=== PATIENT | female | born 1970 | race Caucasian/White ===

== ENCOUNTER → 2018-02-11 17:00 | Outpatient (CLI) | payer OTHER, SELFPAY ==
--- NOTE | 2018-02-11 17:00 | BI_ITS ---
MAMMOGRAPHY - BILATERAL SCREENING REASON FOR EXAM: Female, 47 years old. Routine annual screening examination. PERTINENT HISTORY: Non-contributory. TECHNIQUE: Digital bilateral breast blossom (3D mammographic acquisition) in the CC and MLO projections. 2-D mediolateral oblique (MLO) and craniocaudad (CC) views of both breasts were obtained. CAD: Full Field Digital Mammography with Computer Added Detection was performed. COMPARISON: Comparison is made with prior outside examination dated August 29, 2016. FINDINGS: Breast Composition: There are scattered areas of fibroglandular density. There are no dominant masses or suspicious calcifications. No other significant abnormalities are identified. There has been no significant change since the prior study. BI/SCREENING MAMM (CAD), BILAT IMPRESSION: Stable bilateral screening mammogram. Yearly follow-up mammogram recommended. (A) ASSESSMENT CATEGORY: BIRADS Category 1: Negative. A letter regarding these results will be sent to the patient by the facility within 30 days. Approximately 10% of breast cancers are not detected by mammography. A normal mammogram should not delay biopsy of a clinically suspicious abnormality. [id number] Electronically Signed: Warren Chaudhary MD at 8:47 EST Tel [phone], Service support ,
== END ==
PROVIDERS: Family Provider Internal Medicine; PCP Internal Medicine; Referring Provider Obstetrics & Gynecology; Visit Provider Obstetrics & Gynecology
DX: Z12.31 Encounter for screening mammogram for malignant neoplasm of breast (principal)
CPT/HCPCS: 77063; 77067

== ENCOUNTER → 2018-03-06 09:51 | Outpatient (CLI) | payer OTHER, SELFPAY ==
--- NOTE | 2018-03-06 09:57 | ECHOD_ITS ---
Reason For Study: splinter hemorrhage of fingernail. Procedure This was a 2D Doppler, Color Flow transthoracic echocardiogram. The exam was of adequate technical quality. Exam performed in department. Left Ventricle Normal LV size. Left ventricular systolic function is normal. The estimated ejection fraction is 55 %. Transmitral doppler flow suggestive of impaired relaxation of left ventricle. No regional wall motion abnormalities noted. Right Ventricle Normal RV size. Normal systolic function. Atria Normal left atrium. Normal right atrium. No doppler evidence for ASD. Bubble contrast study negative for right to left interatrial shunt. Mitral Valve There is no mitral annular calcification. Mild diffuse mitral valve thickening. Mild (1+) mitral valve insufficiency. Tricuspid Valve Normal tricuspid valve. Trivial tricuspid valve insufficiency. Right ventricular systolic pressure estimated to be 21 mmHg. Aortic Valve Trisinus/trileaflet aortic valve. Normal aortic valve. Pulmonic Valve The pulmonic valve is not well visualized. Great Vessels Normal sized aortic root. Pericardium/Pleural No pericardial effusion. Medication 22 gauge I.V. with prn adaptor inserted into right arm. Performed a rapid injection of agitated mix of 9 cc saline and 1cc air to assess for atrial septal defect. MMode/2D Measurements & Calculations LVIDd: 5.0 cm IVSd: 0.89 cm Ao root diam: 2.9 cm LVIDs: 3.6 cm LVPWd: 0.78 cm RVDd: 3.2 cm FS: 29.5 % LAV(MOD-bp): 53.0 ml LA A4 area: 17.9 cm2 LA dimension(2D): 3.7 cm LAV(MOD-bp) Indexed: 26.8 ml/m2 LAV(MOD-sp2): 56.8 ml LAV(MOD-sp4): 49.2 ml RA A4 area: 11.3 cm2 Time Measurements MV dec time: 0.17 sec Doppler Measurements & Calculations MV E max kevin: 72.8 cm/sec Lat Peak E' Kevin: 11.4 cm/sec Med Peak E' Kevin: 5.6 cm/sec MV A max kevin: 93.7 cm/sec E/E' lat: 6.4 E/E' med: 13.0 MV E/A: 0.78 Ao V2 max: 125.2 cm/sec LV V1 max: 89.4 cm/sec PA V2 max: 82.6 cm/sec Ao max P.3 mmHg LV V1 max P.2 mmHg TR max kevin: 210.7 cm/sec TR max P.8 mmHg Interpretation Summary Left ventricular systolic function is normal. The estimated ejection fraction is 55 %. Mild diffuse mitral valve thickening. Mild (1+) mitral valve insufficiency. Trivial tricuspid valve insufficiency. Right ventricular systolic pressure estimated to be 21 mmHg. Transmitral doppler flow suggestive of impaired relaxation of left ventricle Bubble contrast study negative for right to left interatrial shunt. Ordering Physician: Nadine Villa Referring Physician: Nadine Villa Performed By: Nicole Senior RDCS, RVT
== END ==
PROVIDERS: Family Provider Internal Medicine; PCP Internal Medicine; Referring Provider Internal Medicine; Visit Provider Internal Medicine
DX: L60.8 Other nail disorders (principal)
CPT/HCPCS: 93306; A4216

== ENCOUNTER → 2018-09-17 | Outpatient (CLI) | payer OTHER, SELFPAY ==
[2018-08-20 16:14] VITALS: BMI 34.4
--- NOTE | 2018-09-17 13:45 | US_ITS ---
STUDY: ULTRASOUND TRANSVAGINAL CLINICAL: Female, 48 years old. Post menopausal bleeding TECHNIQUE: Transabdominal and Transvaginal COMPARISON: None. FINDINGS: The uterus measures 7.4 x 5.7 x 4.5 cm. There are no focal uterine lesions. The endometrium measures 4 mm and is hyperechoic. The ovaries are not visualized. There is free fluid noted in the pelvis. US/Transvaginal Non- IMPRESSION: Normal uterus. Ovaries not visualized. Pelvic free fluid. Electronically Signed: Branden Sotomayor, at 20:13 EDT Tel , Service support ,
--- NOTE | 2018-09-17 13:45 | US_ITS ---
STUDY: ULTRASOUND TRANSVAGINAL CLINICAL: Female, 48 years old. Post menopausal bleeding TECHNIQUE: Transabdominal and Transvaginal COMPARISON: None. FINDINGS: The uterus measures 7.4 x 5.7 x 4.5 cm. There are no focal uterine lesions. The endometrium measures 4 mm and is hyperechoic. The ovaries are not visualized. There is free fluid noted in the pelvis. US/Pelvic (Non ) IMPRESSION: Normal uterus. Ovaries not visualized. Pelvic free fluid. Electronically Signed: Branden Sotomayor, at 20:13 EDT Tel , Service support ,
== END | disposition home or self-care (01) ==
LOC: US 13:44
PROVIDERS: Family Provider Internal Medicine; PCP Internal Medicine; Referring Provider Nurse Practitioner Women's Health; Visit Provider Nurse Practitioner Women's Health
DX: N95.0 Postmenopausal bleeding (principal)
CPT/HCPCS: 76830; 76856

== ENCOUNTER → 2020-09-22 08:42 | Outpatient (CLI) | payer OTHER, SELFPAY ==
--- NOTE | 2020-09-22 08:45 | BI_ITS ---
MAMMOGRAPHY - BILATERAL SCREENING REASON FOR EXAM: Female, 50 years old. Routine annual screening examination. PERTINENT HISTORY: Non-contributory. TECHNIQUE: Digital bilateral breast vickie (3D mammographic acquisition) in the CC and MLO projections. 2-D mediolateral oblique (MLO) and craniocaudad (CC) views of both breasts were obtained. CAD: Full Field Digital Mammography with Computer Added Detection was performed. COMPARISON: Comparison is made with prior examination dated 02/11/2018. FINDINGS: Breast Composition: There are scattered areas of fibroglandular density. There are no dominant masses or suspicious calcifications. Stable small benign-appearing bilateral axillary lymph nodes. No other significant abnormalities are identified. There has been no significant change since the prior study. BI/SCRN MAMM (CAD)W/VICKIE BILAT IMPRESSION: Stable bilateral screening mammogram. Yearly follow-up mammogram recommended. (A) ASSESSMENT CATEGORY: BIRADS Category 2: Benign. A letter regarding these results will be sent to the patient by the facility within 30 days. Approximately 10% of breast cancers are not detected by mammography. A normal mammogram should not delay biopsy of a clinically suspicious abnormality. [id number] Electronically Signed: Warren Chaudhary MD at 9:34 EDT , Service support ,
--- NOTE | 2020-09-22 09:16 | BD_ITS ---
STUDY: DUAL ENERGY X-RAY ABSORPTIOMETRY / DXA REASON FOR EXAM: Female, 50 years old. Postmenopausal female TECHNIQUE: Bone Mineral Density (BMD) measurements of lumbar spine and bilateral hips were obtained. COMPARISON: None. FINDINGS: Lumbar Spine (L1-L4): g/cm2 (0.868) / T-score (-1.6) / Z-score (-0.7) Findings are suggestive of osteopenia with a moderate fracture risk. Left Femur Total: g/cm2 (0.800) / T-score (minus 1.) / Z-score (-0.7) Left Femoral Neck: g/cm2 (0.689) / T-score (-1.4) / Z-score (-0.6) Right Femur Total: g/cm2 (0.802) / T-score (-1.1) / Z-score (-0.6) Right Femoral Neck: g/cm2 (0.623) / T-score (-2.0) / Z-score (-1.2) BD/Dexa Bone Density Study IMPRESSION: The patient is considered osteopenic as outlined below according to World Castro Organization (WHO) criteria with a moderate fracture risk. Reference Information: The T-score is the number of standard deviations above or below the standard which is normal for young adults at their peak bone mineral density. The World Health Organization (WHO) interprets the T-scores as follows: Above -1 Normal bone density Between -1 and -2.5 Osteopenia Equal to / or below -2.5 Osteoporosis As a practical clinical guideline, osteopenia may be graded as follows: Mild -1 through -1.5 Moderate -1.6 through -2.0 Severe -2.1 through -2.4 The Z-score is the number of standard deviations above or below age-matched controls. A Z-score of less than -1.5 would be considered abnormal. References: 1. NIH Osteoporosis and Related Bone Diseases www osteo.org 2. International Society for Clinical Densitometry www iscd.org 3. National Osteoporosis Foundation www nof.org Electronically Signed: Duncan Singh DO at 23:42 EDT Tel [phone], Service support ,
== END ==
PROVIDERS: PCP Internal Medicine; Referring Provider Internal Medicine; Visit Provider Internal Medicine
DX: Z78.0 Asymptomatic menopausal state (principal); Z12.31 Encounter for screening mammogram for malignant neoplasm of breast
CPT/HCPCS: 77063; 77067; 77080

== ENCOUNTER → 2020-12-20 16:50 | Outpatient (CLI) | payer OTHER, SELFPAY | PROVIDERS: PCP Internal Medicine; Referring Provider Nurse Practitioner Women's Health; Visit Provider Nurse Practitioner Women's Health | DX: R39.15 Urgency of urination (principal); R10.2 Pelvic and perineal pain | CPT/HCPCS: 87086; 87088 ==

== ENCOUNTER → 2020-12-26 08:52 | Outpatient (CLI) | payer OTHER, SELFPAY ==
--- NOTE | 2020-12-26 08:55 | US_ITS ---
EXAM: US PELVIS TRANSABDOMINAL AND TRANSVAGINAL, COMPLETE : 1970 CLINICAL INDICATION: pelvic pain TECHNIQUE: Transabdominal and transvaginal pelvic ultrasound was performed with grayscale and color Doppler imaging. Transvaginal imaging was used for better evaluation of the endometrium and adnexa. This report was created using [employer] report generation technology. COMPARISON: None. FINDINGS: UTERUS/CERVIX: The uterus measures 6.9 x 3.8 4.9 cm. The endometrium measures 2 mm. Anteverted. There is no uterine mass. RIGHT OVARY: The right ovary was not visualized. LEFT OVARY: The left ovary measures 2.4 x 1.2 x 1.7 cm. Blood flow is present in the left ovary. FREE FLUID: None. BLADDER: Unremarkable as visualized. Wall is normal thickness for degree of distention. US/Transvaginal Non- IMPRESSION: No acute abnormalities. The right ovary is not visualized. at 0256 Reported and signed by: Rob Ybarra MD Electronically Signed: Rob Ybarra MD at 2:55 EDT Tel , Service support ,
--- NOTE | 2020-12-26 08:55 | US_ITS ---
EXAM: US PELVIS TRANSABDOMINAL AND TRANSVAGINAL, COMPLETE : 1970 CLINICAL INDICATION: pelvic pain TECHNIQUE: Transabdominal and transvaginal pelvic ultrasound was performed with grayscale and color Doppler imaging. Transvaginal imaging was used for better evaluation of the endometrium and adnexa. This report was created using [employer] report generation technology. COMPARISON: None. FINDINGS: UTERUS/CERVIX: The uterus measures 6.9 x 3.8 4.9 cm. The endometrium measures 2 mm. Anteverted. There is no uterine mass. RIGHT OVARY: The right ovary was not visualized. LEFT OVARY: The left ovary measures 2.4 x 1.2 x 1.7 cm. Blood flow is present in the left ovary. FREE FLUID: None. BLADDER: Unremarkable as visualized. Wall is normal thickness for degree of distention. US/Pelvic (Non ) IMPRESSION: No acute abnormalities. The right ovary is not visualized. at 0256 Reported and signed by: Rob Ybarra MD Electronically Signed: Rob Ybarra MD at 2:55 EDT Tel , Service support ,
== END ==
PROVIDERS: PCP Internal Medicine; Referring Provider Nurse Practitioner Women's Health; Visit Provider Nurse Practitioner Women's Health
DX: R10.2 Pelvic and perineal pain (principal)
CPT/HCPCS: 76830; 76856

== ENCOUNTER 2021-03-10 14:24 | Outpatient (CLI) | payer OTHER, SELFPAY ==
[2021-03-10 14:27] VITALS: BP 131/85; PULSE 71; RESP 16; TEMP 36.8; O2SAT 99; BMI 29.1
[2021-03-10] MEDS: 0.9% Saline Lock 10 ML Syringe IV (14:34)
[2021-03-10 15:16] VITALS: BP 123/83; PULSE 69; RESP 16; TEMP 37; O2SAT 98
[2021-03-10 16:11] VITALS: BP 122/81; PULSE 73; RESP 16; TEMP 37.1; O2SAT 99
== END 2021-03-10 16:16 | disposition home or self-care (01) ==
LOC: MS3OUT 14:25 → MS3 14:25
PROVIDERS: PCP Internal Medicine; Referring Provider Nurse Practitioner Acute Care; Visit Provider Nurse Practitioner Acute Care
DX: Z23 Encounter for immunization (principal); U07.1 COVID-19
CPT/HCPCS: J7050; M0243; A4216; Q0244

== ENCOUNTER → 2021-09-26 | Outpatient (CLI) | payer OTHER, SELFPAY ==
--- NOTE | 2021-09-26 07:18 | BI_ITS ---
MAMMOGRAPHY - BILATERAL SCREENING REASON FOR EXAM: Female, 51 years old. Routine annual screening examination. PERTINENT HISTORY: Non-contributory. TECHNIQUE: Digital bilateral breast vickie (3D mammographic acquisition) in the CC and MLO projections. 2-D mediolateral oblique (MLO) and craniocaudad (CC) views of both breasts were obtained. CAD: Full Field Digital Mammography with Computer Added Detection was performed. COMPARISON: Comparison is made with prior study dated 09/22/2020 and 02/11/2018. FINDINGS: Breast Composition: There are scattered areas of fibroglandular density. There are no dominant masses or suspicious calcifications. Stable small benign-appearing bilateral axillary lymph nodes. No other significant abnormalities are identified. There has been no significant change since the prior study. BI/SCRN MAMM (CAD)W/VICKIE BILAT IMPRESSION: Stable bilateral screening mammogram. Yearly follow-up mammogram recommended. (A) ASSESSMENT CATEGORY: BIRADS Category 2: Benign. A letter regarding these results will be sent to the patient by the facility within 30 days. Approximately 10% of breast cancers are not detected by mammography. A normal mammogram should not delay biopsy of a clinically suspicious abnormality. [id number] Electronically Signed: Warren Chaudhary MD at 11:02 EDT ,
== END | disposition home or self-care (01) ==
LOC: OPBI 07:17
PROVIDERS: PCP Internal Medicine; Referring Provider Nurse Practitioner Women's Health; Visit Provider Nurse Practitioner Women's Health
DX: Z12.31 Encounter for screening mammogram for malignant neoplasm of breast (principal)
CPT/HCPCS: 77063; 77067

== ENCOUNTER → 2022-01-29 | Outpatient (CLI) | payer OTHER, SELFPAY ==
--- NOTE | 2022-01-29 17:06 | RAD_ITS ---
EXAM: XR BILATERAL HIPS WITH PELVIS WHEN PERFORMED, 2 VIEWS CLINICAL INDICATION: PAIN TECHNIQUE: Frontal view of the bilateral hips with pelvis when performed. This report was created using [employer] report generation technology. COMPARISON: None. FINDINGS: BONES/JOINTS: There are degenerative changes in the left hip with joint space narrowing. No displaced fracture. No destructive or sclerotic lesions. Note that overlapping bowel shadows may however obscure fine detail. Sacroiliac joint is unremarkable. No widening of the pubic symphysis. SOFT TISSUES: Unremarkable. No soft tissue swelling or gas. RAD/Hips B/L min 2 views w/ Pelvis IMPRESSION: Degenerative changes in the left hip with narrowing of the hip joint space. There are no acute osseous abnormalities. Electronically Signed: Rob Ybarra MD at 23:53 EST ,
--- NOTE | 2022-01-29 17:06 | RAD_ITS ---
EXAM: XR LUMBOSACRAL SPINE, 2 OR 3 VIEWS CLINICAL INDICATION: PAIN TECHNIQUE: Frontal and lateral views of the lumbar spine and sacrum. This report was created using [employer] report [employer] technology. COMPARISON: None. FINDINGS: VERTEBRAE: Unremarkable. Preserved vertebral body height. No fracture. No spondylolisthesis. Preservation of the normal lumbar lordosis. No significant facet arthropathy. DISC SPACES: No acute findings. Disc spaces are maintained. GASTROINTESTINAL TRACT: Unremarkable as visualized. Included bowel gas pattern is non-obstructive. RAD/Lumbar Spine 2 or 3 Views IMPRESSION: No evidence of lumbar spinal fracture or spondylolisthesis. Electronically Signed: Rob Ybarra MD at 23:52 EST ,
== END | disposition home or self-care (01) ==
PROVIDERS: PCP Internal Medicine; Referring Provider Internal Medicine; Visit Provider Internal Medicine
DX: M25.551 Pain in right hip (principal); M25.552 Pain in left hip
CPT/HCPCS: 72100; 73521

== ENCOUNTER → 2023-10-01 | Outpatient (CLI) | payer OTHER, SELFPAY ==
--- NOTE | 2023-10-01 07:40 | BI_ITS ---
MAMMOGRAPHY - BILATERAL SCREENING REASON FOR EXAM: Female, 53 years old. Routine annual screening examination. PERTINENT HISTORY: Non-contributory. TECHNIQUE: Digital bilateral breast vickie (3D mammographic acquisition) in the CC and MLO projections. 2-D mediolateral oblique (MLO) and craniocaudad (CC) views of both breasts were obtained. CAD: Full Field Digital Mammography with Computer Added Detection was performed. COMPARISON: Comparison is made with prior study dated September 26, 2021 and September 22, 2020. FINDINGS: Breast Composition: There are scattered areas of fibroglandular density. There are no dominant masses or suspicious calcifications. No other significant abnormalities are identified. There has been no significant change since the prior study. BI/SCRN MAMM (CAD)W/VICKIE BILAT IMPRESSION: Stable bilateral screening mammogram. Yearly follow-up mammogram recommended. (A) ASSESSMENT CATEGORY: BIRADS Category 1: Negative. A letter regarding these results will be sent to the patient by the facility within 30 days. Approximately 10% of breast cancers are not detected by mammography. A normal mammogram should not delay biopsy of a clinically suspicious abnormality. [id number] Electronically Signed: Warren Chaudhary MD at 8:22 EDT ,
== END | disposition home or self-care (01) ==
LOC: OPBI 07:40
PROVIDERS: PCP Internal Medicine; Referring Provider Nurse Practitioner Women's Health; Visit Provider Nurse Practitioner Women's Health
DX: Z12.31 Encounter for screening mammogram for malignant neoplasm of breast (principal)
CPT/HCPCS: 77063; 77067

== ENCOUNTER → 2023-10-16 | Outpatient (CLI) | payer OTHER, SELFPAY ==
[2023-10-22 14:10] LABS: HPV APTIMA, High Risk Negative (Negative)
== END | disposition home or self-care (01) ==
PROVIDERS: PCP Internal Medicine; Referring Provider Nurse Practitioner Women's Health; Visit Provider Nurse Practitioner Women's Health
DX: Z12.4 Encounter for screening for malignant neoplasm of cervix (principal)
CPT/HCPCS: 87624; 88175; G0145

== ENCOUNTER → 2023-10-22 | Outpatient (CLI) | payer OTHER, SELFPAY ==
--- NOTE | 2023-10-22 09:41 | NM_ITS ---
CLINICAL: 53-year-old female with history of elevation of the serum parathyroid hormone levels. 99m Tc SESTAMIBI DUAL PHASE PARATHYROID SCINTIGRAPHY COMPARISON: None available FINDINGS: Following the intravenous administration of 27.6 mCi of 99m Tc sestamibi, image acquisitions of the anterior neck at 15 minutes and 3.0 hours post radiopharmaceutical provision reveal: 1. Immediate static blood pool acquisitions demonstrate distribution of the radiopharmaceutical in the right-left thyroid colloid of a vaguely U-shaped thyroid gland. The left lobe is larger than right. 2. Delayed images depict incomplete washout of the radiopharmaceutical by the right-left thyroid colloid. No focal persistent increased uptake is noted. NM/Parathyroid Scan IMPRESSION: 1. NEGATIVE 99m Tc SESTAMIBI PARATHYROID IMAGING DUAL PHASE EXAMINATION. 2. Incomplete-delayed washout of the radiopharmaceutical from the entire functioning thyroid colloid may be secondary to multinodular goiter, chronic lymphocytic thyroiditis. (Pham, Radiographics 19: 601, 1999). Electronically Signed: Alexei Lee DO at 8:00 EDT ,
== END | disposition home or self-care (01) ==
LOC: NM 09:40
PROVIDERS: PCP Internal Medicine; Referring Provider Internal Medicine; Visit Provider Internal Medicine
DX: R79.89 Other specified abnormal findings of blood chemistry (principal)
CPT/HCPCS: 78070; A9500

== ENCOUNTER → 2023-10-29 | Outpatient (CLI) | payer OTHER, SELFPAY ==
--- NOTE | 2023-10-29 15:57 | US_ITS ---
STUDY: THYROID ULTRASOUND REASON FOR EXAM: Female, 53 years old. thyroid ultrasound - had abnormal parathyroid scan -- thyroid ultrasound - had abnormal parathyroid scan TECHNIQUE: Ultrasound evaluation of the thyroid was performed with real-time and static cabrera-scale imaging. COMPARISON: None. FINDINGS: RIGHT LOBE: The right lobe of the thyroid gland measures 4.1 x 1.7 x 1.7 cm. There is a homogeneous echotexture. Some tiny (less than 5 mm) colloid cysts. LEFT LOBE: The left lobe of the thyroid gland measures 4.3 x 1.2 x 1.1 cm. There is a homogeneous echotexture. A tiny (less than 5 mm) colloid cyst or adenoma. ISTHMUS: The isthmus measures 2 mm thick. . The regional lymph nodes are normal. US/Thyroid IMPRESSION: Multiple tiny adenomas or colloid cyst. Electronically Signed: Alexei Barth MD at 8:27 EDT ,
== END | disposition home or self-care (01) ==
LOC: US 15:56
PROVIDERS: PCP Internal Medicine; Referring Provider Internal Medicine; Visit Provider Internal Medicine
DX: R93.89 Abnormal findings on diagnostic imaging of other specified body structures (principal)
CPT/HCPCS: 76536

== ENCOUNTER → 2024-10-01 | Outpatient (CLI) | payer OTHER, SELFPAY ==
--- NOTE | 2024-10-01 12:15 | BI_ITS ---
EXAM: SCRN MAMM (CAD)W/VICKIE BILAT DATE: 10/01/2024 CLINICAL HISTORY: F, Age 54 y/o , SCRN MAMM (CAD)W/VICKIE BILAT ([id number]) : DUE AFTER 09/30/24 TECHNIQUE: SCRN MAMM (CAD)W/VICKIE BILAT COMPARISON: Prior exam(s) were compared FINDINGS: TISSUE DENSITY: The breasts are heterogeneously dense, which may obscure small masses. Bilateral Breast Mammographic Findings: No suspicious masses, calcifications or other abnormalities are identified. BI/SCRN MAMM (CAD)W/VICKIE BILAT IMPRESSION: No mammographic evidence of malignancy in either breast. OVERALL FINAL ASSESSMENT BI-RADS 1: NEGATIVE. RECOMMENDATION: Routine annual follow-up in 1 Year A letter with findings and recommendations will be mailed to the patient. Reading Location: [id number]
== END | disposition home or self-care (01) ==
PROVIDERS: PCP Internal Medicine; Referring Provider Internal Medicine; Visit Provider Internal Medicine
DX: Z12.31 Encounter for screening mammogram for malignant neoplasm of breast (principal)
CPT/HCPCS: 77063; 77067

== ENCOUNTER 2024-10-24 14:53 | Emergency (ER) | payer OTHER, SELFPAY ==
[2024-10-24 14:54] VITALS: BP 135/90; PULSE 77; RESP 18; TEMP 35.7; O2SAT 100
--- NOTE | 2024-10-24 15:12 | EDS_ITS ---
HPI History of Present Illness Chief Complaint: Back Informant: patient and spouse/S.O. Narrative Narrative: Patient is a 54-year-old female with history of cardiomyopathy presenting for evaluation of sudden onset of back pain. Patient was bending over and trying to move a radio when she suddenly felt and heard a snap in her back in the lower back midline and to the right. She had immediate pain. She states the pain was so bad that she dropped to her knees. This was approximately 45 minutes prior to arrival. She took 400 mg of ibuprofen before coming in with no relief. She states the pain is in her right lower back and radiates down to her right butt ocks and slightly to her proximal leg. It also radiates slightly on the left but is much more on the right. She denies any numbness or weakness. Has not had to urinate or have a bowel movement since. Symptoms are worse with movement and better when she sits entirely still. She denies any prior history of back issues. Is otherwise been in her normal state of health with no recent weight loss, night sweats or other symptoms. Did have an episode of nausea secondary to pain and feeling she was in a pass out because of the severity of pain. [facility] Medical History History of postmenopausal bleeding Pelvic pain diarrhea lasting more than a week delivery delivered Left hip pain Anemia Cardiomyopathy Home Medications ?Medication ?Instructions ?Recorded ?Last Taken ?Type metoprolol tartrate 50 mg tablet 50 mg PO BID 12/20/20 10/24/24 History hydrocodone-acetaminophen 5-325mg 1 tab PO Q6H PRN PRN Pain 3 days 10/24/24 Unknown Rx 5mg-325mg #12 TABLETS metformin 500 mg tablet,extended 500 mg PO DAILY 10/2410/24/24 History release 24 hr ondansetron 4 mg disintegrating 4 mg PO Q8H PRN PRN Na usea #10 tabs 10/24/24 Unknown Rx tablet prednisone 20 mg tablet 60 mg (3 x 20 mg) PO DAILY # 15 10/24/24 Unknown Rx TABLETS Allergy/AdvReac Type Severity Reaction Status Date / Time Penicillins Allergy Hives Verified 10/24/24 14:54 Family History Other Cancer Cardiomyopathy Diabetes Heart disease Surgical History History of tonsillectomy H/O right heart catheterization Social History Smoking Status: Never smoker alcohol intake: current alcohol intake frequency: holidays/special occasions only substance use type: does not use caffeine: Yes what type of physical activity do you participate in: bicycling frequency: 3-4 times per week seatbelt use: always do you feel safe at home: Yes additional social history: -Neptali ROS ROS ED Constitutional Constitutional ED: Denies chills or fever(s) Gastrointestinal Gastrointestinal: Reports nausea; Denies abdominal pain or vomiting Genitourinary Genitourinary ED: Denies dysuria or hematuria Musculoskeletal Musculoskeletal: Reports back pain; Denies arthralgias or myalgias Integumentary Denies rash Neurologic Neurologic: Denies paresthesias or weakness Psychiatric Psychiatric: Denies anxiety Hematologic/Lymphatic Hematologic/Lymphatic: Denies easy bleeding or easy bruising EXAM Physical Exam Const Vital Signs: 10/24/24 14:54 10/24/24 16:10 Temperature 96.2 F L 96.2 F L Temperature Source Temporal Pulse Rate 77 62 Respiratory Rate 18 16 Blood Pressure 135/90 H 136/79 H Blood Pressure Mean 105 98 Pulse Ox 100 100 Oxygen Delivery Method Room Air Positive well nourished and well developed General Appearance ED: well developed HEENT Reports moist mucous membranes Resp normal respiratory effort and clear to auscultation bilaterally Cardio regular rate and regular rhythm Cardio Narrative: 2+ radial and PT pulses GI normal to inspection, nondistended, normoactive bowel sounds, soft to palpation and no masses Back/Spine Back/Spine Narrative: No midline thoracic or lumbar tenderness. No reproduction of pain with palpation of the paralumbar area. On initial evaluation patient is too uncomfortable to lie flat in the bed and perform straight leg test. Thoracic Spine / Upper Back: Negative for paraspinal muscle tenderness Lumbar Spine / Lower Back: ROM limited Extremity normal to inspection General Extremety ED: Negative for edema or tenderness General Extremity: Negative for edema Neuro oriented x3 Neuro Narrative: Sensation intact in all dermatomes of the lower extremity and equal. 5/5 strength with plantarflexion, dorsiflexion, flexion and extension of the lower legs. It does increase her pain with movement of her legs. Sensorium / Orientation: alert Psych mental status grossly normal Skin no rashes or lesions noted and no wounds MDM MDM MDM Narrative Medical decision making narrative: Patient evaluate for acute onset of low back pain when she was bending down and had a twisting movement. Differential includes herniated disc, muscle spasm, sciatica. She has normal vital signs and a normal neurovascular exam and low suspicion for acute aortic dissection. She does not have midline spinal tenderness low suspicion for spontaneous/pathologic fracture. She does not have any risk factors for epidural abscess and is afebrile. I do not think she requires emergent imaging at this time. Patient is given IV morphine and Zofran. Will reevaluate after this. After receiving morphine patient reevaluated. She is now laying in the bed states she is much more comfortable. Does have pain when she tries to move still but it is manageable. On repeat evaluation she has pain with elevation of the bilateral legs at approximately 65 degrees. No shooting pain with this. Lower suspicion for sciatica. Attempted to ambulate patient. She is able to take a few steps but states she had to sit back down because of pain. Is offered further pain medication such as additional IV morphine or PO [place] but states she would really just like to go home at this point. Patient will be started on as needed [place], Zofran and a course of steroids. Courage follow-up with her primary care doctor this week especially her symptoms persist as she may require physical therapy or advanced imaging. Discussed other things she could use such as heating pad, gentle stretching, TENS units and alternate ibuprofen and Tylenol at home. Did caution that Nikki does have 325 mg of Tylenol in it. Encouraged return to the emergency room should you have progression or worsening of her symptoms. She verbalized agreement understand with this. Discharged home in stable and improved condition. Discharge Plan Triage Chief Complaint: Back ED Provider: Teresa Lopez Dx/Rx/DC Orders Clinical Impression: Acute lumbosacral myofascial strain Instructions: ED Back Pain (Acute or Chronic) Prescriptions: New hydrocodone-acetaminophen 5-325 mg tablet 1 tab PO Q6H PRN PRN (Reason: Pain) 3 Days Qty: 12 0RF ondansetron 4 mg tablet,disintegrating 4 mg PO Q8H PRN PRN (Reason: Nausea) Qty: 10 0RF prednisone 20 mg tablet 60 mg PO DAILY Qty: 15 0RF No Action metoprolol tartrate 50 mg tablet 50 mg PO BID metformin 500 mg tablet extended release 24 hr 500 mg PO DAILY Primary Care Provider: Nadine Villa Referrals: Nadine Villa DO [Primary Care Provider] - Activity Restrictions/Additional Instructions: You may also alternate ibuprofen and Tylenol for pain. He may take up to 600 mg of ibuprofen (3 [id number] tablets) every 6 hours. Do not take more than 1000 mg of Tylenol every 8 hours. Please remember that there is 325 mg of Tylenol and your prescribed pain medication ([place]). Follow-up with your family doctor next week especially if your symptoms persist as you might require further medications, imaging or physical therapy. I do recommend gentle stretching, continue to move around and heat to your back. If your pain becomes severe, you lose control of your bowels or bladder or have numbness/progressing symptoms please return to the emergency room Print Language: Portuguese Disposition Disposition: Home, Self Care
[2024-10-24 15:27] VITALS: BMI 32.3
--- NOTE | 2024-10-24 15:38 | CM.ED ---
Social Work Date of referral: 10/24/24 Reason for referral: Advanced Care Directives (ACD's) not on file. Referred by: Social Work Identification Patient provided consent to social work visit. C Architect requested a copy of ACD's which patient agreed to bring in. Rima Bonilla, PLAY BACK OPERATOR, [employer]
--- OUTSIDE RECORDS SUMMARY | 2024-10-24 15:59 | XMS RPT_ITS | CCD ---
Author Organization [facility] CliniSyct Care Team Providers Care Pipe Caulker Name Role Phone Lani JUNIOR, Katie Javed Unavailable Nadine Mcgraw Unavailable Toshia Pickering Unavailable Unavailable Unavailable Unavailable Selvin Kee Unavailable Unavailable Nadine Mcgraw Unavailable Lorie Ellis Unavailable Unavailable Toshia Rojo Unavailable Unavailable Unavailable Unavailable Sarahi Santoro Unavailable Unavailable Megan Stroud Unavailable Unavailable Lani JUNIOR, Katie Javed Unavailable Toshia Pickering Unavailable Unavailable Unavailable Unavailable Carlos Noguera Unavailable Marianna Ramos Unavailable Unavailable Edwardo Jimenez Unavailable Gravius, Lynda Unavailable Unavailable Scarlett, Karma Unavailable Unavailable Gravius, Lynda Unavailable Unavailable Neyda Laughlin E Unavailable Naomi Brandon Unavailable Unavailable LeopoldoJesus Wilder Unavailable Nahum Piedra Unavailable Selvin Farnsworth Unavailable Unavailable Nadine Mcgraw DO Unavailable Dr. Edwardo Jimenez Unavailable Naomi Brandon LPN Unavailable Unavailable Unavailable Unavailable Selvin Farnsworth LPN Unavailable Unavailable Karma Pantoja LPN Unavailable Unavailable Unavailable Unavailable Nadine Mcgraw DO Primary Care Provider Mitch BRADLEY, Richard Donis Unavailable Meredith Jaimes CMA Unavailable Unavailable Nadine Mcgraw DO Attending Unavailable Nadine Mcgraw DO Consulting Unavailable Lucien Nadine GOMEZ Primary Care Provider Mitch BRADLEY, Richard Donis Unavailable Elsa TRIMMER TAILER, Toy Unavailable Unavailable Slarb TRIMMER TAILER, Snow Unavailable Unavailable Sean ATOMIC FUEL ASSEMBLER, Caity Unavailable Nadine Mcgraw DO Primary Care Provider Richard Meyer MD Unavailable RICHARD MEYER Referring Unavailable RICHARD MEYER Attending Unavailable NADINE MCGRAW Primary Care Unavailab tomy STARRICHARD GALICIA Referring Unavailable LUCIENNADINE Primary Care Unavailab le Lucien , Nadine Pope Primary Care Provider Lucien GOMEZ, Dr. Mccoy Primary Care Provider Wm BRADLEY, Dr. Berry Attending Provider [phone] Lucien GOMEZ, Dr. Mccoy Attending Provider [phone] Lucien GOMEZ, Dr. Mccoy Referring Provider [phone] Lila Mcgrawhleen Primary Care Unavailable Otto LABOR ARBITRATOR HEARING OFFICE, Katie Attending Unavailable LucienNadine Referring Unavailable [facility] LABOR ARBITRATOR HEARING OFFICE, Rafy Watson Attending Unavailable LucienNadine Referring Unavailable Lucien, Nadine Primary Care Unavailable Lucien, Nadine Primary Care Unavailable Lani LABOR ARBITRATOR HEARING OFFICE, Katie Attending Unavailable Otto LABOR ARBITRATOR HEARING OFFICE, Katie Referring Unavailable Lucien, Nadine Primary Care Unavailable LucienNadine Attending Unavailable LucienNadine Referring Unavailable LucienNadine Attending Unavailable Lucien, Nadine Referring Unavailable Lucien, Nadine Primary Care Unavailable Lucien, Nadine Primary Care Unavailable Lucien Nadine Attending Unavailable LucienNadine Referring Unavailable Allergies Allergy Classification Reported Allergen(s) Allergy Type Date of Onset Reaction(s) Facility Penicillins (antibiotic) (9 sources) Penicillins; Translations: [Penicillins] Drug Allergy [facility]; [facility] Work Phone: Comment on above: edema (3 sources) penicillin drug allergy 08-25-19 14 [facility] (5 sources) penicillin v; Translations: [PENICILLIN V POTASSIUM] drug allergy 10-24-19 17 [facility] (20 sources) Penicillins; Translations: [Penicillins] allergy to substance 12-21-19 21 Hives [facility] Work Phone: Comment on above: edema (20 sources) Clarithromycin *CHEMICALS*; Translations: [Clarithromycin *CHEMICALS*] drug allergy Abdominal pain, Diarrhea [facility] Work Phone: (9 sources) Penicillin G; Translations: [PENICILLIN G] Drug Allergy 01-30-20 05 Swelling [facility] Work Phone: Medications Current Medications Medication Drug Class(es) Dates Sig (Normalized) Sig (Original) azithromycin 250 mg oral tablet (9 sources) Macrolide Antimicrobial Start: 04-26-2024 Azithromycin (Zithromax Z-Corey) 250 mg tablet Active 0 PO .COMPLEX 6 0 April 26, 2024 1:00am For 250 mg dose pack: take 500 mg today (day 1), then 250 mg for 4 days (days 2-5) PO Start: 03-09-2021 End: 03-14-2021 Zithromax Z-Corey 250 MG Oral Tablet 1 (one) Tablet as directed for 5 days Quantity: 1 {Packet} Refills: 0 Ordered: 09-Mar-2021 Karma Pantoja LPN Start : 09-Mar-2021 End : 14-Mar-2021 Inactive calcium ascorbate 500 mg oral tablet (2 sources) Start: 12-20-2020 take 1 tablet by mouth once daily Ascorbate Calcium (Vitamin C) 500 mg tablet Active 500 mg PO DAILY December 20, 2020 12:00am cholecalciferol 0.025 mg oral capsule (2 sources) Vitamin D Start: 04-15-2018 take 1 capsule by mouth once daily Cholecalciferol (Vitamin D3) 1,000 unit capsule Active 1000 U PO DAILY April 15, 2018 1:00am magnesium oxide 500 mg oral capsule (2 sources) Start: 08-20-2018 take 1 capsule by mouth once daily Magnesium Oxide 500 mg capsule Active 500 mg PO DAILY August 20, 2018 12:00am metoprolol tartrate 50 mg oral tablet (20 sources) beta-Adrenerg ic Vashti Start: 03-19-2023 End: 04-13-2024 take 1 tablet by mouth every twelve hours metoprolol tartrate, short acting, (LOPRESSOR) 50 mg tablet Indications: Peripartum cardiomyopathy Take 1 tablet by mouth every 12 hours. 180 tablet 3 03/19/2023 04/13/2024 Discontinued Start: 08-24-2013 End: 04-14-2025 take 1 tablet by mouth twice daily Metoprolol Tartrate 50 MG tablet Discontinued 50 mg PO TWICE A DAY March 27, 2015 1:00am August 20, 2018 4:01pm Comment on above: per cardio TAKE 1 TABLET TWICE A DAY Take 1 tablet by clement th twice daily. Take 1 tablet by clement th every 12 hours. perflutren lipid microspheres 1.3 mL in NaCl (PF) 0.9% 10 mL injection (DEFINITY) (5 sources) Start: 10-06-2021 End: 01-05-2023 perflutren lipid microspheres 1.3 mL in NaCl (PF) 0.9% 10 mL injection (DEFINITY) Start: 09-14-2021 End: 12-14-2022 perflutren lipid microsphere s 1.3 mL in NaCl (PF) 0.9% 10 mL injection (DEFINITY) 125 ml sodium chloride 9 mg/ml prefilled syringe (5 sources) Start: 09-14-2021 End: 01-05-2023 sodium chloride 0.9 % (flush) 10 mL (BD POSIFLUSH) vitamin b12 1 mg oral capsule (20 sources) Vitamin B12 Start: 04-15-2018 take 1 capsule by mouth once daily Cyanocobalamin (Vitamin B-12) 1,000 mcg capsule Active 1000 ug PO DAILY April 15, 2018 1:00am take 1 tablet by mouth once alba y Vitamin B12 100 MCG Oral Tablet 1 qd (100 MCG) Inactive Completed/Discontinued Medications Medication Drug Class(es) Dates Sig (Normalized) Sig (Original) acetaminophen 325 mg / HYDROcodone bitartrate 5 mg oral tablet (20 sources) Opioid Agonist Start: 03-10-2020 End: 10-06-2021 HYDROcodone-acetami nophen (NORCO) 5-325 mg per tablet Take 1 tablet by mouth once daily. Takes 1/2 tablet 0 03/10/2020 10/06/2021 Discontinued (Discontinued by Patient) Start: 02-17-2020 End: 02-24-2020 take 1 tablet by mouth every four hours as needed [place] 5-325 MG Oral Tablet 1 (one) Tablet 1 tab every 4 hours as needed for 7 days Quantity: 42 {Tablet} Refills: 0 Ordered: 24-Feb-2020 Lynda Foster CMA Start : 24-Feb-2020 End : 24-Feb-2020 Inactive Comments: Medication taken as needed. B02.9 R52 Comment on above: Medication taken as needed. B02.9 R52 Take 1 tablet by clement th once daily. Takes 1/2 tablet benzonatate 200 mg oral capsule (20 sources) Non-narcotic Antitussive Start: End: take 1 capsule by mouth three times daily as needed for cough Benzonatate 200 MG Oral Capsule 1 (one) Capsule PO TID PRN COUGH for 7 days Quantity: 21 {Capsule} Refills: 0 Ordered: 03-Apr-2018 Toshia Rojo Start : 03-Apr-2018 End : 10-Apr-2018 Inactive clarithromycin 250 mg oral tablet (20 sources) Macrolide Antimicrobial Start: End: take 1 tablet by mouth twice daily Clarithromycin 250 mg tablet Discontinued 250 mg PO TWICE A DAY April 15, 2018 1:00am August 20, 2018 4:02pm Start: 04-03-2018 End: 04-17-2018 take 1 tablet by mouth twice daily Clarithromycin 500 MG Oral Tablet 1 (one) Tablet PO BID for 14 days Quantity: 28 {Tablet} Refills: 0 Ordered: 03-Apr-2018 Toshia Rojo Start : 03-Apr-2018 End : 17-Apr-2018 Inactive clindamycin 150 mg oral capsule (2 sources) Lincosamide Antibacterial Start: 03-27-2015 End: 03-06-2018 take 2 capsules by mouth three times daily Clindamycin Hcl 150 MG capsule Discontinued 300 mg PO THREE TIMES A DAY 18 March 27, 2015 1:00am March 06, 2018 3:25pm Start: 03-27-2015 End: 03-06-2018 take 300 mg by mouth three times daily Clindamycin Hcl Discontinued 300 MG PO THREE TIMES A DAY March 27, 2015 12:00am March 06, 2018 2:25pm dexamethasone 6 mg oral tablet (8 sources) Corticosteroid Start: 03-09-2021 End: 03-16-2021 take 1 tablet by mouth once daily at mealtime Dexamethasone 6 MG Oral Tablet 1 (one) Tablet daily as directed for 7 days Quantity: 7 {Tablet} Refills: 0 Ordered: 09-Mar-2021 Neyda Laughlin Start : 09-Mar-2021 End : 16-Mar-2021 Inactive Comments: with food Comment on above: with food estradiol 0.1 mg/ml vaginal cream (2 sources) Estrogen Start: 03-06-2018 End: 08-20-2018 Estradiol (Estrace) 0.01 % (0.1 mg/gram) cream Discontinued 0 VAGINAL .COMPLEX 42.5 2 March 06, 2018 1:00am August 20, 2018 4:01pm pea sized amount VAGINAL every other day X 4 weeks then twice a week; Start: 03-06-2018 End: 08-20-2018 Estradiol (Estrace) 0.01 % ( 0.1 mg/gram) cream Discontinued 0 VAGINAL .COMPLEX 42.5 March 06, 2018 12:00am August 20, 2018 3:01pm pea sized amount VAGINAL every other day X 4 weeks then twice a week; gabapentin 300 mg oral capsule (20 sources) Anti-epileptic Agent Start: 12-20-2020 End: 10-16-2023 take 1 capsule by mouth twice daily Gabapentin 300 mg capsule Discontinued 300 mg PO TWICE A DAY December 20, 2020 12:00am October 16, 2023 2:53pm Start: 02-26-2020 End: 10-06-2021 gabapentin (NEURONTIN) 400 m g capsule Take 300 mg by mouth three times daily. 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 Magnesium (20 sources) Magnesium Inacti ve take 1 tablet by mouth once alba y Magnesium 200 MG Oral Tablet 1 daily (200 MG) Active Comments: pt unsure on dose Comment on above: pt unsure on dose meloxicam 15 mg oral tablet (6 sources) Nonsteroidal Anti-inflammatory Drug Start: 022 End: 023 take 1 tablet by mouth once daily meloxicam 15 mg oral tablet 1 (one) Tablet qd for 0 days Quantity: 30 {Tablet} Refills: 2 Ordered: 24-Aug-2022 Toy Hunter LPN Start : 29-Jan-2022 End : 24-Aug-2022 Inactive phentermine hydrochloride 37.5 mg oral tablet (20 sources) Sympathomimetic Amine Anorectic Start: 024 End: 025 take 1 tablet by mouth once daily 30 minutes after breakfast Phentermine (Adipex-P) 37.5 mg tablet Discontinued 37.5 mg PO DAILY October 16, 2023 12:00am April 26, 2024 1:30pm must administer 30 minutes before or 1-2 hours after breakfast Start: 03-06-2021 End: 01-29-2022 take 1 tablet by mouth once daily in the morning Phentermine HCl 37.5 MG Oral Tablet 1 (one) Tablet qam for 0 days Quantity: 30 {Tablet} Refills: 0 Ordered: 29-Jan-2022 Meredith Jaimes CMA Start : 06-Mar-2021 End : 29-Jan-2022 Inactive Comments: wt 189BP 128/72 Start: 05-11-2020 End: 07-27-2020 take 1 tablet by mouth once daily in the morning Phentermine HCl 37.5 MG Oral Tablet 1 (one) Tablet qam for 0 days Quantity: 30 {Tablet} Refills: 0 Ordered: 27-Jul-2020 Naomi Brandon LPN Start : 08-Jun-2020 End : 27-Jul-2020 Discontinued Comments: wt 197BP 124/76Called into [facility], ACLPN 06/08/20 Start: 05-09-2020 take 1 tablet by clement th once daily in the morning Phentermine HCl 37.5 MG Oral Tablet 1 (one) Tablet qam for 0 days Quantity: 30 {Tablet} Refills: 0 Ordered: 09-May-2020 Lucien GOMEZ Nadine Molina DO Start : 09-May-2020 Active Comments: wt 213 BMI 35wt 194BMI 32 05/09/20 Start: 04-07-2020 take 1 tablet by clement th once daily in the morning Phentermine HCl 37.5 MG Oral Tablet 1 (one) Tablet qam for 0 days Quantity: 30 {Tablet} Refills: 0 Ordered: 25-Apr-2020 Gravius Lynda SCHRADER Start : 07-Apr-2020 Active Comments: wt 213 BMI 35 Comment on above: wt 213 BMI 35 wt 213 BMI 35wt 194B TX 32 05/09/20 wt 213 BMI 35wt 194B TX 32 05/09/20 called to [facility]rew snowgrsaleemantique furniture restorer wt 197BP 124/76Calle [address] into [facility] renan ACLPN 06/08/20 wt 189BP 128/72 predniSONE 20 mg oral tablet (2 sources) Start: 10-03-2022 End: 10-16-2022 predniSONE 20 mg oral tablet 1 (one) tablet bid for 2days then one tabily for 3days for 0 days Quantity: 7 {Tablet} Refills: 0 Ordered: 16-Oct-2022 Snow Lira LPN Start : 03-Oct-2022 End : 16-Oct-2022 Inactive valACYclovir 1000 mg oral tablet (2 sources) Herpesvirus Nucleoside Analog DNA Polymerase Inhibitor, Herpes Simplex Virus Nucleoside Analog DNA Polymerase Inhibitor, Herpes Zoster Virus Nucleoside Analog DNA Polymerase Inhibitor Start: 01-31-2020 End: 12-20-2020 Valacyclovir 1 gram tablet Discontinued 1000 mg PO THREE TIMES A DAY January 31, 2020 1:00am December 20, 2020 2:10pm Zoster without complications zoster Start: 01-31-2020 End: 12-20-2020 take 1000 mg by mouth three times daily Valacyclovir Discontinued 1000 MG PO THREE TIMES A DAY January 31, 2020 12:00am December 20, 2020 1:10pm vitamin b, d , and C (2 sources) vitamin b, d , a nd C Active Vitamin D-Vitamin K Oral Tab let (20 sources) Vitamin D-Vitami n K Oral Tablet daily Inactive Vitamin D-Vitami n K Oral Tablet daily Active Problems Active Problems Problem Classification Problem Date Documented Date Episodic/Chronic Abdominal pain (2 sources) Pain in pelvis; Translations: [Pelvic and perineal pain] 10-16-2023 Episodic Administrative/socia l admission (20 sources) Counseling procedure with explicit context; Translations: [Patient encounter status] 02-21-2018 Episodic Cardiac dysrhythmias (20 sources) Ventricular premature beats; Translations: [Sinus tachycardia] Onset: 02-21-2018 Chronic Comment on above: saw cardio 2018 so n o ekg this yr Cardiac dysrhythmias (20 sources) Sinus tachycardia; Translations: [Sinus tachycardia] 06-08-2020 Episodic Comment on above: saw cardio 2018 so n o ekg this yr Complications of surgical procedures or medical care (20 sources) Drug therapy finding; Translations: [Medication side effect] 06-08-2020 Episodic Congestive heart failure; nonhypertensive (2 sources) Chronic systolic heart failure; Translations: [Chronic systolic (congestive) heart failure] Chronic Diabetes mellitus without complication (20 sources) Abnormal glucose tolerance test; Translations: [Abnormal glucose tolerance test (Renamed from Abnormal glucose tolerance test (GTT))] 02-21-2018 Episodic Comment on above: consider metformin consider metformin HAIC from cardio 5.8 Diseases of mouth; excluding dental (20 sources) Xerostomia; Translations: [Dry mouth] 04-25-2020 Episodic Disorders of lipid metabolism (20 sources) Pure hyperglyceridemia; Translations: [Hyperlipidemia] 02-21-2018 Chronic Comment on above: diet /exericise/ fis h oil working on diet and exercise Fever of unknown origin (16 sources) Fever; Translations: [Fever] Resolved: 2 03-09-2021 Episodic Genitourinary symptoms and ill-defined conditions (2 sources) Mixed urinary incontinence; Translations: [Mixed incontinence] 12-20-2020 Chronic Genitourinary symptoms and ill-defined conditions (2 sources) Blood in urine; Translations: [Hematuria, unspecified] 12-20-2020 Episodic Comment on above: trace amount. cultur e pending Immunizations and screening for infectious disease (20 sources) Contact with and (suspected) exposure to other viral communicable diseases; Translations: [Exposure to SARS virus] 02-10-2020 Episodic Comment on above: awaiting covid, pts sons were positive, she has cardiomyopathy Pulse ox 95% during day and 93% at hs. Day #4 of symptoms ( started MAR 05) exposed to son with covidComing in at 1pmNot vaccinated, whole family had covid 2020son- close contact Joint disorders and dislocations; trauma-related (3 sources) Derangement of knee; Translations: [Unspecified internal derangement of knee] Onset: 4 08-25-2013 Chronic Malaise and fatigue (20 sources) Fatigue; Translations: [Fatigue] 02-21-2018 Episodic Menopausal disorders (10 sources) Perimenopausal state; Translations: [Menopausal and female climacteric states] Onset: 5 09-23-2014 Chronic Comment on above: not problematic Nutritional deficiencies (20 sources) Vitamin D deficiency; Translations: [Vitamin D deficiency] Onset: 8 02-21-2018 Chronic Comment on above: was taking D3 5,000 daily-- nothing now--- resume increase lil Other bone disease and musculoskeletal deformities (16 sources) Osteopenia; Translations: [Osteopenia] 03-09-2021 Episodic Comment on above: cont wt bearing -min 30 day for 5-6 days a week Other complications of ; puerperium affecting management of mother (13 sources) Cardiomyopathy; Translations: [Peripartum cardiomyopathy] Episodic Other connective tissue disease (14 sources) Cramp in lower limb; Translations: [Leg cramps] 03-09-2021 Episodic Comment on above: stretching , pink sa lt , hydration , support stockings Other ear and sense organ disorders (20 sources) Ear pressure sensation; Translations: [Ear pressure, bilateral] Resolved: 1 04-03-2018 Episodic Other female genital disorders (2 sources) H/O: postmenopausal bleeding; Translations: [Personal history of other diseases of the female genital tract] 10-16-2023 Episodic Other infections; including parasitic (14 sources) Personal history of other infectious and parasitic diseases; Translations: [History of COVID-19] 03-09-2021 Episodic Other lower respiratory disease (20 sources) Cough; Translations: [Cough] Resolved: 1 04-03-2018 Episodic Other lower respiratory disease (20 sources) Shortness of breath; Translations: [Dyspnea] Resolved: 1 02-08-2020 Episodic Comment on above: to get pulse ox, Other nervous system disorders (14 sources) Bilateral carpal tunnel syndrome; Translations: [Bilateral carpal tunnel syndrome] 03-09-2021 Chronic Comment on above: wear cockup splint - nsaid , Other nervous system disorders (6 sources) Paresthesia; Translations: [Paresthesia] 08-24-2022 Episodic Other non-traumatic joint disorders (12 sources) Hip pain; Translations: [Hip pain, bilateral] 01-29-2022 Episodic Other non-traumatic joint disorders (4 sources) Pain in unspecified knee; Translations: [Acute knee pain, unspecified laterality] 10-16-2022 Episodic Comment on above: Right Other non-traumatic joint disorders (4 sources) Pain in left knee; Translations: [Left knee pain, unspecified chronicity] 10-16-2022 Episodic Comment on above: bakers cyst and h/o torn menisucs Other nutritional; endocrine; and metabolic disorders (20 sources) Body mass index 30+ - obesity; Translations: [BMI 31.0-31.9,adult] Resolved: 02-21-2018 Chronic Other nutritional; endocrine; and metabolic disorders (20 sources) Hypercalcemia; Translations: [Hypercalcemia] 02-21-2018 Chronic Comment on above: do in 1-4 weeks-afte r hydration repeat lab in cmp pt hydrated, stop vi t d and will mirza ca++ Other nutritional; endocrine; and metabolic disorders (20 sources) Obesity Chronic Other nutritional; endocrine; and metabolic disorders (20 sources) Weight gain; Translations: [Weight gain] 02-21-2018 Episodic Other nutritional; endocrine; and metabolic disorders (4 sources) Body mass index 25-29 - overweight; Translations: [BMI 29.0-29.9,adult] 03-09-2021 Episodic Other nutritional; endocrine; and metabolic disorders (20 sources) Overweight in adulthood with body mass index of 25 or more but less than 30; Translations: [BMI 29.0-29.9,adult] 03-08-2021 Episodic Other screening for suspected conditions (not mental disorders or infectious disease) (1 source) Abnormal findings on diagnostic imaging of other specified body structures; Translations: [Abnormal findings on diagnostic imaging of other specified body structures] Onset: 4 Chronic Other screening for suspected conditions (not mental disorders or infectious disease) (20 sources) Patient encounter status; Translations: [Colon cancer screening] Onset: 4 06-08-2020 Episodic Other skin disorders (20 sources) Splinter hemorrhages under nail; Translations: [Splinter hemorrhage of fingernail] 02-21-2018 Chronic Comment on above: echo and blood cx do ne with prev episode 2018 -- went away not returned -- trauma?? Other skin disorders (20 sources) Skin lesion; Translations: [Skin lesion] 07-30-2018 Episodic Other skin disorders (20 sources) Disorder of nail; Translations: [Nail lesion] 09-10-2018 Episodic Other skin disorders (20 sources) Eruption; Translations: [Rash] Resolved: 1 06-08-2020 Episodic Other skin disorders (20 sources) Splinter hemorrhages under nail; Translations: [Splinter hemorrhage of fingernail] 06-08-2020 Episodic Comment on above: echo and blood cx do ne with prev episode 2018 -- went away not returned -- trauma?? Other upper respiratory disease (20 sources) Nasal discharge; Translations: [Nasal drainage] Resolved: 9 04-03-2018 Episodic Other upper respiratory disease (2 sources) Pain in throat Episodic Other upper respiratory infections (20 sources) Sinusitis; Translations: [Sinusitis] 06-08-2020 Chronic Comment on above: pt going to do suppo rtive care and see if immune system can kick it Sherron-; endo-; and myocarditis; cardiomyopathy (except that caused by tuberculosis or sexually transmitted disease) (20 sources) Cardiomyopathy; Translations: [Cardiomyopathy] 02-21-2018 Chronic Comment on above: cardio -- Richard Coburn at [facility]- sees him qoyr on metoprolol for ca rdiomyopathycardio -- Richard Meyer at [facility]- sees him qoyr Pneumonia (except that caused by tuberculosis or sexually transmitted disease) (20 sources) Severe acute respiratory syndrome; Translations: [SARS (severe acute respiratory syndrome)] 02-10-2020 Episodic Comment on above: several months post Residual codes; unclassified (20 sources) Family history of neurological disorder; Translations: [Family history of diabetes insipidus] 02-21-2018 Episodic Residual codes; unclassified (20 sources) Intolerant of cold; Translations: [Cold intolerance] 02-21-2018 Episodic Residual codes; unclassified (20 sources) Influenza vaccination declined; Translations: [Influenza vaccination declined (Renamed from Refused influenza vaccine)] 06-08-2020 Episodic Residual codes; unclassified (20 sources) Non-smoker; Translations: [Non-smoker] 06-29-2020 Episodic Residual codes; unclassified (20 sources) Postmenopausal state; Translations: [Postmenopausal (Renamed from Postmenopausal status)] 07-27-2020 Episodic Unclassified (1 source) Gynecologic examination ; Translations: [Encounter for gynecological examination (general) (routine) without abnormal findings] Onset: 7 10-24-2016 Unclassified (20 sources) BMI 33.0-33.9,adult Unclassified (20 sources) Influenza vaccination declined (Renamed from Refused influenza vaccine); Translations: [Influenza vaccination declined] 02-21-2018 Unclassified (20 sources) Abnormal glucose tolerance test (Renamed from Abnormal glucose tolerance test (GTT)) Unclassified (20 sources) Weight gain Unclassified (20 sources) Unclassified (20 sources) Non-smoker; Translations: [Non-smoker] 02-21-2018 Unclassified (20 sources) Nutritional counseling; Translations: [Patient encounter status] 09-10-2018 Unclassified (20 sources) Patient encounter status; Translations: [Colon cancer screening] 08-29-2018 Unclassified (20 sources) Nail lesion Unclassified (20 sources) BMI 31.0-31.9,adult Unclassified (8 sources) Encounter for screening mammogram for breast cancer (Renamed from Encounter for screening mammogram for malignant neoplasm of breast) Unclassified (8 sources) Postmenopausal (Renamed from Postmenopausal status) Viral infection (20 sources) Herpes zoster; Translations: [Postherpetic neuralgia] 02-08-2020 Episodic Comment on above: diagnosed a week ago by now clinic going to try balbina 30 0mg tid now to see if relieves pain more -- she will let us know to chg rx if helps before next refill gabapentin at night, diagnosed a week ago by now clinic was given valtrex generic several months post supportive care Past or Other Problems Problem Classification Problem Date Documented Date Episodic/Chronic Acquired foot deformities (11 sources) Flat foot [pes planus] (acquired), unspecified foot; Translations: [Talipes planus] Onset: 4 08-25-2013 Episodic Diabetes mellitus without complication (20 sources) Diabetes mellitus without complication Nonmalignant breast conditions (16 sources) Lump in left breast; Translations: [Unspecified lump in the left breast, unspecified quadrant] Onset: 5 09-23-2014 Episodic Nutritional deficiencies (20 sources) Cobalamin deficiency; Translations: [Vitamin B12 deficiency (non anemic)] Onset: 8 02-21-2018 Episodic Comment on above: take qod Other complications of (8 sources) Multigravida of advanced maternal age; Translations: [Supervision of elderly multigravida, unspecified trimester] Onset: 5 02-26-2005 Episodic Other complications of (8 sources) Other specified diseases and conditions complicating , childbirth and the puerperium; Translations: [Other specified complications of , antepartum condition or complication] Onset: 5 02-26-2005 Episodic Other connective tissue disease (3 sources) Tibialis tendinitis; Translations: [Posterior tibial tendinitis, unspecified leg] Onset: 4 08-25-2013 Episodic Other connective tissue disease (8 sources) Disorder of posterior tibial muscle tendon; Translations: [Posterior tibial tendinitis, unspecified leg] Onset: 5 01-14-2015 Episodic Other lower respiratory disease (8 sources) Lung field abnormal; Translations: [Nonspecific abnormal findings on radiological and other examination of lung field] Onset: 6 02-06-2006 Episodic Other upper respiratory infections (20 sources) Sinusitis; Translations: [Sore throat symptom] Onset: 5 04-03-2018 Episodic Comment on above: pt going to do suppo rtive care and see if immune system can kick it home test covid nega tive - retest in few days if still sx Unclassified (2 sources) Asymptomatic menopausal state; Translations: [Asymptomatic menopausal state] Onset: 7 10-24-2016 Episodic Unclassified (20 sources) Cold intolerance Unclassified (20 sources) Deliveries (Parity); Translations: [Deliveries (Parity)] 02-21-2018 Comment on above: 3. Unclassified (20 sources) PVC (premature ventricular contraction) Unclassified (20 sources) Pregnancies (); Translations: [Pregnancies ()] 02-21-2018 Comment on above: 3. Unclassified (20 sources) Splinter hemorrhage of fingernail Unclassified (20 sources) Fatigue, unspecified type Unclassified (20 sources) Hypertriglycerides (272.1) Unclassified (20 sources) Ear pressure, bilateral Unclassified (20 sources) Nasal drainage Unclassified (20 sources) Shingles Unclassified (20 sources) Exposure to SARS virus Unclassified (20 sources) Drug therapy finding; Translations: [Medication side effect] 04-25-2020 Unclassified (20 sources) Dry mouth Unclassified (20 sources) BMI 32.0-32.9,adult Unclassified (14 sources) Rash Unclassified (6 sources) BMI 29.0-29.9,adult Unclassified (4 sources) Exposure to COVID-19 virus Unclassified (2 sources) History of COVID-19 Unclassified (4 sources) Immunity status testing Unclassified (2 sources) BMI 30.0-30.9,adult Unclassified (2 sources) Bilateral carpal tunnel syndrome Unclassified (2 sources) Leg cramps Unclassified (2 sources) diarrhea lasting more than a week 09-28-2021 Viral infection (20 sources) Disease caused by 2019-nCoV Results Test Name Value Interpretation Reference Range Facility Breast imaging reportOrdered By: Nora Holm on 10-01-2024 Study report [facility] Imaging Services [address], [place] [address] SCRN MAMM (CAD)W/VICKIE BILAT MR#: [id number] Acct: [id number] Name: NICOLE HOLBROOK Rep #: [id number] : 1970 F 54 From: William Garcia MD PCP: Dr. Nadine Mcgraw DO Status: RE G CLI Study:SCRN MAMM (CAD)W/VICKIE BILAT Date of Exa m: 10/01/24 Exam# [id number] Ordering Dr: Mannie Mcgraw DO EXAM: SCRN MAMM (CAD)W/VICKIE BILAT DATE: 10/01/2024 CLINICAL HISTORY: F, Age 54 y/o , SCRN MAMM (CAD)W/VICKIE BILAT ([id number]) : DUE AFTER 09/30/24 TECHNIQUE: SCRN MAMM (CAD)W/VICKIE BILAT COMPARISON: Prior exam(s) were compared FINDINGS: TISSUE DENSITY: The breasts are heterogeneously dense, which may obscure small masses. Bilateral Breast Mammographic Findings: No suspicious masses, calcifications or other abnormalities are identified. BI/SCRN MAMM (CAD)W/VICKIE BILAT IMPRESSION: No mammographic evidence of malignancy in either breast. OVERALL FINAL ASSESSMENT BI-RADS 1: NEGATIVE. RECOMMENDATION: Routine annual follow-up in 1 Year A letter with findings and recommendations will be mailed to the patient. Reading Location: [id number] CC: Dr. Nadine Mcgraw DO ~ Foreign Service Teacher: Signed [facility] SCRN MAMM (CAD)W/VICKIE BILATo n 10-01-2024 SCRN MAMM (CAD)W/VICKIE BILAT [facility] Imaging Services [address] [place] [address] SCRN MAMM (CAD)W/VICKIE BILAT MR#: [id number] Acct: [id number] Name: NICOLE HOLBROOK Rep #: [id number] : 1970 F 54 From: Nora Kiran i, MD PCP: Dr. Nadine Mcgraw DO Status: [facility] CLI Study: SCRN MAMM (CAD)W/VICKIE BILAT Date of Exam: 09/09 07/03 Exam# [id number] Ordering Dr: Nadine Mcgraw DO EXAM: SCRN MAMM (CAD)W/VICKIE BILAT DATE: 10/01/2024 CLINICAL HISTORY: F, Age 54 y/o , SCRN MAMM (CAD)W/VICKIE BILAT ([id number]) : DUE AFTER 09/30/24 TECHNIQUE: SCRN MAMM (CAD)W/VICKIE BILAT COMPARISON: Prior exam(s) were compared FINDINGS: TISSUE DENSITY: The breasts are heterogeneously dense, which may obscure small masses. Bilateral Breast Mammographic Findings: No suspicious masses, calcifications or other abnormalities are identified. BI/SCRN MAMM (CAD)W/VICKIE BILAT IMPRESSION: No mammographic evidence of malignancy in either breast. OVERALL FINAL ASSESSMENT BI-RADS 1: NEGATIVE. RECOMMENDATION: Routine annual follow-up in 1 Year A letter with findings and recommendations will be mailed to the patient. Reading Location: [id number] CC: Dr. Nadine Mcgraw, Foreign Service Teacher: Signed Normal [facility]gent [facility] Visit Reporton 0 04-26-2024 Urgent Care Visit Report [facility] [address], [address] [place] [id number] OFFICE VISIT Date of Service: 04/26/24 MR#: [id number] Acct: [id number] Name: NICOLE HOLBROOK Rep #: [id number] : 1970 Provider: KEESHA whiteside Age/Sex: 53/F Location: [facility] Status: Signed Intake Vital Signs 10/16/23 14:53 04/26/24 12:28 Height 5 ft 5 in BP 128/78 H Blood Pressure Location Lt brachial Position Sitting Respiration 12 Pulse 97 Pulse Source NIBP Temp 98.3 F Temp Source Oral Pulse Oximetry (%) 99 Oxygen Delivery Method room air Intake Visit Reasons: FEVER/SORE THROAT Chief Complaint: fever, sore throat, body aches Allergies Penicillins Allergy (Verified 04/26/24 12:28) Hives Medications ???Medication ???Instructions ???Recorded ???Confirmed ???Type cholecalciferol (vitamin D3) 25 1,000 unit PO DAILY 04/15/1804/26 History mcg (1,000 unit) capsule cyanocobalamin (vitamin B-12) 1,000 mcg PO DAILY 04/15/18 History 1,000 mcg capsule magnesium oxide 500 mg capsule 500 mg PO DAILY 08/20/18 04/26/24 History ascorbate calcium (vitamin C) 500 500 mg PO DAILY 12/20/20 04/26/24 History mg tablet metoprolol tartrate 50 mg tablet 50 mg PO BID 12/20/20 04/26/24 His tory azithromycin 250 mg tablet See Rx Instructions PO .COMPLEX #6 04/26/24 04/26/24 Rx (Zithromax Z-Corey) tabs PFSH Medical History (Updated 04/26/24 @ 13:07 by Rafy Alejandra LABOR ARBITRATOR HEARING OFFICE, LABOR ARBITRATOR HEARING OFFICE-C) History of postmenopausal bleeding Pelvic pain diarrhea lasting more than a week delivery delivered Left hip pain Anemia Cardiomyopathy Surgical History History of tonsillectomy H/O right heart catheterization Family History Other Cancer Cardiomyopathy Diabetes Heart disease Social History Smoking Status: Never smoker alcohol intake: current alcohol intake frequency: holidays/special occasions only substance use type: does not use caffeine: Yes what type of physical activity do you participate in: bicycling frequency: 3-4 times per week seatbelt use: always do you feel safe at home: Yes additional social history: -Neptali HPI HPI Chief Complaint: fever, sore throat, body aches Details: NICOLE HOLBROOK, is a 53 F who presents to the office today for sore throat, cough, BA, fever for two days. Viral testing was negative for flu and COVID. She has been taking Tylenol and Ibuprofen alternating every two hours. This is not helping. She has been taking Benadryl to help with sleep. She been using nasal. ROS Const Constitutional: Positive for body ache, fatigue, fever(s) and decreased energy; No chills, headache(s), snoring or change in appetite Eyes Eyes: No blurry vision, change in vision, double vision, irritation, discharge, vision loss, dry eyes, bulging eyes, floaters, visual disturbances, eye pain, Light sensitivity, spots in vision, tunnel vision or other ENT ENT: Positive for ear or mastoid pain (bilateral), nasal congestion, sinus pressure, sinus pain, nasal discharge (yellow), dental pain, neck pain and sore throat; No abnormal hearing, ear discharge, ear pressure, hearing loss, tinnitus, dizziness/vertigo, balance problems, nosebleed/epistaxis, nose pain, post nasal drip, headache(s), facial pain, difficulty swallowing, bad breath, hoarseness, lip swelling, mouth lesions, mouth pain, tongue swelling or throat swelling Resp Respiratory: Positive for cough Cough: Yes productive, change in phlegm color (unknown) and shortness of breath (after coughing) sob: SOB with activity and SOB at rest; No chest congestion, hemoptysis, pain on inspiration, pain with cough, snoring, stridor or wheezing Cardio Cardiology: No chest pain at rest, chest pain with exertion, shortness of breath, dyspnea on exertion or lightheadedness Gastro GI: No abdominal pain, change in bowel habits or difficulty swallowing Genitourinary-Female: No burning urination or urinary frequency Musc Musculoskeletal: Positive for neck pain; No joint pain Skin Skin: No rash Neuro Neurology: No abnormal hearing, headache(s) or visual disturbances Psych Psychiatric: No change in appetite Endo Endocrine: Positive for fatigue Aller/Imm Allergy/Immunologic: No lip swelling, throat swelling, tongue swelling or wheezing Exam Const General: cooperative, healthy appearing, comfortable and no acute distress Orientation: alert, awake and oriented x3 HENMT Head: normal to inspection and normocephalic Ears: hearing grossly normal bilaterally, external ears normal and TM's normal bilaterally Nose: external nose normal, nares normal and no nasal discharg (more content not included)... Normal [facility] Thyroidon 10-29-2023 Thyroid [facility] Imaging Services [address] [place] [address] Thyroid MR#: [id number] Acct: [id number] Name: HOLBROOKNICOLE Rep #: [id number] : 1970 F 53 From: Alexei Barth MD PCP: Dr. Nadine Mcgraw, DO Status: REG CLI Study: Thyroid Date of Exam: 10/29/23 Exam# [id number] Ordering Dr: Nadine Mcgraw DO [id number] STUDY: THYROID ULTRASOUND REASON FOR EXAM: Female, 53 years old. thyroid ultrasound - had abnormal parathyroid scan -- thyroid ultrasound - had abnormal parathyroid scan TECHNIQUE: Ultrasound evaluation of the thyroid was performed with real-time and static cabrera-scale imaging. COMPARISON: None. FINDINGS: RIGHT LOBE: The right lobe of the thyroid gland measures 4.1 x 1.7 x 1.7 cm. There is a homogeneous echotexture. Some tiny (less than 5 mm) colloid cysts. LEFT LOBE: The left lobe of the thyroid gland measures 4.3 x 1.2 x 1.1 cm. There is a homogeneous echotexture. A tiny (less than 5 mm) colloid cyst or adenoma. ISTHMUS: The isthmus measures 2 mm thick. . The regional lymph nodes are normal. US/Thyroid IMPRESSION: Multiple tiny adenomas or colloid cyst. Electronically Signed: Alexei Barth MD at 8:27 EDT , CC: Dr. Nadine Mcgraw, DO Foreign Service Teacher: Signed Normal [facility] PAP IG HPV APTIMA 16/18,45on 10-22-2023 ADEQ Comment Normal . [facility] Comment on above: Order Comment: Speci men Comment: [id number] Specimen Comment: Source.............Cervix Specimen Comment: Other..............Post Menopausal Specimen Comment: No. of containers..01 ThinPrep Vial Result Comment: Sati sfactory for evaluation. Endocervical and/or squamous metaplastic cells (endocervical component) are present. Performed By: #### L 7400.0280 #### [facility] [address] [place], [place], [id number] COMM . Normal . [facility] Comment on above: Order Comment: Speci men Comment: [id number] Specimen Comment: Source.............Cervix Specimen Comment: Other..............Post Menopausal Specimen Comment: No. of containers..01 ThinPrep Vial Performed By: #### L 7400.0280 #### [facility] [address] [place], [place], [id number] COMMENT Comment Normal . [facility] Comment on above: Order Comment: Speci men Comment: [id number] Specimen Comment: Source.............Cervix Specimen Comment: Other..............Post Menopausal Specimen Comment: No. of containers..01 ThinPrep Vial Result Comment: This liquid based ThinPrep(R) pap test was screened with the use of an image guided system. Performed By: #### L 7400.0280 #### [facility] [address] [place], [place], [id number] DIAG Comment Normal . [facility] Comment on above: Order Comment: Speci men Comment: [id number] Specimen Comment: Source.............Cervix Specimen Comment: Other..............Post Menopausal Specimen Comment: No. of containers..01 ThinPrep Vial Result Comment: NEGA TIVE FOR INTRAEPITHELIAL LESION OR MALIGNANCY. CELLULAR CHANGES ASSOCIATED WITH ATROPHY ARE PRESENT. Performed By: #### L 7400.0280 #### [facility] [address] [place], [place], [id number] HPV APTIMA, HR Negative Normal Negative [facility] Comment on above: Order Comment: Speci men Comment: [id number] Specimen Comment: Source.............Cervix Specimen Comment: Other..............Post Menopausal Specimen Comment: No. of containers..01 ThinPrep Vial Result Comment: This nucleic acid amplification test detects fourteen high- risk HPV types (16,18,31,33,35,39,45,51,52,56,58,59,66,68) without differentiation. Performed By: #### L 7400.0280 #### [facility] [address] [place], [address] HPV Shannan Rfx Comment Normal . [facility] Comment on above: Order Comment: Speci men Comment: [id number] Specimen Comment: Source.............Cervix Specimen Comment: Other..............Post Menopausal Specimen Comment: No. of containers..01 ThinPrep Vial Result Comment: Crit eria not met, HPV Genotype not performed. Performed at: - [address] [id number] Beater Machine Operator: Josephine Werner MD, Phone: [phone] Performed at: = - [address] [id number] Beater Machine Operator: Josephine Werner MD, Phone: [phone] Performed By: #### L 7400.0280 #### [facility] [address] [place], [address] PAPSMR Comment Normal . [facility] Comment on above: Order Comment: Speci men Comment: [id number] Specimen Comment: Source.............Cervix Specimen Comment: Other..............Post Menopausal Specimen Comment: No. of containers..01 ThinPrep Vial Result Comment: The Pap smear is a screening test designed to aid in the detection of premalignant and malignant conditions of the uterine cervix. It is not a diagnostic procedure and should not be used as the sole means of detecting cervical cancer. Both false-positive and false-negative reports do occur. Performed By: #### L 7400.0280 #### [facility] [address] [place], [place], [id number] PERFORM Comment Normal . [facility] Comment on above: Order Comment: Speci men Comment: [id number] Specimen Comment: Source.............Cervix Specimen Comment: Other..............Post Menopausal Specimen Comment: No. of containers..01 ThinPrep Vial Result Comment: Taylor Lynch, In Home Sales Representative (ASCP) Performed By: #### L 7400.0280 #### [facility] [address] [facility] [place], [address] Parathyroid Scanon 4 Parathyroid scan [facility] Imaging Services [address] [place], [place] [address] Parathyroid Scan MR#: [id number] Acct: [id number] Name: NICOLE HOLBROOK Constance Rep #: [id number] : 1970 F 53 From: Alexei Garber PCP: Dr. Nadine Mcgraw DO Status: REG CLI Study: Parathyroid Scan Date of Exam: 10/22/23 Exam# [id number] Ordering Dr: Nadine Mcgraw DO [id number] CLINICAL: 53-year-old female with history of elevation of the serum parathyroid hormone levels. 99m Tc SESTAMIBI DUAL PHASE PARATHYROID SCINTIGRAPHY COMPARISON: None available FINDINGS: Following the intravenous administration of 27.6 mCi of 99m Tc sestamibi, image acquisitions of the anterior neck at 15 minutes and 3.0 hours post radiopharmaceutical provision reveal: 1. Immediate static blood pool acquisitions demonstrate distribution of the radiopharmaceutical in the right-left thyroid colloid of a vaguely U-shaped thyroid gland. The left lobe is larger than right. 2. Delayed images depict incomplete washout of the radiopharmaceutical by the right-left thyroid colloid. No focal persistent increased uptake is noted. NM/Parathyroid Scan IMPRESSION: 1. NEGATIVE 99m Tc SESTAMIBI PARATHYROID IMAGING DUAL PHASE EXAMINATION. 2. Incomplete-delayed washout of the radiopharmaceutical from the entire functioning thyroid colloid may be secondary to multinodular goiter, chronic lymphocytic thyroiditis. (Pham, Radiographics 19: 601, 1999). Electronically Signed: Alexei Lee DO at 8:00 EDT , CC: Dr. Nadine Mcgraw DO Foreign Service Teacher: Signed Normal [facility] Android Framework Developer Office Visit Reporton 10-16-2023 Android Framework Developer Office Visit Report [facility] 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) Chief Complaint: Annual Ob Scrub Tech Required: No Is patient in pain?: No Allergies Penicillins Allergy (Verified 10/16/23 14:57) Hives Medications ???Medication ???Instructions ???Recorded ???Confirmed ???Type cholecalciferol (vitamin D3) 25 1,000 unit PO DAILY 04/15/18 10/16/23 History mcg (1,000 unit) capsule cyanocobalamin (vitamin B-12) 1,000 mcg PO DAILY 04/15/18 10/16/23 History 1,000 mcg capsule magnesium oxide 500 mg capsule 500 mg PO DAILY 08/20/18 10/16/23 History ascorbate calcium (vitamin C) 500 500 mg PO DAILY 12/20/20 10/16/23 History mg tablet metoprolol tartrate 50 mg tablet 50 mg PO BID 12/20/20 10/16/23 History phentermine 37.5 mg tablet 37.5 mg PO DAILY 10/16/23 10/16/23 History (Adipex-P) Is last menstrual period known: No Post menopausal: Yes Patient : No : No [facility] Medical History (Updated 10/16/23 @ 15:11 by Katie Garibay NP, LABOR ARBITRATOR HEARING OFFICE-C) History of postmenopausal bleeding Pelvic pain diarrhea lasting more than a week delivery delivered Left hip pain Anemia Cardiomyopathy Surgical History History of tonsillectomy H/O right heart catheterization Family History Other Cancer Cardiomyopathy Diabetes Heart disease Social History Smoking Status: Never smoker alcohol intake: current alcohol intake frequency: holidays/special occasions only substance use type: does not use caffeine: Yes what type of physical activity do you participate in: bicycling frequency: 3-4 times per week seatbelt use: always do you feel safe at home: Yes additional social history: -Neptali History 3 Elective abortions Hx Para 3 Spontaneous abortions Hx # Term Pregnancies Ectopic pregnancies Hx # Pregnancies Multiple births # of living children Past Pregnancies Del. Date Name GA/Weeks Outcome Route Bth Weight Infant Gen Labor Lgth Anesthesia Del Locatn Provider FOB Unknown Spencer 1996 Unknown Cristofer 2000 Unknown Benjamin 2006 HPI Encounter for routine gynecological examination Details: NICOLE HOLBROOK is a 53 year old who presents for annual exam. No Last PAP: >5yr History of abnormal PAP: no Last mammogram: 09/2023 History of abnormal mammogram: no Colon cancer screening: <10 yr Other preventative health care screenings: Lucien Female Reproductive History Questions: metorrhagia: No and sexually active: No Menopausal Treatment: No HRT, No Vaginal Estrogen, No Osphena, No OTC treatments and No prescription non-hormonal treatment ROS Const Constitutional: Denies fatigue, weight gain or weight loss Cardio Card: Denies chest pain Resp Resp: Denies cough or dyspnea on exertion GI GI: Denies abdominal pain, bloating, change in stool character, constipation or vomiting : Reports as per HPI; Denies difficulty voiding, pelvic pain, urinary frequency, urinary incontinence, urinary urgency, vaginal discharge or vaginal pruritus Exam Const General: cooperative, healthy appearing, no acute distress and well developed Orientation: alert, oriented to person and oriented to place HENTN Head: normal to inspection Neck Neck: normal visual inspection Thyroid: thyroid normal Lymphatic: no lymphadenopathy noted Chest Breast inspection: normal inspection of the breasts and normal inspection of the axillae Breast palpation: normal palpation of the breasts, normal palpation of the axillae and no axillary lymphadenopathy Resp Effort Inspection: normal respiratory effort GI Palpation: soft, no masses and nontender Rectal Exam: deferred External Female Exam: normal external appearance and normal appearance of the urethra Urethra: normal appearance of the urethra and normal palpation Speculum Exam - Vagina: normal vaginal discharge and vagina atrophic Speculum Exam - Cervix: normal appearance of the cervix Bimanual Exam- Vagina Uterus: normal bimanual exam, uterine size normal, uterine shape normal and non-tender Bimanual Exam- Adnexa, other: normal adnexae, no masses, normal and non-tender Pelvic Support: normal Neuro General: patient alejandro (more content not included)... [facility] (ENRIKE Don[facility] DORI) -- NICOLE HOLBROOK ([id number]) 1970 F Date Time Provider Department 05/02/23 11:15 AM [facility] D[facility] During your visit today, we recorded the following information about you: Pulse Blood pressure Weight Height 67/minute 125/83 88.3 kg 1.651 m Richard Meyer MD 05/02/2023 3:51 PM Signed [facility] SECTION OF HEART FAILURE and CARDIAC TRANSPLANT MEDICINE OUTPATIENT VISIT DATE May 02, 2023 OUTPATIENT VISIT TYPE Established Patient PRIMARY CARE PHYSICIAN: Nadine Mcgraw DO, DO CHIEF COMPLAINT: follow up NURSING INTAKE (Patient?s concerns and/or recent hospitalizations/ER visits): HF Nursing Assessment: Interim Hospitalizations and/or ER visits:no Chest Pain: no Skipping or irregular heartbeats: no Shortness of breath at rest: no Shortness of breath with activity: yes Cough: no Waking up in the middle of the night gasping for air: no Lightheadedness or dizziness: no Feeling like you are going to pass out: no Actually passing out: no Poor energy level: yes Unintentional weight gain: no Unintentional weight loss: no Swelling in your legs,feet, abdomen: no Filling up quickly when you eat: yes HISTORY OF PRESENT ILLNESS: 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 Excellent nutritional program and unable to lose weight PAST MEDICAL HISTORY Diagnosis Date Other primary cardiomyopathies Cardiomyopathy Vertigo PAST SURGICAL HISTORY Procedure Laterality Date DELIVERY ONLY , low cervical, X 3 ENDOMETRIAL BX W/WO ENDOCERVIX BX W/O DILAT SPX 08/24/2009 for Metromenorrhagia HEART CATHETERIZATION 2006 cardiomyopathy after TONSILLECTOMY PRIMARY/SECONDARY Tonsillectomy SOCIAL HISTORY Social History Tobacco Use Smoking status: Never Smokeless tobacco: Never Substance Use Topics Alcohol use: No Drug use: No FAMILY HISTORY Problem Relation Age of Onset Emphysema Mother Alive age 58, also history of basal cell ca Cancer Mother melanoma Heart Father Alive age 59 cardiomyopathy, (?) viral induced / DM Diabetes Father Cancer Maternal Grandmother mid 50's of Lung cancer Heart Paternal Grandfather mid 70's of TX Heart Paternal Uncle Alive history of TX and bypass late 50's Stroke Paternal Aunt Alive history of carotid stenosis and CVA's Heart Paternal Uncle Alive age 62, history of CAD / PTCA / AFib other (Other) Brother 46 yo with stress test last week with PVCs. ALLERGIES: ALLERGIES Allergen Reactions Penicillin G Swelling CURRENT MEDICATIONS: metoprolol tartrate, short acting, (LOPRESSOR) 50 mg tablet Take 1 tablet by mouth every 12 hours. REVIEW OF SYSTEMS: CONSTITUTION: HEENT: RESPIRATORY: GASTROINTESTINAL: MUSCULOSKELETAL: NEUROLOGICAL: SKIN: EYES: CARDIOVASCULAR: GENITOURINARY: all other systems reviewed and are negative PATIENT ENTERED DATA: KCCQ-12 Scores 03/21/2020 Physical Limitation Score 66.66 (Class II Heart Failure ) Symptom Frequency Score 52.08 (Class III Heart Failure ) Quality of Life Score 50 (Class III Heart Failure) Social Limitation Score 62.5 (Class II Heart Failure) Overall Summary Score 57.81 (Class III Heart Failure ) PHQ-9 10/17/2015 12/06/2016 03/21/2020 Score 4 3 7 PROMIS Global Health - (T-Scores - the mean of general population = 50. Five points is a clinically meaningful difference.) 10/17/2015 03/21/2020 Physical T-Score 47.7 37.4 Mental T-Score 50.8 45.8 PHYSICAL EXAMINATION: BP 125/83 (BP Site: Left Arm) Pulse 67 Ht 165.1 cm (5' 5) Wt 88.3 kg (194 lb 11.2 oz) LMP 03/28/2016 SpO2 98% BMI 32.40 kg/m? Last 2 Encounter Wt Readings: Date: Wt: 10/06/2021 86.2 kg (190 lb) 03/22/2020 93.7 kg (206 lb 8 oz) General: Well appearing, in no acute distress. Skin: No clubbing, no cyanosis. Eyes: Extra ocular movements intact Neck: No jugular venous distention, no carotid bruits, carotids have a normal upstroke, no palpable thyromegaly. Lungs: Clear to auscultation bilaterally, no wheezing or rhonchi. Heart: Regular rhythm, PMI not displaced, S1, S2 normal, no S3, no S4, no heaves, no rub and no murmur. Abdomen: Soft, nontender, bowel sounds normal, no palpable organomegaly, no bruits. Extremities: No peripheral edema . Grade 2/4 distal pulses bilaterally. CARDIOVASCULAR MEDICINE TESTING: I have personally reviewed the Echocardiogram. Last ECHO Result Conclusion ECHO Collected: 05/02/2023 9:09 AM (Final result) Impression: CONCLUSIONS: - Exam indication: Abnormal ECG - The left ventricle is normal in size. Left ventricular systolic function is normal. EF = 55 ? 5% (2D 4-ch.) - The right ventricle is normal in size. Right ventricular systolic function is normal. - The left atrial cavity is mildly dilated. - Mil (more content not included)... Normal [facility] ECHOon 05-02-2023 Echocardiography Echocardiography Rep ort: Transthoracic Echo Main [place] A17 Date of service: 05/02/2023 9:09:20 AM REPRESENTATIVE Ordering physician: RICHARD MEYER Indication: Abnormal ECG Technologist: Paula Pollock and Rima Loera Interpreting physician: Kvng Moulton MD PATIENT: Name: MRS. NICOLE HOLBROOK : 1970 Age: 52 years Gender: F History of cardiomyopathy. Primary rhythm: sinus. Height: 165.10 cm BSA: 1.99 m Weight: 86.18 kg BMI: 31.6 kg/m Heart rate 70 bpm Blood pressure 126/82 mmHg Color Doppler was utilized to interrogate the cardiac valves assessed and spectral Doppler was utilized to determine the flow velocities and pressure gradients reported in this exam. Myocardial strain analysis was performed in this exam to aid in the assessment of cardiac function. MEASUREMENTS: Value Indexed Normal Max aortic dimension 3.2 cm Ao < 3.8 Left atrial volume 68 ml (biplane A-L) 34 ml/m Monie <= 34 LV ID (diastole) 4.6 cm (2D) 2.31 cm/m LV ID (systole) 2.5 cm (2D) 1.26 cm/m IVS, leaflet tips 0.6 cm (2D) Posterior wall thickness 0.8 cm (2D) Left ventricular mass 99 g (2D) 50 g/m Global peak long strain -18.5 % LV stroke volume 51 ml (2D 4-ch.) LV end diastolic volume 94 ml (2D 4-ch.) 47.3 ml/m 29<=EDVi<62 LV end systolic volume 43 ml (2D 4-ch.) 21.4 ml/m Ejection Fraction 55 % (2D 4-ch.) EF > 54 FINDINGS: LEFT VENTRICLE The left ventricle is normal in size. Left ventricular systolic function is normal. Global LV myocardial strain is normal. Normal left ventricular diastolic function. Mitral annular lateral E/e': 9.6. Mitral annular septal E/e': 17.0. Wall Motion: All scored segments are normal. RIGHT VENTRICLE The right ventricle is normal in size. Right ventricular systolic function is normal. RV systolic tissue Doppler velocity is 8.8 cm/s. Tricuspid annular displacement is 1.9 cm. Estimated right ventricular systolic pressure is likely underestimated due to a weak or incomplete tricuspid regurgitation signal and is, at least, 17 mmHg consistent with normal pulmonary artery pressures. Estimated right atrial pressure is 3 mmHg based on IVC assessment. LEFT ATRIUM The left atrial cavity is mildly dilated. Pulmonary Veins: The pulmonary venous pattern showed normal systolic flow. RIGHT ATRIUM The right atrial cavity is normal in size. Inferior Vena Cava: The inferior vena cava appears normal measuring 1.4 cm. The vessel decreases greater than 50 percent with inspiration. MITRAL VALVE There is mild (1+ - 2+) early systolic mitral valve regurgitation. There is mild thickening. Regurgitant orifice area (PISA) is 0.18 cm . The pressure half time is 54 msec. The peak mitral E/A ratio is 0.84. The average mitral E/e' ratio is 13.3. The mitral flow deceleration time is 186 msec. TRICUSPID VALVE There is trace tricuspid valve regurgitation. There is no thickening. The hepatic venous pattern showed normal systolic flow. AORTIC VALVE There is trace aortic valve regurgitation. Tricuspid aortic valve. There is mild thickening. The peak gradient is 7 mmHg (peak velocity = 134.0 cm/s). PULMONIC VALVE There is trace pulmonic valve regurgitation. There is no thickening. AORTA The visualized aorta is normal in size. Measurements - Sinus: 3.2 cm. Mid ascending aorta 2.8 cm. PULMONARY ARTERIES The pulmonary arteries are normal. INTERATRIAL SEPTUM There is no evidence of intracardiac shunting as detected by Doppler. INTERVENTRICULAR SEPTUM There is no flow through the interventricular septum as detected by Doppler. PERICARDIUM There is no pericardial effusion. CONCLUSIONS: - Exam indication: Abnormal ECG - The left ventricle is normal in size. Left ventricular systolic function is normal. EF = 55 5% (2D 4-ch.) - The right ventricle is normal in size. Right ventricular systolic function is normal. - The left atrial cavity is mildly dilated. - Dnvs-nk-zfpmjwwu, early systolic mitral regurgitation. CESAR 0.18 but regurgitant volume 16 mL suggesting milder mitral regurgitation. - Exam was compared with the prior echocardiographic exam performed on 11/27/2021. Similar findings. * * * Final * * * [employer] Medical Image : [id number] Normal [facility] COVID 19 (ONLY) RAPID ([id number] )Ordered By: Snow Lira on 10-16-2022 SARS-CoV-2 (COVID-19) RNA THAIS+probe Ql (Unsp spec) Positive Normal [facility]; [facility] Work Phone: Inhouse FLU A+B DIRECT AG, ( RAPID) ([id number])Ordered By: Snow Lira on 10-16-2022 FLUAV+FLUBV Ag Ql (Unsp spec) Negative Normal [facility]; [facility] Work Phone: MATT (ANTINUCLEAR ANTIBODY) ( [id number])Ordered By: Certified Medical Technician on 08-24-2022 Nuclear Ab Ql (S) Negative Normal Compreh ensive [facility]; [facility] Work Phone: Comment on above: Test(s) 717233-Joya, Blood; 422820-Rqlhbxp, Blood; 025172-Ezowxuj, Blood; 443494-Kdfpeln, Bloodwas developed and its performance characteristics determinedby [employer]. It has not been cleared or approved by the Foodand Drug Administration.PATIENT WAS FASTINGPERFORMED BY: Live Shuttle[address] [id number] BY: Mozaico70 [facility]hatNovant Health [facility] [id number] CBC & PLATELETS (AUTO) ([id number])Ordered By: Certified Medical Technician on 08-24-2022 Erythrocyte distribution width (RBC) [Ratio] 12.3 % Normal 11.7-15.4 [facility]; [facility] Work Phone: Comment on above: Test(s) 868440-Ivyd, Blood; 575364-Pekpxpf, Blood; 579011-Cofxalo, Blood; 969934-Zfyzhms, Bloodwas developed and its performance characteristics determinedby [employer]. It has not been cleared or approved by the Foodand Drug Administration.PATIENT WAS FASTINGPERFORMED BY: [facility] [address] [id number] BY: Mozaico70 [facility]hatNov[facility] [id number] Hematocrit (Bld) [Volume fraction] 42.7 % Normal 34.0-46.6 [facility]; [facility] Work Phone: Comment on above: Test(s) 803375-Yvsz, Blood; 803754-Azyrulq, Blood; 673886-Mexjarx, Blood; 521010-Rpennbo, Bloodwas developed and its performance characteristics determinedby [employer]. It has not been cleared or approved by the Foodand Drug Administration.PATIENT WAS FASTINGPERFORMED BY: [employer] [id number] BY: [place] [id number] [facility] [id number] Hemoglobin (Bld) [Mass/Vol] 14.6 g/dL Normal 11.1-15.9 [facility]; [facility] Work Phone: Comment on above: Test(s) 856461-Mzht, Blood; 159965-Lfskvwg, Blood; 470814-Fjcubnb, Blood; 216156-Fheewml, Bloodwas developed and its performance characteristics determinedby [employer]. It has not been cleared or approved by the Foodand Drug Administration.PATIENT WAS FASTINGPERFORMED BY: [employer] [id number] BY: [facility] Memorial HospitalThe Motley FoolNicole Ville 8956770 [facility] [id number] MCH (RBC) [Entitic mass] 31.3 pg Normal 26.6-33.0 [facility]; [facility] Work Phone: Comment on above: Test(s) 454743-Zuqs, Blood; 372497-Ewgzbvf, Blood; 097044-Zocjvnv, Blood; 444082-Pezhbhx, Bloodwas developed and its performance characteristics determinedby [employer]. It has not been cleared or approved by the Foodand Drug Administration.PATIENT WAS FASTINGPERFORMED BY: [employer] [id number] BY: [facility]6370 [facility] [id number] MCHC (RBC) [Mass/Vol] 34.2 g/dL Normal 31.5-35.7 [facility]; [facility] Work Phone: Comment on above: Test(s) 171077-Sfcv, Blood; 547277-Kzbzwbd, Blood; 792128-Cjwbgyn, Blood; 808141-Dlasysu, Bloodwas developed and its performance characteristics determinedby [employer]. It has not been cleared or approved by the Foodand Drug Administration.PATIENT WAS FASTINGPERFORMED BY: [employer] [id number] BY: Qu[facility]ulusOcean Medical CenterNkflrz9561 [facility] [id number] MCV (RBC) [Entitic vol] 91 fL Normal 79-97 [facility]; [facility] Work Phone: Comment on above: Test(s) 089018-Oyhy, Blood; 764996-Cbjjggj, Blood; 754345-Imwgbor, Blood; 831069-Ixqoiek, Bloodwas developed and its performance characteristics determinedby [employer]. It has not been cleared or approved by the Foodand Drug Administration.PATIENT WAS FASTINGPERFORMED BY: [employer] [id number] BY: Qu[facility]ulusOcean Medical CenterNbnxfd5637 [facility] [id number] Platelets (Bld) [#/Vol] 283 10*3/uL Normal 150-450 [facility]; [facility] Work Phone: Comment on above: Test(s) 795167-Lfde, Blood; 077066-Jrrrcga, Blood; 587476-Qzuarti, Blood; 837533-Awxsydr, Bloodwas developed and its performance characteristics determinedby [employer]. It has not been cleared or approved by the Foodand Drug Administration.PATIENT WAS FASTINGPERFORMED BY: [employer] [id number] BY: Qu[facility]ulusOcean Medical CenterCxmgyz4201 [facility] [id number] RBC (Bld) [#/Vol] 4.67 10*6/uL Normal 3.77-5.28 [facility]; [facility] Work Phone: Comment on above: Test(s) 967663-Tkho, Blood; 300875-Jxbkrax, Blood; 533573-Xmhgesr, Blood; 379782-Ydxrvig, Bloodwas developed and its performance characteristics determinedby [employer]. It has not been cleared or approved by the Foodand Drug Administration.PATIENT WAS FASTINGPERFORMED BY: [employer] [id number] BY: Qu[facility]ulusOcean Medical CenterJzmnql1155 [facility] [id number] WBC (Bld) [#/Vol] 7.5 10*3/uL Normal 3.4-10.8 [facility]; [facility] Work Phone: Comment on above: Test(s) 752368-Veed, Blood; 771251-Aklicpc, Blood; 804219-Taimdzy, Blood; 935052-Ohhvsop, Bloodwas developed and its performance characteristics determinedby [employer]. It has not been cleared or approved by the Foodand Drug Administration.PATIENT WAS FASTINGPERFORMED BY: [facility] [address] [id number] BY: Qu[facility]ulusOcean Medical CenterZkysrp1470 [facility] [id number] HEAVY METAL SCREEN (14009)Or dered By: Certified Medical Technician on 08-24-2022 Arsenic (Bld) [Mass/Vol] 3 ug/L Normal 0-9 [facility]; [facility] Work Phone: Comment on above: Detection Limit = 1 Test(s) 326402-Gcvy, Blood; 654923-Lwlfyvk, Blood; 209136-Qiokzjb, Blood; 206147-Hjsazzp, Bloodwas developed and its performance characteristics determinedby [employer]. It has not been cleared or approved by the Foodand Drug Administration.PATIENT WAS FASTINGPERFORMED BY: [employer] [id number] BY: Qu[facility]ulusOcean Medical CenterPsxkcu7102 [facility] [id number] Cadmium (Bld) [Mass/Vol] <0.5 Normal 0.0-1.2 [facility]; [facility] Work Phone: Comment on above: Environmental Exposu re: Nonsmokers 0.3 - 1.2 Smokers 0.6 - 3.9 Occupational Exposure: OSHA Cadmium Std 5.0 FRANCOISE 5.0 . Detection Limit = 0.5 Test(s) 587096-Blyn, Blood; 877297-Bvtdbju, Blood; 173963-Qoxzyvj, Blood; 594677-Gqlvsfz, Bloodwas developed and its performance characteristics determinedby [employer]. It has not been cleared or approved by the Foodand Drug Administration.PATIENT WAS FASTINGPERFORMED BY: [employer] [id number] BY: Qu[facility]ulusOcean Medical CenterAaqfsc5950 [facility] [id number] Lead (Bld) [Mass/Vol] ug/dL Normal 0.0-3.4 [facility]; [facility] Work Phone: Comment on above: Testing performed by Inductively coupled plasma/Mass Spectrometry. Environmental Exposure: WHO Recommendation <5.0 Occupational Exposure: OSHA Lead Std 40.0 FRANCOISE 30.0 . Detection Limit = 1.0 Test(s) 189551-Muai, Blood; 479734-Hvttsqy, Blood; 142997-Oededna, Blood; 466103-Uwrpbtw, Bloodwas developed and its performance characteristics determinedby [employer]. It has not been cleared or approved by the Foodand Drug Administration.PATIENT WAS FASTINGPERFORMED BY: [facility] [address] [id number] BY: [employer] Yvstri4440 [facility] [id number] Mercury (Bld) [Mass/Vol] 1.1 ug/L Normal 0.0-14.9 [facility]; [facility] Work Phone: Comment on above: Environmental Exposu re: <15.0 Occupational Exposure: FRANCOISE - Inorganic Mercury: 15.0 . Detection Limit = 1.0 Test(s) 238192-Giqm, Blood; 090043-Qwzmvlp, Blood; 184744-Nebrilu, Blood; 527629-Rrulncy, Bloodwas developed and its performance characteristics determinedby [employer]. It has not been cleared or approved by the Foodand Drug Administration.PATIENT WAS FASTINGPERFORMED BY: [employer] [id number] BY: QuemulusOcean Medical CenterTtjzfn8330 [facility] [id number] HEPATITIS C ANTIBODY (29594) Ordered By: Certified Medical Technician on 08-24-2022 HCV Ab Signal/Cutoff IA [Rel units/Vol] Non-Reactive Normal [facility]; [facility] Work Phone: Comment on above: HCV antibody alone d oes not differentiate between previouslyresolved infection and active infection. Equivocal and ReactiveHCV antibody results should be followed up with an HCV RNA testto support the diagnosis of active HCV infection. Test(s) 063061-Mxsw, Blood; 426153-Hfwjhsj, Blood; 652998-Jxceihc, Blood; 968321-Fswkyks, Bloodwas developed and its performance characteristics determinedby [employer]. It has not been cleared or approved by the Foodand Drug Administration.PATIENT WAS FASTINGPERFORMED BY: Live Shuttle[address] [id number] BY: Pegg'dNovant Health New Han[facility] Center [id number] METABOLIC PANEL, COMPREHENSI VE (97434)Ordered By: Certified Medical Technician on 08-24-2022 Albumin [Mass/Vol] 4.8 g/dL Normal 3.8-4.9 [facility]; [facility] Work Phone: Comment on above: Test(s) 363071-Azfs, Blood; 919914-Fnwprll, Blood; 593024-Hslgbde, Blood; 567561-Sfcmomm, Bloodwas developed and its performance characteristics determinedby [employer]. It has not been cleared or approved by the Foodand Drug Administration.PATIENT WAS FASTINGPERFORMED BY: [facility] [address] [id number] BY: [employer]Sync6370 YhatNovant Health [facility] [id number] Albumin/Globulin [Mass ratio] 2.7 {ratio} Abnormal 1.2-2.2 [facility]; [facility] Work Phone: Comment on above: Test(s) 196351-Hwbo, Blood; 970980-Dckbwun, Blood; 120542-Cuzcoiu, Blood; 972424-Xiwuefv, Bloodwas developed and its performance characteristics determinedby [employer]. It has not been cleared or approved by the Foodand Drug Administration.PATIENT WAS FASTINGPERFORMED BY: BN [employer] [id number] BY: [facility] HospitalThe Motley FoolNicole V[place] 8956770 [facility] [id number] ALP [Catalytic activity/Vol] 124 U/L Abnormal 44-121 [facility]; [facility] Work Phone: Comment on above: Test(s) 686992-Hhma, Blood; 092621-Ksnqmby, Blood; 906588-Aimxfgk, Blood; 789865-Tgpxevb, Bloodwas developed and its performance characteristics determinedby [employer]. It has not been cleared or approved by the Foodand Drug Administration.PATIENT WAS FASTINGPERFORMED BY: [employer] [id number] BY: QuemulusNicole [place] 8956770 [facility] [id number] ALT [Catalytic activity/Vol] 18 U/L Normal 0-32 [facility]; [facility] Work Phone: Comment on above: Test(s) 839996-Rjrb, Blood; 691212-Hsyamtm, Blood; 178555-Cckgyis, Blood; 816523-Eqmtrds, Bloodwas developed and its performance characteristics determinedby [employer]. It has not been cleared or approved by the Foodand Drug Administration.PATIENT WAS FASTINGPERFORMED BY: [employer] [id number] BY: QuemulusOcean Medical CenterYbzodb5833 [facility] [id number] AST [Catalytic activity/Vol] 16 U/L Normal 0-40 [facility]; [facility] Work Phone: Comment on above: Test(s) 820553-Ecjl, Blood; 963791-Xhsfkps, Blood; 156568-Qascwpm, Blood; 720572-Edemhop, Bloodwas developed and its performance characteristics determinedby [employer]. It has not been cleared or approved by the Foodand Drug Administration.PATIENT WAS FASTINGPERFORMED BY: [employer] [id number] BY: [employer]06 Brown Streetin [place] [id number] Bilirubin [Mass/Vol] 0.5 mg/dL Normal 0.0-1.2 [facility]; [facility] Work Phone: Comment on above: Test(s) 684724-Ddli, Blood; 454085-Qdmufkh, Blood; 085841-Beloarb, Blood; 399408-Vwtengw, Bloodwas developed and its performance characteristics determinedby [employer]. It has not been cleared or approved by the Foodand Drug Administration.PATIENT WAS FASTINGPERFORMED BY: [employer] [id number] BY: QuemulusOcean Medical CenterFtchej2426 [facility] [id number] Calcium [Mass/Vol] 10.2 mg/dL Normal 8.7-10.2 [facility]; [facility] Work Phone: Comment on above: Test(s) 182538-Lmgw, Blood; 383787-Kmmfola, Blood; 836369-Ndtmmdu, Blood; 413629-Bqbajkj, Bloodwas developed and its performance characteristics determinedby [employer]. It has not been cleared or approved by the Foodand Drug Administration.PATIENT WAS FASTINGPERFORMED BY: [employer] [id number] BY: QuemulusOcean Medical CenterYhqefs1190 [place] [employer]ro[employer] TherapeuticsNovant Health New Han[facility] [id number] Chloride [Moles/Vol] 104 mmol/L Normal 96-106 [facility]; [facility] Work Phone: Comment on above: Test(s) 205367-Tnun, Blood; 741831-Trjvefs, Blood; 764939-Oqdewzh, Blood; 631800-Uljchnn, Bloodwas developed and its performance characteristics determinedby [employer]. It has not been cleared or approved by the Foodand Drug Administration.PATIENT WAS FASTINGPERFORMED BY: [employer] [id number] BY: QuemulusOcean Medical CenterQggqmu2000 [facility] [id number] CO2 [Moles/Vol] 22 mmol/L Normal 20-29 Comprehen sive [facility]; [facility] Work Phone: Comment on above: Test(s) 431910-Idwk, Blood; 397575-Qjcqawv, Blood; 372869-Gkbzazp, Blood; 556590-Zbnmqzw, Bloodwas developed and its performance characteristics determinedby [employer]. It has not been cleared or approved by the Foodand Drug Administration.PATIENT WAS FASTINGPERFORMED BY: [facility] [employer] [address] [id number] BY: [employer]70 [address] AlchimerNovant Health Presbyterian Medical Center [id number] Creatinine [Mass/Vol] 0.76 mg/dL Normal 0.57-1.00 [facility]; [facility] Work Phone: Comment on above: Test(s) 819295-Pxfj, Blood; 822249-Nmxkyvm, Blood; 821371-Mpzfvxh, Blood; 397305-Vtoxtzx, Bloodwas developed and its performance characteristics determinedby [employer]. It has not been cleared or approved by the Foodand Drug Administration.PATIENT WAS FASTINGPERFORMED BY: [employer] [address] [id number] BY: Pegg'dNovant Health [facility] [id number] GFR/1.73 sq M.predicted among non-blacks MDRD (S/P/Bld) [Vol rate/Area] 93 mL/min/{1.73_m2} Normal Comprehensiv e Internal Medicine; [facility] Work Phone: Comment on above: Test(s) 052514-Iowf, Blood; 735107-Fhugnrs, Blood; 694608-Ogulgpj, Blood; 654914-Wlesdec, Bloodwas developed and its performance characteristics determinedby [employer]. It has not been cleared or approved by the Foodand Drug Administration.PATIENT WAS FASTINGPERFORMED BY: [employer] [address] [id number] BY: Mozaico70 [address] AlchimerNovant Health Presbyterian Medical Center [id number] Globulin (S) [Mass/Vol] 1.8 g/dL Normal 1.5-4.5 [facility] Internal Medicine; [facility] Internal Medicine Work Phone: Comment on above: Test(s) 566819-Ftbv, Blood; 713495-Pfzbygy, Blood; 068192-Orlspvz, Blood; 975697-Ghiollf, Bloodwas developed and its performance characteristics determinedby [employer]. It has not been cleared or approved by the Foodand Drug Administration.PATIENT WAS FASTINGPERFORMED BY: [employer] [id number] BY: Quemulus Hqejzo9503 [facility]ymetisHardin Memorial Hospital [id number] Glucose [Mass/Vol] 108 mg/dL Abnormal 70-99 [facility] Internal Medicine; [facility] Internal Medicine Work Phone: Comment on above: Test(s) 853117-Zben, Blood; 333937-Rkjkwou, Blood; 395618-Mucztie, Blood; 345889-Xekrjhs, Bloodwas developed and its performance characteristics determinedby [employer]. It has not been cleared or approved by the Foodand Drug Administration.PATIENT WAS FASTINGPERFORMED BY: [employer] [address] [id number] BY: Quem[employer] Nvsnsg4100 YhatNovant Health [facility] Han[facility] [id number] Potassium [Moles/Vol] 4.6 mmol/L Normal 3.5-5.2 [facility] Internal Medicine; [facility] Internal Medicine Work Phone: Comment on above: Test(s) 237473-Nimz, Blood; 065924-Hhodfvh, Blood; 340598-Nukhsof, Blood; 405774-Otympst, Bloodwas developed and its performance characteristics determinedby [employer]. It has not been cleared or approved by the Foodand Drug Administration.PATIENT WAS FASTINGPERFORMED BY: Quemulus[address] [id number] BY: QuemulusGila Regional Medical CenterKbpcya6[address] RetroSense TherapeuticsNovant Health New Hanover [facility] [id number] Protein [Mass/Vol] 6.6 g/dL Normal 6.0-8.5 [facility] Internal Medicine; [facility] Work Phone: Comment on above: Test(s) 012548-Qzjs, Blood; 260500-Gzmqcbi, Blood; 136686-Bbnpqco, Blood; 379804-Gnenaoi, Bloodwas developed and its performance characteristics determinedby [employer]. It has not been cleared or approved by the Foodand Drug Administration.PATIENT WAS FASTINGPERFORMED BY: [employer] [address] [id number] BY: [employer] AlchimerNovant Health Presbyterian Medical Center [id number] Sodium [Moles/Vol] 141 mmol/L Normal 134-144 [facility] Internal Medicine; [facility] Work Phone: Comment on above: Test(s) 191186-Yqng, Blood; 198728-Fhpornq, Blood; 714002-Qzisuvf, Blood; 290196-Nnzjfln, Bloodwas developed and its performance characteristics determinedby [employer]. It has not been cleared or approved by the Foodand Drug Administration.PATIENT WAS FASTINGPERFORMED BY: [employer] [address] [id number] BY: Pegg'dNovant Health [facility] [id number] Urea nitrogen [Mass/Vol] 14 mg/dL Normal 6-24 [facility]; [facility] Work Phone: Comment on above: Test(s) 218190-Smgt, Blood; 632663-Ktgmmsu, Blood; 656762-Cyxfuhc, Blood; 959566-Buwjhzy, Bloodwas developed and its performance characteristics determinedby [employer]. It has not been cleared or approved by the Foodand Drug Administration.PATIENT WAS FASTINGPERFORMED BY: [employer] [address] [id number] BY: QuemulusOcean Medical CenterLgxrnx5257 [facility] [id number] Urea nitrogen/Creatinine [Mass ratio] 18 mg/mg Normal 9-23 [facility]; [facility] Work Phone: Comment on above: Test(s) 567806-Uylb, Blood; 710910-Dgqdvss, Blood; 652320-Phvgqgf, Blood; 455421-Gcwrbbc, Bloodwas developed and its performance characteristics determinedby [employer]. It has not been cleared or approved by the Foodand Drug Administration.PATIENT WAS FASTINGPERFORMED BY: [employer] [address] [id number] BY: Mozaico70 YhatNovant Health New Hanover [facility] Center [id number] SED RATE ERYTHROCYTE (94230) Ordered By: Certified Medical Technician on 08-24-2022 ESR (Bld) [Velocity] 2 mm/h Normal 0-40 Comp rehensive Internal Medicine; [facility] Work Phone: Comment on above: Test(s) 323788-Wywx, Blood; 650568-Chwhlfl, Blood; 792750-Hxpetbu, Blood; 702028-Podlmwi, Bloodwas developed and its performance characteristics determinedby [employer]. It has not been cleared or approved by the Foodand Drug Administration.PATIENT WAS FASTINGPERFORMED BY: [employer] [address] [id number] BY: Pegg'dNovant Health New [facility] [id number] TSH (THYROID STIMULATING HOR BLANCHE) (61511)Ordered By: Certified Medical Technician on 08-24-2022 TSH Qn 3.690 {uIU/mL} Normal 0.450-4.50 0 [facility]; [facility] Work Phone: Comment on above: Test(s) 659356-Wecu, Blood; 963082-Apuxutj, Blood; 320167-Fmyaqxq, Blood; 503185-Hlohkuw, Bloodwas developed and its performance characteristics determinedby [employer]. It has not been cleared or approved by the Foodand Drug Administration.PATIENT WAS FASTINGPERFORMED BY: [employer] [address] [id number] BY: MobileSpan Srsbud9523 NeuroLogicaNovant Health Presbyterian Medical Center [id number] VITAMIN B-12 (CYANOCOBALAMIN ) (44326)Ordered By: Certified Medical Technician on 08-24-2022 Cobalamin (Vitamin B12) [Mass/Vol] 1718 pg/mL Abnormal 232-1245 [facility]; [facility] Work Phone: Comment on above: Test(s) 889090-Hezx, Blood; 592498-Bwyjipb, Blood; 731126-Mytwfqb, Blood; 719153-Eprguxi, Bloodwas developed and its performance characteristics determinedby [employer]. It has not been cleared or approved by the Foodand Drug Administration.PATIENT WAS FASTINGPERFORMED BY: QuemulusAmy [place] 597107 [facility] [id number] BY: Quemulus Grjunz9361SnapDash [facility] [id number] CALCIFEDIOL (74223)Ordered B y: Certified Medical Technician on 01-31-2022 25-hydroxyvitamin D [Mass/Vol] 40.4 ng/mL Normal 30.0-100.0 [facility]; [facility] Work Phone: Comment on above: Vitamin D deficiency has been defined by the Media ofMedicine and an Endocrine Society practice guideline as alevel of serum 25-OH vitamin D less than 20 ng/mL (1,2).The Endocrine Society went on to further define vitamin Dinsufficiency as a level between 21 and 29 ng/mL (2).1. IOM (Media of Medicine). 2010. Dietary reference intakes for calcium and D. [place]: The National Academies Press.2. Brenda MF, Sumi NC, Ezio LEWIS, et al. Evaluation, treatment, and prevention of vitamin D deficiency: an Endocrine Society clinical practice guideline. JCEM. 2010; 96(7):1911-30. PATIENT WAS FASTINGP ERFORMED BY: QuemulusOcean Medical CenterIwrwtq0545 [facility] [id number] CBC W/AUTO DIFF WBC (29023)O rdered By: Certified Medical Technician on 01-31-2022 Basophils (Bld) [#/Vol] 0.1 10*3/uL Normal 0.0-0.2 [facility]; [facility] Work Phone: Comment on above: PATIENT WAS FASTINGP ERFORMED BY: QuemulusOcean Medical CenterJdgodw8725 [facility] [id number] Basophils/100 WBC (Bld) 1 % Normal [facility]; [facility] Work Phone: Comment on above: PATIENT WAS FASTINGP ERFORMED BY: CHARO Rogerslin6370 [facility] [id number] Eosinophils (Bld) [#/Vol] 0.1 10*3/uL Normal 0.0-0.4 [facility]; [facility] Work Phone: Comment on above: PATIENT WAS FASTINGP ERFORMED BY: LabDavid Ville 1734470 [facility] [id number] Eosinophils/100 WBC (Bld) 2 % Normal [facility]; [facility] Work Phone: Comment on above: PATIENT WAS FASTINGP ERFORMED BY: [facility] Ukfrmg3395 [facility] [id number] Erythrocyte distribution width (RBC) [Ratio] 11.9 % Normal 11.7-15.4 [facility]; [facility] Work Phone: Comment on above: PATIENT WAS FASTINGP ERFORMED BY: [facility] Qlmvnb5660 [facility] [id number] Hematocrit (Bld) [Volume fraction] 42.8 % Normal 34.0-46.6 [facility]; [facility] Work Phone: Comment on above: PATIENT WAS FASTINGP ERFORMED BY: [place] [id number] [facility] [id number] Hemoglobin (Bld) [Mass/Vol] 14.3 g/dL Normal 11.1-15.9 [facility]; [facility] Work Phone: Comment on above: PATIENT WAS FASTINGP ERFORMED BY: LabRehabilitation Institute of Michigan6[address] [facility] [id number] Immature granulocytes (Bld) [#/Vol] 0.0 10*3/uL Normal 0.0-0.1 [facility]; [facility] Work Phone: Comment on above: PATIENT WAS FASTINGP ERFORMED BY: CHARO [facility]6370 [facility] [id number] Immature granulocytes/100 WBC (Bld) 0 % Normal [facility]; [facility] Work Phone: Comment on above: PATIENT WAS FASTINGP ERFORMED BY: CHARO [facility] Tehgvd9909 [facility] [id number] Lymphocytes (Bld) [#/Vol] 2.4 10*3/uL Normal 0.7-3.1 [facility]; [facility] Work Phone: Comment on above: PATIENT WAS FASTINGP ERFORMED BY: [facility] Typsgg4331 [facility] [id number] Lymphocytes/100 WBC (Bld) 34 % Normal [facility]; [facility] Work Phone: Comment on above: PATIENT WAS FASTINGP ERFORMED BY: [facility] Bdabck7620 [facility] [id number] MCH (RBC) [Entitic mass] 30.4 pg Normal 26.6-33.0 [facility]; [facility] Work Phone: Comment on above: PATIENT WAS FASTINGP ERFORMED BY: [place] 3190570 [facility] [id number] MCHC (RBC) [Mass/Vol] 33.4 g/dL Normal 31.5-35.7 [facility]; [facility] Work Phone: Comment on above: PATIENT WAS FASTINGP ERFORMED BY: [facility]6370 [facility] [id number] MCV (RBC) [Entitic vol] 91 fL Normal 79-97 [facility]; [facility] Work Phone: Comment on above: PATIENT WAS FASTINGP ERFORMED BY: [facility]6370 [facility] [id number] Monocytes (Bld) [#/Vol] 0.7 10*3/uL Normal 0.1-0.9 [facility]; [facility] Work Phone: Comment on above: PATIENT WAS FASTINGP ERFORMED BY: CB [facility] Fxfoad5571 [address]uz RoadDublin [place] [id number] Monocytes/100 WBC (Bld) 10 % Normal [facility]; [facility] Work Phone: Comment on above: PATIENT WAS FASTINGP ERFORMED BY: CB [facility] Pdhjyd2688 [address] RoadDublin [place] [id number] Neutrophils (Bld) [#/Vol] 3.7 10*3/uL Normal 1.4-7.0 [facility]; [facility] Work Phone: Comment on above: PATIENT WAS FASTINGP ERFORMED BY: CB [facility] Kqszxz1285 [address]uz RoadDublin [place] [id number] Neutrophils/100 WBC (Bld) 53 % Normal [facility]; [facility] Work Phone: Comment on above: PATIENT WAS FASTINGP ERFORMED BY: CB [facility] Qoqczf7772 [address] RoadDublin [place] [id number] Platelets (Bld) [#/Vol] 264 10*3/uL Normal 150-450 [facility]; [facility] Work Phone: Comment on above: PATIENT WAS FASTINGP ERFORMED BY: CB [facility] Bcjmok2002 [address] RoadDublin [place] [id number] RBC (Bld) [#/Vol] 4.71 10*6/uL Normal 3.77-5.28 Compr ehensive Internal Medicine; [facility] Work Phone: Comment on above: PATIENT WAS FASTINGP ERFORMED BY: CB [facility] Xmkysz6311 [address] RoadDublin [place] [id number] WBC (Bld) [#/Vol] 7.1 10*3/uL Normal 3.4-10.8 Compre hensive Internal Medicine; [facility] Work Phone: Comment on above: PATIENT WAS FASTINGP ERFORMED BY: CB [facility] Tgprcv3987 Arauz RoadDublin [place] [id number] HGB A1C (37406)Ordered By: Tello ystem Railroad Operator on 01-31-2022 HbA1c (Bld) [Mass fraction] 5.8 % Abnormal 4.8-5.6 [facility]; [facility] Work Phone: Comment on above: . Prediabetes: 5.7 - 6.4 Diabetes: >6.4 Glycemic control for adults with diabetes: <7.0 PATIENT WAS FASTINGP ERFORMED BY: CHARO Labdick Enriquez6[address] [facility]blin [place] [id number] LIPID PANEL (87357)Ordered B y: Certified Medical Technician on 01-31-2022 Cholesterol [Mass/Vol] 190 mg/dL Normal 100-199 [facility]; [facility] Work Phone: Comment on above: PATIENT WAS FASTINGP ERFORMED BY: CHARO Labdick Enriquez6[address] [facility]in [place] [id number] Cholesterol in HDL [Mass/Vol] 54 mg/dL Normal [facility]; [facility] Work Phone: Comment on above: PATIENT WAS FASTINGP ERFORMED BY: CHARO Deborah Rogerslin6[address] [facility]in [place] [id number] Triglyceride [Mass/Vol] 90 mg/dL Normal 0-149 [facility]; [facility] Work Phone: Comment on above: PATIENT WAS FASTINGP ERFORMED BY: CHARO Deborah Rogerslin6370 [facility]in [place] [id number] LIPID PANEL (56016) 16 mg/dL Normal 5-40 Compr ensive Internal Medicine; [facility] Work Phone: Comment on above: PATIENT WAS FASTINGP ERFORMED BY: CHARO Labdick RogersYbrqnf9139 [address] [facility]in [place] [id number] LIPID PANEL (67211) 120 mg/dL Abnormal 0-99 Compr ensive Internal Medicine; [facility] Work Phone: Comment on above: PATIENT WAS FASTINGP ERFORMED BY: CAHRO Rogerslin6[address] [facility]in [place] [id number] LIPID PANEL (70137) 2.2 {ratio} Normal 0.0-3.2 Comp [facility] hospitalensive Internal [facility]; [facility] Work Phone: Comment on above: LDL/HDL Ratio Men Wo men 1/2 Avg.Risk 1.0 1.5 Avg.Risk 3.6 3.2 2X Avg.Risk 6.2 5.0 3X Avg.Risk 8.0 6.1 PATIENT WAS FASTINGP ERFORMED BY: Lab[facility] Bagjij6474 [address] [facility]bl[facility] [place] [id number] METABOLIC PANEL, COMPREHENSI VE (45322)Ordered By: Certified Medical Technician on 01-31-2022 Albumin [Mass/Vol] 4.5 g/dL Normal 3.8-4.9 [facility] Internal Medicine; [facility] Work Phone: Comment on above: PATIENT WAS FASTINGP ERFORMED BY: Labsouthpo[facility] Tfwkrb2561 [address] [facility]in [place] [id number] Albumin/Globulin [Mass ratio] 2.4 {ratio} Abnormal 1.2-2.2 [facility]; [facility] Work Phone: Comment on above: PATIENT WAS FASTINGP ERFORMED BY: Labsouthpo[facility] Domlbp7893 [address] [facility]in [place] [id number] ALP [Catalytic activity/Vol] 124 U/L Abnormal 44-121 [facility]; [facility] Work Phone: Comment on above: PATIENT WAS FASTINGP ERFORMED BY: LabThe Motley Fool Wzuvcn7[address] [facility]in [place] [id number] ALT [Catalytic activity/Vol] 15 U/L Normal 0-32 [facility]; [facility] Work Phone: Comment on above: PATIENT WAS FASTINGP ERFORMED BY: Labsouthpointe hospital Fvgmwb5688 [address] [facility]in [place] [id number] AST [Catalytic activity/Vol] 17 U/L Normal 0-40 [facility]; [facility] Work Phone: Comment on above: PATIENT WAS FASTINGP ERFORMED BY: Labco Rpudec1496 [address] [facility]in [place] [id number] Bilirubin [Mass/Vol] 0.3 mg/dL Normal 0.0-1.2 [facility] Internal Medicine; [facility] Work Phone: Comment on above: PATIENT WAS FASTINGP ERFORMED BY: CHARO [facility] Hqrdva0684 [address] RoadDublin [place] [id number] Calcium [Mass/Vol] 10.0 mg/dL Normal 8.7-10.2 [facility]; [facility] Work Phone: Comment on above: PATIENT WAS FASTINGP ERFORMED BY: [facility] Attieq4530 [address] RoadDublin [place] [id number] Chloride [Moles/Vol] 105 mmol/L Normal 96-106 Comp rehensive Internal Medicine; [facility] Work Phone: Comment on above: PATIENT WAS FASTINGP ERFORMED BY: [facility] Qybqgd5478 [address] RoadDublin [place] [id number] CO2 [Moles/Vol] 24 mmol/L Normal 20-29 Comprehen [facility] Internal Medicine; [facility] Work Phone: Comment on above: PATIENT WAS FASTINGP ERFORMED BY: [facility] Jjoavr4118 [address] RoadDublin [place] [id number] Creatinine [Mass/Vol] 0.76 mg/dL Normal 0.57-1.00 [facility]; [facility] Work Phone: Comment on above: PATIENT WAS FASTINGP ERFORMED BY: [facility] Moupur9614 [address] RoadDublin [place] [id number] GFR/1.73 sq M.predicted among non-blacks MDRD (S/P/Bld) [Vol rate/Area] 94 mL/min/{1.73_m2} Normal Comprehensiv e Internal Medicine; [facility] Work Phone: Comment on above: PATIENT WAS FASTINGP ERFORMED BY: [facility] Mdbllx9279 [address] RoadDublin [place] [id number] Globulin (S) [Mass/Vol] 1.9 g/dL Normal 1.5-4.5 [facility]; [facility] Work Phone: Comment on above: PATIENT WAS FASTINGP ERFORMED BY: [facility] Mjjsrm2335 [address] RoadDublin [place] [id number] Glucose [Mass/Vol] 104 mg/dL Abnormal 70-99 [facility] Internal Medicine; [facility] Work Phone: Comment on above: PATIENT WAS FASTINGP ERFORMED BY: CHARO Labdick RogersSvgjdz1969 [address] RoadDublin [place] [id number] Potassium [Moles/Vol] 4.6 mmol/L Normal 3.5-5.2 [facility]; [facility] Work Phone: Comment on above: PATIENT WAS FASTINGP ERFORMED BY: CHARO Lab[facility] Vrxryw9005 [address] RoadLifebrite Community Hospital Of Stokesin [place] [id number] Protein [Mass/Vol] 6.4 g/dL Normal 6.0-8.5 [facility] Internal Medicine; [facility] Work Phone: Comment on above: PATIENT WAS FASTINGP ERFORMED BY: CHARO Labdick RogersAclwep1891 [address] RoadPeoria [place] [id number] Sodium [Moles/Vol] 140 mmol/L Normal 134-144 [facility] Internal Medicine; [facility] Work Phone: Comment on above: PATIENT WAS FASTINGP ERFORMED BY: CHARO Labdick RogersBgoxfo5021 [address] [facility]in [place] [id number] Urea nitrogen [Mass/Vol] 14 mg/dL Normal 6-24 [facility]; [facility] Work Phone: Comment on above: PATIENT WAS FASTINGP ERFORMED BY: CHARO Labsouthpointe hospital Qgsuuq5168 [address] [facility] [id number] Urea nitrogen/Creatinine [Mass ratio] 18 mg/mg Normal 9-23 [facility]; [facility] Work Phone: Comment on above: PATIENT WAS FASTINGP ERFORMED BY: CHARO Labco Rzfcbh76[address] [facility]in [place] [id number] MICROALBUMINOrdered By: Syst em Railroad Operator on 01-31-2022 Albumin DL <= 20 mg/L (U) [Mass/Vol] 5.0 ug/mL Normal Comprehensiv e Internal Medicine; [facility] Work Phone: Comment on above: PATIENT WAS FASTINGP ERFORMED BY: CHARO [facility] Nriuny3599 [address] RoadDublin [place] [id number] Albumin/Creatinine (U) [Mass ratio] 4 {mg/g_creat} Normal 0-29 [facility]; [facility] Work Phone: Comment on above: Normal: 0 - 29 Moder ately increased: 30 - 300 Severely increased: >300 PATIENT WAS FASTINGP ERFORMED BY: CHARO [facility] Gcobex5808 [address] RoadDublin [place] [id number] Creatinine (U) [Mass/Vol] 115.1 mg/dL Normal [facility]; [facility] Work Phone: Comment on above: PATIENT WAS FASTINGP ERFORMED BY: CHARO [facility] Nlhblp6461 [address] RoadDublin [place] [id number] TSH ([id number])Ordered By: BabyBuse m Railroad Operator on 01-31-2022 TSH Qn 2.590 {uIU/mL} Normal 0.450-4.50 0 [facility]; [facility] Work Phone: Comment on above: PATIENT WAS FASTINGP ERFORMED BY: CHARO [facility] Nhktkn8532 [address] RoadDublin [place] [id number] URINALYSIS, W/ MICRO ([id number]) Ordered By: Certified Medical Technician on 01-31-2022 Appearance (U) Clear Normal Comprehens lynsey Internal Medicine; [facility] Work Phone: Comment on above: PATIENT WAS FASTINGP ERFORMED BY: CHARO [facility] Cflqyo1171 [address] RoadDublin [place] [id number] Bilirubin Ql (U) Negative Normal Comprehe nsive Internal Medicine; [facility] Work Phone: Comment on above: PATIENT WAS FASTINGP ERFORMED BY: CHARO [facility] Lwkmey3036 [address] RoadDublin [place] [id number] Color (U) Yellow Normal [facility]; [facility] Work Phone: Comment on above: PATIENT WAS FASTINGP ERFORMED BY: CHARO [facility] Rpqvkh7991 [address] RoadDublin [place] [id number] Glucose Ql (U) Negative Normal Comprehens lynsey Internal Medicine; [facility] Work Phone: Comment on above: PATIENT WAS FASTINGP ERFORMED BY: CHARO Enriquez6370 [address] RoadDublin [place] [id number] Hemoglobin Ql (U) Negative Normal Compreh ensive Internal Medicine; [facility] Work Phone: Comment on above: PATIENT WAS FASTINGP ERFORMED BY: CHARO Enriquez6370 [address] RoadDublin [place] [id number] Ketones Ql (U) Negative Normal Comprehens lynsey Internal [facility]; [facility] Work Phone: Comment on above: PATIENT WAS FASTINGP ERFORMED BY: CHARO Enriquez6370 [address] RoadDublin [place] [id number] Leukocyte esterase Test strip Ql (U) Trace Abnormal [facility]; [facility] Work Phone: Comment on above: PATIENT WAS FASTINGP ERFORMED BY: CHARO Enriquez6370 [address] RoadDublin [place] [id number] Microscopic observation LM Nom (Urine sed) See below: Normal [facility]; [facility] Work Phone: Comment on above: Microscopic was micaela cated and was performed. PATIENT WAS FASTINGP ERFORMED BY: CHARO Enriquez6370 [address] RoadDublin [place] [id number] Nitrite Ql (U) Negative Normal Comprehens lynsey [facility]; [facility] Work Phone: Comment on above: PATIENT WAS FASTINGP ERFORMED BY: CHARO Rogerslin6370 [address] RoadDublin [place] [id number] pH (U) 6.0 [pH] Normal 5.0-7.5 [facility]; [facility] Work Phone: Comment on above: PATIENT WAS FASTINGP ERFORMED BY: CHARO Rogerslin6370 [address] RoadDublin [place] [id number] Protein Ql (U) Negative Normal Comprehens lynsey Internal Medicine; Comprehensive Internal Medicine Work Phone: Comment on above: PATIENT WAS FASTINGP ERFORMED BY: CHARO Rogerslin6[address] RoadDublin [place] [id number] Specific gravity (U) [Rel density] 1.023 1 Normal 1.005-1.03 0 [facility]; [facility] Work Phone: Comment on above: PATIENT WAS FASTINGP ERFORMED BY: [facility] [facility] [id number] Urobilinogen (U) [Mass/Vol] 0.2 mg/dL Normal 0.2-1.0 [facility]; [facility] Work Phone: Comment on above: PATIENT WAS FASTINGP ERFORMED BY: [facility] [facility] [id number] VITAMIN B-12 (CYANOCOBALAMIN ) ([id number])Ordered By: Certified Medical Technician on 01-31-2022 Cobalamin (Vitamin B12) [Mass/Vol] 1288 pg/mL Abnormal 232-1245 [facility]; [facility] Work Phone: Comment on above: PATIENT WAS FASTINGP ERFORMED BY: [facility] [facility] [id number] INHOUSE Rapid Covid/ Flu A/ Flu B (49780)Ordered By: Selvin Farnsworth on 03-08-2021 SARS-CoV-2 (COVID-19) RNA THAIS+probe Ql (Unsp spec) Positive Normal [facility]; [facility] Work Phone: SARS-CoV-2 Antibody, IgGOrde red By: Certified Medical Technician on 10-13-2020 SARS-CoV-2 Antibody, IgG Positive Normal [facility]; [facility] Work Phone: Comment on above: Results suggest rece nt or prior infection with SARS-CoV-2. Correlationwith epidemiologic risk factors and other clinical and laboratoryfindings is recommended. Serologic results should not be used as thesole basis to diagnose or exclude recent SARS-CoV-2 infection. Falsepositive results infrequently occur due to prior infection with otherhuman Coronaviruses.This assay was performed using the [employer](R)SARS-CoV-2 S1/S2 IgG assay.This assay detects antibodies against SARS-CoV-2 spike proteinincluding the receptor binding domain (RBD). Test(s) 437257-TGYM- CoV-2 Antibody, IgGhas not been FDA cleared or approved. This test hasbeen authorized by FDA under an Emergency Use Authorization(EUA). This test is only authorized for the duration of thedeclaration that circumstances exist justifying the authorizationof emergency use of in vitro diagnostics for detection and/ordiagnosis of COVID-19 under Section 564(b)(1) of the Act, 21U.S.C. 360bbb-3(b)(1), unless the authorization is terminated orrevoked sooner. This test has been authorized only for detectingthe presence of antibodies against SARS-CoV-2, not for any otherviruses or pathogens.PATIENT NOT FASTINGPERFORMED BY: [facility] Skynlq35[address] RoadDublin [place] [id number] C-REACTIVE PROTEIN ([id number])Or dered By: Certified Medical Technician on 08-26-2020 CRP [Mass/Vol] mg/L Normal 0-[address] [facility] Internal Medicine; [facility] Work Phone: Comment on above: PATIENT NOT FASTINGP ERFORMED BY: [facility] Ncsfck8[address] RoadDublin [place] [id number] CALCIUM SERUM (19956)Ordered By: Certified Medical Technician on 08-26-2020 Calcium [Mass/Vol] 10.6 mg/dL Abnormal 8.7-10.2 [facility] Internal Medicine; [facility] Work Phone: Comment on above: PATIENT NOT FASTINGP ERFORMED BY: Divided LabAryngarp Sbnnpf[address] RoadDublin [place] [id number] PARATHORMONE ([id number])Ordered By: Certified Medical Technician on 08-26-2020 Parathyrin.intact [Mass/Vol] 44 pg/mL Normal 15-65 [facility]; [facility] Work Phone: Comment on above: PATIENT NOT FASTINGP ERFORMED BY: [facility] Yynmos[address] RoadDublin [place] [id number] PHOSPHORUS ([id number])Ordered By : Certified Medical Technician on 08-26-2020 Phosphate [Mass/Vol] 3.4 mg/dL Normal 3.0-4.3 Comp rehensive Internal Medicine; [facility] Work Phone: Comment on above: PATIENT NOT FASTINGP ERFORMED BY: [employer] [place] [id number] SED RATE ERYTHROCYTE ([id number]) Ordered By: Certified Medical Technician on 08-26-2020 ESR (Bld) [Velocity] 2 mm/h Normal 0-40 Comp rehensive Internal Medicine; [facility] Work Phone: Comment on above: PATIENT NOT FASTINGP ERFORMED BY: [employer]6370 [facility]Nov[facility] [id number] CALCIFIDIOL (32562) VIT D 25 Ordered By: Certified Medical Technician on 07-22-2020 25-hydroxyvitamin D [Mass/Vol] 46.9 ng/mL Normal 30.0-100.0 [facility]; [facility] Work Phone: Comment on above: Vitamin D deficiency has been defined by the Media ofMedicine and an Endocrine Society practice guideline as alevel of serum 25-OH vitamin D less than 20 ng/mL (1,2).The Endocrine Society went on to further define vitamin Dinsufficiency as a level between 21 and 29 ng/mL (2).1. IOM (Media of Medicine). 2010. Dietary reference intakes for calcium and D. [place]: The National Academies Press.2. Brenda MF, Sumi NC, Ezio LEWIS, et al. Evaluation, treatment, and prevention of vitamin D deficiency: an Endocrine Society clinical practice guideline. JCEM. 2010; 96(7):1911-30. PATIENT WAS FASTINGP ERFORMED BY: mention Bshwlb2027 YhatNov[facility] [id number] CBC W/AUTO DIFF WBC (18646)O rdered By: Certified Medical Technician on 07-22-2020 Basophils (Bld) [#/Vol] 0.1 10*3/uL Normal 0.0-0.2 [facility]; [facility] Work Phone: Comment on above: PATIENT WAS FASTINGP ERFORMED BY: mention Riqfal[address] [facility] [id number] Basophils/100 WBC (Bld) 1 % Normal [facility]; [facility] Work Phone: Comment on above: PATIENT WAS FASTINGP ERFORMED BY: CHARO CaridadDick Umhaue[address] [facility]in [place] [id number] Eosinophils (Bld) [#/Vol] 0.1 10*3/uL Normal 0.0-0.4 [facility]; [facility] Work Phone: Comment on above: PATIENT WAS FASTINGP ERFORMED BY: CHARO [facility]Fult[facility] Eswsir[address] [facility] [id number] Eosinophils/100 WBC (Bld) 1 % Normal [facility]; [facility] Work Phone: Comment on above: PATIENT WAS FASTINGP ERFORMED BY: CHARO Abreu Ylvlav80[address] [facility] [id number] Erythrocyte distribution width (RBC) [Ratio] 11.8 % Normal 11.7-15.4 [facility]; [facility] Work Phone: Comment on above: PATIENT WAS FASTINGP ERFORMED BY: CHARO CaridadFulton State Hospital Tsycri[address] [facility] [id number] Hematocrit (Bld) [Volume fraction] 44.5 % Normal 34.0-46.6 [facility]; [facility] Work Phone: Comment on above: PATIENT WAS FASTINGP ERFORMED BY: CHARO CaridadFulton State Hospital Naytoq[address] [facility] [id number] Hemoglobin (Bld) [Mass/Vol] 15.0 g/dL Normal 11.1-15.9 [facility]; [facility] Work Phone: Comment on above: PATIENT WAS FASTINGP ERFORMED BY: CHARO [facility]idadFulton State Hospital Ywhmvi[address] [facility] [id number] Immature granulocytes (Bld) [#/Vol] 0.0 10*3/uL Normal 0.0-0.1 [facility]; [facility] Work Phone: Comment on above: PATIENT WAS FASTINGP ERFORMED BY: [facility] [facility] [id number] Immature granulocytes/100 WBC (Bld) 0 % Normal [facility]; [facility] Work Phone: Comment on above: PATIENT WAS FASTINGP ERFORMED BY: [place] 3366270 [facility] [id number] Lymphocytes (Bld) [#/Vol] 2.7 10*3/uL Normal 0.7-3.1 [facility]; [facility] Work Phone: Comment on above: PATIENT WAS FASTINGP ERFORMED BY: [place] 3366270 [facility] [id number] Lymphocytes/100 WBC (Bld) 35 % Normal [facility]; [facility] Work Phone: Comment on above: PATIENT WAS FASTINGP ERFORMED BY: [address] [id number] MCH (RBC) [Entitic mass] 30.2 pg Normal 26.6-33.0 [facility]; [facility] Work Phone: Comment on above: PATIENT WAS FASTINGP ERFORMED BY: [place] 3366270 [facility] [id number] MCHC (RBC) [Mass/Vol] 33.7 g/dL Normal 31.5-35.7 [facility]; [facility] Work Phone: Comment on above: PATIENT WAS FASTINGP ERFORMED BY: [place] 3366270 [facility] [id number] MCV (RBC) [Entitic vol] 90 fL Normal 79-97 [facility]; [facility] Work Phone: Comment on above: PATIENT WAS FASTINGP ERFORMED BY: [place] 3366270 [facility] [id number] Monocytes (Bld) [#/Vol] 0.6 10*3/uL Normal 0.1-0.9 [facility]; [facility] Work Phone: Comment on above: PATIENT WAS FASTINGP ERFORMED BY: CB [facility] Zzuiww0287 [address] RoadDublin [place] [id number] Monocytes/100 WBC (Bld) 8 % Normal [facility]; [facility] Work Phone: Comment on above: PATIENT WAS FASTINGP ERFORMED BY: CB [facility] Dmjnai9206 [address] RoadDublin [place] [id number] Neutrophils (Bld) [#/Vol] 4.3 10*3/uL Normal 1.4-7.0 [facility]; [facility] Work Phone: Comment on above: PATIENT WAS FASTINGP ERFORMED BY: CB [facility] Riictk5404 [address] RoadDublin [place] [id number] Neutrophils/100 WBC (Bld) 55 % Normal [facility]; [facility] Work Phone: Comment on above: PATIENT WAS FASTINGP ERFORMED BY: [facility] Nxhavx8[address] RoadDublin [place] [id number] Platelets (Bld) [#/Vol] 339 10*3/uL Normal 150-450 [facility]; [facility] Work Phone: Comment on above: PATIENT WAS FASTINGP ERFORMED BY: CB [facility] Yurubm4[address] RoadDublin [place] [id number] RBC (Bld) [#/Vol] 4.96 10*6/uL Normal 3.77-5.28 Compr ehensive Internal Medicine; [facility] Work Phone: Comment on above: PATIENT WAS FASTINGP ERFORMED BY: CB [facility] Yjezdk[address] RoadDublin [place] [id number] WBC (Bld) [#/Vol] 7.8 10*3/uL Normal 3.4-10.8 Compre hensive Internal Medicine; [facility] Work Phone: Comment on above: PATIENT WAS FASTINGP ERFORMED BY: CB [facility] Qqatnp0199 [address] RoadDublin [place] [id number] HGB A1C ([id number])Ordered By: Tello ystem [employer] Operator on 07-22-2020 HbA1c (Bld) [Mass fraction] 5.9 % Abnormal 4.8-5.6 [facility]; [facility] Work Phone: Comment on above: . Prediabetes: 5.7 - 6.4 Diabetes: >6.4 Glycemic control for adults with diabetes: <7.0 PATIENT WAS FASTINGP ERFORMED BY: CHARO LabSharlareji Plbpjz[address] [facility] [place] [id number] LIPID PANEL (55847)Ordered B y: Certified Medical Technician on 07-22-2020 Cholesterol [Mass/Vol] 206 mg/dL Abnormal 100-199 [facility]; [facility] Work Phone: Comment on above: PATIENT WAS FASTINGP ERFORMED BY: CHARO LabDick RogersInvfpo[address] [facility]in [place] [id number] Cholesterol in HDL [Mass/Vol] 44 mg/dL Normal [facility]; [facility] Work Phone: Comment on above: PATIENT WAS FASTINGP ERFORMED BY: CHARO LabDick RogersOsuubq[address] [facility]in [place] [id number] Triglyceride [Mass/Vol] 154 mg/dL Abnormal 0-149 [facility]; [facility] Work Phone: Comment on above: PATIENT WAS FASTINGP ERFORMED BY: CHARO CaridadDick RogersDmruwx9892 [facility]in [place] [id number] LIPID PANEL (81084) 28 mg/dL Normal 5-40 Compr ensive Internal Medicine; [facility] Work Phone: Comment on above: PATIENT WAS FASTINGP ERFORMED BY: CHARO LabCoreji Kxjhye[address] [facility]in [place] [id number] LIPID PANEL (79192) 134 mg/dL Abnormal 0-99 Compr ensive Internal Medicine; [facility] Work Phone: Comment on above: PATIENT WAS FASTINGP ERFORMED BY: CHARO LabDick Ziruuf[address] [facility] [place] [id number] LIPID PANEL (67475) 3.0 {ratio} Normal 0.0-3.2 Comp [facility]; [facility] Work Phone: Comment on above: LDL/HDL Ratio Men Wo men 1/2 Avg.Risk 1.0 1.5 Avg.Risk 3.6 3.2 2X Avg.Risk 6.2 5.0 3X Avg.Risk 8.0 6.1 PATIENT WAS FASTINGP ERFORMED BY: CHARO [employer]6370 NeuroLogicaNovant Health Pres[facility] [id number] METABOLIC PANEL, COMPREHENSI VE (09477)Ordered By: Certified Medical Technician on 07-22-2020 Albumin [Mass/Vol] 4.8 g/dL Normal 3.8-4.9 [facility] Internal Medicine; [facility] Work Phone: Comment on above: PATIENT WAS FASTINGP ERFORMED BY: CHARO [employer]70 YhatNovant Health [facility] [id number] Albumin/Globulin [Mass ratio] 2.0 {ratio} Normal 1.2-2.2 [facility]; [facility] Work Phone: Comment on above: PATIENT WAS FASTINGP ERFORMED BY: CHARO [employer] AlchimerNovant Health Presbyterian [facility] [id number] ALP [Catalytic activity/Vol] 119 U/L Abnormal 39-117 [facility]; [facility] Work Phone: Comment on above: Effective July 25, 2020 Alkaline Phosphatase reference interval will be changing to: Age Male Female 0 - 5 days 52 - 127 52 - 127 6 - 10 days 34 - 242 34 - 242 11 - 20 days 114 - 357 114 - 357 21 - 30 days 107 - 494 107 - 494 1 - 2 months 162 - 539 162 - 539 3 - 6 months 141 - 452 141 - 452 7 - 11 months 128 - 401 128 - 401 12 months - 6 years 170 - 369 170 - 369 7 - 12 years 161 - 409 161 - 409 13 years 166 - 435 83 - 227 14 years 121 - 375 68 - 161 15 years 94 - 279 60 - 134 16 years 78 - 207 55 - 121 17 years 67 - 161 50 - 113 18 - 20 years 55 - 125 45 - 106 >20 years 48 - 121 48 - 121 PATIENT WAS FASTINGP ERFORMED BY: CHARO [employer] AlchimerNovant Health Presbyterian [facility] Center [id number] ALT [Catalytic activity/Vol] 14 U/L Normal 0-32 [facility]; [facility] Work Phone: Comment on above: PATIENT WAS FASTINGP ERFORMED BY: CB [facility] Clcdtd1493 [address] RoadDublin [place] [id number] AST [Catalytic activity/Vol] 16 U/L Normal 0-40 [facility]; [facility] Work Phone: Comment on above: PATIENT WAS FASTINGP ERFORMED BY: CB [facility] Njpyou47[address] RoadDublin [place] [id number] Bilirubin [Mass/Vol] 0.5 mg/dL Normal 0.0-1.2 [facility]; [facility] Work Phone: Comment on above: PATIENT WAS FASTINGP ERFORMED BY: CB [facility] Zfrtfn1254 [address] RoadDublin [place] [id number] Calcium [Mass/Vol] 10.6 mg/dL Abnormal 8.7-10.2 [facility] Internal Medicine; [facility] Work Phone: Comment on above: PATIENT WAS FASTINGP ERFORMED BY: [facility] Cruvmb3966 [address] RoadDublin [place] [id number] Chloride [Moles/Vol] 103 mmol/L Normal 96-106 [facility]ensive [facility]; [facility] Work Phone: Comment on above: PATIENT WAS FASTINGP ERFORMED BY: [facility] Mvevzx4769 [address] RoadDublin [place] [id number] CO2 [Moles/Vol] 26 mmol/L Normal 20-29 [facility] Internal Medicine; [facility] Work Phone: Comment on above: PATIENT WAS FASTINGP ERFORMED BY: CB [facility] Vcxieq7718 [address] RoadDublin [place] [id number] Creatinine [Mass/Vol] 0.79 mg/dL Normal 0.57-1.00 [facility]; [facility] Work Phone: Comment on above: PATIENT WAS FASTINGP ERFORMED BY: CB [facility] Iwtrvs3325 [address] RoadDublin [place] [id number] GFR/1.73 sq M.predicted among blacks CKD-EPI (S/P/Bld) [Vol rate/Area] 100 mL/min/1.73 Normal [facility]; [facility] Work Phone: Comment on above: [facility] currently reports eGFR in compliance with the current recommendations of the National Kidney Foundation. [facility] will update reporting as new guidelines are published from the NKF-ASN Task force. PATIENT WAS FASTINGP ERFORMED BY: [facility] [facility] [id number] GFR/1.73 sq M.predicted among non-blacks CKD-EPI (S/P/Bld) [Vol rate/Area] 86 mL/min/1.73 Normal [facility]; [facility] Work Phone: Comment on above: PATIENT WAS FASTINGP ERFORMED BY: [facility]6[address] [facility] [id number] Globulin (S) [Mass/Vol] 2.4 g/dL Normal 1.5-4.5 [facility]; [facility] Work Phone: Comment on above: PATIENT WAS FASTINGP ERFORMED BY: [facility]6[address] [facility] [id number] Glucose [Mass/Vol] 110 mg/dL Abnormal 65-99 [facility]; [facility] Work Phone: Comment on above: PATIENT WAS FASTINGP ERFORMED BY: [facility] [facility] [id number] Potassium [Moles/Vol] 4.6 mmol/L Normal 3.5-5.2 [facility]; [facility] Work Phone: Comment on above: PATIENT WAS FASTINGP ERFORMED BY: [facility]6[address] [facility] [id number] Protein [Mass/Vol] 7.2 g/dL Normal 6.0-8.5 [facility]; [facility] Work Phone: Comment on above: PATIENT WAS FASTINGP ERFORMED BY: [facility]Dublin [place] [id number] Sodium [Moles/Vol] 140 mmol/L Normal 134-144 Compre [facility]; [facility] Work Phone: Comment on above: PATIENT WAS FASTINGP ERFORMED BY: CHARO LabCo Ttbtlx5936 [address] RoadDublin [place] [id number] Urea nitrogen [Mass/Vol] 11 mg/dL Normal 6-24 [facility]; [facility] Work Phone: Comment on above: PATIENT WAS FASTINGP ERFORMED BY: [facility] Qxtcqe1712 [address] RoadDublin [place] [id number] Urea nitrogen/Creatinine [Mass ratio] 14 mg/mg Normal 9-23 [facility]; [facility] Work Phone: Comment on above: PATIENT WAS FASTINGP ERFORMED BY: LabF[facility] Crmqbr0697 [address] RoadDublin [place] [id number] TSH (34613)Ordered By: [employer] m Railroad Operator on 07-22-2020 TSH Qn 1.890 {uIU/mL} Normal 0.450-4.50 0 [facility]; [facility] Work Phone: Comment on above: PATIENT WAS FASTINGP ERFORMED BY: LabF[facility] Iayjkw4546 [address] RoadDublin [place] [id number] VITAMIN B-12 (CYANOCOBALAMIN ) ([id number])Ordered By: Certified Medical Technician on 07-22-2020 Cobalamin (Vitamin B12) [Mass/Vol] 1129 pg/mL Normal 232-1245 [facility]; [facility] Work Phone: Comment on above: PATIENT WAS FASTINGP ERFORMED BY: [facility] Deoxmy7927 [address] RoadDublin [place] [id number] MATT (ANTINUCLEAR ANTIBODY) ( 40264)Ordered By: Certified Medical Technician on 04-08-2020 Nuclear Ab Ql (S) Negative Normal Compreh ensive Internal Medicine; [facility] Work Phone: Comment on above: PATIENT NOT FASTINGP ERFORMED BY: [facility] Ytdyzo4674 [address] RoadDublin [place] [id number] Nuclear Ab Ql (S) Negative Normal Compreh ensive Internal Medicine; [facility] Work Phone: Comment on above: PATIENT NOT FASTINGP ERFORMED BY: CB [facility] Sczllj4296 [address] RoadDublin [place] [id number] C-REACTIVE PROTEIN ([id number])Or dered By: Certified Medical Technician on 04-08-2020 CRP [Mass/Vol] mg/L Normal 0-10 Comprehens lynsey Internal Medicine; [facility] Work Phone: Comment on above: PATIENT NOT FASTINGP ERFORMED BY: CB [facility] Qogwhk5431 [address] RoadDublin [place] [id number] CRP [Mass/Vol] mg/L Normal 0-10 Comprehens lynsey [facility]; [facility] Work Phone: Comment on above: PATIENT NOT FASTINGP ERFORMED BY: CB [facility] Trpmub9471 [address] RoadDublin [place] [id number] CALCIFIDIOL (04634) VIT D 25 Ordered By: Certified Medical Technician on 04-08-2020 25-Hydroxyvitamin D2+25-Hydroxyvitamin D3 [Mass/Vol] 29.3 ng/mL Abnormal 30.0-100.0 [facility]; [facility] Work Phone: Comment on above: Vitamin D deficiency has been defined by the Media ofMedicine and an Endocrine Society practice guideline as alevel of serum 25-OH vitamin D less than 20 ng/mL (1,2).The Endocrine Society went on to further define vitamin Dinsufficiency as a level between 21 and 29 ng/mL (2).1. IOM (Media of Medicine). 2010. Dietary reference intakes for calcium and D. [place]: The National Academies Press.2. Brenda MF, Sumi NC, Ezio LEWIS, et al. Evaluation, treatment, and prevention of vitamin D deficiency: an Endocrine Society clinical practice guideline. JCEM. 2010; 96(7):1911-30. PATIENT NOT FASTINGP ERFORMED BY: CB [facility] Adftwq5441 [address] RoadDublin [place] [id number] CBC (AUTO) ([id number])Ordered By : Certified Medical Technician on 04-08-2020 Erythrocyte distribution width (RBC) [Ratio] 12.6 % Normal 11.7-15.4 [facility]; [facility] Work Phone: Comment on above: PATIENT NOT FASTINGP ERFORMED BY: CHARO Enriquez6370 [facility]uzSaint [facility] [id number] Hematocrit (Bld) [Volume fraction] 41.6 % Normal 34.0-46.6 [facility]; [facility] Work Phone: Comment on above: PATIENT NOT FASTINGP ERFORMED BY: CHARO LabCo Gudqju[address] [facility] [id number] Hemoglobin (Bld) [Mass/Vol] 14.3 g/dL Normal 11.1-15.9 [facility]; [facility] Work Phone: Comment on above: PATIENT NOT FASTINGP ERFORMED BY: CHARO LabDick RogersLbvzng[address] [facility] [id number] MCH (RBC) [Entitic mass] 31.4 pg Normal 26.6-33.0 [facility]; [facility] Work Phone: Comment on above: PATIENT NOT FASTINGP ERFORMED BY: CHARO Rogerslin[address] [facility] [id number] MCHC (RBC) [Mass/Vol] 34.4 g/dL Normal 31.5-35.7 [facility]; [facility] Work Phone: Comment on above: PATIENT NOT FASTINGP ERFORMED BY: CHARO LabDick RogersFdmjxy9231 [facility] [id number] MCV (RBC) [Entitic vol] 91 fL Normal 79-97 [facility]; [facility] Work Phone: Comment on above: PATIENT NOT FASTINGP ERFORMED BY: CHARO LabDick RogersBsrgbv[address] [facility]in [place] [id number] Platelets (Bld) [#/Vol] 341 {x10E3/uL} Normal 150-450 [facility]; [facility] Work Phone: Comment on above: PATIENT NOT FASTINGP ERFORMED BY: CB [facility] Qnyatx6[address] RoadDublin [place] [id number] Platelets (Bld) [#/Vol] 341 10*3/uL Normal 150-450 [facility]; [facility] Work Phone: Comment on above: PATIENT NOT FASTINGP ERFORMED BY: CB [facility] Rcrlkq3480 [address] RoadDublin [place] [id number] RBC (Bld) [#/Vol] 4.55 {x10E6/uL} Normal 3.77-5.28 [facility]; [facility] Work Phone: Comment on above: PATIENT NOT FASTINGP ERFORMED BY: CB [facility] Vtxasu0909 [address] RoadDublin [place] [id number] RBC (Bld) [#/Vol] 4.55 10*6/uL Normal 3.77-5.28 [facility]ensive [facility]; [facility] Work Phone: Comment on above: PATIENT NOT FASTINGP ERFORMED BY: CB [facility] Cvvfbq5118 [address] RoadDublin [place] [id number] WBC (Bld) [#/Vol] 8.6 {x10E3/uL} Normal 3.4-10.8 [facility]; [facility] Work Phone: Comment on above: PATIENT NOT FASTINGP ERFORMED BY: CB [facility] Xpmhpn4291 [address]uz RoadDublin [place] [id number] WBC (Bld) [#/Vol] 8.6 10*3/uL Normal 3.4-10.8 [facility] Internal Medicine; [facility] Work Phone: Comment on above: PATIENT NOT FASTINGP ERFORMED BY: CB [facility] Qejqeb2672 [address]uz RoadDublin [place] [id number] Folate (08241)Ordered By: Pollo stem [employer] Operator on 04-08-2020 Folate [Mass/Vol] 9.6 ng/mL Normal [facility]; [facility] Work Phone: Comment on above: A serum folate cipriano ntration of less than 3.1 ng/mL isconsidered to represent clinical deficiency. PATIENT NOT FASTINGP ERFORMED BY: CB [facility] Dwcqnt5698 [address] RoadDublin [place] [id number] METABOLIC PANEL, COMPREHENSI VE (32145)Ordered By: Certified Medical Technician on 04-08-2020 Albumin [Mass/Vol] 4.6 g/dL Normal 3.8-4.9 [facility] Internal Medicine; [facility] Work Phone: Comment on above: PATIENT NOT FASTINGP ERFORMED BY: CB [facility] Kbosnw9075 [address] RoadDublin [place] [id number] Albumin/Globulin [Mass ratio] 2.1 {ratio} Normal 1.2-2.2 [facility]; [facility] Work Phone: Comment on above: PATIENT NOT FASTINGP ERFORMED BY: CB [facility] Cbomol8818 [address] RoadDublin [place] [id number] ALP [Catalytic activity/Vol] 123 [iU]/L Abnormal 39-117 [facility]; [facility] Work Phone: Comment on above: PATIENT NOT FASTINGP ERFORMED BY: CB [facility] Dgqylm1973 [address] RoadDublin [place] [id number] ALP [Catalytic activity/Vol] 123 U/L Abnormal 39-117 [facility]; [facility] Work Phone: Comment on above: PATIENT NOT FASTINGP ERFORMED BY: CB [facility] Disrqp8138 [address] RoadDublin [place] [id number] ALT [Catalytic activity/Vol] 17 [iU]/L Normal 0-32 [facility]; [facility] Work Phone: Comment on above: PATIENT NOT FASTINGP ERFORMED BY: CB [facility] Oecihz0136 [address] RoadDublin [place] [id number] ALT [Catalytic activity/Vol] 17 U/L Normal 0-32 [facility]; [facility] Work Phone: Comment on above: PATIENT NOT FASTINGP ERFORMED BY: CB [facility] Pfmhvw3944 [address] RoadDublin [place] [id number] AST [Catalytic activity/Vol] 18 [iU]/L Normal 0-40 [facility]; [facility] Work Phone: Comment on above: PATIENT NOT FASTINGP ERFORMED BY: CB [facility] Lqplja8403 [address] RoadDublin [place] [id number] AST [Catalytic activity/Vol] 18 U/L Normal 0-40 [facility]; [facility] Work Phone: Comment on above: PATIENT NOT FASTINGP ERFORMED BY: CB [facility] Cmfxkw8409 [address] RoadDublin [place] [id number] Bilirubin [Mass/Vol] 0.3 mg/dL Normal 0.0-1.2 [facility]; [facility] Work Phone: Comment on above: PATIENT NOT FASTINGP ERFORMED BY: CB [facility] Acbzxq3120 [address] RoadDublin [place] [id number] Calcium [Mass/Vol] 10.6 mg/dL Abnormal 8.7-10.2 [facility] Internal Medicine; [facility] Work Phone: Comment on above: PATIENT NOT FASTINGP ERFORMED BY: CB [facility] Dkhkbj8359 [address] RoadDublin [place] [id number] Chloride [Moles/Vol] 104 mmol/L Normal 96-106 [facility]; [facility] Work Phone: Comment on above: PATIENT NOT FASTINGP ERFORMED BY: CB [facility] Wgvufs6016 [address]au[address] RoadDublin [place] [id number] CO2 [Moles/Vol] 23 mmol/L Normal 20-29 [facility] Internal Medicine; [facility] Work Phone: Comment on above: PATIENT NOT FASTINGP ERFORMED BY: CB [facility] Ttdxmv1876 [address] RoadDublin [place] [id number] Creatinine [Mass/Vol] 0.73 mg/dL Normal 0.57-1.00 [facility]; [facility] Work Phone: Comment on above: PATIENT NOT FASTINGP ERFORMED BY: CB [facility] Prpcok5499 [address] RoadDublin [place] [id number] GFR/1.73 sq M predicted among blacks CKD-EPI (S/P/Bld) [Vol rate/Area] 110 mL/min/1.73 Normal [facility]; [facility] Work Phone: Comment on above: PATIENT NOT FASTINGP ERFORMED BY: CHARO [facility] Yzdvei0419 [address] RoadDublin [place] [id number] GFR/1.73 sq M predicted among non-blacks CKD-EPI (S/P/Bld) [Vol rate/Area] 96 mL/min/1.73 Normal [facility]; [facility] Work Phone: Comment on above: PATIENT NOT FASTINGP ERFORMED BY: CB [facility] Dsnseu0790 [address] RoadLifebrite Community Hospital Of Stokesin [place] [id number] Globulin (S) [Mass/Vol] 2.2 g/dL Normal 1.5-4.5 [facility]; [facility] Work Phone: Comment on above: PATIENT NOT FASTINGP ERFORMED BY: CB [facility] Oevquo[address] [facility] [place] [id number] Glucose [Mass/Vol] 93 mg/dL Normal 65-99 [facility]; [facility] Work Phone: Comment on above: PATIENT NOT FASTINGP ERFORMED BY: CB [facility] Ithwvz[address] [facility] [place] [id number] Potassium [Moles/Vol] 4.6 mmol/L Normal 3.5-5.2 [facility]; [facility] Work Phone: Comment on above: PATIENT NOT FASTINGP ERFORMED BY: CB [facility] Pcdhuc35[address] [facility]in [place] [id number] Protein [Mass/Vol] 6.8 g/dL Normal 6.0-8.5 [facility]; [facility] Work Phone: Comment on above: PATIENT NOT FASTINGP ERFORMED BY: CB [facility] Uazzcb9[address] [facility]in [place] [id number] Sodium [Moles/Vol] 141 mmol/L Normal 134-144 [facility]; [facility] Work Phone: Comment on above: PATIENT NOT FASTINGP ERFORMED BY: CHARO [facility] Ndkwpo9255 [address] RoadDublin [place] [id number] Urea nitrogen [Mass/Vol] 12 mg/dL Normal 6-24 [facility]; [facility] Work Phone: Comment on above: PATIENT NOT FASTINGP ERFORMED BY: CB [facility] Culcsu9165 [address] RoadDublin [place] [id number] Urea nitrogen/Creatinine [Mass ratio] 16 mg/mg Normal 9-23 [facility]; [facility] Work Phone: Comment on above: PATIENT NOT FASTINGP ERFORMED BY: CB [facility] Ejpbaa3874 [address] RoadDublin [place] [id number] RHEUMATOID FACTOR-QUANT (542 20)Ordered By: Certified Medical Technician on 04-08-2020 Rheumatoid factor Qn [IU]/mL Normal 0.0-13.9 [facility]; [facility] Work Phone: Comment on above: PATIENT NOT FASTINGP ERFORMED BY: CB [facility] Rbtqnd2599 [address] RoadDublin [place] [id number] Rheumatoid factor Qn [IU]/mL Normal 0.0-13.9 [facility]; [facility] Work Phone: Comment on above: PATIENT NOT FASTINGP ERFORMED BY: CB [facility] Hvxdtj3664 [address] RoadDublin [place] [id number] SED RATE ERYTHROCYTE (80159) Ordered By: Certified Medical Technician on 04-08-2020 ESR (Bld) [Velocity] 2 mm/h Normal 0-40 [facility]; [facility] Work Phone: Comment on above: PATIENT NOT FASTINGP ERFORMED BY: CB [facility] Rxlzwf9907 [address] RoadDublin [place] [id number] TSH (24413)Ordered By: BabyBuse m Railroad Operator on 04-08-2020 TSH Qn 2.750 {uIU/mL} Normal 0.450-4.50 0 [facility]; [facility] Work Phone: Comment on above: PATIENT NOT FASTINGP ERFORMED BY: CHARO [employer] Fjeoqu3223 [facility] [id number] VITAMIN B-12 (CYANOCOBALAMIN ) (96443)Ordered By: Certified Medical Technician on 04-08-2020 Cobalamin (Vitamin B12) [Mass/Vol] pg/mL Abnormal 232-1245 [facility]; [facility] Work Phone: Comment on above: PATIENT NOT FASTINGP ERFORMED BY: CHARO [employer] Wsenxb1323 [facility] [id number] 2019 Novel Coronavirus (COVI D-19), THAIS (05159)Ordered By: Certified Medical Technician on 02-08-20202018 Novel Coronavirus (COVID-19), THAIS (31091) Detected Abnormal [facility] Work Phone: Comment on above: Client Requested Fla gThis nucleic acid amplification test was developed and its performancecharacteristics determined by [employer]. Nucleic acidamplification tests include PCR and TMA. This test has not been FDAcleared or approved. This test has been authorized by FDA under anEmergency Use Authorization (EUA). This test is only authorized forthe duration of time the declaration that circumstances existjustifying the authorization of the emergency use of in vitrodiagnostic tests for detection of SARS-CoV-2 virus and/or diagnosisof COVID-19 infection under section 564(b)(1) of the Act, 21 U.S.C.360bbb-3(b) (1), unless the authorization is terminated or revokedsooner.When diagnostic testing is negative, the possibility of a falsenegative result should be considered in the context of a patient'srecent exposures and the presence of clinical signs and symptomsconsistent with COVID-19. An individual without symptoms of COVID-19and who is not shedding SARS-CoV-2 virus would expect to have anegative (not detected) result in this assay. PATIENT NOT FASTINGP ERFORMED BY: MELA [employer] [id number] BOO [facility] [id number] 2019 Novel Coronavirus (COVID-19), THAIS (48815) Detected Abnormal [facility]; [facility] Work Phone: Comment on above: Client Requested Flmckenna gThis nucleic acid amplification test was developed and its performancecharacteristics determined by [employer]. Nucleic acidamplification tests include PCR and TMA. This test has not been FDAcleared or approved. This test has been authorized by FDA under anEmergency Use Authorization (EUA). This test is only authorized forthe duration of time the declaration that circumstances existjustifying the authorization of the emergency use of in vitrodiagnostic tests for detection of SARS-CoV-2 virus and/or diagnosisof COVID-19 infection under section 564(b)(1) of the Act, 21 U.S.C.360bbb-3(b) (1), unless the authorization is terminated or revokedsooner.When diagnostic testing is negative, the possibility of a falsenegative result should be considered in the context of a patient'srecent exposures and the presence of clinical signs and symptomsconsistent with COVID-19. An individual without symptoms of COVID-19and who is not shedding SARS-CoV-2 virus would expect to have anegative (not detected) result in this assay. PATIENT NOT FASTINGP ERFORMED BY: MELA [employer] [id number] BOO [facility] [id number] CALCIFEDIOL (35144)Ordered B y: Certified Medical Technician on 09-18-2019 25-Hydroxyvitamin D2+25-Hydroxyvitamin D3 [Mass/Vol] 51.6 ng/mL Normal 30.0-100.0 [facility] Work Phone: Comment on above: Vitamin D deficiency has been defined by the Media ofMedicine and an Endocrine Society practice guideline as alevel of serum 25-OH vitamin D less than 20 ng/mL (1,2).The Endocrine Society went on to further define vitamin Dinsufficiency as a level between 21 and 29 ng/mL (2).1. IOM (Media of Medicine). 2010. Dietary reference intakes for calcium and D. [place]: The National Academies Press.2. Brenda MF, Sumi NC, Ezio LEWIS, et al. Evaluation, treatment, and prevention of vitamin D deficiency: an Endocrine Society clinical practice guideline. JCEM. 2010; 96(7):1911-30. Test(s) 852893-LLL-U ; 445543-GHK-V; 638024-UZL-E; 063848-Udqwjqrapvgoh; 164096-Fumollergjg, Total; 475047-HRY-P (Total);271379-Dbrsc LDL-P; 458222-QLM Size; 647624-ZD-JC Scorewas developed and its performance characteristics determinedby [employer]. It has not been cleared or approved by the Foodand Drug Administration.PATIENT WAS FASTINGPERFORMED BY: [employer] [id number] BY: [employer]70 [facility]hatNov[facility] [id number]; ov 09/20 CBC, PLATELETS & AUT DIFF (4 6221)Ordered By: Certified Medical Technician on 09-18-2019 Basophils (Bld) [#/Vol] 0.1 {x10E3/uL} Normal 0.0-0.2 [facility] Work Phone: Comment on above: Test(s) 646912-EUP-T ; 590564-NJD-Y; 114645-TEE-R; 388203-Xepekrvechvmp; 910675-Jvyjuuuzyzu, Total; 923196-GMB-K (Total);939282-Vcukr LDL-P; 151447-WZZ Size; 083413-IW-XL Scorewas developed and its performance characteristics determinedby [employer]. It has not been cleared or approved by the Foodand Drug Administration.PATIENT WAS FASTINGPERFORMED BY: [employer] [id number] BY: [employer]70 YhatNov[facility] Health [facility] [id number] Basophils (Bld) [#/Vol] 0.1 10*3/uL Normal 0.0-0.2 [facility]; [facility] Work Phone: Comment on above: Test(s) 805960-XGN-F ; 322905-YUI-C; 531841-GEX-X; 200803-Cmkhhcmkcukyi; 268037-Rnhvhbdifqi, Total; 566020-XPP-O (Total);050487-Zbyts LDL-P; 365831-ZFJ Size; 446311-ND-ZR Scorewas developed and its performance characteristics determinedby [employer]. It has not been cleared or approved by the Foodand Drug Administration.PATIENT WAS FASTINGPERFORMED BY: [employer] [address] [id number] BY: Akos[employer] RetroSense TherapeuticsNovant Health [facility] [id number] Basophils/100 WBC (Bld) 1 % Normal [facility] Work Phone: Comment on above: Test(s) 654321-DJZ-K ; 546126-VER-W; 898557-BBG-K; 724469-Fdedhvfzufqpd; 358696-Tjkrwqsuthd, Total; 980821-RGX-V (Total);732918-Pzsjh LDL-P; 054654-XKM Size; 062379-YA-NT Scorewas developed and its performance characteristics determinedby [employer]. It has not been cleared or approved by the Foodand Drug Administration.PATIENT WAS FASTINGPERFORMED BY: [employer] [address] [id number] BY: Akosha70 YhatNovant Health [facility] [id number] Eosinophils (Bld) [#/Vol] 0.2 {x10E3/uL} Normal 0.0-0.4 [facility] Work Phone: Comment on above: Test(s) 355498-EWD-W ; 228435-JEF-S; 214064-WQU-U; 291596-Cgdsnhumabaku; 424882-Sjkpadxycio, Total; 185189-RHE-B (Total);673569-Ovrka LDL-P; 760329-ZZQ Size; 285585-DV-ZJ Scorewas developed and its performance characteristics determinedby [employer]. It has not been cleared or approved by the Foodand Drug Administration.PATIENT WAS FASTINGPERFORMED BY: [employer] [address] [id number] BY: [employer]70 [place] AlchimerNovant Health Presbyterian [facility] Center [id number] Eosinophils (Bld) [#/Vol] 0.2 10*3/uL Normal 0.0-0.4 [facility]; [facility] Work Phone: Comment on above: Test(s) 690800-IUK-G ; 711503-XQU-S; 475808-PUG-L; 593833-Gsaotpupfpovk; 840742-Sljzcxfqwqw, Total; 594513-WRH-E (Total);261264-Vhggq LDL-P; 810103-RPL Size; 888993-PH-AX Scorewas developed and its performance characteristics determinedby [employer]. It has not been cleared or approved by the Foodand Drug Administration.PATIENT WAS FASTINGPERFORMED BY: [employer] [id number] BY: Akosha70 NeuroLogicaNovant Health Presbyterian Medical Center [id number] Eosinophils/100 WBC (Bld) 2 % Normal [facility] Work Phone: Comment on above: Test(s) 121188-WDN-C ; 660015-NBT-H; 154265-EPN-K; 539708-Vqafbakuryutw; 851348-Ofixzaqmosr, Total; 789083-QBU-K (Total);751654-Jlskx LDL-P; 520115-ZWI Size; 103116-XG-KD Scorewas developed and its performance characteristics determinedby [employer]. It has not been cleared or approved by the Foodand Drug Administration.PATIENT WAS FASTINGPERFORMED BY: [employer] [id number] BY: [employer]6370 [facility]uzSaint [facility] [id number] Erythrocyte distribution width (RBC) [Ratio] 12.5 % Normal 11.7-15.4 [facility] Work Phone: Comment on above: Test(s) 773809-KYC-O ; 946931-WID-P; 809287-PRQ-N; 812726-Trmyqbrdegwgk; 379647-Qhcqsrwqqow, Total; 085971-MPM-G (Total);385311-Spghw LDL-P; 361919-GNL Size; 849321-YZ-JZ Scorewas developed and its performance characteristics determinedby [employer]. It has not been cleared or approved by the Foodand Drug Administration.PATIENT WAS FASTINGPERFORMED BY: [employer] [address] [id number] BY: [employer]6370 [facility] [id number] Hematocrit (Bld) [Volume fraction] 42.9 % Normal 34.0-46.6 [facility] Work Phone: Comment on above: Test(s) 822626-XED-H ; 913684-PYW-M; 723248-ZXA-E; 236554-Suwedapjykofn; 118542-Vptzgerswjs, Total; 627339-WXM-R (Total);617708-Hmryl LDL-P; 908509-MFF Size; 425617-PA-GF Scorewas developed and its performance characteristics determinedby [employer]. It has not been cleared or approved by the Foodand Drug Administration.PATIENT WAS FASTINGPERFORMED BY: [employer] [address] [id number] BY: [employer]6370 [facility] [id number] Hemoglobin (Bld) [Mass/Vol] 14.2 g/dL Normal 11.1-15.9 [facility] Work Phone: Comment on above: Test(s) 899724-RLF-H ; 162837-DHE-S; 777766-FKO-M; 575815-Nhswymryyqtdh; 169774-Lmzdlkhzssd, Total; 886630-IWJ-X (Total);736600-Plicv LDL-P; 730392-VWF Size; 390710-ZS-LQ Scorewas developed and its performance characteristics determinedby [employer]. It has not been cleared or approved by the Foodand Drug Administration.PATIENT WAS FASTINGPERFORMED BY: [employer] [address] [id number] BY: [employer]6370 [facility] [id number] Immature granulocytes (Bld) [#/Vol] 0.0 {x10E3/uL} Normal 0.0-0.1 [facility] Work Phone: Comment on above: Test(s) 553846-POC-G ; 527666-RJN-F; 188124-UCC-W; 264907-Hdptbqyajgegc; 477453-Tdfryhoixmt, Total; 697731-SZW-C (Total);587046-Tdtfe LDL-P; 528903-XEP Size; 000418-XP-YN Scorewas developed and its performance characteristics determinedby [employer]. It has not been cleared or approved by the Foodand Drug Administration.PATIENT WAS FASTINGPERFORMED BY: [employer] [id number] BY: [employer]70 [facility] [id number] Immature granulocytes (Bld) [#/Vol] 0.0 10*3/uL Normal 0.0-0.1 [facility]; [facility] Work Phone: Comment on above: Test(s) 808454-SHM-A ; 786458-UKJ-Q; 448901-QOQ-B; 884224-Ltuqsjqbubcil; 480874-Yxqtrztpeeg, Total; 867633-AXR-E (Total);550153-Bkyte LDL-P; 878134-GZM Size; 622681-DO-CC Scorewas developed and its performance characteristics determinedby [employer]. It has not been cleared or approved by the Foodand Drug Administration.PATIENT WAS FASTINGPERFORMED BY: [employer] [id number] BY: [employer]6370 [facility] [id number] Immature granulocytes/100 WBC (Bld) 1 % Normal [facility] Work Phone: Comment on above: Test(s) 772105-SUA-E ; 793685-OPB-K; 410793-TGL-R; 138041-Qkbkohxttyrgr; 393800-Ggnfzudmujq, Total; 640017-RUW-B (Total);072802-Kwomd LDL-P; 174505-SZU Size; 683725-KQ-ML Scorewas developed and its performance characteristics determinedby [employer]. It has not been cleared or approved by the Foodand Drug Administration.PATIENT WAS FASTINGPERFORMED BY: [employer] [id number] BY: [employer] Siolky9[address] [place] AlchimerNovant Health Presbyterian Medical Center [id number] Lymphocytes (Bld) [#/Vol] 2.3 {x10E3/uL} Normal 0.7-3.1 [facility] Work Phone: Comment on above: Test(s) 108150-IDK-B ; 082490-VMM-G; 262376-SGN-W; 619018-Ykmngwftlphdq; 725701-Daomjtznvsu, Total; 553539-WBC-Z (Total);539204-Uukgs LDL-P; 178386-NFL Size; 817440-JL-YC Scorewas developed and its performance characteristics determinedby [employer]. It has not been cleared or approved by the Foodand Drug Administration.PATIENT WAS FASTINGPERFORMED BY: [employer] [address] [id number] BY: [employer]6370 [facility] [id number] Lymphocytes (Bld) [#/Vol] 2.3 10*3/uL Normal 0.7-3.1 [facility]; [facility] Work Phone: Comment on above: Test(s) 569038-MYL-Z ; 555751-LDQ-N; 031840-TUL-A; 011193-Criwrpggnlmlh; 817684-Fmjnpzffxbm, Total; 525680-TMA-D (Total);888357-Tkcgt LDL-P; 299962-RFT Size; 694336-WN-RK Scorewas developed and its performance characteristics determinedby [employer]. It has not been cleared or approved by the Foodand Drug Administration.PATIENT WAS FASTINGPERFORMED BY: [employer] [address] [id number] BY: [employer] Ccmqtn3444 [facility] [id number] Lymphocytes/100 WBC (Bld) 33 % Normal [facility] Work Phone: Comment on above: Test(s) 301200-OYN-T ; 573408-WHP-S; 417582-XTK-U; 367729-Yzioqngyovgjl; 489050-Vexwsljlfma, Total; 412467-EWU-I (Total);663372-Suyfb LDL-P; 579477-GHA Size; 467193-ND-TW Scorewas developed and its performance characteristics determinedby [employer]. It has not been cleared or approved by the Foodand Drug Administration.PATIENT WAS FASTINGPERFORMED BY: [employer] [id number] BY: Akosha70 [facility] [id number] MCH (RBC) [Entitic mass] 31.3 pg Normal 26.6-33.0 [facility] Work Phone: Comment on above: Test(s) 169240-KZR-V ; 045770-KTA-W; 589426-LKY-P; 353176-Zzcbrbcssguwt; 038926-Qkgztxspoov, Total; 743312-SWI-T (Total);064130-Jumqn LDL-P; 756745-PHD Size; 621646-SG-VE Scorewas developed and its performance characteristics determinedby [employer]. It has not been cleared or approved by the Foodand Drug Administration.PATIENT WAS FASTINGPERFORMED BY: [employer] [id number] BY: mention Mzimlr7811 [facility] [id number] MCHC (RBC) [Mass/Vol] 33.1 g/dL Normal 31.5-35.7 [facility] Work Phone: Comment on above: Test(s) 781699-QRK-M ; 858839-JCG-K; 369252-QUF-O; 440809-Hjmsghewvdmyc; 251816-Dvxxcupgemy, Total; 079698-EWV-G (Total);323806-Fofzy LDL-P; 016561-ZCQ Size; 616743-RQ-DT Scorewas developed and its performance characteristics determinedby [employer]. It has not been cleared or approved by the Foodand Drug Administration.PATIENT WAS FASTINGPERFORMED BY: [employer] [id number] BY: [employer] Bamawk3213 [facility]uzSaint [facility] [id number] MCV (RBC) [Entitic vol] 95 fL Normal 79-97 [facility] Work Phone: Comment on above: Test(s) 521153-MOU-X ; 886025-XXZ-D; 218882-DWU-M; 741336-Pcfjsduazsseg; 743971-Fcnhddrtbkv, Total; 324102-TCK-J (Total);364706-Islau LDL-P; 397927-VWR Size; 832683-PA-RE Scorewas developed and its performance characteristics determinedby [employer]. It has not been cleared or approved by the Foodand Drug Administration.PATIENT WAS FASTINGPERFORMED BY: [employer] [address] [id number] BY: Akosha[address] AlchimerNovant Health Presbyterian [facility] [id number] Monocytes (Bld) [#/Vol] 0.7 {x10E3/uL} Normal 0.1-0.9 [facility] Work Phone: Comment on above: Test(s) 251823-QLJ-X ; 119353-BID-E; 686649-RVA-Z; 809608-Ryavbwxzwjdot; 011366-Kydyhoxrprv, Total; 769321-YGV-J (Total);035927-Wgbki LDL-P; 400498-OHA Size; 378712-TZ-GB Scorewas developed and its performance characteristics determinedby [employer]. It has not been cleared or approved by the Foodand Drug Administration.PATIENT WAS FASTINGPERFORMED BY: Threat Stack[address] [id number] BY: [employer] Cuvyml8827 [facility] [id number] Monocytes (Bld) [#/Vol] 0.7 10*3/uL Normal 0.1-0.9 [facility]; [facility] Work Phone: Comment on above: Test(s) 139509-HJH-L ; 825995-WLR-B; 130281-DYU-W; 482624-Btyivfjoysjeq; 094157-Hfhhtrwuzxy, Total; 260632-GZX-M (Total);893586-Owley LDL-P; 532110-ROS Size; 325010-NZ-XM Scorewas developed and its performance characteristics determinedby [employer]. It has not been cleared or approved by the Foodand Drug Administration.PATIENT WAS FASTINGPERFORMED BY: [employer] [id number] BY: Akosha70 [facility] [id number] Monocytes/100 WBC (Bld) 10 % Normal [facility] Work Phone: Comment on above: Test(s) 061070-ASP-W ; 651030-FAR-R; 057832-YRI-H; 378387-Iglypzxolfpmx; 058753-Kooxuiqepxi, Total; 859161-PSF-M (Total);778803-Govty LDL-P; 132331-CBL Size; 575956-BI-GD Scorewas developed and its performance characteristics determinedby [employer]. It has not been cleared or approved by the Foodand Drug Administration.PATIENT WAS FASTINGPERFORMED BY: [employer] [id number] BY: mention Owfxib6833 [facility] [id number] Neutrophils (Bld) [#/Vol] 3.7 {x10E3/uL} Normal 1.4-7.0 [facility] Work Phone: Comment on above: Test(s) 807287-UBR-U ; 641068-ETJ-Y; 088193-FDY-D; 395120-Yedyedtepkkus; 687715-Bzrryltfuhm, Total; 487686-DPK-X (Total);827354-Giqgh LDL-P; 117753-HEP Size; 864278-AP-ER Scorewas developed and its performance characteristics determinedby [employer]. It has not been cleared or approved by the Foodand Drug Administration.PATIENT WAS FASTINGPERFORMED BY: [employer] [address] [id number] BY: [employer] Mhsrln5150 [address] AlchimerNovant Health Presbyterian Medical Center [id number] Neutrophils (Bld) [#/Vol] 3.7 10*3/uL Normal 1.4-7.0 [facility]; [facility] Work Phone: Comment on above: Test(s) 422857-CET-A ; 365790-LLJ-L; 569769-UAR-G; 517668-Ozwlcteucmwig; 805637-Yhoyrefajje, Total; 276818-OUS-M (Total);811120-Qqdys LDL-P; 961436-FOW Size; 254050-ZY-AL Scorewas developed and its performance characteristics determinedby [employer]. It has not been cleared or approved by the Foodand Drug Administration.PATIENT WAS FASTINGPERFORMED BY: [employer] [address] [id number] BY: Akosha70 [facility]hatNovant Health [facility] [id number] Neutrophils/100 WBC (Bld) 53 % Normal [facility] Internal Medicine Work Phone: Comment on above: Test(s) 366452-DSX-D ; 815417-GDR-B; 299911-DDV-F; 191337-Rvjkgalzpvfkb; 550247-Txqjaxzrkkz, Total; 159831-NCK-V (Total);322867-Qlmfa LDL-P; 758515-YXY Size; 019441-WB-ZQ Scorewas developed and its performance characteristics determinedby [employer]. It has not been cleared or approved by the Foodand Drug Administration.PATIENT WAS FASTINGPERFORMED BY: Threat Stack[address] [id number] BY: ThreatStreamOcean Medical CenterHygkhc9355 [facility] [id number] Platelets (Bld) [#/Vol] 283 {x10E3/uL} Normal 150-450 [facility] Internal Medicine Work Phone: Comment on above: Test(s) 284264-XXX-X ; 065181-EMX-F; 359225-REI-K; 126582-Wkmdwatejlcry; 415349-Pxuguvqtxvi, Total; 291813-SMV-A (Total);966555-Llmav LDL-P; 150857-UNX Size; 139008-PH-SV Scorewas developed and its performance characteristics determinedby [employer]. It has not been cleared or approved by the Foodand Drug Administration.PATIENT WAS FASTINGPERFORMED BY: [employer] [id number] BY: ID AMERICANovant Health Presbyterian Medical Center [id number] Platelets (Bld) [#/Vol] 283 10*3/uL Normal 150-450 [facility] Internal Medicine; [facility] Internal Medicine Work Phone: Comment on above: Test(s) 802661-ORT-V ; 903394-JNQ-V; 703873-GQD-P; 737651-Wifjlvvfvfhed; 327747-Klkuedkgwfy, Total; 812009-ZCO-G (Total);292380-Xdisc LDL-P; 288725-SFE Size; 101425-TJ-RW Scorewas developed and its performance characteristics determinedby [employer]. It has not been cleared or approved by the Foodand Drug Administration.PATIENT WAS FASTINGPERFORMED BY: [employer] [address] [id number] BY: Akosha70 [facility] [id number] RBC (Bld) [#/Vol] 4.54 {x10E6/uL} Normal 3.77-5.28 [facility] Internal Medicine Work Phone: Comment on above: Test(s) 971856-OFB-L ; 627039-OVT-T; 828015-CKO-D; 849905-Yuqatrbxvasxg; 431014-Kyrjhhnsldk, Total; 074220-ASC-Y (Total);803371-Ivlhs LDL-P; 197523-AEX Size; 395727-OM-TK Scorewas developed and its performance characteristics determinedby [employer]. It has not been cleared or approved by the Foodand Drug Administration.PATIENT WAS FASTINGPERFORMED BY: [employer] [address] [id number] BY: [employer] Fjfunk0509 [facility] [id number] RBC (Bld) [#/Vol] 4.54 10*6/uL Normal 3.77-5.28 [facility] ehensive Internal Medicine; [facility] Internal Medicine Work Phone: Comment on above: Test(s) 119748-LZW-N ; 515665-ZRP-H; 570532-ZEZ-T; 083477-Nbzoeowhakvzw; 909996-Iaysgfelfhr, Total; 124276-MRW-G (Total);737498-Eqsvz LDL-P; 926161-JCI Size; 835047-EQ-DJ Scorewas developed and its performance characteristics determinedby [employer]. It has not been cleared or approved by the Foodand Drug Administration.PATIENT WAS FASTINGPERFORMED BY: [employer] [address] [id number] BY: Akosha70 [facility] [id number] WBC (Bld) [#/Vol] 7.0 {x10E3/uL} Normal 3.4-10.8 [facility] Internal Medicine Work Phone: Comment on above: Test(s) 197103-EYQ-X ; 478924-WNC-B; 856238-VOV-O; 440415-Qivzvebjjsoun; 178329-Eqzdeiqwkpe, Total; 885916-ONM-V (Total);531910-Sfxna LDL-P; 961517-KSW Size; 240013-AF-YI Scorewas developed and its performance characteristics determinedby [employer]. It has not been cleared or approved by the Foodand Drug Administration.PATIENT WAS FASTINGPERFORMED BY: [employer] [address] [id number] BY: aiHitlin6370 [facility] [id number] WBC (Bld) [#/Vol] 7.0 10*3/uL Normal 3.4-10.8 [facility] Internal Medicine; [facility] Work Phone: Comment on above: Test(s) 804213-HMQ-P ; 638372-TIH-R; 488274-LQK-V; 577026-Twllmxsivqnpw; 526623-Fapcqeekbwj, Total; 528551-IJP-D (Total);738058-Yosux LDL-P; 208681-MAS Size; 170866-ND-NR Scorewas developed and its performance characteristics determinedby [employer]. It has not been cleared or approved by the Foodand Drug Administration.PATIENT WAS FASTINGPERFORMED BY: [employer] [id number] BY: [employer]6370 [facility] [id number] HGB A1C (39392)Ordered By: S ystem Railroad Operator on 09-18-2019 HbA1c (Bld) [Mass fraction] 5.9 % Abnormal 4.8-5.6 [facility] Work Phone: Comment on above: . Prediabetes: 5.7 - 6.4 Diabetes: >6.4 Glycemic control for adults with diabetes: <7.0 Test(s) 624519-GYY-F ; 125176-EQA-Y; 258977-KGH-M; 135592-Evdubiwpzkwiy; 115825-Shtfpwncnsb, Total; 348658-BZM-G (Total);392834-Byevt LDL-P; 471730-OMT Size; 033909-JE-XD Scorewas developed and its performance characteristics determinedby [employer]. It has not been cleared or approved by the Foodand Drug Administration.PATIENT WAS FASTINGPERFORMED BY: [employer] [address] [id number] BY: [employer]6370 [facility] [id number] MICROALBUMINOrdered By: Syst em Railroad Operator on 09-18-2019 Albumin DL <= 20 mg/L (U) [Mass/Vol] 5.9 ug/mL Normal Comprehensiv e Internal Medicine Work Phone: Comment on above: Test(s) 749025-YYV-V ; 913220-APO-N; 662859-SVI-I; 755026-Gnnizflxjigfu; 185451-Zlyutghucvd, Total; 988332-CWZ-N (Total);777024-Bmnif LDL-P; 297622-DNJ Size; 021299-BY-TX Scorewas developed and its performance characteristics determinedby [employer]. It has not been cleared or approved by the Foodand Drug Administration.PATIENT WAS FASTINGPERFORMED BY: [employer] [id number] BY: On The Bill [facility] [id number] Albumin/Creatinine (U) [Mass ratio] 7 {mg/g_creat} Normal 0-29 [facility] Work Phone: Comment on above: Normal: 0 - 29 Moder ately increased: 30 - 300 Severely increased: >300 Please note reference interval change Test(s) 152984-TPX-A ; 413248-FIY-B; 368163-QKH-I; 655578-Gjekeqwewculr; 636461-Eczyupiibxv, Total; 031465-NCU-X (Total);489044-Fgjtg LDL-P; 691017-LLX Size; 864774-WX-MJ Scorewas developed and its performance characteristics determinedby [employer]. It has not been cleared or approved by the FoodRadiant Communications Drug Administration.PATIENT WAS FASTINGPERFORMED BY: [employer] [address] [id number] BY: [employer]6[address] AlchimerNovant Health Presbyterian [facility] Center [id number] Creatinine (U) [Mass/Vol] 83.4 mg/dL Normal [facility] Work Phone: Comment on above: Test(s) 512074-OXN-I ; 146716-HTY-A; 564424-MBN-R; 285673-Zinroomibursx; 197569-Ayvsgzbdltj, Total; 833621-IKF-Z (Total);104178-Yjslc LDL-P; 604546-DWL Size; 001338-CA-YJ Scorewas developed and its performance characteristics determinedby [employer]. It has not been cleared or approved by the Foodand Drug Administration.PATIENT WAS FASTINGPERFORMED BY: [employer] [address] [id number] BY: [employer] Dfmqkm3822 [facility] [id number] NMR Profile (91409)Ordered B y: Certified Medical Technician on 09-18-2019 Cholesterol [Mass/Vol] 183 mg/dL Normal 100-199 [facility] Work Phone: Comment on above: Test(s) 830362-KLZ-R ; 033672-WDK-K; 346212-NWA-I; 741566-Dlelzuwlripwn; 345289-Epqxtiqvqrb, Total; 072530-IOZ-R (Total);374398-Wriir LDL-P; 096063-BRG Size; 572327-XP-VW Scorewas developed and its performance characteristics determinedby [employer]. It has not been cleared or approved by the Foodand Drug Administration.PATIENT WAS FASTINGPERFORMED BY: [employer] [address] [id number] BY: Akosha70 [facility] [id number] Lipoprotein.alpha [Moles/Vol] 35.7 umol/L Normal [facility] Work Phone: Comment on above: Test(s) 455668-JRZ-C ; 808341-ZEY-B; 683583-UTY-B; 915007-Xldjapfkedluo; 761880-Nffwqqzvnvc, Total; 707839-VCC-W (Total);523294-Ouizt LDL-P; 361805-XWS Size; 873354-OI-EC Scorewas developed and its performance characteristics determinedby [employer]. It has not been cleared or approved by the Foodand Drug Administration.PATIENT WAS FASTINGPERFORMED BY: [employer] [address] [id number] BY: Akosha70 [facility] [id number] Lipoprotein.beta.sub particle [Entitic length] 20.4 nm Abnormal [facility] Work Phone: Comment on above: INTERPRETATIVE INFORMATION PARTICLE CONCENTRATION AND SIZE <--Lower CVD Risk Higher CVD Risk--> LDL AND HDL PARTICLES Percentile in Reference Population HDL-P (total) High 75th 50th 25th Low >34.9 34.9 30.5 26.7 <26.7 . Small LDL-P Low 25th 50th 75th High <117 117 527 839 >839 . LDL Size <-Large (Pattern A)-> <-Small (Pattern B)-> 23.0 20.6 20.5 19.0 Small LDL-P and LDL Size are associated with CVD risk, but not afterLDL-P is taken into account. Test(s) 686154-RJN-H ; 885647-DZQ-I; 382034-KQT-X; 503467-Iywmrqapovdrv; 639272-Vlsrubephmu, Total; 309073-DIB-D (Total);485071-Lpzkl LDL-P; 619159-COC Size; 585365-VG-TR Scorewas developed and its performance characteristics determinedby [employer]. It has not been cleared or approved by the Foodand Drug Administration.PATIENT WAS FASTINGPERFORMED BY: Slicebooks[address] [id number] BY: LabKalkaska Memorial Health Center6370 [facility] [id number] Lipoprotein.beta.sub particle [Moles/Vol] 1468 nmol/L Abnormal Comprehensi Internal Medicine Work Phone: Comment on above: Low < 1000 Moderate 1000 - 1299 Borderline-High 1300 - 1599 High 1600 - 2000 Very High > 2000 Test(s) 637042-UCC-P ; 315834-RGT-M; 925495-BIY-M; 265194-Thwcqnwzleijs; 323530-Wgcidlqnpje, Total; 469702-KSH-B (Total);707290-Menln LDL-P; 156211-DYL Size; 396170-XP-AT Scorewas developed and its performance characteristics determinedby [employer]. It has not been cleared or approved by the Foodand Drug Administration.PATIENT WAS FASTINGPERFORMED BY: [employer] [address] [id number] BY: ECS TuningNovant Health New [facility] [id number] Lipoprotein.beta.sub particle.small [Moles/Vol] 769 nmol/L Abnormal [facility] Work Phone: Comment on above: Test(s) 595620-RJT-J ; 186542-UGY-N; 430372-AIY-X; 350478-Qybiglmflpduf; 124664-Iselpxgomul, Total; 840249-ZFC-W (Total);869889-Hzemf LDL-P; 471639-ZNX Size; 750774-CR-OU Scorewas developed and its performance characteristics determinedby [employer]. It has not been cleared or approved by the FoodRadiant Communications Drug Administration.PATIENT WAS FASTINGPERFORMED BY: [employer] [address] [id number] BY: [employer] RetroSense TherapeuticsNovant Health [facility] [id number] Triglyceride [Mass/Vol] 142 mg/dL Normal 0-149 [facility] Work Phone: Comment on above: Test(s) 388947-KMQ-D ; 902168-JWP-D; 364615-PCJ-S; 984223-Rhridfadlkrzn; 636461-Pomxgfnneac, Total; 450176-BIO-L (Total);431940-Acjev LDL-P; 345590-FYJ Size; 744495-ND-SV Scorewas developed and its performance characteristics determinedby [employer]. It has not been cleared or approved by the Foodand Drug Administration.PATIENT WAS FASTINGPERFORMED BY: [employer] [address] [id number] BY: [employer] Wwilvd9182 [address] AlchimerNovant Health Presbyterian Medical Center [id number] NMR Profile (60831) 47 mg/dL Normal [facility] Internal Medicine Work Phone: Comment on above: Test(s) 059689-UGH-I ; 960559-GPH-F; 629346-NXY-S; 939115-Hsolqplcwsjru; 082935-Ehgmsrhtflb, Total; 323722-PFW-H (Total);087432-Qtlap LDL-P; 841276-YOD Size; 146270-AW-KG Scorewas developed and its performance characteristics determinedby [employer]. It has not been cleared or approved by the Foodand Drug Administration.PATIENT WAS FASTINGPERFORMED BY: [employer] [id number] BY: [employer]6370 [facility] [id number] NMR Profile (80615) 108 mg/dL Abnormal 0-99 [facility] Internal Medicine Work Phone: Comment on above: . Optimal < 100 Abov e optimal 100 - 129 Borderline 130 - 159 High 160 - 189 Very high > 189 .LDL-C is inaccurate if patient is non-fasting. Test(s) 798310-EOO-V ; 694950-AGI-N; 479743-ECB-W; 094684-Wuszlzpfdogcq; 455083-Sucpraanfyd, Total; 510944-KXA-Q (Total);787909-Oogvx LDL-P; 067409-WXN Size; 801410-BS-ZY Scorewas developed and its performance characteristics determinedby [employer]. It has not been cleared or approved by the Foodand Drug Administration.PATIENT WAS FASTINGPERFORMED BY: [employer] [address] [id number] BY: [employer] Hllfwy0205 [facility] [id number] TSH (THYROID STIMULATING HOR BLANCHE) (22872)Ordered By: Certified Medical Technician on 09-18-2019 TSH Qn 3.640 {uIU/mL} Normal 0.450-4.50 0 [facility] Work Phone: Comment on above: Test(s) 831205-KGT-O ; 844852-UQT-B; 998333-PIL-V; 200247-Iixrkirapjrsw; 429241-Xmtwirvpzul, Total; 924427-XEB-Z (Total);985069-Exniz LDL-P; 250020-PJM Size; 835473-DY-EU Scorewas developed and its performance characteristics determinedby [employer]. It has not been cleared or approved by the Foodand Drug Administration.PATIENT WAS FASTINGPERFORMED BY: [employer] [address] [id number] BY: Rift.ioNovant Health Presbyterian Medical Center [id number] CALCIFEDIOL (15086)Ordered B y: Certified Medical Technician on 09-10-2018 25-Hydroxyvitamin D2+25-Hydroxyvitamin D3 [Mass/Vol] 44.8 ng/mL Normal 30.0-100.0 [facility] Work Phone: Comment on above: Vitamin D deficiency has been defined by the Media ofMedicine and an Endocrine Society practice guideline as alevel of serum 25-OH vitamin D less than 20 ng/mL (1,2).The Endocrine Society went on to further define vitamin Dinsufficiency as a level between 21 and 29 ng/mL (2).1. IOM (Media of Medicine). 2010. Dietary reference intakes for calcium and D. [place]: The National Academies Press.2. Brenda MF, Sumi NC, Ezio LEWIS, et al. Evaluation, treatment, and prevention of vitamin D deficiency: an Endocrine Society clinical practice guideline. JCEM. 2010; 96(7):1911-30. PATIENT WAS FASTINGP ERFORMED BY: [employer] Btfctxajlo2184 [facility] [id number] BY: On The Bill [facility] MichiganBlue Lion Mobile (QEEP)in [place] [id number] CBC WITH MANUAL DIFF (72444) Ordered By: Certified Medical Technician on 09-10-2018 Basophils (Bld) [#/Vol] 0.0 {x10E3/uL} Normal 0.0-0.2 [facility] Work Phone: Comment on above: PATIENT WAS FASTINGP ERFORMED BY: Lab[address] [id number] BY: [facility] Zcdtyd7075 Arauz RoadDublin [place] [id number] Basophils (Bld) [#/Vol] 0.0 10*3/uL Normal 0.0-0.2 [facility]; [facility] Work Phone: Comment on above: PATIENT WAS FASTINGP ERFORMED BY: [address] [id number] BY: CHARO [facility] Mzredh8018 Arauz RoadDublin [place] [id number] Basophils/100 WBC (Bld) 1 % Normal [facility] Work Phone: Comment on above: PATIENT WAS FASTINGP ERFORMED BY: [address] [id number] BY: [facility] Rtmwxq9954 Arauz RoadDublin [place] [id number] Eosinophils (Bld) [#/Vol] 0.2 {x10E3/uL} Normal 0.0-0.4 [facility] Work Phone: Comment on above: PATIENT WAS FASTINGP ERFORMED BY: Lab[address] [id number] BY: [facility] Apbdqz6262 Arauz RoadDuin [place] [id number] Eosinophils (Bld) [#/Vol] 0.2 10*3/uL Normal 0.0-0.4 [facility]; [facility] Work Phone: Comment on above: PATIENT WAS FASTINGP ERFORMED BY: [address] [id number] BY: [facility] Rzspnr1837 Arauz RoadDuin [place] [id number] Eosinophils/100 WBC (Bld) 3 % Normal [facility] Work Phone: Comment on above: PATIENT WAS FASTINGP ERFORMED BY: [address] [id number] BY: LabCoOcean Medical CenterGzqwkf7[address] [facility] [id number] Erythrocyte distribution width (RBC) [Ratio] 13.3 % Normal 12.3-15.4 [facility] Work Phone: Comment on above: PATIENT WAS FASTINGP ERFORMED BY: [address] [id number] BY: [place] [id number] [facility] [id number] Hematocrit (Bld) [Volume fraction] 40.4 % Normal 34.0-46.6 [facility] Work Phone: Comment on above: PATIENT WAS FASTINGP ERFORMED BY: [address] [id number] BY: [place] 3366270 [facility] [id number] Hemoglobin (Bld) [Mass/Vol] 13.6 g/dL Normal 11.1-15.9 [facility] Work Phone: Comment on above: PATIENT WAS FASTINGP ERFORMED BY: [address] [id number] BY: LabMichael Ville 38612[address] [facility] [id number] Immature granulocytes (Bld) [#/Vol] 0.0 {x10E3/uL} Normal 0.0-0.1 [facility] Work Phone: Comment on above: PATIENT WAS FASTINGP ERFORMED BY: [address] [id number] BY: LabFulton [facility] Meouzk[address] [facility] Hospitalin [place] [id number] Immature granulocytes (Bld) [#/Vol] 0.0 10*3/uL Normal 0.0-0.1 [facility]; [facility] Work Phone: Comment on above: PATIENT WAS FASTINGP ERFORMED BY: [address] [id number] BY: [facility] Xxwjtw6216 Arauz RoadDublin [place] [id number] Immature granulocytes/100 WBC (Bld) 0 % Normal [facility] Work Phone: Comment on above: PATIENT WAS FASTINGP ERFORMED BY: [address] [id number] BY: LabMichael Ville 3861270 [address] RoadDublin [place] [id number] Lymphocytes (Bld) [#/Vol] 2.0 {x10E3/uL} Normal 0.7-3.1 [facility] Work Phone: Comment on above: PATIENT WAS FASTINGP ERFORMED BY: [address] [id number] BY: LabMichael Ville 3861270 [address] RoadLifebrite Community Hospital Of Stokesin [place] [id number] Lymphocytes (Bld) [#/Vol] 2.0 10*3/uL Normal 0.7-3.1 [facility]; [facility] Work Phone: Comment on above: PATIENT WAS FASTINGP ERFORMED BY: [address] [id number] BY: LabMichael Ville 3861270 [address] RoadDublin [place] [id number] Lymphocytes/100 WBC (Bld) 29 % Normal [facility] Work Phone: Comment on above: PATIENT WAS FASTINGP ERFORMED BY: [address] [id number] BY: [facility] Yvsdmc4982 [address] RoadDublin [place] [id number] MCH (RBC) [Entitic mass] 30.6 pg Normal 26.6-33.0 [facility] Work Phone: Comment on above: PATIENT WAS FASTINGP ERFORMED BY: [address] [id number] BY: LabKalkaska Memorial Health Center6370 [facility] [id number] MCHC (RBC) [Mass/Vol] 33.7 g/dL Normal 31.5-35.7 [facility] Work Phone: Comment on above: PATIENT WAS FASTINGP ERFORMED BY: [address] [id number] BY: LabMichael Ville 3861270 [facility] [id number] MCV (RBC) [Entitic vol] 91 fL Normal 79-97 [facility] Work Phone: Comment on above: PATIENT WAS FASTINGP ERFORMED BY: [address] [id number] BY: LabMichael Ville 3861270 [facility] [id number] Monocytes (Bld) [#/Vol] 0.7 {x10E3/uL} Normal 0.1-0.9 [facility] Work Phone: Comment on above: PATIENT WAS FASTINGP ERFORMED BY: [address] [address] [id number] BY: LabMichael Ville 3861270 [facility] [id number] Monocytes (Bld) [#/Vol] 0.7 10*3/uL Normal 0.1-0.9 [facility]; [facility] Work Phone: Comment on above: PATIENT WAS FASTINGP ERFORMED BY: [address] [id number] BY: LabK[facility] Center[address] [facility] [id number] Monocytes/100 WBC (Bld) 10 % Normal [facility] Work Phone: Comment on above: PATIENT WAS FASTINGP ERFORMED BY: [facility] Wfroqnwwpw6679 [facility] [id number] BY: CHARO [facility] Lgencp4152 [address] RoadDublin [place] [id number] Neutrophils (Bld) [#/Vol] 3.9 {x10E3/uL} Normal 1.4-7.0 [facility] Work Phone: Comment on above: PATIENT WAS FASTINGP ERFORMED BY: [facility] [address] [id number] BY: CHARO [facility] Tgbqvr9652 [address] RoadDublin [place] [id number] Neutrophils (Bld) [#/Vol] 3.9 10*3/uL Normal 1.4-7.0 [facility]; [facility] Work Phone: Comment on above: PATIENT WAS FASTINGP ERFORMED BY: Lab[address] [id number] BY: CHARO [facility] Wsekmf1805 Arauz RoadDublin [place] [id number] Neutrophils/100 WBC (Bld) 57 % Normal [facility] Work Phone: Comment on above: PATIENT WAS FASTINGP ERFORMED BY: [facility] [address] [id number] BY: CHARO [facility] Pzsmjg9268 [address] RoadDublin [place] [id number] Platelets (Bld) [#/Vol] 263 {x10E3/uL} Normal 150-450 [facility] Work Phone: Comment on above: PATIENT WAS FASTINGP ERFORMED BY: Lab[address] [id number] BY: [facility] Lvptie5984 [address] RoadDublin [place] [id number] Platelets (Bld) [#/Vol] 263 10*3/uL Normal 150-450 [facility]; [facility] Work Phone: Comment on above: PATIENT WAS FASTINGP ERFORMED BY: Lab[address] [id number] BY: LabCo Lgmpit2739 Arauz RoadDuin [place] [id number] RBC (Bld) [#/Vol] 4.44 {x10E6/uL} Normal 3.77-5.28 [facility] Internal Medicine Work Phone: Comment on above: PATIENT WAS FASTINGP ERFORMED BY: LabCo[address] [id number] BY: LabCoOcean Medical CenterAsjufd[address] [facility]in [place] [id number] RBC (Bld) [#/Vol] 4.44 10*6/uL Normal 3.77-5.28 [facility] Internal Medicine; [facility] Work Phone: Comment on above: PATIENT WAS FASTINGP ERFORMED BY: Lab[address] [id number] BY: LabCoNicole Ville 8956770 [facility] [id number] WBC (Bld) [#/Vol] 6.9 {x10E3/uL} Normal 3.4-10.8 [facility] Internal Medicine Work Phone: Comment on above: PATIENT WAS FASTINGP ERFORMED BY: Lab[address] [id number] BY: LabCoNicole Ville 8[address]67[address] [facility] [id number] WBC (Bld) [#/Vol] 6.9 10*3/uL Normal 3.4-10.8 [facility] Internal Medicine; [facility] Work Phone: Comment on above: PATIENT WAS FASTINGP ERFORMED BY: Lab[address] [id number] BY: LabCo Lqwxwt2175 [facility] [id number] HGB A1C (64456)Ordered By: Tello ystem Railroad Operator on 09-10-2018 HbA1c (Bld) [Mass fraction] 5.5 % Normal 4.8-5.6 [facility] Work Phone: Comment on above: . Prediabetes: 5.7 - 6.4 Diabetes: >6.4 Glycemic control for adults with diabetes: <7.0 PATIENT WAS FASTINGP ERFORMED BY: [facility] [address] [id number] BY: CHARO [facility] Vpkgko9653 [address] RoadDublin [place] [id number] METABOLIC PANEL, COMPREHENSI VE (68014)Ordered By: Certified Medical Technician on 09-10-2018 Albumin [Mass/Vol] 4.4 g/dL Normal 3.5-5.5 [facility] Internal Medicine Work Phone: Comment on above: PATIENT WAS FASTINGP ERFORMED BY: [facility] [address] [id number] BY: CHARO [facility] Mfgrxk7667 [address] RoadDublin [place] [id number] Albumin/Globulin [Mass ratio] 1.9 {ratio} Normal 1.2-2.2 [facility] Work Phone: Comment on above: PATIENT WAS FASTINGP ERFORMED BY: [facility] [address] [id number] BY: CHARO [facility] Ehsrqb9900 [address] RoadDublin [place] [id number] ALP [Catalytic activity/Vol] 107 [iU]/L Normal 39-117 [facility] Work Phone: Comment on above: PATIENT WAS FASTINGP ERFORMED BY: [facility] [address] [id number] BY: [facility] Ahhzad2483 [address] RoadDublin [place] [id number] ALP [Catalytic activity/Vol] 107 U/L Normal 39-117 [facility]; [facility] Work Phone: Comment on above: PATIENT WAS FASTINGP ERFORMED BY: [facility] [address] [id number] BY: Lab[facility] Ogkpjg7862 [address] RoadDublin [place] [id number] ALT [Catalytic activity/Vol] 24 [iU]/L Normal 0-32 [facility] Work Phone: Comment on above: PATIENT WAS FASTINGP ERFORMED BY: Lab[address] [id number] BY: [facility] Oofxmq4980 [address] RoadDublin [place] [id number] ALT [Catalytic activity/Vol] 24 U/L Normal 0-32 [facility]; [facility] Work Phone: Comment on above: PATIENT WAS FASTINGP ERFORMED BY: [address] [id number] BY: [facility] Lqlozt2291 [address] RoadDublin [place] [id number] AST [Catalytic activity/Vol] 19 [iU]/L Normal 0-40 [facility] Work Phone: Comment on above: PATIENT WAS FASTINGP ERFORMED BY: [address] [id number] BY: Lab[facility] Vkksdi4043 [address] RoadDublin [place] [id number] AST [Catalytic activity/Vol] 19 U/L Normal 0-40 [facility]; [facility] Work Phone: Comment on above: PATIENT WAS FASTINGP ERFORMED BY: Lab[address] [id number] BY: LabFult[facility] Boiryo4606 [address] RoadDublin [place] [id number] Bilirubin [Mass/Vol] 0.3 mg/dL Normal 0.0-1.2 Comp [facility] Internal Medicine Work Phone: Comment on above: PATIENT WAS FASTINGP ERFORMED BY: [address] [id number] BY: LabCo Ikmeju9283 [address] RoadDublin [place] [id number] Calcium [Mass/Vol] 10.5 mg/dL Abnormal 8.7-10.2 [facility] Internal Medicine Work Phone: Comment on above: PATIENT WAS FASTINGP ERFORMED BY: BN [facility] [address] [id number] BY: CB [facility] Byjtyf6216 [address] RoadDublin [place] [id number] Chloride [Moles/Vol] 105 mmol/L Normal 96-106 Comp rehensive Internal Medicine Work Phone: Comment on above: PATIENT WAS FASTINGP ERFORMED BY: BN [facility] Krfvmcpfcg7[address] [id number] BY: CB [facility] Yqruku6781 [address] RoadDublin [place] [id number] CO2 [Moles/Vol] 23 mmol/L Normal 20-29 [facility] Internal Medicine Work Phone: Comment on above: PATIENT WAS FASTINGP ERFORMED BY: BN [facility] [address] [id number] BY: CB [facility] Gambak5[address] RoadDublin [place] [id number] Creatinine [Mass/Vol] 0.66 mg/dL Normal 0.57-1.00 [facility] Work Phone: Comment on above: PATIENT WAS FASTINGP ERFORMED BY: BN [facility] [address] [id number] BY: CB [facility] Xvtvxh7265 [address] RoadDublin [place] [id number] GFR/1.73 sq M predicted among blacks CKD-EPI (S/P/Bld) [Vol rate/Area] 119 mL/min/1.73 Normal [facility] Work Phone: Comment on above: PATIENT WAS FASTINGP ERFORMED BY: BN [facility] [address] [id number] BY: CB [facility] Hnwojp1671 [address] RoadDublin [place] [id number] GFR/1.73 sq M predicted among non-blacks CKD-EPI (S/P/Bld) [Vol rate/Area] 103 mL/min/1.73 Normal [facility] Work Phone: Comment on above: PATIENT WAS FASTINGP ERFORMED BY: Lab[address] [id number] BY: Lab[facility] Fyvaga8580 [address] RoadDuin [place] [id number] Globulin (S) [Mass/Vol] 2.3 g/dL Normal 1.5-4.5 [facility] Work Phone: Comment on above: PATIENT WAS FASTINGP ERFORMED BY: Lab[address] [id number] BY: Lab[facility] Nligxe[address] [facility] [id number] Glucose [Mass/Vol] 106 mg/dL Abnormal 65-99 [facility] Internal Medicine Work Phone: Comment on above: PATIENT WAS FASTINGP ERFORMED BY: Lab[address] [id number] BY: Lab[facility] Umbqwl[address] [facility] [place] [id number] Potassium [Moles/Vol] 4.8 mmol/L Normal 3.5-5.2 [facility] Work Phone: Comment on above: PATIENT WAS FASTINGP ERFORMED BY: [address] [id number] BY: LabF[facility] Vcbvcr[address] [facility] [id number] Protein [Mass/Vol] 6.7 g/dL Normal 6.0-8.5 [facility] Internal Medicine Work Phone: Comment on above: PATIENT WAS FASTINGP ERFORMED BY: Lab[address] [id number] BY: Lab[facility] Rsebep6695 [address] RoadDuin [place] [id number] Sodium [Moles/Vol] 141 mmol/L Normal 134-144 [facility] Internal Medicine Work Phone: Comment on above: PATIENT WAS FASTINGP ERFORMED BY: BN [facility] Vzyutvjxts0169 [facility] [id number] BY: CHARO [facility] Awhini4629 [address] RoadDublin [place] [id number] Urea nitrogen [Mass/Vol] 13 mg/dL Normal 6-24 [facility] Work Phone: Comment on above: PATIENT WAS FASTINGP ERFORMED BY: BN [facility] Oirvhxtqfw[address] [id number] BY: CB [facility] Lnnbfc5556 [address] RoadDublin [place] [id number] Urea nitrogen/Creatinine [Mass ratio] 20 mg/mg Normal 9-23 [facility] Work Phone: Comment on above: PATIENT WAS FASTINGP ERFORMED BY: BN [facility] [address] [id number] BY: CHARO [facility] Xcksyz6550 [address] RoadDublin [place] [id number] MICROALBUMINOrdered By: Syst em Railroad Operator on 09-10-2018 Albumin DL <= 20 mg/L (U) [Mass/Vol] mg/dL Normal Comprehensiv e Internal Medicine Work Phone: Comment on above: PATIENT WAS FASTINGP ERFORMED BY: BN [facility] Qdpnbupcju[address] [id number] BY: CHARO [facility] Jdbzmd6445 [address] RoadDublin [place] [id number] Albumin DL <= 20 mg/L (U) [Mass/Vol] mg/dL Normal Comprehensiv e Internal Medicine; [facility] Work Phone: Comment on above: PATIENT WAS FASTINGP ERFORMED BY: BN [facility] [address] [id number] BY: CB [facility] Zexgbp2477 [address] RoadDublin [place] [id number] Albumin/Creatinine (U) [Mass ratio] <15.9 Normal 0.0-30.0 [facility] Work Phone: Comment on above: Normal: 0.0 - 30.0 A lbuminuria: 31.0 - 300.0 Clinical albuminuria: >300.0 PATIENT WAS FASTINGP ERFORMED BY: [employer] [id number] BY: [employer] Mfrjxx9258 [facility] [id number] Creatinine (U) [Mass/Vol] 18.9 mg/dL Normal [facility] Work Phone: Comment on above: PATIENT WAS FASTINGP ERFORMED BY: [employer] [address] [id number] BY: [employer] Tgmoyd1120 [facility] [id number] NMR Profile (10385)Ordered B y: Certified Medical Technician on 09-10-2018 Cholesterol [Mass/Vol] 187 mg/dL Normal 100-199 [facility] Work Phone: Comment on above: PATIENT WAS FASTINGP ERFORMED BY: [employer] [address] [id number] BY: [employer] Eqtcov9434 [facility] [id number] Lipoprotein.alpha [Moles/Vol] 39.4 umol/L Normal [facility] Work Phone: Comment on above: PATIENT WAS FASTINGP ERFORMED BY: [employer] [address] [id number] BY: [employer] Uylxdz6149 [facility] [id number] Lipoprotein.beta.sub particle [Entitic length] 20.4 nm Abnormal [facility] Work Phone: Comment on above: INTERPRETATIVE INFORMATION PARTICLE CONCENTRATION AND SIZE <--Lower CVD Risk Higher CVD Risk--> LDL AND HDL PARTICLES Percentile in Reference Population HDL-P (total) High 75th 50th 25th Low >34.9 34.9 30.5 26.7 <26.7 . Small LDL-P Low 25th 50th 75th High <117 117 527 839 >839 . LDL Size <-Large (Pattern A)-> <-Small (Pattern B)-> 23.0 20.6 20.5 19.0 Small LDL-P and LDL Size are associated with CVD risk, but not afterLDL-P is taken into account. .These assays were developed and their performance characteristicsdetermined by [employer]. These assays have not been cleared by [place] Food and Drug Administration. The clinical utility of theselaboratory values have not been fully established. PATIENT WAS FASTINGP ERFORMED BY: [employer] Pharmaceuticalton1447 [facility] [id number] BY: Akosha70 NeuroLogicaNovant Health Presbyterian [facility] Center [id number] Lipoprotein.beta.sub particle [Moles/Vol] 1273 nmol/L Abnormal Comprehensi Internal Medicine Work Phone: Comment on above: Low < 1000 Moderate 1000 - 1299 Borderline-High 1300 - 1599 High 1600 - 2000 Very High > 2000 PATIENT WAS FASTINGP ERFORMED BY: [employer] Pharmaceuticalton1447 [facility] [id number] BY: [employer] AlchimerNovant Health Presbyterian Medical Center [id number] Lipoprotein.beta.sub particle.small [Moles/Vol] 644 nmol/L Abnormal [facility] Work Phone: Comment on above: PATIENT WAS FASTINGP ERFORMED BY: [employer] Pharmaceuticalton1447 [facility] [id number] BY: [employer]ha70 [address] AlchimerNovant Health Presbyterian Medical Center [id number] Triglyceride [Mass/Vol] 118 mg/dL Normal 0-149 [facility] Work Phone: Comment on above: PATIENT WAS FASTINGP ERFORMED BY: [employer] [id number] BY: Notice TechnologiesOcean Medical CenterUmiech2691 [facility] [id number] NMR Profile (13486) 108 mg/dL Abnormal 0-99 [facility] Work Phone: Comment on above: . Optimal < 100 Abov e optimal 100 - 129 Borderline 130 - 159 High 160 - 189 Very high > 189 .LDL-C is inaccurate if patient is non-fasting. PATIENT WAS FASTINGP ERFORMED BY: [employer] [id number] BY: Notice TechnologiesOcean Medical CenterPwgxny8101 [facility] [id number] NMR Profile (72100) 55 mg/dL Normal [facility] Work Phone: Comment on above: PATIENT WAS FASTINGP ERFORMED BY: [employer] [id number] BY: CHARO LabAryngaOcean Medical CenterNgnksg0357 [facility] [id number] TSH (THYROID STIMULATING HOR BLANCHE) (99144)Ordered By: Certified Medical Technician on 09-10-2018 TSH Qn 3.940 {uIU/mL} Normal 0.450-4.50 0 [facility] Work Phone: Comment on above: PATIENT WAS FASTINGP ERFORMED BY: [employer] [id number] BY: SlicebooksKalkaska Memorial Health Center6370 [facility] [id number] URINALYSIS, W/ MICRO (18706) Ordered By: Certified Medical Technician on 09-10-2018 Appearance (U) Clear Normal Comprehens lynsey Internal Medicine Work Phone: Comment on above: PATIENT WAS FASTINGP ERFORMED BY: [employer] [id number] BY: CHARO [facility] Hjlpdz0624 [address] RoadDublin [place] [id number] Bilirubin Ql (U) Negative Normal Comprehe nsive Internal Medicine Work Phone: Comment on above: PATIENT WAS FASTINGP ERFORMED BY: Lab[address] [id number] BY: CHARO [facility] Lpeoau1952 [address] RoadDublin [place] [id number] Bilirubin Ql (U) Negative Normal Comprehe nsive Internal Medicine; [facility] Work Phone: Comment on above: PATIENT WAS FASTINGP ERFORMED BY: Lab[address] [id number] BY: CHARO [facility] Ugjpso9964 [address] RoadDublin [place] [id number] Color (U) Yellow Normal [facility] Work Phone: Comment on above: PATIENT WAS FASTINGP ERFORMED BY: Lab[address] [id number] BY: CHARO [facility] Lpovvx1744 [address] RoadDublin [place] [id number] Glucose Ql (U) Negative Normal Comprehens lynsey Internal Medicine Work Phone: Comment on above: PATIENT WAS FASTINGP ERFORMED BY: [address] [id number] BY: CHARO [facility] Hrbfsl1860 [address] RoadDublin [place] [id number] Glucose Ql (U) Negative Normal Comprehens lynsey Internal Medicine; [facility] Work Phone: Comment on above: PATIENT WAS FASTINGP ERFORMED BY: [address] [id number] BY: CHARO [facility] Pnenbf7707 [address] RoadDublin [place] [id number] Hemoglobin Ql (U) Negative Normal Compreh ensive Internal Medicine Work Phone: Comment on above: PATIENT WAS FASTINGP ERFORMED BY: Lab[address] [id number] BY: [facility] Aekmeo8331 [address] RoadDublin [place] [id number] Hemoglobin Ql (U) Negative Normal Compreh ensive Internal Medicine; [facility] Work Phone: Comment on above: PATIENT WAS FASTINGP ERFORMED BY: [address] [id number] BY: [facility] Lphnes2730 [address] RoadDublin [place] [id number] Ketones Ql (U) Negative Normal Comprehens lynsey [facility] Medicine Work Phone: Comment on above: PATIENT WAS FASTINGP ERFORMED BY: [address] [id number] BY: [facility] Wfkbis3342 [address] RoadDublin [place] [id number] Ketones Ql (U) Negative Normal Comprehens lynsey [facility]; [facility] Work Phone: Comment on above: PATIENT WAS FASTINGP ERFORMED BY: [address] [id number] BY: [facility] Nrfhqq1321 [address] RoadDublin [place] [id number] Leukocyte esterase Test strip Ql (U) 1+ Abnormal [facility] Work Phone: Comment on above: PATIENT WAS FASTINGP ERFORMED BY: [address] [id number] BY: [facility] Smttdj2288 [address] RoadDublin [place] [id number] Microscopic observation LM Nom (Urine sed) See below: Normal [facility] Work Phone: Comment on above: Microscopic was micaela cated and was performed. PATIENT WAS FASTINGP ERFORMED BY: [address] [id number] BY: [facility] Wfluaa1810 [address] RoadDublin [place] [id number] Nitrite Ql (U) Negative Normal Comprehens lynsey [facility] Work Phone: Comment on above: PATIENT WAS FASTINGP ERFORMED BY: LabCo[address] [id number] BY: CHARO [facility] Hnuqxt1348 [address] RoadDublin [place] [id number] Nitrite Ql (U) Negative Normal Comprehens lynsey [facility]; [facility] Work Phone: Comment on above: PATIENT WAS FASTINGP ERFORMED BY: LabCo[address] [id number] BY: CHARO [facility] Kwkcgf1776 [address] RoadDublin [place] [id number] pH (U) 7.0 [pH] Normal 5.0-7.5 [facility] Work Phone: Comment on above: PATIENT WAS FASTINGP ERFORMED BY: [address] [id number] BY: CHARO [facility] Wqntwa3418 [address] RoadDublin [place] [id number] Protein Ql (U) Negative Normal Comprehens lynsey Internal Medicine Work Phone: Comment on above: PATIENT WAS FASTINGP ERFORMED BY: Lab[address] [id number] BY: CHARO [facility] Jyurbe6182 [address] RoadDublin [place] [id number] Protein Ql (U) Negative Normal Comprehens lynsey [facility]; [facility] Work Phone: Comment on above: PATIENT WAS FASTINGP ERFORMED BY: Lab[address] [id number] BY: [facility] Vagvfr8431 [address] RoadLifebrite Community Hospital Of Stokesin [place] [id number] Specific gravity (U) [Rel density] <=1.005 Abnormal 1.005-1.03 0 [facility] Work Phone: Comment on above: PATIENT WAS FASTINGP ERFORMED BY: Lab[address] [id number] BY: Notice TechnologiesGila Regional Medical CenterDuvpqr9857 [address] RoadDublin [place] [id number] Urobilinogen (U) [Mass/Vol] 0.2 mg/dL Normal 0.2-1.0 [facility]; [facility] Work Phone: Comment on above: PATIENT WAS FASTINGP ERFORMED BY: [employer] [id number] BY: [employer] Xkzlcd4127 [address] RoadDublin [place] [id number] Urobilinogen Test strip (U) [Mass/Vol] 0.2 mg/dL Normal 0.2-1.0 Comprehensi ve Internal Medicine Work Phone: Comment on above: PATIENT WAS FASTINGP ERFORMED BY: [employer] [id number] BY: Notice TechnologiesGila Regional Medical CenterTftzys2479 [address] RoadDublin [place] [id number] VITAMIN B12 AND FOLATES (826 07)Ordered By: Certified Medical Technician on 09-10-2018 Cobalamin (Vitamin B12) [Mass/Vol] 459 pg/mL Normal 232-1245 [facility] Work Phone: Comment on above: PATIENT WAS FASTINGP ERFORMED BY: [employer] [id number] BY: Notice TechnologiesOcean Medical CenterIbeuib5078 [address] RoadDublin [place] [id number] Folate [Mass/Vol] ng/mL Normal Compreh ensive Internal Medicine Work Phone: Comment on above: A serum folate cipriano ntration of less than 3.1 ng/mL isconsidered to represent clinical deficiency. PATIENT WAS FASTINGP ERFORMED BY: [employer] [id number] BY: Notice TechnologiesOcean Medical CenterCwluav2878 [address] RoadDublin [place] [id number] CALCIFEDIOL (82226)Ordered B y: Certified Medical Technician on 05-30-2018 25-Hydroxyvitamin D2+25-Hydroxyvitamin D3 mass conc 37.8 ng/mL Normal 30.0-100.0 [facility] Work Phone: Comment on above: Vitamin D deficiency has been defined by the Media ofMedicine and an Endocrine Society practice guideline as alevel of serum 25-OH vitamin D less than 20 ng/mL (1,2).The Endocrine Society went on to further define vitamin Dinsufficiency as a level between 21 and 29 ng/mL (2).1. IOM (Media of Medicine). 2010. Dietary reference intakes for calcium and D. [place]: The National Academies Press.2. Brenda MF, Sumi VALLES, Ezio LEWIS, et al. Evaluation, treatment, and prevention of vitamin D deficiency: an Endocrine Society clinical practice guideline. JCEM. 2010; 96(7):1911-30. PATIENT WAS FASTINGP ERFORMED BY: [employer] [place] [id number] HGB A1C (12528)Ordered By: S ystem Railroad Operator on 05-30-2018 Hemoglobin A1c/Hemoglobin.total mass fraction (Bld) 5.8 % Abnormal 4.8-5.6 Comprehensiv e Internal Medicine Work Phone: Comment on above: . Prediabetes: 5.7 - 6.4 Diabetes: >6.4 Glycemic control for adults with diabetes: <7.0 PATIENT WAS FASTINGP ERFORMED BY: [employer] [place] [id number] VITAMIN B-12 (CYANOCOBALAMIN ) (39834)Ordered By: Certified Medical Technician on 05-30-2018 Cobalamin (Vitamin B12) mass conc 677 pg/mL Normal 232-1245 [facility] Work Phone: Comment on above: PATIENT WAS FASTINGP ERFORMED BY: [employer] [place] [id number] THOR CULTURE-BLOOD (72996)on 02-21-2018 Bacteria identified Cx Nom (Bld) CNSS Abnormal [facility] Work Phone: Comment on above: Coagulase negative S taphylococcus species.Recovered from anaerobic bottle only.Based on resistance to oxacillin this isolate would be resistant toall currently available beta-lactam antimicrobial agents, with theexception of the newer cephalosporins with anti-MRSA activity, such asCeftarolineCALLED AND HAD PRELIM READ BACK BY SURYA Javed ON 02/23/18AXED PRELIM TO [phone] aerobic growth in five days.Recovered from aerobic bottle only. S = Susceptible; I = Intermediate; R = Resistant P = Positive; N = Negative MICS are expressed in micrograms per mL Antibiotic RSLT#1 RSLT#2 RSLT#3 RSLT#4Ciprofloxacin SClindamycin SErythromycin SGentamicin SLevofloxacin SLinezolid SOxacillin RPenicillin RQuinupristin/Dalfopristin SRifampin STetracycline STrimethoprim/Sulfa SVancomycin S Test(s) Blood Cultur e, Routine called to SURYA Javed on 02/23/2018 at 11:44 ESTPATIENT NOT FASTINGPERFORMED BY: Akosha70 [employer] [place] [id number] Information: RIGHT ARM SITE 2@820AM SRC:WB Bacteria identified Cx Nom (Bld) NGFD Normal [facility] Work Phone: Comment on above: No aerobic or anaero bic growth in five days. PATIENT NOT FASTINGP ERFORMED BY: ThreatStreamrp Oqwmil0677 [facility] [place] [id number] Information: LEFT ARM SITE 1@815AM SRC:WB Bacteria identified Cx Nom (Bld) Final report Abnormal [facility] Work Phone: Comment on above: Test(s) Blood Cultur e, Routine called to SURYA Javed on 02/23/2018 at 11:44 ESTPATIENT NOT FASTINGPERFORMED BY: ThreatStreamrp Ejmupu2953 [place] [id number] Information: RIGHT ARM SITE 2@820AM SRC:WB PATIENT NOT FASTINGP ERFORMED BY: mention Sqncnz7676 [employer] [place] [id number] Information: LEFT ARM SITE 1@815AM SRC:WB CALCIFEDIOL (89067)on 2017 25-Hydroxyvitamin D2+25-Hydroxyvitamin D3 mass conc 27.0 ng/mL Abnormal 30.0-100.0 [facility] Work Phone: Comment on above: Vitamin D deficiency has been defined by the Media ofMedicine and an Endocrine Society practice guideline as alevel of serum 25-OH vitamin D less than 20 ng/mL (1,2).The Endocrine Society went on to further define vitamin Dinsufficiency as a level between 21 and 29 ng/mL (2).1. IOM (Media of Medicine). 2010. Dietary reference intakes for calcium and D. [place]: The National AcademXiaoSheng.fm Press.2. Brenda MF, Sumi VALLES, Ezio LEWIS, et al. Evaluation, treatment, and prevention of vitamin D deficiency: an Endocrine Society clinical practice guideline. JCEM. 2010; 96(7):1911-30. PATIENT WAS FASTINGP ERFORMED BY: [employer] [id number] BY: Weichaishi.comSaint [facility] [id number] CBC W/AUTO DIFF WBC (00955)o n 01-15-2018 Basophils #/vol (Bld) 0.0 {x10E3/uL} Normal 0.0-0.2 [facility] Work Phone: Comment on above: PATIENT WAS FASTINGP ERFORMED BY: [employer] [id number] BY: Akosha70 [facility] [id number] Basophils Auto #/vol (Bld) 0.0 {x10E3/uL} Normal 0.0-0.2 [facility] Work Phone: Basophils/100 WBC (Bld) 1 % Normal [facility] Work Phone: Comment on above: PATIENT WAS FASTINGP ERFORMED BY: [employer] [address] [id number] BY: [employer] Erzosq8813 [facility]uzSaint [facility] [id number] Basophils/100 WBC Auto (Bld) 1 % Normal [facility] Work Phone: Eosinophils #/vol (Bld) 0.2 {x10E3/uL} Normal 0.0-0.4 [facility] Work Phone: Comment on above: PATIENT WAS FASTINGP ERFORMED BY: [employer] [address] [id number] BY: CHARO [employer] Asinbo0959 [facility] [id number] Eosinophils Auto #/vol (Bld) 0.2 {x10E3/uL} Normal 0.0-0.4 [facility] Work Phone: Eosinophils/100 WBC (Bld) 3 % Normal [facility] Work Phone: Comment on above: PATIENT WAS FASTINGP ERFORMED BY: [employer] [address] [id number] BY: CHARO SocialBuylin6370 [facility] [id number] Eosinophils/100 WBC Auto (Bld) 3 % Normal [facility] Work Phone: Erythrocyte distribution width Auto Ratio (RBC) 13.1 % Normal 12.3-15.4 [facility] Work Phone: Erythrocyte distribution width Ratio (RBC) 13.1 % Normal 12.3-15.4 [facility] Work Phone: Comment on above: PATIENT WAS FASTINGP ERFORMED BY: [employer] [id number] BY: Notice TechnologiesOcean Medical CenterHvgwow3037 [facility] [id number] Hematocrit Auto Volume Fraction (Bld) 41.9 % Normal 34.0-46.6 [facility] Work Phone: Hematocrit Volume Fraction (Bld) 41.9 % Normal 34.0-46.6 [facility] Work Phone: Comment on above: PATIENT WAS FASTINGP ERFORMED BY: [employer] [id number] BY: Notice Technologiesrp Uhdnzr6016 Arauz RoadDuin [place] [id number] Hemoglobin mass conc (Bld) 14.2 g/dL Normal 11.1-15.9 [facility] Work Phone: Comment on above: PATIENT WAS FASTINGP ERFORMED BY: [address] [id number] BY: LabCoGila Regional Medical CenterJuujia4958 Arauz RoadDublin [place] [id number] Immature granulocytes #/vol (Bld) 0.0 {x10E3/uL} Normal 0.0-0.1 [facility] Work Phone: Comment on above: PATIENT WAS FASTINGP ERFORMED BY: Slicebooks[address] [id number] BY: LabCoNicole Ville 8956770 [address] RoadLifebrite Community Hospital Of Stokesin [place] [id number] Immature granulocytes/100 WBC (Bld) 0 % Normal [facility] Work Phone: Comment on above: PATIENT WAS FASTINGP ERFORMED BY: [employer] [id number] BY: LabMichael Ville 3861270 [address] [facility] [id number] Lymphocytes #/vol (Bld) 2.2 {x10E3/uL} Normal 0.7-3.1 [facility] Work Phone: Comment on above: PATIENT WAS FASTINGP ERFORMED BY: [employer]icebooks[address] [id number] BY: [place] 3366270 [facility] [id number] Lymphocytes Auto #/vol (Bld) 2.2 {x10E3/uL} Normal 0.7-3.1 [facility] Work Phone: Lymphocytes/100 WBC (Bld) 29 % Normal [facility] Work Phone: Comment on above: PATIENT WAS FASTINGP ERFORMED BY: [employer]icebooks[address] [id number] BY: CHARO Notice TechnologiesOcean Medical CenterEenzvw6465 [facility] [id number] Lymphocytes/100 WBC Auto (Bld) 29 % Normal [facility] Work Phone: MCH Auto Entitic mass (RBC) 31.0 pg Normal 26.6-33.0 [facility] Work Phone: MCH Entitic mass (RBC) 31.0 pg Normal 26.6-33.0 [facility] Work Phone: Comment on above: PATIENT WAS FASTINGP ERFORMED BY: [employer] [id number] BY: CHARO Notice TechnologiesNicole Ville 8956770 [facility] [id number] MCHC Auto mass conc (RBC) 33.9 g/dL Normal 31.5-35.7 [facility] Work Phone: MCHC mass conc (RBC) 33.9 g/dL Normal 31.5-35.7 Comp [facility] Internal Medicine Work Phone: Comment on above: PATIENT WAS FASTINGP ERFORMED BY: [employer] [id number] BY: Notice TechnologiesNicole [place] 8956770 [facility] [id number] MCV Auto Entitic volume (RBC) 92 fL Normal 79-97 [facility] Work Phone: MCV Entitic volume (RBC) 92 fL Normal 79-97 [facility] Work Phone: Comment on above: PATIENT WAS FASTINGP ERFORMED BY: [employer] [id number] BY: ThreatStreamNicole [place] 8956770 [facility] [id number] Monocytes #/vol (Bld) 0.6 {x10E3/uL} Normal 0.1-0.9 [facility] Work Phone: Comment on above: PATIENT WAS FASTINGP ERFORMED BY: BN LabCo[address] [id number] BY: Notice TechnologiesOcean Medical CenterVxkojp1621 [facility] [id number] Monocytes Auto #/vol (Bld) 0.6 {x10E3/uL} Normal 0.1-0.9 [facility] Work Phone: Monocytes/100 WBC (Bld) 9 % Normal [facility] Work Phone: Comment on above: PATIENT WAS FASTINGP ERFORMED BY: [employer] [id number] BY: Notice TechnologiesNicole [place] 8956770 [facility] [id number] Monocytes/100 WBC Auto (Bld) 9 % Normal [facility] Work Phone: Neutrophils #/vol (Bld) 4.4 {x10E3/uL} Normal 1.4-7.0 [facility] Work Phone: Comment on above: PATIENT WAS FASTINGP ERFORMED BY: [employer] Uphhwfxnpa[address] [id number] BY: Notice TechnologiesNicole [place] 8956770 [facility] [id number] Neutrophils Auto #/vol (Bld) 4.4 {x10E3/uL} Normal 1.4-7.0 [facility] Work Phone: Neutrophils/100 WBC (Bld) 58 % Normal [facility] Work Phone: Comment on above: PATIENT WAS FASTINGP ERFORMED BY: [employer] [id number] BY: Notice TechnologiesNicole [place] 8956770 [facility] [id number] Neutrophils/100 WBC Auto (Bld) 58 % Normal [facility] Work Phone: Platelets #/vol (Bld) 322 {x10E3/uL} Normal 150-379 [facility] Work Phone: Comment on above: PATIENT WAS FASTINGP ERFORMED BY: [address] [id number] BY: [place] 3366270 [facility] [id number] Platelets Auto #/vol (Bld) 322 {x10E3/uL} Normal 150-379 [facility] Work Phone: RBC #/vol (Bld) 4.58 {x10E6/uL} Normal 3.77-5.28 [facility] Internal Medicine Work Phone: Comment on above: PATIENT WAS FASTINGP ERFORMED BY: [employer] [id number] BY: [place] 3366270 [facility] [id number] RBC Auto #/vol (Bld) 4.58 {x10E6/uL} Normal 3.77-5.28 [facility] Work Phone: WBC #/vol (Bld) 7.5 {x10E3/uL} Normal 3.4-10.8 [facility] Internal Medicine Work Phone: Comment on above: PATIENT WAS FASTINGP ERFORMED BY: [employer] [id number] BY: ProMedica Memorial HospitalAryngaNicole Ville 8956770 [facility] [id number] WBC Auto #/vol (Bld) 7.5 {x10E3/uL} Normal 3.4-10.8 [facility] Work Phone: CBC W/AUTO DIFF WBC (84127)O rdered By: Certified Medical Technician on 01-15-2018 Basophils (Bld) [#/Vol] 0.0 10*3/uL Normal 0.0-0.2 [facility]; [facility] Work Phone: Comment on above: PATIENT WAS FASTINGP ERFORMED BY: [employer] [id number] BY: [place] 3366270 [facility] [id number] Eosinophils (Bld) [#/Vol] 0.2 10*3/uL Normal 0.0-0.4 [facility]; [facility] Work Phone: Comment on above: PATIENT WAS FASTINGP ERFORMED BY: [address] [id number] BY: LabCo Iibzvk8062 Arauz RoadDublin [place] [id number] Immature granulocytes (Bld) [#/Vol] 0.0 10*3/uL Normal 0.0-0.1 [facility]; [facility] Work Phone: Comment on above: PATIENT WAS FASTINGP ERFORMED BY: [address] [id number] BY: LabFulton State Hospital Ifqlrr6225 [address] [facility] [id number] Lymphocytes (Bld) [#/Vol] 2.2 10*3/uL Normal 0.7-3.1 [facility]; [facility] Work Phone: Comment on above: PATIENT WAS FASTINGP ERFORMED BY: [address] [id number] BY: LabMichael [place] 3861270 [facility] [id number] Monocytes (Bld) [#/Vol] 0.6 10*3/uL Normal 0.1-0.9 [facility]; [facility] Work Phone: Comment on above: PATIENT WAS FASTINGP ERFORMED BY: [address] [id number] BY: LabFulton State Hospital Mxtump[address] [facility]in [place] [id number] Neutrophils (Bld) [#/Vol] 4.4 10*3/uL Normal 1.4-7.0 [facility]; [facility] Work Phone: Comment on above: PATIENT WAS FASTINGP ERFORMED BY: [address] [id number] BY: [facility]6370 [address] RoadDublin [place] [id number] Platelets (Bld) [#/Vol] 322 10*3/uL Normal 150-379 [facility]; [facility] Work Phone: Comment on above: PATIENT WAS FASTINGP ERFORMED BY: LabCo[address] [id number] BY: [facility] Derfeo4619 Arauz RoadDublin [place] [id number] RBC (Bld) [#/Vol] 4.58 10*6/uL Normal 3.77-5.28 Compr ehensive Internal Medicine; [facility] Work Phone: Comment on above: PATIENT WAS FASTINGP ERFORMED BY: Lab[address] [id number] BY: LabCo Qhgqis1671 [address] [facility] [id number] WBC (Bld) [#/Vol] 7.5 10*3/uL Normal 3.4-10.8 Compre [facility]sh[facility] Internal Medicine; [facility] Work Phone: Comment on above: PATIENT WAS FASTINGP ERFORMED BY: Lab[address] [id number] BY: LabCoOcean Medical CenterGaheyr5662 [address] [facility] [id number] HGB A1C (54574)on 01-15-2018 Hemoglobin A1c/Hemoglobin.total mass fraction (Bld) 5.7 % Abnormal 4.8-5.6 Comprehensiv e Internal Medicine Work Phone: Comment on above: . Prediabetes: 5.7 - 6.4 Diabetes: >6.4 Glycemic control for adults with diabetes: <7.0 PATIENT WAS FASTINGP ERFORMED BY: Lab[address] [id number] BY: LabCo Vslmkp0469 [facility] [id number] LIPOPROTEIN, BLD, BY NMR (83 174)on 01-15-2018 Cholesterol in HDL mass conc 48 mg/dL Normal [facility] Work Phone: Comment on above: PATIENT WAS FASTINGP ERFORMED BY: [employer] [address] [id number] BY: ThreatStreamOcean Medical CenterIrdjlw9761 [facility] [id number] Cholesterol in LDL mass conc 87 mg/dL Normal 0-99 [facility] Work Phone: Comment on above: . Optimal < 100 Abov e optimal 100 - 129 Borderline 130 - 159 High 160 - 189 Very high > 189 .LDL-C is inaccurate if patient is non-fasting. PATIENT WAS FASTINGP ERFORMED BY: [employer] [address] [id number] BY: mention Glgzda2057 [facility] [id number] Cholesterol mass conc 183 mg/dL Normal 100-199 [facility] Work Phone: Comment on above: PATIENT WAS FASTINGP ERFORMED BY: [employer] [address] [id number] BY: Akosha70 [facility] [id number] Lipoprotein.alpha molar conc 39.0 umol/L Normal [facility] Work Phone: Comment on above: PATIENT WAS FASTINGP ERFORMED BY: [employer] [address] [id number] BY: ThreatStreamOcean Medical CenterTxrvdi6526 [facility] [id number] Lipoprotein.beta.sub particle Entitic length 20.7 nm Normal [facility] Work Phone: Comment on above: INTERPRETATIVE INFORMATION PARTICLE CONCENTRATION AND SIZE <--Lower CVD Risk Higher CVD Risk--> LDL AND HDL PARTICLES Percentile in Reference Population HDL-P (total) High 75th 50th 25th Low >34.9 34.9 30.5 26.7 <26.7 . Small LDL-P Low 25th 50th 75th High <117 117 527 839 >839 . LDL Size <-Large (Pattern A)-> <-Small (Pattern B)-> 23.0 20.6 20.5 19.0 Small LDL-P and LDL Size are associated with CVD risk, but not afterLDL-P is taken into account. .These assays were developed and their performance characteristicsdetermined by [employer]. These assays have not been cleared by [place] Food and Drug Administration. The clinical utility of theselaboratory values have not been fully established. PATIENT WAS FASTINGP ERFORMED BY: [employer] [place] [address] [id number] BY: Akosha70 ArauzSaint [facility] [id number] Lipoprotein.beta.sub particle molar conc 1117 nmol/L Abnormal Comprehensiv e Internal Medicine Work Phone: Comment on above: Low < 1000 Moderate 1000 - 1299 Borderline-High 1300 - 1599 High 1600 - 2000 Very High > 2000 PATIENT WAS FASTINGP ERFORMED BY: [employer] [id number] BY: Akosha70 [place] AlchimerNovant Health Presbyterian Medical Center [id number] Lipoprotein.beta.sub particle.small molar conc 489 nmol/L Normal [facility] Work Phone: Comment on above: PATIENT WAS FASTINGP ERFORMED BY: [employer] [id number] BY: Akosha70 [place] AlchimerNovant Health Presbyterian Medical Center [id number] Triglyceride mass conc 239 mg/dL Abnormal 0-149 [facility] Work Phone: Comment on above: PATIENT WAS FASTINGP ERFORMED BY: LabCo[address] [id number] BY: [facility] Wpbenu4564 [address] [facility] [id number] METABOLIC PANEL, COMPREHENSI VE (48431)on 01-15-2018 Albumin mass conc 4.7 g/dL Normal 3.5-5.[address] [facility]oseph[facility] hospitalive Internal Medicine Work Phone: Comment on above: PATIENT WAS FASTINGP ERFORMED BY: LabCo[address] [id number] BY: [facility] Ifjezq7480 [address] [facility] [id number] Albumin/Globulin mass ratio 2.2 {ratio} Normal 1.2-2.2 [facility] Work Phone: Comment on above: PATIENT WAS FASTINGP ERFORMED BY: LabCo[address] [id number] BY: [facility] Zmwjvs7166 [address] [facility] [id number] ALP enzyme act/vol 107 [iU]/L Normal 39-117 [facility] Internal Medicine Work Phone: Comment on above: PATIENT WAS FASTINGP ERFORMED BY: Lab[address] [id number] BY: [facility] Dhlpvf16[address] [facility]in [place] [id number] ALT enzyme act/vol 17 [iU]/L Normal 0-32 [facility] Internal Medicine Work Phone: Comment on above: PATIENT WAS FASTINGP ERFORMED BY: LabCo[address] [id number] BY: [facility] Iquvpa4357 [address] [facility] Hospitalin [place] [id number] AST enzyme act/vol 18 [iU]/L Normal 0-40 [facility] Internal Medicine Work Phone: Comment on above: PATIENT WAS FASTINGP ERFORMED BY: Lab[address] [id number] BY: CHARO [facility] Nncusv2360 Arauz RoadDublin [place] [id number] Bilirubin mass conc 0.3 mg/dL Normal 0.0-1.2 Compr ehensive Internal Medicine Work Phone: Comment on above: PATIENT WAS FASTINGP ERFORMED BY: Lab[address] [id number] BY: CHARO [facility] Kxcmem7206 [address] RoadDublin [place] [id number] Calcium mass conc 10.8 mg/dL Abnormal 8.7-10.2 Compreh ensive Internal Medicine Work Phone: Comment on above: PATIENT WAS FASTINGP ERFORMED BY: Lab[address] [id number] BY: CHARO LabCo Ctfrsj7274 [address] RoadLifebrite Community Hospital Of Stokesin [place] [id number] Chloride molar conc 107 mmol/L Abnormal 96-106 Compr ehensive Internal Medicine Work Phone: Comment on above: PATIENT WAS FASTINGP ERFORMED BY: Lab[address] [id number] BY: LabCoOcean Medical CenterPravui9923 Arauz Roadblin [place] [id number] CO2 molar conc 23 mmol/L Normal 20-29 Comprehens lynsey Internal Medicine Work Phone: Comment on above: PATIENT WAS FASTINGP ERFORMED BY: Lab[address] [id number] BY: LabCo Cvytet2013 [address] RoadDublin [place] [id number] Creatinine mass conc 0.61 mg/dL Normal 0.57-1.00 Comp rehensive Internal Medicine Work Phone: Comment on above: PATIENT WAS FASTINGP ERFORMED BY: Lab[address] [id number] BY: LabCo Gwewoc7491 Ara[address] RoadNovant Health Presbyterian Medical Center [id number] GFR/1.73 sq M predicted among blacks CKD-EPI vol rate/area (S/P/Bld) 123 mL/min/1.73 Normal Comprehensiv e Internal Medicine Work Phone: Comment on above: PATIENT WAS FASTINGP ERFORMED BY: [employer] [id number] BY: CHARO [facility] Rumgmy6449 [facility] [id number] GFR/1.73 sq M predicted among non-blacks CKD-EPI vol rate/area (S/P/Bld) 107 mL/min/1.73 Normal [facility] Work Phone: Comment on above: PATIENT WAS FASTINGP ERFORMED BY: [employer] [id number] BY: CHARO [facility] Esptlg7522 [facility] [id number] Globulin Calculated mass conc (S) 2.1 g/dL Normal 1.5-4.5 [facility] Work Phone: Globulin mass conc (S) 2.1 g/dL Normal 1.5-4.5 [facility] Work Phone: Comment on above: PATIENT WAS FASTINGP ERFORMED BY: [employer] [id number] BY: CHARO [facility] Hvcnax6717 [facility] [id number] Glucose mass conc 90 mg/dL Normal 65-99 Compreh ensive Internal Medicine Work Phone: Comment on above: PATIENT WAS FASTINGP ERFORMED BY: [employer] [id number] BY: LabCo Ltyfxo8044 [facility] [id number] Potassium molar conc 4.7 mmol/L Normal 3.5-5.2 Comp rehensive Internal Medicine Work Phone: Comment on above: PATIENT WAS FASTINGP ERFORMED BY: Lab[address] [id number] BY: CHARO [facility] Xixgjb0559 [address] RoadDublin [place] [id number] Protein mass conc 6.8 g/dL Normal 6.0-8.5 Compreh ensive Internal Medicine Work Phone: Comment on above: PATIENT WAS FASTINGP ERFORMED BY: LabCo[address] [id number] BY: CB [facility] Piehkd7191 Arauz RoadDublin [place] [id number] Sodium molar conc 144 mmol/L Normal 134-144 Compreh ensive Internal Medicine Work Phone: Comment on above: PATIENT WAS FASTINGP ERFORMED BY: Lab[address] [id number] BY: CHARO [facility] Wvqbmr5680 [address] RoadDublin [place] [id number] Urea nitrogen mass conc 12 mg/dL Normal 6-24 [facility] Work Phone: Comment on above: PATIENT WAS FASTINGP ERFORMED BY: [address] [id number] BY: [facility] Eseupz6817 [address] RoadDublin [place] [id number] Urea nitrogen/Creatinine mass ratio 20 mg/mg Normal 9-23 [facility] Work Phone: Comment on above: PATIENT WAS FASTINGP ERFORMED BY: Lab[address] [id number] BY: [facility] Qwmuzs6678 [address] RoadDublin [place] [id number] METABOLIC PANEL, COMPREHENSI VE (44317)Ordered By: Certified Medical Technician on 01-15-2018 ALP [Catalytic activity/Vol] 107 U/L Normal 39-117 [facility]; [facility] Work Phone: Comment on above: PATIENT WAS FASTINGP ERFORMED BY: Lab[address] [id number] BY: [facility] Yajlgn5353 [address] RoadDublin [place] [id number] ALT [Catalytic activity/Vol] 17 U/L Normal 0-32 [facility]; [facility] Work Phone: Comment on above: PATIENT WAS FASTINGP ERFORMED BY: [address] [id number] BY: [facility]6370 [facility] [id number] AST [Catalytic activity/Vol] 18 U/L Normal 0-40 [facility]; [facility] Work Phone: Comment on above: PATIENT WAS FASTINGP ERFORMED BY: [address] [id number] BY: LabMichael [place] 3861270 [facility] [id number] T3, FREE (TRIDOTHYRONINE) (8 6211)on 01-15-2018 T3 free mass conc 3.0 pg/mL Normal 2.0-4.4 Compreh ensive Internal Medicine Work Phone: Comment on above: PATIENT WAS FASTINGP ERFORMED BY: [address] [id number] BY: [place] 3366270 [facility] [id number] T4, FREE (THYROXINE) (37002) on 01-15-2018 T4 free mass conc 1.10 ng/dL Normal 0.82-1.77 Compreh ensive Internal Medicine Work Phone: Comment on above: PATIENT WAS FASTINGP ERFORMED BY: [address] [id number] BY: LabMichael [place] 3861270 [facility] [id number] TSH (19251)on 01-15-2018 Thyrotropin Qn 3.260 {uIU/mL} Normal 0.450-4.50 0 [facility] Work Phone: Comment on above: PATIENT WAS FASTINGP ERFORMED BY: Slicebooks[address] [place] [id number] BY: LabCoOcean Medical [id number] [id number] VITAMIN B-12 (CYANOCOBALAMIN ) ([id number])on 01-15-2018 Cobalamin (Vitamin B12) mass conc 434 pg/mL Normal [id number] [facility] Work Phone: Comment on above: PATIENT WAS FASTINGP ERFORMED BY: [place] [id number] [facility] [id number] BY: [id number] [id number] Office Visit: new annualon 0 10-24-2016 Alcoholism counseling (procedure) no Invalid Interpretation Code [facility] Documentation of current medications (procedure) Done Invalid Interpretation Code [facility] Fall risk assessment No [facility] Protein mass conc [facility] Tobacco smoking status NHIS Never [facility] Tobacco smoking status [facility] Never smoker [facility] Tobacco use [facility] Never smoker Invalid Interpretation Code [facility] Office Visit: new annualon 0 08-09-2016 Breast Mammogram screening Normal Bilateral [facility] Office Visit: new annualon 0 03-11-2014 General categories [Interpretation] of Cervical or vaginal smear or scraping by Cyto stain Normal [facility] External Other: Preferred Me thod of Contacton 10-14-2013 methcontact phone [facility] Patient's prefered method of contact phone Invalid Interpretation Code [facility] Office Visiton 10-12-2013 Protein mass conc Done [facility] Protein mass conc no [facility] Tobacco smoking status NHIS Never smoker [facility] Vital Signs Date Time Vital Sign Value Performing Clinician Facility 05-02-2023 11:42-0500 Body height 165.1 cm Richard Meyer MD Work Phone: [facility] 05-02-2023 11:42-0500 Body weight 88.31 kg Richard Meyer MD Work Phone: [facility] 05-02-2023 11:42-0500 Diastolic blood pressure 83 mm[Hg] Richard Meyer MD Work Phone: [facility] 05-02-2023 11:42-0500 Heart rate 67 /min Richard Meyer MD Work Phone: [facility] 05-02-2023 11:42-0500 SaO2% (BldA) [Mass fraction] 98 % Richard Meyer MD Work Phone: [facility] 05-02-2023 11:42-0500 Systolic blood pressure 125 mm[Hg] Richard Meyer MD Work Phone: [facility] 10-16-2022 13:09-0400 Body height 165.1 cm Snow Travisrb [employer] [facility] Work Phone: 10-16-2022 13:09-0400 Body mass index (BMI) [Ratio] 33.8 kg/m2 Snow Slarb [employer] [facility] Work Phone: 10-16-2022 13:09-0400 Body surface area Derived from formula 1.99 m2 Snow Slarb [employer] [facility] Work Phone: 10-16-2022 13:09-0400 Body temperature 99 [degF] Snow Slarb [employer] [facility] Work Phone: Comment on above: Method: Temporal 10-16-2022 13:09-0400 Body weight 92.14 kg Snow Slarb [employer] [facility] Work Phone: 10-16-2022 13:09-0400 Diastolic blood pressure 68 mm[Hg] Snow Slarb [employer] [facility] Work Phone: Comment on above: Patient Position: Sitting; Cuff Location : Left Arm; Cuff Size: Standard 10-16-2022 13:09-0400 Heart rate 65 /min Snow Travisrb [employer] [facility]; [facility] Work Phone: Comment on above: Pattern: Regular 10-16-2022 13:09-0400 Respiratory rate 16 /min Snow Lira [facility]; [facility] Work Phone: Comment on above: Pattern: Unlabored 10-16-2022 13:09-0400 SaO2% (BldA) [Mass fraction] 98 % Snow Slarb [facility] Work Phone: Comment on above: Room air 10-16-2022 13:09-0400 Systolic blood pressure 114 mm[Hg] Snow Lira [facility] Work Phone: Comment on above: Patient Position: Sitting; Cuff Location : Left Arm; Cuff Size: Standard 10-03-2022 11:58-0400 Body height 165.1 cm [facility] Work Phone: 10-03-2022 11:58-0400 Body mass index (BMI) [Ratio] 33.8 kg/m2 [facility]; [facility] Work Phone: 10-03-2022 11:58-0400 Body surface area Derived from formula 1.99 m2 [facility] Work Phone: 10-03-2022 11:58-0400 Body temperature 95.6 [degF] [facility] Work Phone: 10-03-2022 11:58-0400 Body weight 92.14 kg [facility] Work Phone: 10-03-2022 11:58-0400 Diastolic blood pressure 70 mm[Hg] [facility] Work Phone: Comment on above: Patient Position: Sitting; Cuff Location : Left Arm; Cuff Size: Standard 10-03-2022 11:58-0400 Heart rate 60 /min [facility] Work Phone: Comment on above: Pattern: Regular 10-03-2022 11:58-0400 Respiratory rate 18 /min [facility] Work Phone: Comment on above: Pattern: Unlabored 10-03-2022 11:58-0400 SaO2% (BldA) [Mass fraction] 97 % [facility] Work Phone: Comment on above: Room air 10-03-2022 11:58-0400 Systolic blood pressure 118 mm[Hg] [facility]; [facility] Work Phone: Comment on above: Patient Position: Sitting; Cuff Location : Left Arm; Cuff Size: Standard 08-24-2022 07:32-0400 Body height 165.1 cm [facility] Work Phone: 08-24-2022 07:32-0400 Body mass index (BMI) [Ratio] 33.8 kg/m2 [facility] Work Phone: 08-24-2022 07:32-0400 Body surface area Derived from formula 1.99 m2 [facility] Work Phone: 08-24-2022 07:32-0400 Body temperature 97 [degF] [facility] Work Phone: 08-24-2022 07:32-0400 Body weight 92.14 kg [facility] Work Phone: 08-24-2022 07:32-0400 Diastolic blood pressure 78 mm[Hg] [facility]; [facility] Work Phone: Comment on above: Patient Position: Sitting; Cuff Location : Left Arm; Cuff Size: Standard 08-24-2022 07:32-0400 Heart rate 65 /min [facility]; [facility] Work Phone: Comment on above: Pattern: Regular 08-24-2022 07:32-0400 SaO2% (BldA) [Mass fraction] 97 % [facility] Work Phone: Comment on above: Room air 08-24-2022 07:32-0400 Systolic blood pressure 120 mm[Hg] [facility] Work Phone: Comment on above: Patient Position: Sitting; Cuff Location : Left Arm; Cuff Size: Standard 02-15-2022 15:23-0500 Body height 165.1 cm Nadine Lucien DO Work Phone: [facility]; [facility] Work Phone: 02-15-2022 15:23-0500 Body mass index (BMI) [Ratio] 29.62 kg/m2 Nadine Lucien DO Work Phone: [facility]; [facility] Work Phone: 02-15-2022 15:23-0500 Body surface area Derived from formula 1.88 m2 Nadine Lucien DO Work Phone: [facility]; [facility] Work Phone: 02-15-2022 15:23-0500 Body weight 80.74 kg Nadine Lucien DO Work Phone: [facility]; [facility] Work Phone: 02-15-2022 15:23-0500 Diastolic blood pressure 80 mm[Hg] Nadine Lucien DO Work Phone: [facility]; [facility] Work Phone: Comment on above: Patient Position: Sitting 02-15-2022 15:23-0500 Systolic blood pressure 122 mm[Hg] Nadine Lucien DO Work Phone: [facility]; [facility] Work Phone: Comment on above: Patient Position: Sitting 01-29-2022 16:19-0500 Body height 165.1 cm Nadine Lucien DO Work Phone: [facility]; [facility] Work Phone: 01-29-2022 16:19-0500 Body mass index (BMI) [Ratio] 29.62 kg/m2 Nadine Lucien DO Work Phone: [facility]; [facility] Work Phone: 01-29-2022 16:19-0500 Body surface area Derived from formula 1.88 m2 Nadine Lucien DO Work Phone: [facility]; [facility] Work Phone: 01-29-2022 16:19-0500 Body temperature 96.9 [degF] Nadine Lucien DO Work Phone: [facility]; [facility] Work Phone: Comment on above: Method: Oral 01-29-2022 16:19-0500 Body weight 80.74 kg Nadine Lucien DO Work Phone: [facility]; [facility] Work Phone: 01-29-2022 16:19-0500 Diastolic blood pressure 80 mm[Hg] Nadine Lucien DO Work Phone: [facility]; [facility] Work Phone: Comment on above: Patient Position: Sitting; Cuff Location : Left Arm; Cuff Size: Standard 01-29-2022 16:19-0500 Heart rate 65 /min Nadine Lucien DO Work Phone: [facility]; [facility] Work Phone: Comment on above: Pattern: Regular 01-29-2022 16:19-0500 Respiratory rate 16 /min Nadine Lucien DO Work Phone: [facility]; [facility] Work Phone: Comment on above: Pattern: Unlabored 01-29-2022 16:19-0500 SaO2% (BldA) [Mass fraction] 98 % Nadine Cohenon DO Work Phone: [facility]; [facility] Work Phone: Comment on above: Room air 01-29-2022 16:19-0500 Systolic blood pressure 124 mm[Hg] Nadine Mcgraw DO Work Phone: [facility]; [facility] Work Phone: Comment on above: Patient Position: Sitting; Cuff Location : Left Arm; Cuff Size: Standard 10-06-2021 15:35-0400 Body height 165.1 cm Richard Meyer MD Work Phone: [facility] 10-06-2021 15:35-0400 Body weight 86.18 kg Richard Meyer MD Work Phone: [facility] 10-06-2021 15:35-0400 Diastolic blood pressure 75 mm[Hg] Richard Meyer MD Work Phone: [facility] 10-06-2021 15:35-0400 Heart rate 66 /min Richard Meyer MD Work Phone: [facility] 10-06-2021 15:35-0400 Respiratory rate 15 /min Richard Meyer MD Work Phone: [facility] 10-06-2021 15:35-0400 SaO2% (BldA) [Mass fraction] 99 % Richard Meyer MD Work Phone: [facility] 10-06-2021 15:35-0400 Systolic blood pressure 123 mm[Hg] Richard Meyer MD Work Phone: [facility] 03-09-2021 14:27-0500 Body temperature 100 [degF] Nadine Mcgraw DO Work Phone: [facility]; [facility] Work Phone: Comment on above: Method: Oral partial vitals 03-09-2021 14:27-0500 Body weight 80.74 kg Nadine Mcgraw DO Work Phone: [facility]; [facility] Work Phone: Comment on above: partial vitals 03-09-2021 14:27-0500 SaO2% (BldA) [Mass fraction] 98 % Nadine Mcgraw DO Work Phone: [facility]; [facility] Work Phone: Comment on above: Room air partial vitals 03-08-2021 10:44-0500 Body height 165.1 cm Neyda Laughlin CNP Work Phone: [facility]; [facility] Work Phone: 03-08-2021 10:44-0500 Body mass index (BMI) [Ratio] 29.62 kg/m2 Neyda Laughlin CNP Work Phone: [facility]; [facility] Work Phone: 03-08-2021 10:44-0500 Body surface area Derived from formula 1.88 m2 Neyda Laughlin CNP Work Phone: [facility]; [facility] Work Phone: 03-08-2021 10:44-0500 Body temperature 98.6 [degF] Neyda Laughlin CNP Work Phone: [facility]; [facility] Work Phone: 03-08-2021 10:44-0500 Body weight 80.74 kg Neyda Laughlin CNP Work Phone: [facility]; [facility] Work Phone: 03-08-2021 10:44-0500 Heart rate 83 /min Neyda Laughlin CNP Work Phone: [facility]; [facility] Work Phone: Comment on above: Pattern: Regular 03-08-2021 10:44-0500 SaO2% (BldA) [Mass fraction] 95 % Neyda Laughlin CNP Work Phone: [facility]; [facility] Work Phone: Comment on above: Room air 12--2021 12:27-0500 Body height 165.1 cm Lynda Foster [facility] Work Phone: 03-06-2021 12:27-0500 Body mass index (BMI) [Ratio] 29.62 kg/m2 Lynda Foster CMA [facility]; [facility] Work Phone: 03-06-2021 12:27-0500 Body surface area Derived from formula 1.88 m2 Lynda Foster [facility]; [facility] Work Phone: 03-06-2021 12:27-0500 Body weight 80.74 kg Lynda Foster [facility]; [facility] Work Phone: 03-06-2021 12:27-0500 Diastolic blood pressure 73 mm[Hg] Lynda Foster [facility]; [facility] Work Phone: Comment on above: Patient Position: Sitting; Cuff Location : Left Arm; Cuff Size: Standard 03-06-2021 12:27-0500 Systolic blood pressure 114 mm[Hg] Lynda Foster [facility] Work Phone: Comment on above: Patient Position: Sitting; Cuff Location : Left Arm; Cuff Size: Standard 02-23-2021 07:53-0500 Body height 165.1 cm Karma Pantoja [facility] Work Phone: 02-23-2021 07:53-0500 Body mass index (BMI) [Ratio] 29.95 kg/m2 Karma Scarlett [facility] Work Phone: 02-23-2021 07:53-0500 Body surface area Derived from formula 1.89 m2 Karma Scarlett [facility] Work Phone: 02-23-2021 07:53-0500 Body weight 81.65 kg Karma Scarlett [facility] Work Phone: 02-23-2021 07:53-0500 Diastolic blood pressure 72 mm[Hg] Karma Pantoja LPN [facility]; [facility] Work Phone: Comment on above: Patient Position: Sitting; Cuff Location : Left Arm; Cuff Size: Standard 02-23-2021 07:53-0500 Heart rate 75 /min Karma Pantoja LPN [facility]; [facility] Work Phone: Comment on above: Pattern: Regular 02-23-2021 07:53-0500 Systolic blood pressure 117 mm[Hg] Karma Pantoja LPN [facility]; [facility] Work Phone: Comment on above: Patient Position: Sitting; Cuff Location : Left Arm; Cuff Size: Standard 02-09-2021 08:13-0500 Body height 165.1 cm Snow Lira [employer] [facility]; [facility] Work Phone: Comment on above: patient reported 02-09-2021 08:13-0500 Body mass index (BMI) [Ratio] 30.35 kg/m2 Snow Roblesrb [employer] [facility]; [facility] Work Phone: Comment on above: patient reported 02-09-2021 08:13-0500 Body surface area Derived from formula 1.9 m2 Snow Travisrb [employer] [facility]; [facility] Work Phone: Comment on above: patient reported 02-09-2021 08:13-0500 Body weight 82.73 kg Snow Roblesrb [employer] [facility]; [facility] Work Phone: Comment on above: patient reported 02-09-2021 08:13-0500 Diastolic blood pressure 72 mm[Hg] Snow Roblesrb [employer] [facility]; [facility] Work Phone: Comment on above: Patient Position: Sitting; Cuff Location : Left Arm; Cuff Size: Standard patient reported 02-09-2021 08:13-0500 Systolic blood pressure 119 mm[Hg] Snow Slarb [employer] [facility]; [facility] Work Phone: Comment on above: Patient Position: Sitting; Cuff Location : Left Arm; Cuff Size: Standard patient reported 12-22-2020 07:32-0400 Body height 165.1 cm Karma Pantoja [facility] Work Phone: 12-22-2020 07:32-0400 Body mass index (BMI) [Ratio] 31.35 kg/m2 Karma Pantoja [employer] [facility]; [facility] Work Phone: 12-22-2020 07:32-0400 Body surface area Derived from formula 1.93 m2 Karma Pantoja [facility] Work Phone: 12-22-2020 07:32-0400 Body weight 85.45 kg Karma Pantoja [facility] Work Phone: 12-22-2020 07:32-0400 Diastolic blood pressure 80 mm[Hg] Karma Pantoja [facility] Work Phone: Comment on above: Patient Position: Sitting; Cuff Location : Left Arm; Cuff Size: Standard 12-22-2020 07:32-0400 Systolic blood pressure 115 mm[Hg] Karma Pantoja [facility] Work Phone: Comment on above: Patient Position: Sitting; Cuff Location : Left Arm; Cuff Size: Standard 11-30-2020 08:00-0400 Body height 165.1 cm Lynda Foster [facility] Work Phone: 11-30-2020 08:00-0400 Body mass index (BMI) [Ratio] 32.12 kg/m2 Lynda Foster [facility] Work Phone: 11-30-2020 08:00-0400 Body surface area Derived from formula 1.95 m2 Lynda Foster [facility] Work Phone: 11-30-2020 08:00-0400 Body temperature 97.3 [degF] Lynda Foster [facility]; [facility] Work Phone: Comment on above: Method: Infrared 11-30-2020 08:00-0400 Body weight 87.54 kg Lynda Foster [facility] Work Phone: 11-30-2020 08:00-0400 Diastolic blood pressure 80 mm[Hg] Lynda Foster [facility] Work Phone: Comment on above: Patient Position: Sitting; Cuff Location : Left Arm; Cuff Size: Standard 11-30-2020 08:00-0400 Heart rate 64 /min Lynda Foster [facility] Work Phone: Comment on above: Pattern: Regular 11-30-2020 08:00-0400 Respiratory rate 18 /min Lynda Foster [facility]; [facility] Work Phone: Comment on above: Pattern: Unlabored 11-30-2020 08:00-0400 SaO2% (BldA) [Mass fraction] 98 % Lynda Foster [facility]; [facility] Work Phone: Comment on above: Room air 11-30-2020 08:00-0400 Systolic blood pressure 120 mm[Hg] Lynda Foster [facility]; [facility] Work Phone: Comment on above: Patient Position: Sitting; Cuff Location : Left Arm; Cuff Size: Standard 10-13-2020 08:25-0400 Body height 165.1 cm Snow Lira [facility] Work Phone: 10-13-2020 08:25-0400 Body mass index (BMI) [Ratio] 31.62 kg/m2 Snow Slarb [facility] Work Phone: 10-13-2020 08:25-0400 Body surface area Derived from formula 1.94 m2 Snow Slarb [facility] Work Phone: 10-13-2020 08:25-0400 Body temperature 96.9 [degF] Snow Slarb [facility] Work Phone: 10-13-2020 08:25-0400 Body weight 86.18 kg Snow Pankaj [employer] [facility] Work Phone: 10-13-2020 08:25-0400 Diastolic blood pressure 78 mm[Hg] Snow Slarb [employer] [facility]; [facility] Work Phone: Comment on above: Patient Position: Sitting; Cuff Location : Left Arm; Cuff Size: Standard 10-13-2020 08:25-0400 Heart rate 56 /min Snow Slarb [employer] [facility] Work Phone: Comment on above: Pattern: Regular 10-13-2020 08:25-0400 Respiratory rate 16 /min Snow Slarb [employer] [facility] Work Phone: Comment on above: Pattern: Unlabored 10-13-2020 08:25-0400 SaO2% (BldA) [Mass fraction] 97 % Snow Slarb [employer] [facility]; [facility] Work Phone: Comment on above: Room air 10-13-2020 08:25-0400 Systolic blood pressure 120 mm[Hg] Snow Slarb [employer] [facility]; [facility] Work Phone: Comment on above: Patient Position: Sitting; Cuff Location : Left Arm; Cuff Size: Standard 08-29-2020 08:41-0400 Body height 165.1 cm [facility] Work Phone: 08-29-2020 08:41-0400 Body mass index (BMI) [Ratio] 31.28 kg/m2 [facility] Work Phone: 08-29-2020 08:41-0400 Body mass index (BMI) [Ratio] 31.64 kg/m2 Snow Slarb [employer] [facility]; [facility] Work Phone: 08-29-2020 08:41-0400 Body surface area Derived from formula 1.93 m2 [facility] Work Phone: 08-29-2020 08:41-0400 Body surface area Derived from formula 1.94 m2 Snow Roblesrb [employer] [facility]; [facility] Work Phone: 08-29-2020 08:41-0400 Body temperature 97.1 [degF] Snow Roblesrb [employer] [facility] Medicine; [facility] Work Phone: 08-29-2020 08:41-0400 Body weight 85.28 kg Naomi Brandon [employer] [facility]; [facility] Work Phone: 08-29-2020 08:41-0400 Body weight 86.24 kg Snow Roblesrb [employer] [facility]; [facility] Work Phone: 08-29-2020 08:41-0400 Diastolic blood pressure 76 mm[Hg] Snow Roblesrb [employer] [facility]; [facility] Work Phone: Comment on above: Patient Position: Sitting; Cuff Location : Left Arm; Cuff Size: Standard 08-29-2020 08:41-0400 Heart rate 81 /min Snow Roblesrb [employer] [facility]; [facility] Work Phone: Comment on above: Pattern: Regular 08-29-2020 08:41-0400 Respiratory rate 16 /min Snow Travisrb [employer] [facility]; [facility] Work Phone: Comment on above: Pattern: Unlabored 08-29-2020 08:41-0400 SaO2% (BldA) [Mass fraction] 95 % Snow Slarb [employer] [facility]; [facility] Work Phone: Comment on above: Room air 08-29-2020 08:41-0400 Systolic blood pressure 118 mm[Hg] Snow Slarb [employer] [facility]; [facility] Work Phone: Comment on above: Patient Position: Sitting; Cuff Location : Left Arm; Cuff Size: Standard 07-27-2020 08:11-0400 Body height 165.1 cm Naomi Brandon [facility]; [facility] Work Phone: 07-27-2020 08:11-0400 Body mass index (BMI) [Ratio] 31.28 kg/m2 [facility]; [facility] Work Phone: 07-27-2020 08:11-0400 Body surface area Derived from formula 1.93 m2 [facility]; [facility] Work Phone: 07-27-2020 08:11-0400 Body temperature 97.2 [degF] [facility]; [facility] Work Phone: Comment on above: Method: Thermal Scan 07-27-2020 [id number] Body weight 85.28 kg [facility]; [facility] Work Phone: 07-27-2020 08:11-0400 Diastolic blood pressure 72 mm[Hg] [facility]; [facility] Work Phone: Comment on above: Patient Position: Sitting; Cuff Location : Left Arm; Cuff Size: Standard 07-27-2020 08:11-0400 Heart rate 72 /min [facility]; [facility] Work Phone: Comment on above: Pattern: Regular 07-27-2020 08:11-0400 Respiratory rate 16 /min [facility]; [facility] Work Phone: Comment on above: Pattern: Unlabored 07-27-2020 08:11-0400 SaO2% (BldA) [Mass fraction] 95 % [facility]; [facility] Work Phone: Comment on above: Room air 07-27-2020 08:11-0400 Systolic blood pressure 124 mm[Hg] [facility]; [facility] Work Phone: Comment on above: Patient Position: Sitting; Cuff Location : Left Arm; Cuff Size: Standard 06-29-2020 08:23-0400 Body height 165.1 cm [facility]; [facility] Work Phone: 06-29-2020 08:23-0400 Body mass index (BMI) [Ratio] 31.95 kg/m2 [facility]; [facility] Work Phone: 06-29-2020 08:23-0400 Body surface area Derived from formula 1.94 m2 [facility]; [facility] Work Phone: 06-29-2020 08:23-0400 Body temperature 96.9 [degF] [facility]; [facility] Work Phone: Comment on above: Method: Thermal Scan 06-29-2020 08:23-0400 Body weight 87.09 kg [facility]; [facility] Work Phone: 06-29-2020 08:23-0400 Diastolic blood pressure 74 mm[Hg] [facility]; [facility] Work Phone: Comment on above: Patient Position: Sitting; Cuff Location : Left Arm; Cuff Size: Standard 06-29-2020 08:23-0400 Heart rate 79 /min [facility]; [facility] Work Phone: Comment on above: Pattern: Regular 06-29-2020 08:23-0400 Respiratory rate 16 /min [facility]; [facility] Work Phone: Comment on above: Pattern: Unlabored 06-29-2020 08:23-0400 SaO2% (BldA) [Mass fraction] 96 % [facility]; [facility] Work Phone: Comment on above: Room air 06-29-2020 08:23-0400 Systolic blood pressure 124 mm[Hg] [facility]; [facility] Work Phone: Comment on above: Patient Position: Sitting; Cuff Location : Left Arm; Cuff Size: Standard 06-08-2020 08:09-0400 BMI (Body Mass Index) 33.08 kg/m2 Nadine Mcgraw [facility]; [facility] Work Phone: 06-08-2020 08:09-0400 BMI (Body Mass Index) 32.92 kg/m2 [facility]; [facility] Work Phone: 06-08-2020 08:09-0400 Body Temperature 97.1 [degF] [facility]; [facility] Work Phone: Comment on above: Method: Thermal Scan 06-08-2020 08:09-0400 Body weight 90.18 kg Nadine Mcgraw [facility]; [facility] Work Phone: 06-08-2020 08:090400 Body weight 89.72 kg [facility]; [facility] Work Phone: 06-08-2020 08:09-0400 BP Diastolic 76 mm[Hg] [facility]; [facility] Work Phone: Comment on above: Patient Position: Sitting; Cuff Location : Left Arm; Cuff Size: Standard 06-08-2020 08:09-0400 BP Systolic 124 mm[Hg] [facility]; [facility] Work Phone: Comment on above: Patient Position: Sitting; Cuff Location : Left Arm; Cuff Size: Standard 06-08-2020 08:09-0400 BSA (Body Surface Area) 1.97 m2 [facility]; [facility] Work Phone: 06-08-2020 08:09-0400 Height 165.1 cm [facility]; [facility] Work Phone: 06-08-2020 08:09-0400 Pulse (Heart Rate) 78 /min [facility]; [facility] Work Phone: Comment on above: Pattern: Regular 06-08-2020 08:09-0400 Pulse Oximetry 97 % Nadine Cohenon [facility]; [facility] Work Phone: Comment on above: Room air 06-08-2020 08:09-0400 Respiratory Rate 16 /min [facility]; [facility] Work Phone: Comment on above: Pattern: Unlabored 06-08-2020 08:09-0400 SaO2% (BldA) [Mass fraction] 97 % [facility]; [facility] Work Phone: Comment on above: Room air 05-23-2020 11:54-0400 BMI (Body Mass Index) 33.08 kg/m2 Lynda Foster [facility]; [facility] Work Phone: 05-23-2020 11:54-0400 Body weight 90.18 kg Lynda Foster [facility]; [facility] Work Phone: 05-23-2020 11:54-0400 BP Diastolic 79 mm[Hg] Lynda Robbieius [facility]; [facility] Work Phone: Comment on above: Patient Position: Sitting; Cuff Location : Left Arm; Cuff Size: Standard 05-23-2020 11:54-0400 BP Systolic 112 mm[Hg] Lynda Robbieius [facility]; [facility] Work Phone: Comment on above: Patient Position: Sitting; Cuff Location : Left Arm; Cuff Size: Standard 05-23-2020 11:54-0400 BSA (Body Surface Area) 1.97 m2 Lynda Avalosius [facility]; [facility] Work Phone: 05-23-2020 11:54-0400 Height 165.1 cm Lynda Robbieius [facility]; [facility] Work Phone: 05-09-2020 13:29-0500 BMI (Body Mass Index) 32.28 kg/m2 Lynda Robbieius [facility]; [facility] Work Phone: 05-09-2020 13:29-0500 Body weight 88 kg Lynda Avalosius [employer] [facility]; [facility] Work Phone: 05-09-2020 13:29-0500 BP Diastolic 69 mm[Hg] Lynda Gravius [facility]; [facility] Work Phone: Comment on above: Patient Position: Sitting; Cuff Location : Left Arm; Cuff Size: Standard 05-09-2020 13:29-0500 BP Systolic 113 mm[Hg] Lynda Robbieius [facility]; [facility] Work Phone: Comment on above: Patient Position: Sitting; Cuff Location : Left Arm; Cuff Size: Standard 05-09-2020 13:29-0500 BSA (Body Surface Area) 1.95 m2 Lynda Robbieius [facility]; [facility] Work Phone: 05-09-2020 13:29-0500 Height 165.1 cm Lynda Avalosius [facility]; [facility] Work Phone: 04-25-2020 11:32-0500 BMI (Body Mass Index) 33.95 kg/m2 Lynda Robbieius [facility]; [facility] Work Phone: Comment on above: pt reported vitals 04-25-2020 11:32-0500 Body weight 92.53 kg Lynda Foster [facility]; [facility] Work Phone: Comment on above: pt reported vitals 04-25-2020 11:32-0500 BP Diastolic 72 mm[Hg] Lynda Robbieius [facility]; [facility] Work Phone: Comment on above: Patient Position: Sitting; Cuff Location : Left Arm; Cuff Size: Standard pt reported vitals 04-25-2020 11:32-0500 BP Systolic 100 mm[Hg] Lynda Robbieius [facility]; [facility] Work Phone: Comment on above: Patient Position: Sitting; Cuff Location : Left Arm; Cuff Size: Standard pt reported vitals 04-25-2020 11:32-0500 BSA (Body Surface Area) 1.99 m2 Lynda Robbieius [facility]; [facility] Work Phone: Comment on above: pt reported vitals 04-25-2020 11:32-0500 Height 165.1 cm Lynda Robbieius [facility]; [facility] Work Phone: Comment on above: pt reported vitals 04-07-2020 10:21-0500 BMI (Body Mass Index) 35.28 kg/m2 Nadine Lucien DO Work Phone: [facility]; [facility] Work Phone: Comment on above: no other vitals bc virtual viist 04-07-2020 10:21-0500 Body weight 96.16 kg Nadine Lucien DO Work Phone: [facility]; [facility] Work Phone: Comment on above: no other vitals bc virtual viist 04-07-2020 10:21-0500 BP Diastolic 84 mm[Hg] Nadine Lucien DO Work Phone: [facility]; [facility] Work Phone: Comment on above: Patient Position: Sitting no other vitals bc v irtual viist 04-07-2020 10:21-0500 BP Systolic 130 mm[Hg] Nadine Lucien DO Work Phone: [facility]; [facility] Work Phone: Comment on above: Patient Position: Sitting no other vitals bc v irtual viist 04-07-2020 10:21-0500 BSA (Body Surface Area) 2.03 m2 Nadine Lucien DO Work Phone: [facility]; [facility] Work Phone: Comment on above: no other vitals bc virtual viist 04-07-2020 10:21-0500 Height 165.1 cm Nadine Lucien DO Work Phone: [facility]; [facility] Work Phone: Comment on above: no other vitals bc virtual viist 02-10-2020 09:46-0500 BMI (Body Mass Index) 33.95 kg/m2 [facility] Work Phone: 02-10-2020 09:46-0500 Body weight 92.53 kg [facility] Work Phone: 02-10-2020 09:46-0500 BSA (Body Surface Area) 1.99 m2 [facility] Work Phone: 02-10-2020 09:46-0500 Height 165.1 cm [facility] Work Phone: 02-09-2020 10:46-0500 BMI (Body Mass Index) 33.95 kg/m2 Neyda Stacya [employer] Work Phone: [facility] Work Phone: 02-09-2020 10:46-0500 Body weight 92.53 kg Kay Cibrisaa [employer] Work Phone: [facility] Work Phone: 02-09-2020 10:46-0500 BP Diastolic 83 mm[Hg] Neyda Stacya [employer] Work Phone: [facility] Work Phone: Comment on above: Patient Position: Supine; Cuff Location: Right Arm; Cuff Size: Standard 02-09-2020 10:46-0500 BP Systolic 125 mm[Hg] Neyda Stacya [employer] Work Phone: [facility] Work Phone: Comment on above: Patient Position: Supine; Cuff Location: Right Arm; Cuff Size: Standard 02-09-2020 10:46-0500 BSA (Body Surface Area) 1.99 m2 Neyda Stacya [employer] Work Phone: [facility] Work Phone: 02-09-2020 10:46-0500 Height 165.1 cm Neyda Stacya [employer] Work Phone: [facility] Work Phone: 02-09-2020 10:46-0500 Pulse (Heart Rate) 68 /min Neyda Stacya [employer] Work Phone: [facility] Work Phone: Comment on above: Pattern: Regular 02-09-2020 10:46-0500 Pulse Oximetry 95 % Nadine Mcgraw [facility] Work Phone: Comment on above: Room air 02-09-2020 10:46-0500 SaO2% (BldA) [Mass fraction] 95 % Neyda Laughlin [employer] Work Phone: [facility]; [facility] Work Phone: Comment on above: Room air 02-08-2020 13:35-0500 BMI (Body Mass Index) 33.95 kg/m2 Neyda Laughlin [employer] Work Phone: [facility] Work Phone: 02-08-2020 13:35-0500 Body Temperature 97.5 [degF] Neyda Laughlin CNP Work Phone: [facility] Work Phone: 02-08-2020 13:35-0500 Body weight 92.53 kg Neyda Laughlin [employer] Work Phone: [facility] Work Phone: 02-08-2020 13:35-0500 BSA (Body Surface Area) 1.99 m2 Neyda Laughlin [employer] Work Phone: [facility] Work Phone: 02-08-2020 13:35-0500 Height 165.1 cm Neyda Laughlin [employer] Work Phone: [facility] Work Phone: 10-01-2019 11:21-0400 BMI (Body Mass Index) 33.95 kg/m2 Nadine Lucien DO Work Phone: [facility] Work Phone: Comment on above: pt did not report vitalsbs 109 10-01-2019 11:21-0400 Body weight 92.53 kg Nadine Lucien DO Work Phone: [facility] Work Phone: Comment on above: pt did not report vitalsbs 109 10-01-2019 11:21-0400 BP Diastolic 76 mm[Hg] Nadine Lucien DO Work Phone: [facility] Work Phone: Comment on above: Patient Position: Sitting; Cuff Location : Right Wrist pt did not report vi talsbs 109 10-01-2019 11:21-0400 BP Systolic 117 mm[Hg] Nadine Mcgraw DO Work Phone: [facility] Work Phone: Comment on above: Patient Position: Sitting; Cuff Location : Right Wrist pt did not report vi talsbs 109 10-01-2019 11:21-0400 BSA (Body Surface Area) 1.99 m2 Nadine Mcgraw DO Work Phone: [facility] Work Phone: Comment on above: pt did not report vitalsbs 109 10-01-2019 11:21-0400 Height 165.1 cm Nadine Mcgraw DO Work Phone: [facility] Work Phone: Comment on above: pt did not report vitalsbs 109 10-01-2019 11:21-0400 Pulse (Heart Rate) 70 /min Nadine Mcgraw DO Work Phone: [facility] Work Phone: Comment on above: Pattern: Regular pt did not report vi talsbs 109 09-10-2018 08:05-0400 BMI (Body Mass Index) 33.95 kg/m2 Lynda Foster [facility] Work Phone: 09-10-2018 08:05-0400 Body Temperature 97.4 [degF] Lynda Foster [facility] Work Phone: Comment on above: Method: Temporal 09-10-2018 08:05-0400 Body weight 92.53 kg Lynda Foster [facility] Work Phone: 09-10-2018 08:05-0400 BP Diastolic 82 mm[Hg] Lynda Foster [facility] Work Phone: Comment on above: Patient Position: Sitting; Cuff Location : Left Arm; Cuff Size: Standard 09-10-2018 08:05-0400 BP Systolic 114 mm[Hg] Lynda Avalosius [facility] Work Phone: Comment on above: Patient Position: Sitting; Cuff Location : Left Arm; Cuff Size: Standard 09-10-2018 08:05-0400 BSA (Body Surface Area) 1.99 m2 Lynda Foster [facility] Work Phone: 09-10-2018 08:05-0400 Height 165.1 cm Lynda Foster [employer] [facility] Work Phone: 09-10-2018 08:05-0400 Pulse (Heart Rate) 82 /min Lynda Foster CMA [facility] Work Phone: Comment on above: Pattern: Regular 09-10-2018 08:05-0400 Pulse Oximetry 97 % Nadine Mcgraw [facility] Work Phone: Comment on above: Room air 09-10-2018 08:05-0400 Respiratory Rate 18 /min Lynda Foster CMA [facility] Work Phone: Comment on above: Pattern: Unlabored 09-10-2018 08:05-0400 SaO2% (BldA) [Mass fraction] 97 % Lynda Foster [facility]; [facility] Work Phone: Comment on above: Room air 07-30-2018 16:15-0400 BMI (Body Mass Index) 34.11 kg/m2 Toshia Pickering RN [facility] Work Phone: 07-30-2018 16:15-0400 Body weight 92.99 kg Toshia Pickering RN [facility] Work Phone: 07-30-2018 16:15-0400 BP Diastolic 82 mm[Hg] Toshia Pickering RN [facility] Work Phone: Comment on above: Patient Position: Sitting; Cuff Location : Left Arm; Cuff Size: Large 07-30-2018 16:15-0400 BP Systolic 122 mm[Hg] Toshia Pickering RN [facility] Work Phone: Comment on above: Patient Position: Sitting; Cuff Location : Left Arm; Cuff Size: Large 07-30-2018 16:15-0400 BSA (Body Surface Area) 2 m2 Toshia Pickering RN [facility] Work Phone: 07-30-2018 16:15-0400 Height 165.1 cm Toshia Pickering RN [facility] Work Phone: 07-30-2018 16:15-0400 Pulse (Heart Rate) 88 /min Toshia Pickering RN [facility] Work Phone: Comment on above: Pattern: Regular 07-30-2018 16:15-0400 Pulse Oximetry 98 % Nadine Cohenon [facility] Work Phone: Comment on above: Room air 07-30-2018 16:15-0400 Respiratory Rate 18 /min Toshia Pickering RN [facility] Work Phone: Comment on above: Pattern: Unlabored 07-30-2018 16:15-0400 SaO2% (BldA) [Mass fraction] 98 % Toshia Pickering RN [facility]; [facility] Work Phone: Comment on above: Room air 07-30-2018 16:15-0400 Weight 92.99 kg Nadine Cohenon [facility] Work Phone: 05-30-2018 07:24-0400 BMI (Body Mass Index) 33.95 kg/m2 Sarahi Santoro RN [facility] Work Phone: 05-30-2018 07:24-0400 Body Temperature 98.2 [degF] Sarahi Santoro RN [facility] Work Phone: Comment on above: Method: Temporal 05-30-2018 07:24-0400 Body weight 92.53 kg Sarahi Santoro RN [facility] Work Phone: 05-30-2018 07:24-0400 BP Diastolic 74 mm[Hg] Sarahi Santoro RN [facility] Work Phone: Comment on above: Patient Position: Sitting; Cuff Location : Left Arm; Cuff Size: Standard 05-30-2018 07:24-0400 BP Systolic 132 mm[Hg] Sarahi Santoro RN [facility] Work Phone: Comment on above: Patient Position: Sitting; Cuff Location : Left Arm; Cuff Size: Standard 05-30-2018 07:24-0400 BSA (Body Surface Area) 1.99 m2 Sarahi Santoro RN [facility] Work Phone: 05-30-2018 07:24-0400 Height 165.1 cm Sarahi Santoro RN [facility] Work Phone: 05-30-2018 07:24-0400 Pulse (Heart Rate) 83 /min Sarahi Santoro RN [facility] Work Phone: Comment on above: Pattern: Regular 05-30-2018 07:24-0400 Pulse Oximetry 97 % Nadine Lucien [facility] Work Phone: Comment on above: Room air 05-30-2018 07:24-0400 Respiratory Rate 17 /min Sarahi Santoro RN [facility] Work Phone: Comment on above: Pattern: Unlabored 05-30-2018 07:24-0400 SaO2% (BldA) [Mass fraction] 97 % Sarahi Santoro RN [facility]; [facility] Work Phone: Comment on above: Room air 05-30-2018 07:24-0400 Weight 92.53 kg Nadine Cohenon [facility] Work Phone: 04-03-2018 09:26-0500 BMI (Body Mass Index) 33.8 kg/m2 Lorie Ellis [facility] Work Phone: 04-03-2018 09:26-0500 Body Temperature 97 [degF] Lorie Ellis [facility] Work Phone: Comment on above: Method: Temporal 04-03-2018 09:26-0500 Body weight 92.14 kg Lorie Ellis [facility] Work Phone: 04-03-2018 09:26-0500 BP Diastolic 82 mm[Hg] Lorie Ellis [facility] Work Phone: Comment on above: Patient Position: Sitting; Cuff Location : Left Arm; Cuff Size: Standard 04-03-2018 09:26-0500 BP Systolic 118 mm[Hg] Lorie Ellis [facility] Work Phone: Comment on above: Patient Position: Sitting; Cuff Location : Left Arm; Cuff Size: Standard 04-03-2018 09:26-0500 BSA (Body Surface Area) 1.99 m2 Lorie Zavalalear [facility] Work Phone: 04-03-2018 09:26-0500 Height 165.1 cm Lorie Zavalalear [facility] Work Phone: 04-03-2018 09:26-0500 Pulse (Heart Rate) 71 /min Lorie Zavalalear [facility] Work Phone: Comment on above: Pattern: Regular 04-03-2018 09:26-0500 Pulse Oximetry 98 % Nadine Mcgraw [facility] Work Phone: Comment on above: Room air 04-03-2018 09:26-0500 Respiratory Rate 17 /min Lorie Zavalalear [facility] Work Phone: Comment on above: Pattern: Unlabored 04-03-2018 09:26-0500 SaO2% (BldA) [Mass fraction] 98 % Lorie Ellis [facility]; [facility] Work Phone: Comment on above: Room air 04-03-2018 09:26-0500 Weight 92.14 kg Nadine Cohenon [facility] Work Phone: 02-21-2018 07:09-0500 BMI (Body Mass Index) 33.8 kg/m2 Toshia Pickering RN [facility] Work Phone: 02-21-2018 07:09-0500 Body Temperature 97 [degF] Toshia Pickering RN [facility] Work Phone: 02-21-2018 07:09-0500 Body weight 92.14 kg Toshia Pickering RN [facility] Medicine Work Phone: 02-21-2018 07:09-0500 BP Diastolic 83 mm[Hg] Toshia Pickering RN [facility] Work Phone: Comment on above: Patient Position: Sitting; Cuff Location : Left Arm; Cuff Size: Large 02-21-2018 07:09-0500 BP Systolic 118 mm[Hg] Toshia Pickering RN [facility] Work Phone: Comment on above: Patient Position: Sitting; Cuff Location : Left Arm; Cuff Size: Large 02-21-2018 07:09-0500 BSA (Body Surface Area) 1.99 m2 Toshia Pickering RN [facility] Work Phone: 02-21-2018 07:09-0500 Height 165.1 cm Toshia Pickering RN [facility] Work Phone: 02-21-2018 07:09-0500 Pulse (Heart Rate) 80 /min Toshia Pickering RN [facility] Work Phone: Comment on above: Pattern: Regular 02-21-2018 07:09-0500 Pulse Oximetry 96 % Nadine Mcgraw [facility] Work Phone: Comment on above: Room air 02-21-2018 07:09-0500 Respiratory Rate 16 /min Toshia Pickering RN Com[facility] Work Phone: Comment on above: Pattern: Unlabored 02-21-2018 07:09-0500 SaO2% (BldA) [Mass fraction] 96 % Toshia Pickering RN [facility]; [facility] Work Phone: Comment on above: Room air 02-21-2018 07:09-0500 Weight 92.14 kg Nadine Lucien [facility] Work Phone: 01-15-2018 09:13-0500 BMI (Body Mass Index) 34.51 kg/m2 Toshia Pickering RN [facility] Work Phone: 01-15-2018 09:13-0500 Body weight 94.07 kg Toshia Pickering RN [facility] Work Phone: 01-15-2018 09:13-0500 BP Diastolic 84 mm[Hg] Toshia Pickering RN [facility] Work Phone: Comment on above: Patient Position: Sitting; Cuff Location : Left Arm; Cuff Size: Large 01-15-2018 09:13-0500 BP Systolic 122 mm[Hg] Toshia Pickering RN [facility] Work Phone: Comment on above: Patient Position: Sitting; Cuff Location : Left Arm; Cuff Size: Large 01-15-2018 09:13-0500 BSA (Body Surface Area) 2.01 m2 Toshia Pickering RN [facility] Work Phone: 01-15-2018 09:13-0500 Height 165.1 cm Toshia Pickering RN [facility] Work Phone: 01-15-2018 09:13-0500 Pulse (Heart Rate) 76 /min Toshia Pickering RN [facility] Work Phone: Comment on above: Pattern: Regular 01-15-2018 09:13-0500 Pulse Oximetry 95 % Nadine Mcgraw [facility] Work Phone: Comment on above: Room air 01-15-2018 09:13-0500 Respiratory Rate 18 /min Toshia Pickering RN [facility] Work Phone: Comment on above: Pattern: Unlabored 01-15-2018 09:13-0500 SaO2% (BldA) [Mass fraction] 95 % Toshia Pickering RN [facility]; [facility] Work Phone: Comment on above: Room air 01-15-2018 09:13-0500 Weight 94.07 kg Nadine Mcgraw [facility] Internal Medicine Work Phone: 10-24-2016 09:16-0400 BMI (Body Mass Index) 33.17 kg/m2 Katie Garibay NP [facility] 10-24-2016 09:16-0400 Body Temperature 97.5 [degF] Katie Garibay NP [facility] 10-24-2016 09:16-0400 BP Diastolic 85 mm[Hg] Katie Garibay NP [facility] 10-24-2016 09:16-0400 BP Systolic 132 mm[Hg] Katie Garibay NP [facility] 10-24-2016 09:16-0400 Height 166.37 cm Katie Garibay NP [facility] 10-24-2016 09:16-0400 Respiratory Rate 16 /min Katie Garibay NP [facility] 10-24-2016 09:16-0400 Weight 91.81 kg Katie Garibay NP [facility] 08-24-2013 15:46-0400 BMI (Body Mass Index) 31.95 kg/m2 Megan Stroud [facility] 08-24-2013 15:46-0400 BP Diastolic 78 mm[Hg] Megan Stroud [facility] 08-24-2013 15:46-0400 BP Systolic 124 mm[Hg] Megan Stroud [facility] 08-24-2013 15:46-0400 Height 166.37 cm Megan Stroud [facility] 08-24-2013 15:46-0400 Pulse (Heart Rate) 76 /min Megan Stroud [facility] 08-24-2013 15:46-0400 Weight 88.45 kg Megan Stroud [facility] Encounters Encounter Date Encounter Type Care Provider Facility Start: 10-01-2024 End: 10-01-[address] Nadine Mcgraw DO Work Phone: -Outpatient Breast Imaging Start: 10-01-2024 End: 10-01-[address] Nadine Mcgraw DO -Outpatient Breast Imaging Work Phone: Start: 10-01-2024 End: 10-01-2024 ambulatory Nadine Mcgraw Facility:[facility] Start: 09-08-2024 Non-patient / Non-visit Dr. Kristi perez MD -[facility] Work Phone: Start: 04-26-2024 End: 04-26-2024 ambulatory Rafy Alejandra NP Facility:[facility] Start: 04-13-2024 End: 04-14-2024 Refill Richard Meyer MD Work Phone: Cardiology Comment on above: Refill Request Start: 10-29-2023 End: 10-29-2023 ambulatory Nadine Mcgraw Facility:[facility] Start: 10-22-2023 End: 10-22-2023 ambulatory Nadine Mcgraw Facility:[facility] Start: 10-16-2023 End: 10-16-2023 ambulatory Nadine Mcgraw Facility:[facility] Start: 10-16-2023 End: 10-16-2023 ambulatory Nadine Lucien Facility:[facility] Start: 05-02-2023 End: 05-02-2023 Patient encounter procedure Richard Meyer MD Work Phone: Cardiology Comment on above: Cardiomyopathy, valentina schemic (HCC) (Primary Dx); Chronic systolic heart failure (HCC) Start: 05-02-2023 End: 05-02-2023 ambulatory RICHARD MEYER Facility:[facility] Start: 01-30-2023 Refill Richard galicia MD Work Phone: Cardiology Comment on above: Refill Request Start: 10-16-2022 End: 10-16-2022 Office outpatient visit 15 minutes Nadine Lucien DO Work Phone: [facility] Start: 10-03-2022 End: 10-03-2022 Office outpatient visit 10 minutes Nadine Lucien DO Work Phone: [facility] Start: 08-24-2022 End: 08-24-2022 Office outpatient visit 10 minutes Nadine Lucien DO Work Phone: [facility] Start: 02-15-2022 End: 02-15-2022 Office outpatient visit 10 minutes Nadine Lucien DO Work Phone: [facility] Start: 02-10-2022 Refill Richard galicia MD Work Phone: Cardiology Comment on above: Refill Request Start: 02-05-2022 ambulatory Nadine Lucien DO [facility] Start: 01-29-2022 End: 01-29-2022 ambulatory [facility] Work Phone: Start: 01-29-2022 End: 01-29-2022 Patient encounter procedure [facility] [place] Start: 01-29-2022 Review Nadine Fearo n DO Work Phone: [facility] Start: 01-29-2022 End: 01-29-2022 Office outpatient visit 25 minutes Nadine Lucien DO Work Phone: [facility] Start: 10-06-2021 End: 10-06-2021 Patient encounter procedure Richard Meyer MD Work Phone: Cardiology Comment on above: Cardiomyopathy, valentina schemic (HCC) (Primary Dx); Chronic systolic heart failure (HCC) Start: 09-14-2021 Orders Only Richard galicia MD Work Phone: Cardiology Comment on above: Cardiomyopathy, valentina schemic (HCC) (Primary Dx) Start: 08-25-2021 Refill Richard galicia MD Work Phone: Cardiology Start: 08-19-2021 Refill Richard galicia MD Work Phone: Cardiology Comment on above: Refill Request Start: 03-09-2021 End: 03-09-2021 Annotation/Addendum Nadine Lucien DO Work Phone: [facility] Start: 03-09-2021 End: 03-09-2021 Office outpatient visit 10 minutes Nadine Lucien DO Work Phone: [facility] Start: 03-08-2021 End: 03-08-2021 Office outpatient visit 15 minutes Nadine Lucien DO Work Phone: [facility] Start: 03-06-2021 End: 03-06-2021 Office outpatient visit 15 minutes Nadine Lucien DO Work Phone: [facility] Start: 02-23-2021 End: 02-23-2021 Office outpatient visit 10 minutes Nadine Lucien DO Work Phone: [facility] Start: 02-23-2021 End: 02-23-2021 Patient encounter status Nadine Lucien DO Work Phone: [facility] Start: 02-09-2021 End: 02-09-2021 Office outpatient visit 10 minutes Nadine Lucien DO Work Phone: [facility] Start: 12-22-2020 End: 12-22-2020 Office outpatient visit 10 minutes Nadine Lucien DO Work Phone: [facility] Start: 11-30-2020 End: 11-30-2020 Office outpatient visit 25 minutes Nadine Lucien DO Work Phone: [facility] Start: 10-13-2020 End: 10-14-2020 Office outpatient visit 25 minutes Nadine Lucien DO Work Phone: [facility] Start: 10-13-2020 End: 10-14-2020 Patient encounter status Nadine Lucien DO Work Phone: [facility] Start: 08-29-2020 End: 08-29-2020 Office outpatient visit 15 minutes Nadine Lucien DO Work Phone: [facility] Start: 08-29-2020 Review Nadine Fearo n DO Work Phone: [facility] Start: 07-27-2020 End: 07-27-2020 Office outpatient visit 25 minutes Nadine Lucien DO Work Phone: [facility] Start: 06-29-2020 End: 06-29-2020 Office outpatient visit 25 minutes Nadine Lucien DO Work Phone: [facility] Start: 06-29-2020 Review Nadine Fearo n DO Work Phone: [facility] Start: 06-08-2020 End: 06-08-2020 Office outpatient visit 15 minutes Nadine Lucien [facility] Start: 06-08-2020 Review Nadine Lucien [facility] Start: 05-23-2020 End: 05-23-2020 Office outpatient visit 10 minutes Nadine Lucien [facility] Start: 05-09-2020 End: 05-09-2020 Office outpatient visit 10 minutes Nadine Lucien [facility] Start: 05-09-2020 Review Nadine Lucien [facility] Start: 04-25-2020 End: 04-25-2020 Office outpatient visit 15 minutes Nadine Lucien [facility] Start: 04-07-2020 End: 04-07-2020 Office outpatient visit 40 minutes Nadine Lucien [facility] Start: 02-24-2020 End: 02-24-2020 Annotation/Addendum Nadine Lucien [facility] Start: 02-17-2020 End: 02-17-2020 Annotation/Addendum Nadine Wahl [facility] Start: 02-10-2020 End: 02-10-2020 Office outpatient visit 25 minutes Nadine Wahl [facility] Start: 02-09-2020 End: 02-09-2020 Office outpatient visit 15 minutes Nadine Mcgraw [facility] Start: 02-08-2020 End: 02-08-2020 Office outpatient visit 25 minutes Nadine Mcgraw [facility] Start: 10-01-2019 End: 10-01-2019 Office outpatient visit 25 minutes Nadine Mcgraw [facility] Start: 09-17-2019 End: 09-17-2019 Lab Order Nadine Mcgraw [facility] Start: 09-10-2018 End: 09-10-2018 Office outpatient visit 25 minutes Nadine Mcgraw [facility] Start: 08-29-2018 End: 08-29-2018 Annotation/Addendum Nadine Wahl [facility] Start: 08-08-2018 Review Nadine Mcgraw [facility] Start: 08-08-2018 End: 08-08-2018 Office outpatient visit 10 minutes Nadine Mcgraw [facility] Start: 07-30-2018 End: 07-30-2018 Office outpatient visit 10 minutes Nadine Wahl [facility] Start: 05-30-2018 End: 05-30-2018 Phone Encounter Nadine Wahl [facility] Start: 05-30-2018 End: 05-30-2018 Patient encounter procedure Nadine Wahl [facility] Start: 05-30-2018 End: 05-30-2018 Office outpatient visit 25 minutes Nadine Wahl [facility] Start: 05-19-2018 End: 05-19-2018 Office outpatient visit 5 minutes Nadine Wahl [facility] Start: 04-03-2018 End: 04-03-2018 Office outpatient visit 15 minutes Nadine Wahl [facility] Start: 03-18-2018 End: 03-19-2018 Office outpatient visit 5 minutes Nadine Wahl [facility] Start: 02-21-2018 End: 02-21-2018 Office outpatient visit 40 minutes Nadine Wahl [facility] Start: 01-15-2018 End: 11-07-2018 Office outpatient new 45 minutes Nadine Mcgraw [facility] Patient encounter status Nadine Lucien DO Work Phone: [facility]; [facility] Work Phone: Patient encounter status Meredith Jaimes [facility]; [facility] Work Phone: Patient encounter status Toy Hunter [facility]; [facility] Work Phone: Patient encounter status Snow Lira [facility]; [facility] Work Phone: Procedures Date Procedure Procedure Detail Performing Clinician Start: 10-01-2024 Screening mammography D r. Nadine Mcgraw DO Work Phone: Start: 10-03-2022 End: 10-03-2022 Knee 3 Views Procedure Note: See Note; NOTES: [facility] Radiology [address] [place] [address] Knee 3 Views MR#: [id number] Acct: [id number] Name: NICOLE HOLBROOK Rep #: [id number] : 1970 F 52 From: Alexei Nolasco PCP: Dr. Nadine Mcgraw DO Status: DEP AMB Study: Knee 3 Views Date of Exam: 10/03/22 Exam# [id number] Ordering Dr: Nadine Mcgraw DO INDICATION: PAIN EXAMINATION/TECHNIQUE: X-RAY - LEFT XR Knee 3 Views 3 VIEWS COMPARISON: : Prior study dated: 08/25/2023 FINDINGS: Bones: There is normal bony alignment, trabecular pattern is normal. No fractures or focal lytic or sclerotic bony lesions. Minimal early osteophyte formation noted involving the medial compartment and the patellofemoral compartment. Joints: Mild medial joint space narrowing. No joint effusion. Soft tissues: Normal appearance of the soft tissues. No radiopaque foreign bodies noted. RAD/Knee 3 Views IMPRESSION: 1. No evidence of fracture destructive bony process or malalignment. 2. Subtle medial compartment degenerative changes and patellofemoral degenerative change. Electronically Signed: Alexei Feldman MD at 20:35 EDT , CC: Dr. Nadine Mcgraw DO Foreign Service Teacher: Signed Nadine Mcgraw DO Work Phone: Start: 01-29-2022 End: 01-29-2022 Hips B/L min 2 views w/ Pelvis Procedure Note: See Note; NOTES: [facility] Imaging Services [address] [place] [address] Hips B/L min 2 views w/ Pelvis MR#: [id number] Acct: [id number] Name: NICOLE HOLBROOK Rep #: [id number] : 1970 F 51 From: Rob Ybarra MD PCP: Dr. Nadine Mcgraw, Status: REG CLI Study: Hips B/L min 2 views w/ Pelvis Date of Exam: 03/31/21 Exam# [id number] Ordering Dr: Nadine Mcgraw DO EXAM: XR BILATERAL HIPS WITH PELVIS WHEN PERFORMED, 2 VIEWS CLINICAL INDICATION: PAIN TECHNIQUE: Frontal view of the bilateral hips with pelvis when performed. This report was created using [employer] report generation technology. COMPARISON: None. FINDINGS: BONES/JOINTS: There are degenerative changes in the left hip with joint space narrowing. No displaced fracture. No destructive or sclerotic lesions. Note that overlapping bowel shadows may however obscure fine detail. Sacroiliac joint is unremarkable. No widening of the pubic symphysis. SOFT TISSUES: Unremarkable. No soft tissue swelling or gas. RAD/Hips B/L min 2 views w/ Pelvis IMPRESSION: Degenerative changes in the left hip with narrowing of the hip joint space. There are no acute osseous abnormalities. Electronically Signed: Rob Ybarra MD at 23:53 EST , CC: Dr. Nadine Mcgraw DO Foreign Service Teacher: Signed Nadine Mcgraw DO Work Phone: Start: 01-29-2022 End: 01-29-2022 Lumbar Spine 2 or 3 Views Procedure Note: See Note; NOTES: [facility] Imaging Services [address] [place] [address] Lumbar Spine 2 or 3 Views MR#: [id number] Acct: [id number] Name: NICOLE HOLBROOK Rep #: [id number] : 1970 F 51 From: Rob Ybarra MD PCP: Dr. Nadine Mcgraw DO Status: REG CLI Study: Lumbar Spine 2 or 3 Views Date of Exam: Exam# [id number] Ordering Dr: Nadine Mcgraw DO EXAM: XR LUMBOSACRAL SPINE, 2 OR 3 VIEWS CLINICAL INDICATION: PAIN TECHNIQUE: Frontal and lateral views of the lumbar spine and sacrum. This report was created using [employer] report generation technology. COMPARISON: None. FINDINGS: VERTEBRAE: Unremarkable. Preserved vertebral body height. No fracture. No spondylolisthesis. Preservation of the normal lumbar lordosis. No significant facet arthropathy. DISC SPACES: No acute findings. Disc spaces are maintained. GASTROINTESTINAL TRACT: Unremarkable as visualized. Included bowel gas pattern is non-obstructive. RAD/Lumbar Spine 2 or 3 Views IMPRESSION: No evidence of lumbar spinal fracture or spondylolisthesis. Electronically Signed: Rob Ybarra MD at 23:52 EST , CC: Dr. Nadine Mcgraw DO Foreign Service Teacher: Signed Nadine Mcgraw DO Work Phone: Start: 01-29-2022 Plain x-ray of pelvi s and lower extremity Start: 01-29-2022 X-ray of lumbar spin e, two or three views Start: 09-26-2021 End: 09-27-2021 SCRN MAMM (CAD)W/VICKIE BILAT Procedure Note: See Note; NOTES: [facility] Imaging Services [address] [place] [address] SCRN MAMM (CAD)W/VICKIE BILAT MR#: [id number] Acct: [id number] Name: NICOLE HOLBROOK Rep #: [id number] : 1970 F 51 From: Warren cruz MD PCP: Dr. Nadine Mcgraw, DO Status: [facility] Study: SCRN MAMM (CAD)W/VICKIE BILAT Date of Exam: 09/08 11/30 Exam# [id number] Ordering Dr: Katie Garibay NP [facility] -C MAMMOGRAPHY - BILATERAL SCREENING REASON FOR EXAM: Female, 51 years old. Routine annual screening examination. PERTINENT HISTORY: Non-contributory. TECHNIQUE: Digital bilateral breast vickie (3D mammographic acquisition) in the CC and MLO projections. 2-D mediolateral oblique (MLO) and craniocaudad (CC) views of both breasts were obtained. CAD: Full Field Digital Mammography with Computer Added Detection was performed. COMPARISON: Comparison is made with prior study dated 09/22/2020 and 02/11/2018. FINDINGS: Breast Composition: There are scattered areas of fibroglandular density. There are no dominant masses or suspicious calcifications. Stable small benign-appearing bilateral axillary lymph nodes. No other significant abnormalities are identified. There has been no significant change since the prior study. BI/SCRN MAMM (CAD)W/VICKIE BILAT IMPRESSION: Stable bilateral screening mammogram. Yearly follow-up mammogram recommended. (A) ASSESSMENT CATEGORY: BIRADS Category 2: Benign. A letter regarding these results will be sent to the patient by the facility within 30 days. Approximately 10% of breast cancers are not detected by mammography. A normal mammogram should not delay biopsy of a clinically suspicious abnormality. [id number] Electronically Signed: Warren Chaudhary MD at 11:02 EDT Reading Location ID and State: [facility] / [place] , Service support , CC: KEESHA Garibay; Dr. Nadine Mcgraw DO Foreign Service Teacher: Signed Nadine Mcgraw DO Work Phone: Start: 03-09-2021 End: 03-09-2021 Virtual Office Visit Comments: See Note; NOTES: [facility] [address] [place], [place] [address] [address] OFFICE VISIT Date of Service: 03/09/21 MR#: [id number] Acct: [id number] Patient: NICOLE HOLBROOK Rep #: [id number] : 1970 Provider: KEESHA Allen Age/Sex: 50/F Location: [facility] Status: Signed Intake Vital Signs 03/09/21 14:00 Height 5 ft 5 in Weight: 175 lb BMI 29.1 Intake Visit Reasons: LÁZARO BROWN Chief Complaint: sinus Allergies Penicillins Allergy (Verified 12/20/20 14:10) Hives [facility] Medical History (Updated 03/09/21 @ 14:02 by Yulia Allen [facility], [facility]-C) Anemia Cardiomyopathy delivery delivered diarrhea lasting more than a week Left hip pain Pelvic pain Surgical History H/O right heart catheterization History of tonsillectomy Family History Other Cancer Cardiomyopathy Diabetes Heart disease Social History Smoking Status: Never smoker alcohol intake: current alcohol intake frequency: holidays/special occasions only substance use type: does not use caffeine: Yes what type of physical activity do you participate in: bicycling frequency: 3-4 times per week seatbelt use: always do you feel safe at home: Yes additional social history: -Neptali HPI HPI Chief Complaint: sinus Details: Patient was informed that this visit will be billed to patient. This visit was conducted during COVID-19 pandemic. NICOLE HOLBROOK, is a 50 F who participates in telephone office visit for review of her COVID-19 symptoms. Statement read to the patient: This telehealth visit has been offered during her stay at home measures in response to the pandemic. It is subject to an office visit charge. The patient consents to continue. Symptom onset occurred: March 05, 2021 Positive COVID-19 test occurred: March 08, 2021 The FDA has authorized the emergency use of monoclonal antibody treatment (bamlanivimab/etesevimab or casirivimab/imdevimab) for mild to moderate COVID-19 in adults and pediatric patients with positive results of direct SARS???Cov???2 viral testing ages 12 and older, at least 40 kg, who are at high risk for progressing to severe COVID-19 and or hospitalization. The significant known and potential risks (allergic reactions, worsening of symptoms after treatment, or side effects from injection including brief pain, bleeding, bruising of the skin, soreness, swelling, possible infection at the infusion site) and benefits (decrease chance of progression to severe COVID-19) of a monoclonal antibody infusion, and the extent to which such potential risks and benefits are unknown. Note that worsening symptoms after treatment may occur but it is unknown whether these symptoms are related to treatment or are due to the progression of COVID-19. Worsening symptoms may include: fever, difficulty breathing, rapid or slow heart rate, tiredness, weakness or confusion. If these symptoms occur, patients are encouraged to seek immediate medical attention. These treatments are still being studied, all possible side effects may not be listed or known at this time. Patients treated with monoclonal antibody infusion should continue to self-isolate and use infection control measures (such as wear mask, isolate, social distance, avoid sharing personal items, clean and disinfect high touch surfaces, and frequent handwashing) according to the CDC guidelines. The fact sheet will be provided prior to the administration of the medication. Oral medications have received authorization from the FDA to treat [id number] COVID-19 in patients at high risk for progression to severe COVID-19. These medications may not be appropriate for all patients and available drug supply may be limited. However, these oral medications may be more effective against the omicron variant. The patient had the option to refuse or accept treatment with monoclonal antibody therapy. The patient was informed that the number of people treated with monoclonal antibody therapy at this time is small. Due to the changes in the virus that causes COVID-19, some monoclonal antibody treatments may not be effective for all forms of the virus (known as variants). This includes the omicron variant. The patient stated understanding of this information communicated and wished to proceed with monoclonal antibody infusion therapy. Current symptoms include: Cough, sore throat, ear aches, headache, sinus congestion. ROS Const Constitutional: Positive for headache(s) ENT ENT: Positive for ear or mastoid pain, sinus pressure, headache(s) and sore throat Resp Respiratory: Positive for cough Neuro Neurology: Positive for headache(s) Exam Const General: cooperative, comfortable and no acute distress Orientation: alert and oriented x3 Resp Effort Inspection: normal respiratory effort, able to speak in complete sentences, no audible wheezes, cough and no respiratory distress Neuro General: patient alert and patient oriented x3 Cognition: normal cognition Speech: speech normal Psych Mental Status: mental status grossly normal Mood: congruent mood Affect: normal affect Speech and Movement: speech clear Attitude: cooperative Thought Process: normal Thought Content: normal Judgment: judgment good Details: Details:: Exam was limited due to phone visit with no video. Quality Reporting Tobacco Screening ([facility] 138) Smoking Status: Never smoker Coding Level of Care Code Attention Reinspector Diagnoses COVID-19 U07.1 Time Spent (min) 10 Comment 70056 Assessment and Plan Assessment and Plan (1) COVID-19: Status: Acute Plan: This patient remains appropriate for monoclonal antibody treatment. The patient states understanding of this information communicated and wishes to proceed with monoclonal antibody infusion therapy. Patient agrees to receive either balanivimab/etesvimab or casirivimab/imdevimab upon availability. The patient was notified that there will be charges for the infusion services and that there may be a balance due. 03/09/21 1457 <Electronically signed by Yulia Allen NP LABOR ARBITRATOR HEARING OFFICE-C> Date Yulia Allen LABOR ARBITRATOR HEARING OFFICE LABOR ARBITRATOR HEARING OFFICE-C Cosigner Signature: Date (if applicable) CC: Dr. Nadine Mcgraw, DO Nadine Mcgraw DO Work Phone: Start: 12-26-2020 End: 12-30-2020 Pelvic (Non ) Comments: See Note; NOTES: [facility] Imaging Services [address] [place] [address] Pelvic (Non ) MR#: [id number] Acct: [id number] Name: NICOLE HOLBROOK Constance Rep #: [id number] : 1970 F 50 From: Rob Ybarra MD PCP: Dr. Nadine Mcgraw, Status: REG CLI Study: Pelvic (Non ) Date of Exam: 12/26/20 Exam# [id number] Ordering Dr: Katie Garibay NP LABOR ARBITRATOR HEARING OFFICE -C EXAM: US PELVIS TRANSABDOMINAL AND TRANSVAGINAL, COMPLETE : 1970 CLINICAL INDICATION: pelvic pain TECHNIQUE: Transabdominal and transvaginal pelvic ultrasound was performed with grayscale and color Doppler imaging. Transvaginal imaging was used for better evaluation of the endometrium and adnexa. This report was created using [employer] report generation technology. COMPARISON: None. FINDINGS: UTERUS/CERVIX: The uterus measures 6.9 x 3.8 4.9 cm. The endometrium measures 2 mm. Anteverted. There is no uterine mass. RIGHT OVARY: The right ovary was not visualized. LEFT OVARY: The left ovary measures 2.4 x 1.2 x 1.7 cm. Blood flow is present in the left ovary. FREE FLUID: None. BLADDER: Unremarkable as visualized. Wall is normal thickness for degree of distention. US/Pelvic (Non ) IMPRESSION: No acute abnormalities. The right ovary is not visualized. at 0256 Reported and signed by: Rob Ybarra MD Electronically Signed: Rob Ybarra MD at 2:55 EDT Tel , Service support , CC: KEESHA Garibay; Dr. Nadine Mcgraw DO Foreign Service Teacher: Signed Nadine Mcgraw DO Work Phone: Start: 12-26-2020 End: 12-30-2020 Transvaginal Non- Comments: See Note; NOTES: [facility] Imaging Services [address] [place] [address] Transvaginal Non- MR#: [id number] Acct: [id number] Name: NICOLE HOLBROOK Rep #: [id number] : 1970 F 50 From: Rob Ybarra MD PCP: Dr. Nadine Mcgraw DO Status: REG CLI Study: Transvaginal Non- Date of Exam: Exam# [id number] Ordering Dr: Katie Garibay NP LABOR ARBITRATOR HEARING OFFICE Manish EXAM: US PELVIS TRANSABDOMINAL AND TRANSVAGINAL, COMPLETE : 1970 CLINICAL INDICATION: pelvic pain TECHNIQUE: Transabdominal and transvaginal pelvic ultrasound was performed with grayscale and color Doppler imaging. Transvaginal imaging was used for better evaluation of the endometrium and adnexa. This report was created using [employer] report generation technology. COMPARISON: None. FINDINGS: UTERUS/CERVIX: The uterus measures 6.9 x 3.8 4.9 cm. The endometrium measures 2 mm. Anteverted. There is no uterine mass. RIGHT OVARY: The right ovary was not visualized. LEFT OVARY: The left ovary measures 2.4 x 1.2 x 1.7 cm. Blood flow is present in the left ovary. FREE FLUID: None. BLADDER: Unremarkable as visualized. Wall is normal thickness for degree of distention. US/Transvaginal Non- IMPRESSION: No acute abnormalities. The right ovary is not visualized. at 0256 Reported and signed by: Rob Ybarra MD Electronically Signed: Rob Ybarra MD at 2:55 EDT Tel , Service support , CC: KEESHA Garibay; Dr. Nadine Mcgraw DO Foreign Service Teacher: Signed Nadine Mcgraw DO Work Phone: Start: 12-20-2020 End: 01-04-2021 Android Framework Developer Office Visit Report Comments: See Note; NOTES: [facility] [address] [place] [address]. [address] [place], [place] [address] OFFICE VISIT Date of Service: 12/20/20 MR#: [id number] Acct: [id number] Name: NICOLE HOLBROOK Constance Rep #: [id number] : 1970 Provider: KEESHA butts Age/Sex: 50/F Location: [facility] Status: Signed Intake Vital Signs 12/20/20 14:12 Height 5 ft 5 in BP 128/82 H Intake Visit Reasons: Urinary incontinence Allergies Penicillins Allergy (Verified 12/20/20 14:10) Hives Medications cholecalciferol (vitamin D3) 25 mcg (1,000 unit) capsule 1,000 unit PO DAILY 04/15/18 [History Confirmed 12/20/20] cyanocobalamin (vitamin B-12) 1,000 mcg capsule 1,000 mcg PO DAILY 04/15/18 [History Confirmed 12/20/20] magnesium oxide 500 mg capsule 500 mg PO DAILY cap 08/20/18 [History Confirmed 12/20/20] ascorbate calcium (vitamin C) 500 mg tablet 500 mg PO DAILY 12/20/20 [History Confirmed 12/20/20] gabapentin 300 mg capsule 300 mg PO BID 12/20/20 [History Confirmed 12/20/20] metoprolol tartrate 50 mg tablet 50 mg PO BID 12/20/20 [History Confirmed 12/20/20] Post menopausal: Yes Nurse's Note: urinary incontinence worse over the past sx with lifting, walking. PFSH Medical History (Updated 12/20/20 @ 15:10 by Katie Garibay LABOR ARBITRATOR HEARING OFFICE, LABOR ARBITRATOR HEARING OFFICE-C) Anemia Cardiomyopathy delivery delivered diarrhea lasting more than a week Left hip pain Pelvic pain Surgical History H/O right heart catheterization History of tonsillectomy Family History Other Cancer Cardiomyopathy Diabetes Heart disease Social History Smoking Status: Never smoker alcohol intake: current alcohol intake frequency: holidays/special occasions only substance use type: does not use caffeine: Yes what type of physical activity do you participate in: bicycling frequency: 3-4 times per week seatbelt use: always do you feel safe at home: Yes additional social history: -Neptali HPI Urinary incontinence Details: NICOLE HOLBROOK is a 50 year old who presents for significant increase in urinary incontinence. States about 2 weeks ago she started noticing loss and not related to activity, losing large amounts of urine and unable to control flow. She denies dysuria or other symptoms. 1 cup of coffee each am. Not sexually active due to dryness. Seen 2019 for postmenopausal bleeding, unable to do EMB due to cervical stenosis. US indicated endometrial lining at 4mm. No further bleeding since then. States last pap another facility 2018. Pregancy History 3 Elective abortions Hx Para 3 Spontaneous abortions Hx # Term Pregnancies Ectopic pregnancies Hx # Pregnancies Multiple births # of living children Past Pregnancies Del. Date Name GA/Weeks Outcome Route Bth Weight [facility] Spencer 1996 Unknown Cristofer 2000 Unknown Benjamin 2006 ROS Const Constitutional: Reports system reviewed and no additional complaints, except as documented Eyes Eyes: Reports system reviewed and no additional complaints, except as documented GI GI: Denies abdominal pain or change in bowel habits : Reports as per HPI and urinary incontinence Exam Const General: cooperative and no acute distress Nutritional Appearance: well nourished Orientation: oriented x3 External Female Exam: other (small crack inner right vaginal introitus) Urethra: other (dilated uretra without caruncle) Speculum Exam - Vagina: vagina atrophic Speculum Exam - Cervix: closed (pale and stenotic) Bimanual Exam- Vagina Uterus: normal bimanual exam and uterine size normal Bimanual Exam- Adnexa, other: normal adnexae, no masses, non-tender and cystocele Pelvic Support: cystocele mild Results POC Urinalysis Dip (Clinic) Office Urine Color YELLOW Last Edit by Lalita Edwards on 12/20/20 14:18 Office Urine Clarity Clear Last Edit by Lalita Edwards on 12/20/20 14:18 Office Urine Glucose Negative Last Edit by Lalita Edwards on 12/20/20 14:18 Office Urine Ketones Negative Last Edit by Lalita Edwards on 12/20/20 14:18 Off Ur Spec Newton 1.005 Last Edit by Lalita Edwards on 12/20/20 14:18 Office Urine pH 5.0 Last Edit by Lalita Edwards on 12/20/20 14:18 Office Urine Bilirubin Negative Last Edit by Lalita Edwards on 12/20/20 14:18 Office Urine Urobilinogen Negative Last Edit by Lalita Edwards on 12/20/20 14:18 Office Urine Blood Trace Last Edit by Lalita Edwards on 12/20/20 14:18 Office Urine Blood Hemolyzed Trace Last Edit by Lalita Edwards on 12/20/20 14:18 Office Urine Protein Negative Last Edit by Lalita Edwards on 12/20/20 14:18 Office Urine Nitrate Negative Last Edit by Lalita Edwards on 12/20/20 14:18 Off Ur Leukocytes Negatve Last Edit by Lalita Edwards on 12/20/20 14:18 Coding Level of Care Code Off vis,est,level 3 Diagnoses Urinary incontinence R32 Mixed stress and urge urinary incontinence N39.46 Hematuria R31.9 History of postmenopausal bleeding Z87.42 Atrophic vaginitis N95.2 Assessment and Plan Assessment and Plan (1) Urinary incontinence: (2) Mixed stress and urge urinary incontinence: Status: Acute (3) Hematuria: Status: Acute Comment: trace amount. culture pending (4) History of postmenopausal bleeding: Status: Acute Comment: US to recheck lining (5) Atrophic vaginitis: Status: Acute Plan - Katie Garibay LABOR ARBITRATOR HEARING OFFICE, LABOR ARBITRATOR HEARING OFFICE-C: Ultrasound to recheck lining of uterus Urine culture Kegel exercises and Rx start vaginal estrogen If negative culture and US and incontinence persists, will refer to Dr Burk Plan Details Other Orders: Orders: POC Urinalysis Dip (Clinic) Today R39.15 Culture, Urine Today R10.2, R39.15 Pelvic (Non ) Today R10.2 Transvaginal Non- Today R10.2 12/20/20 1536 <Electronically signed by Katie Garibay NP LABOR ARBITRATOR HEARING OFFICE-C> Date Katie Garibay NP LABOR ARBITRATOR HEARING OFFICE-C Cosigner Signature: Date (if applicable) CC: Nadine Mcgraw DO Work Phone: Start: 09-22-2020 End: 09-22-2020 Dexa Bone Density Study Comments: See Note; NOTES: [facility] Imaging Services [address] [place] [address] Dexa Bone Density Study MR#: [id number] Acct: [id number] Name: NICOLE HOLBROOK Rep #: [id number] : 1970 F 50 From: Duncan Singh DO PCP: Dr. Nadine Mcgraw DO Status: REG CLI Study: Dexa Bone Density Study Date of Exam: 09/22/20 Exam# [id number] Ordering Dr: Nadine Mcgraw DO STUDY: DUAL ENERGY X-RAY ABSORPTIOMETRY / DXA REASON FOR EXAM: Female, 50 years old. Postmenopausal female TECHNIQUE: Bone Mineral Density (BMD) measurements of lumbar spine and bilateral hips were obtained. COMPARISON: None. FINDINGS: Lumbar Spine (L1-L4): g/cm2 (0.868) / T-score (-1.6) / Z-score (-0.7) Findings are suggestive of osteopenia with a moderate fracture risk. Left Femur Total: g/cm2 (0.800) / T-score (minus 1.) / Z-score (-0.7) Left Femoral Neck: g/cm2 (0.689) / T-score (-1.4) / Z-score (-0.6) Right Femur Total: g/cm2 (0.802) / T-score (-1.1) / Z-score (-0.6) Right Femoral Neck: g/cm2 (0.623) / T-score (-2.0) / Z-score (-1.2) BD/Dexa Bone Density Study IMPRESSION: The patient is considered osteopenic as outlined below according to World Castro Organization (WHO) criteria with a moderate fracture risk. Reference Information: The T-score is the number of standard deviations above or below the standard which is normal for young adults at their peak bone mineral density. The World Health Organization (WHO) interprets the T-scores as follows: Above -1 Normal bone density Between -1 and -2.5 Osteopenia Equal to / or below -2.5 Osteoporosis As a practical clinical guideline, osteopenia may be graded as follows: Mild -1 through -1.5 Moderate -1.6 through -2.0 Severe -2.1 through -2.4 The Z-score is the number of standard deviations above or below age-matched controls. A Z-score of less than -1.5 would be considered abnormal. References: 1. NIH Osteoporosis and Related Bone Diseases www osteo.org 2. International Society for Clinical Densitometry www iscd.org 3. National Osteoporosis Foundation www nof.org Electronically Signed: Duncan Singh DO at 23:42 EDT Tel [phone], Service support , CC: Dr. Nadine Mcgraw DO Foreign Service Teacher: Signed Nadine Mcgraw DO Work Phone: Start: 09-22-2020 End: 09-22-2020 SCRN MAMM (CAD)W/VICKIE BILAT Comments: See Note; NOTES: [facility] Imaging Services [address] [place] [address] SCRN MAMM (CAD)W/VICKIE BILAT MR#: [id number] Acct: [id number] Name: NICOLE HOLBROOK Rep #: [id number] : 1970 F 50 From: Warren cruz MD PCP: Dr. Nadine Mcgraw DO Status: [facility] Study: SCRN MAMM (CAD)W/VICKIE BILAT Date of Exam: 09/08 07/29 Exam# [id number] Ordering Dr: Nadine Mcgraw DO MAMMOGRAPHY - BILATERAL SCREENING REASON FOR EXAM: Female, 50 years old. Routine annual screening examination. PERTINENT HISTORY: Non-contributory. TECHNIQUE: Digital bilateral breast vickie (3D mammographic acquisition) in the CC and MLO projections. 2-D mediolateral oblique (MLO) and craniocaudad (CC) views of both breasts were obtained. CAD: Full Field Digital Mammography with Computer Added Detection was performed. COMPARISON: Comparison is made with prior examination dated 02/11/2018. FINDINGS: Breast Composition: There are scattered areas of fibroglandular density. There are no dominant masses or suspicious calcifications. Stable small benign-appearing bilateral axillary lymph nodes. No other significant abnormalities are identified. There has been no significant change since the prior study. BI/SCRN MAMM (CAD)W/VICKIE BILAT IMPRESSION: Stable bilateral screening mammogram. Yearly follow-up mammogram recommended. (A) ASSESSMENT CATEGORY: BIRADS Category 2: Benign. A letter regarding these results will be sent to the patient by the facility within 30 days. Approximately 10% of breast cancers are not detected by mammography. A normal mammogram should not delay biopsy of a clinically suspicious abnormality. [id number] Electronically Signed: Warren Chaudhary MD at 9:34 EDT , Service support , CC: Dr. Nadine Mcgraw, DO Foreign Service Teacher: Signed Nadine Mcgraw DO Work Phone: Start: 03-21-2020 Adult depression screening assessment Richard Meyer MD Work Phone: Start: 01-31-2020 End: 01-31-2020 Office Visit Report Comments: See Note; NOTES: [facility] Services [address] [place] [address] [place] [address] OFFICE VISIT Date of Service: 01/31/20 MR#: [id number] Acct: [id number] Patient: NICOLE HOLBROOK Rep #: [id number] : 1970 Provider: WARREN Vasquez Age/Sex: 49/F Location: [facility] Status: Signed Intake Vital Signs 01/31/20 BP 130/86 H 01/31/20 Blood Pressure Location Lt brachial 01/31/20 Position Sitting 01/31/20 Respiration 15 01/31/20 Pulse 88 01/31/20 Pulse Source Monitor 01/31/20 Temp 97.0 F L 01/31/20 Temp Source Temporal 01/31/20 Pulse Oximetry (%) 98 01/31/20 Oxygen Delivery Method room air Intake Visit Reasons: RASH/BACK/CHEST Chief Complaint: sinus Allergies Penicillins Allergy (Verified 01/31/20 13:58) Hives Medications cholecalciferol (vitamin D3) 25 mcg (1,000 unit) capsule 1,000 unit PO DAILY 04/15/18 [History Confirmed 01/31/20] cyanocobalamin (vitamin B-12) 1,000 mcg capsule 1,000 mcg PO DAILY 04/15/18 [History Confirmed 01/31/20] magnesium oxide 500 mg capsule 500 mg PO DAILY cap 08/20/18 [History Confirmed 01/31/20] [facility] Medical History Anemia (Acute) Cardiomyopathy (Acute) Left hip pain (Acute) diarrhea lasting more than a week (Acute) delivery delivered (Resolved) Surgical History H/O right heart catheterization (Resolved) History of tonsillectomy (Resolved) Family History Other Cancer Cardiomyopathy Diabetes Heart disease Social History (Updated 01/31/20 @ 14:20 by WARREN Shah) Smoking Status: Never smoker alcohol intake: current alcohol intake frequency: holidays/special occasions only substance use type: does not use caffeine: Yes what type of physical activity do you participate in: bicycling frequency: 3-4 times per week seatbelt use: always do you feel safe at home: Yes additional social history: -Neptali HPI HPI Chief Complaint: sinus Details: NICOLE HOLBROOK, is a 49 F who presents to the office today for rash on back and chest and under breasts ROS Skin Skin: Positive for redness, lesions, itching, rash and skin pain Aller/Imm Allergy/Immunologic: Positive for itchy eyes Exam Const General: cooperative, healthy appearing, comfortable Nutritional Appearance: average body habitus, well nourished Orientation: alert, awake Resp Effort Inspection: normal respiratory effort, able to speak in complete sentences, symmetric chest movement Cardio Rate: regular rate Rhythm: regular rhythm Skin General: turgor normal, erythema Lesions: lesion noted Rashes: rashes noted (erythemetous base with overlying vesicles following a dermatomal pattern) Assessment Plan Problems 1. Shingles B02.9 Plan RX Acyclovir Patient Instructions Follow up with PCP in 2-3 days or sooner if worse Plan Detail Follow Up 2-3 days Coding Level of Care Code Off vis,new,level 3 Diagnoses Shingles B02.9 01/31/20 1420 <Electronically signed by Shwetha KELLEY> Date Shwetha KELLEY Cosigner Signature: Date (if applicable) CC: DO Nadine Lake Start: 09-17-2018 End: 09-17-2018 Pelvic (Non ) Comments: See Note; NOTES: [facility] Imaging Services [address] [place] [address] Pelvic (Non ) MR#: [id number] Acct: [id number] Name: NICOLE HOLBROOK Rep #: [id number] : 1970 F 48 From: Branden Sotomayor MD PCP: Nadine Mcgraw DO Status: REG CLI Study: Pelvic (Non ) Date of Exam: 09/17/18 Exam# [id number] Ordering Dr: Katie Garibay LABOR ARBITRATOR HEARING OFFICE-C STUDY: ULTRASOUND TRANSVAGINAL CLINICAL: Female, 48 years old. Post menopausal bleeding TECHNIQUE: Transabdominal and Transvaginal COMPARISON: None. FINDINGS: The uterus measures 7.4 x 5.7 x 4.5 cm. There are no focal uterine lesions. The endometrium measures 4 mm and is hyperechoic. The ovaries are not visualized. There is free fluid noted in the pelvis. US/Pelvic (Non ) IMPRESSION: Normal uterus. Ovaries not visualized. Pelvic free fluid. Electronically Signed: Branden Sotomayor, at 20:13 EDT Tel , Service support , CC: VERNON Garibay; Nadine Mcgraw DO Foreign Service Teacher: Signed Nadine Mcgraw Work Phone: Start: 09-17-2018 End: 09-17-2018 Transvaginal Non- Comments: See Note; NOTES: [facility] Imaging Services [address] [place] [address] Transvaginal Non- MR#: [id number] Acct: [id number] Name: NICOLE HOLBROOK Rep #: [id number] : 1970 F 48 From: Branden Sotomayor MD PCP: Nadine Mcgraw DO Status: REG CLI Study: Transvaginal Non- Date of Exam: 09/17/18 Exam# [id number] Ordering Dr: Katie Garibay STUDY: ULTRASOUND TRANSVAGINAL CLINICAL: Female, 48 years old. Post menopausal bleeding TECHNIQUE: Transabdominal and Transvaginal COMPARISON: None. FINDINGS: The uterus measures 7.4 x 5.7 x 4.5 cm. There are no focal uterine lesions. The endometrium measures 4 mm and is hyperechoic. The ovaries are not visualized. There is free fluid noted in the pelvis. US/Transvaginal Non- IMPRESSION: Normal uterus. Ovaries not visualized. Pelvic free fluid. Electronically Signed: Branden Sotomayor, at 20:13 EDT Tel , Service support , CC: VERNON Garibay; Nadine Mcgraw DO Foreign Service Teacher: Signed Nadine Mcgraw Work Phone: Start: 03-06-2018 End: 03-07-2018 Echocardiogram Complete Comments: See Note; NOTES: [facility] Cardiovascular Services [address] [place] [address] Echo Complete 03/06/18 0956 MR#: [id number] Acct: [id number] Name: KIESHA HOLBROOKMckenna Nolasco Rep #: [id number] : 1970 47 From: Eder Virgen MD Attending Dr: Nadine Mcgraw DO Status: REG CLI Ordering Dr: Nadine Mcgraw DO Date: 03/06/18 Location: [facility] Sex: F C Admitted: Reason For Study: splinter hemorrhage of fingernail. Procedure This was a 2D Doppler, Color Flow transthoracic echocardiogram. The exam was of adequate technical quality. Exam performed in department. Left Ventricle Normal LV size. Left ventricular systolic function is normal. The estimated ejection fraction is 55 %. Transmitral doppler flow suggestive of impaired relaxation of left ventricle. No regional wall motion abnormalities noted. Right Ventricle Normal RV size. Normal systolic function. Atria Normal left atrium. Normal right atrium. No doppler evidence for ASD. Bubble contrast study negative for right to left interatrial shunt. Mitral Valve There is no mitral annular calcification. Mild diffuse mitral valve thickening. Mild (1+) mitral valve insufficiency. Tricuspid Valve Normal tricuspid valve. Trivial tricuspid valve insufficiency. Right ventricular systolic pressure estimated to be 21 mmHg. Aortic Valve Trisinus/trileaflet aortic valve. Normal aortic valve. Pulmonic Valve The pulmonic valve is not well visualized. Great Vessels Normal sized aortic root. Pericardium/Pleural No pericardial effusion. Medication 22 gauge I.V. with prn adaptor inserted into right arm. Performed a rapid injection of agitated mix of 9 cc saline and 1cc air to assess for atrial septal defect. MMode/2D Measurements AND Calculations LVIDd: 5.0 cm IVSd: 0.89 cm Ao root diam: 2.9 cm LVIDs: 3.6 cm LVPWd: 0.78 cm RVDd: 3.2 cm FS: 29.5 % LAV(MOD-bp): 53.0 ml LA A4 area: 17.9 cm2 LA dimension(2D): 3.7 cm LAV(MOD-bp) Indexed: 26.8 ml/m2 LAV(MOD-sp2): 56.8 ml LAV(MOD-sp4): 49.2 ml RA A4 area: 11.3 cm2 Time Measurements MV dec time: 0.17 sec Doppler Measurements AND Calculations MV E max andria: 72.8 cm/sec Lat Peak E' Andria: 11.4 cm/sec Med Peak E' Andria: 5.6 cm/sec MV A max andria: 93.7 cm/sec E/E' lat: 6.4 E/E' med: 13.0 MV E/A: 0.78 Ao V2 max: 125.2 cm/sec LV V1 max: 89.4 cm/sec PA V2 max: 82.6 cm/sec Ao max P.3 mmHg LV V1 max P.2 mmHg TR max andria: 210.7 cm/sec TR max P.8 mmHg Interpretation Summary Left ventricular systolic function is normal. The estimated ejection fraction is 55 %. Mild diffuse mitral valve thickening. Mild (1+) mitral valve insufficiency. Trivial tricuspid valve insufficiency. Right ventricular systolic pressure estimated to be 21 mmHg. Transmitral doppler flow suggestive of impaired relaxation of left ventricle Bubble contrast study negative for right to left interatrial shunt. Ordering Physician: Nadine Mcgraw Referring Physician: Nadine Mcgraw Performed By: Nicole Senior, NANCY, RVT 03/06/181656 Date Eder Virgen MD CC: Nadine Mcgraw DO Date Dictated: 03/06/18 0956 Date Transcribed: 03/06/181656 Foreign Service Teacher: Signed Nadine Mcgraw Work Phone: Start: 02-11-2018 End: 02-12-2018 SCREENING MAMM (CAD), BILAT Comments: See Note; NOTES: [facility] Imaging Services [address] [place] [address] SCREENING MAMM (CAD), BILAT MR#: [id number] Acct: [id number] Name: NICOLE HOLBROOK Rep #: [id number] : 1970 F 47 From: Warren Chaudhary MD PCP: Nadine Mcgraw DO Status: REG CLI Study: SCREENING MAMM (CAD), BILAT Date of Exam: 02/11/18 Exam# [id number] Ordering Dr: Katie Garibay LABOR ARBITRATOR HEARING OFFICE-C MAMMOGRAPHY - BILATERAL SCREENING REASON FOR EXAM: Female, 47 years old. Routine annual screening examination. PERTINENT HISTORY: Non-contributory. TECHNIQUE: Digital bilateral breast vickie (3D mammographic acquisition) in the CC and MLO projections. 2-D mediolateral oblique (MLO) and craniocaudad (CC) views of both breasts were obtained. CAD: Full Field Digital Mammography with Computer Added Detection was performed. COMPARISON: Comparison is made with prior outside examination dated August 29, 2016. FINDINGS: Breast Composition: There are scattered areas of fibroglandular density. There are no dominant masses or suspicious calcifications. No other significant abnormalities are identified. There has been no significant change since the prior study. BI/SCREENING MAMM (CAD), BILAT IMPRESSION: Stable bilateral screening mammogram. Yearly follow-up mammogram recommended. (A) ASSESSMENT CATEGORY: BIRADS Category 1: Negative. A letter regarding these results will be sent to the patient by the facility within 30 days. Approximately 10% of breast cancers are not detected by mammography. A normal mammogram should not delay biopsy of a clinically suspicious abnormality. [id number] Electronically Signed: Warren Chaudhary MD at 8:47 EST Tel [phone], Service support , CC: VERNON Garibay; Nadine Mcgraw DO Foreign Service Teacher: Signed Nadine Mcgraw Work Phone: Start: 10-24-2016 Gynecologic examination Routin e gynecological examination Katie Garibay NP Start: 08-29-2016 Mammography Richard Coburn MD Work Phone: Start: 10-14-2014 Lipid 1996 panel - S annamaria or Plasma Richard Meyer MD Work Phone: Start: 02-26-2005 H/O: section Previous delivery, antepartum condition or complication Richard Meyer MD Work Phone: Bone density scan Toshia goodman Comment on above: 2009 Bone density scan Lorie ramos Comment on above: 2009 Bone density scan Sarahi flores Comment on above: 2009 Bone density scan Toshia goodman Comment on above: 2009 Bone density scan Lynda Gra vius Comment on above: 2009 Bone density scan Karma tavares Comment on above: 2009 Bone density scan Lynda Gra vius Comment on above: 2009 Bone density scan Naomi Manager Cardiology ss Comment on above: 2009 Bone density scan Lynda Gra vius Comment on above: 2009 Bone density scan Lynda Gra vius Comment on above: 2009 Bone density scan Lynda Gra vius Comment on above: 2009 Bone density scan Selvin Medina is Comment on above: 2009 Bone density scan Naomi Manager Cardiology ss Comment on above: 2009 Bone density scan Naomi Manager Cardiology ss TRIMMER TAILER Comment on above: 2009 Bone density scan Naomi Manager Cardiology ss TRIMMER TAILER Comment on above: 2009 Bone density scan Naomi Manager Cardiology ss TRIMMER TAILER Comment on above: 2009 Bone density scan Selvin Medina is TRIMMER TAILER Comment on above: 2009 Bone density scan Kayela Rad mina [employer] STORAGE WORKER Comment on above: 2009 Bone density scan [place] [employer] TRIMMER TAILER Comment on above: 2009 Bone density scan Snow Sla rb TRIMMER TAILER Comment on above: 2009 Section - 1 Toshia blankenship Comment on above: 1996 Section - 1 Lorie Ellis Comment on above: 1996 Section - 1 Sarahi Santoro Comment on above: 1996 Section - 1 Toshia blankenship Comment on above: 1996 Section - 1 Lynda Gravius Comment on above: 1996 Section - 1 Karmamandy ovalle Comment on above: 1996 Section - 1 Lynda Gravius Comment on above: 1996 Section - 1 Naomi Cross Comment on above: 1996 Section - 1 Lynda Gravius Comment on above: 1996 Section - 1 Lynda Gravius Comment on above: 1996 Section - 1 Lynda Gravius Comment on above: 1996 Section - 1 Selvin Farnsworth Comment on above: 1996 Section - 1 Naomi Cross Comment on above: 1996 Section - 1 Naomi Cross TRIMMER TAILER Comment on above: 1996 Section - 1 Naomi Cross TRIMMER TAILER Comment on above: 1996 Section - 1 Naomi Cross TRIMMER TAILER Comment on above: 1996 Section - 1 Selvin Farnsworth TRIMMER TAILER Comment on above: 1996 Section - 1 [place] METAL STORAGE WORKER Comment on above: 1996 Section - 1 [place] TRIMMER TAILER Comment on above: 1996 Section - 1 [place] TRIMMER TAILER Comment on above: 1996 Section - 2 Toshia blankenship Comment on above: 2000 Section - 2 Lorie Ellis Comment on above: 2000 Section - 2 Sarahi Santoro Comment on above: 2000 Section - 2 Toshia blankenship Comment on above: 2000 Section - 2 Lynda Gravius Comment on above: 2000 Section - 2 Karma ovalle Comment on above: 2000 Section - 2 Lynda Gravius Comment on above: 2000 Section - 2 Naomi Cross Comment on above: 2000 Section - 2 Lynda Gravius Comment on above: 2000 Section - 2 Lynda Gravius Comment on above: 2000 Section - 2 Lynda Gravius Comment on above: 2000 Section - 2 Selvin Farnsworth Comment on above: 2000 Section - 2 Naomi Aleksandr Comment on above: 2000 Section - 2 Naomi Cross TRIMMER TAILER Comment on above: 2000 Section - 2 Naomi Cross TRIMMER TAILER Comment on above: 2000 Section - 2 Naomi Cross TRIMMER TAILER Comment on above: 2000 Section - 2 Selvin Farnsworth TRIMMER TAILER Comment on above: 2000 Section - 2 Meredith Jaimes METAL STORAGE WORKER Comment on above: 2000 Section - 2 [place] TRIMMER TAILER Comment on above: 2000 Section - 2 [place] TRIMMER TAILER Comment on above: 2000 Section - 3 or more Toshia Pickering Comment on above: 2005 Section - 3 or more Lorie Caleb Comment on above: 2005 Section - 3 or more Sarahi Santoro Comment on above: 2005 Section - 3 or more Toshia Pickering Comment on above: 2005 Section - 3 or more Lynda Gravius Comment on above: 2005 Section - 3 or more Karma Pantoja Comment on above: 2006 Section - 3 or more Lynda Gravius Comment on above: 2006 Section - 3 or more Naomi Brandon Comment on above: 2005 Section - 3 or more Lynda Gravius Comment on above: 2005 Section - 3 or more Lynda Gravius Comment on above: 2005 Section - 3 or more Lynda Gravius Comment on above: 2005 Section - 3 or more Selvin Farnsworth Comment on above: 2005 Section - 3 or more Naomi Brandon Comment on above: 2005 Section - 3 or more Naomi Cross TRIMMER TAILER Comment on above: 2005 Section - 3 or more Naomi Cross TRIMMER TAILER Comment on above: 2005 Section - 3 or more Naomi Cross TRIMMER TAILER Comment on above: 2005 Section - 3 or more Selvin Farnsworth TRIMMER TAILER Comment on above: 2005 Section - 3 or more Meredith Jaimes METAL STORAGE WORKER Comment on above: 2006 Section - 3 or more [place] TRIMMER TAILER Comment on above: 2005 Section - 3 or more [place] TRIMMER TAILER Comment on above: 2005 Ophthalmic examinati on and evaluation Toshia Pickering Comment on above: 2017 Dr. Kee Ophthalmic examinati on and evaluation Lorie Ellis Comment on above: 2017 Dr. Kee Ophthalmic examinati on and evaluation Sarahi Santoro Comment on above: 2017 Dr. Kee Ophthalmic examinati on and evaluation Toshia Pickering Comment on above: 2017 Dr. Kee Ophthalmic examinati on and evaluation Lynda Gravius Comment on above: 2017 Dr. Kee Ophthalmic examinati on and evaluation Karmamandy Cotaman Comment on above: 2017 Dr. Kee Ophthalmic examinati on and evaluation Lynda Gravius Comment on above: 2017 Dr. Kee Ophthalmic examinati on and evaluation Naomi Brandon Comment on above: 2017 Dr. Kee Ophthalmic examinati on and evaluation Lynda Gravius Comment on above: 2017 Dr. Kee Ophthalmic examinati on and evaluation Lynda Gravius Comment on above: 2017 Dr. Kee Ophthalmic examinati on and evaluation Lynda Gravius Comment on above: 2017 Dr. Kee Ophthalmic examinati on and evaluation Selvin Farnsworth Comment on above: 2017 Dr. Kee Ophthalmic examinati on and evaluation Naomi Brandon Comment on above: 2017 Dr. Kee Ophthalmic examinati on and evaluation Naomi Brandon TRIMMER TAILER Comment on above: 2017 Dr. Kee Ophthalmic examinati on and evaluation Naomi Brandon TRIMMER TAILER Comment on above: 2017 Dr. Kee Ophthalmic examinati on and evaluation Naomi Brandon TRIMMER TAILER Comment on above: 2017 Dr. Kee Ophthalmic examinati on and evaluation Selvin Farnsworth TRIMMER TAILER Comment on above: 2017 Dr. Kee Ophthalmic examinati on and evaluation Kadorya [place] [facility] Comment on above: 2017 Dr. Kee Ophthalmic examinati on and evaluation [place] TRIMMER TAILER Comment on above: 2017 Dr. Kee Ophthalmic examinati on and evaluation [place] TRIMMER TAILER Comment on above: 2017 Dr. Kee Screening mammography Toshia Pickering Comment on above: 2016 Screening mammography Lorie Ellis Comment on above: 2016 Screening mammography Sarahi Santoro Comment on above: 2016 Screening mammography Toshia Pickering Comment on above: 2016 Screening mammography Lynda Gravius Comment on above: 2016 Screening mammography Karma Pantoja Comment on above: 2016 Screening mammography Lynda Gravius Comment on above: 2016 Screening mammography Naomi Brandon Comment on above: 2017 Screening mammography Lynda Gravius Comment on above: 2017 Screening mammography Lynda Gravius Comment on above: 2017 Screening mammography Lynda Gravius Comment on above: 2016 Screening mammography Selvin Farnsworth Comment on above: 2016 Screening mammography Naomi Aleksandr Comment on above: 2016 Screening mammography Naomi Aleksandr TRIMMER TAILER Comment on above: 2016 Screening mammography Naomi Aleksandr TRIMMER TAILER Comment on above: 2016 Screening mammography Naomi Aleksandr TRIMMER TAILER Comment on above: 2016 Screening mammography Selvin Farnsworth TRIMMER TAILER Comment on above: 2016 Screening mammography Meredith Jaimes METAL STORAGE WORKER Comment on above: 2016 Screening mammography [place] TRIMMER TAILER Comment on above: 2016 Screening mammography [place] TRIMMER TAILER Comment on above: 2016 Tonsillectomy Toshia keith Comment on above: 1994 Tonsillectomy Lorie keith Comment on above: 1994 Tonsillectomy Sarahi Chris Santoro Comment on above: 1994 Tonsillectomy Toshia keith Comment on above: 1994 Tonsillectomy Lynda Gravius Comment on above: 1994 Tonsillectomy Karma Pantoja Comment on above: 1994 Tonsillectomy Lynda Gravius Comment on above: 1994 Tonsillectomy Naomi Brandon Comment on above: 1994 Tonsillectomy Lynda Gravius Comment on above: 1994 Tonsillectomy Lynda Gravius Comment on above: 1994 Tonsillectomy Lynda Gravius Comment on above: 1994 Tonsillectomy Selvin Farnsworth Comment on above: 1994 Tonsillectomy Naomi Brandon Comment on above: 1994 Tonsillectomy Naomi Brandon L PN Comment on above: 1994 Tonsillectomy Naomi Cross L PN Comment on above: 1994 Tonsillectomy Naomi Brandon L PN Comment on above: 1994 Tonsillectomy Selvin Farnsworth L PN Comment on above: 1994 Tonsillectomy Meredith Jaimes METAL STORAGE WORKER Comment on above: 1994 Tonsillectomy [place] L PN Comment on above: 1994 Tonsillectomy [place] L PN Comment on above: 1994 Plan of Treatment Date Care Activity Detail Author Start: 03-27-2025 Urine microalbumin profile [facility] Start: 11-10-2023 Covid-19 Vaccine ( season) Covid-19 Vaccine ( season) [facility] Start: 11-10-2023 Influenza [facility] Start: 03-22-2023 DIABETES SCREEN DIABETES SCREEN [facility] Start: 03-22-2023 Diabetes Screening Diabetes Screening [facility] Start: 03-11-2023 Depression Assessment Depression Assessment [facility] Start: 11-09-2022 Influenza vaccination Influenza Vaccine (#[facility]) [facility] Start: 10-16-2022 Procedure Education Eprescribed prescriptions (G8553) [facility]; [facility] Work Phone: Start: 10-06-2022 End: 10-06-2022 Echocardiography ECHO Cardiology Routine Cardiomyopathy, nonischemic (HCC) Chronic systolic heart failure (HCC) Expected: 10/06/2022, Expires: 10/06/2022 [facility] Work Phone: Comment on above: Expected: 10/06/2022, Expires: 3 Start: 10-03-2022 Procedure Education Eprescribed prescriptions (G8553) [facility]; [facility] Work Phone: Start: 08-24-2022 Procedure Education Eprescribed prescriptions (G8553) [facility]; [facility] Work Phone: Start: 08-24-2022 Hepatitis c antibody HEPATITIS C ANTIBODY (90767) [facility]; [facility] Work Phone: Start: 08-24-2022 Heavy metal qualitative any analytes HEAVY METAL SCREEN (80317) [facility]; [facility] Work Phone: Start: 08-24-2022 Antinuclear antibodies matt MATT (ANTINUCLEAR ANTIBODY) (57700) [facility]; [facility] Work Phone: Start: 08-24-2022 Cyanocobalamin vitamin b-12 VITAMIN B-12 (CYANOCOBALAMIN) (25838) [facility]; [facility] Work Phone: Start: 08-24-2022 Assay of thyroid stimulating hormone tsh TSH (THYROID STIMULATING HORMONE) (17820) [facility]; [facility] Work Phone: Start: 08-24-2022 Sedimentation rate rbc non-automated SED RATE ERYTHROCYTE (15964) [facility]; [facility] Work Phone: Start: 08-24-2022 Comprehensive metabolic panel METABOLIC PANEL, COMPREHENSIVE (12571) [facility]; [facility] Work Phone: Start: 08-24-2022 Blood count complete automated CBC & PLATELETS (AUTO) (37088) [facility]; [facility] Work Phone: Start: 03-11-2022 Depression Assessment Depression Assessment [facility] Start: 02-15-2022 Provider Instructions for Treatment [facility]; [facility] Work Phone: Start: 01-29-2022 25 hydroxy includes fractions if performed CALCIFEDIOL (56107) [facility]; [facility] Work Phone: Start: 01-29-2022 Cyanocobalamin vitamin b-12 VITAMIN B-12 (CYANOCOBALAMIN) (33082) [facility]; [facility] Work Phone: Start: 01-29-2022 Hemoglobin glycosylated a1c HGB A1C (46277) [facility]; [facility] Work Phone: Start: 01-29-2022 Assay of thyroid stimulating hormone tsh TSH (81465) [facility]; [facility] Work Phone: Start: 01-29-2022 Urnls dip stick/tablet reagent auto microscopy URINALYSIS, W/ MICRO (11471) [facility]; [facility] Work Phone: Start: 01-29-2022 Urine albumin quantitative MICROALBUMIN: CREATININE RATIO (09860) AND (15331) [facility]; [facility] Work Phone: Start: 01-29-2022 Comprehensive metabolic panel METABOLIC PANEL, COMPREHENSIVE (37694) [facility]; [facility] Work Phone: Start: 01-29-2022 Lipid panel LIPID PANEL (57560) [facility]; [facility] Work Phone: Start: 01-29-2022 Blood count complete auto&auto difrntl wbc CBC W/AUTO DIFF WBC (18544) [facility]; [facility] Work Phone: Start: 01-29-2022 Procedure Education Eprescribed prescriptions (G8553) [facility]; [facility] Work Phone: Start: 01-29-2022 Provider Instructions for Treatment Diet, Exercise, and Wt loss [facility]; [facility] Work Phone: Start: 11-09-2021 Influenza vaccination [facility] Start: 10-06-2021 End: 12-06-2021 Comprehensive metabolic 2000 panel - Serum or Plasma COMP METABOLIC PANEL Lab Routine Cardiomyopathy, nonischemic (HCC) Chronic systolic heart failure (HCC) Expected: 10/06/2021, Expires: 12/06/2021 [facility] Work Phone: Comment on above: Expected: 10/06/2021, Expires: 2 Start: 10-06-2021 End: 12-06-2021 Lipid 1996 panel - Serum or Plasma LIPID PANEL BASIC Lab Routine Cardiomyopathy, nonischemic (HCC) Chronic systolic heart failure (HCC) Expected: 10/06/2021, Expires: 12/06/2021 [facility] Work Phone: Comment on above: Expected: 10/06/2021, Expires: 2 Start: 10-06-2021 End: 12-06-2021 Natriuretic peptide.B prohormone N-Terminal [Mass/volume] in Serum or Plasma NT PRO BNP Lab Routine Cardiomyopathy, nonischemic (HCC) Chronic systolic heart failure (HCC) Expected: 10/06/2021, Expires: 12/06/2021 [facility] Work Phone: Comment on above: Expected: 10/06/2021, Expires: 2 Start: 03-21-2021 Adult depression screening assessment DEPRESSION SCREENING [facility] Start: 03-11-2021 DEPRESSION ASSESSMENT DEPRESSION ASSESSMENT [facility] Start: 03-08-2021 Procedure Education Eprescribed prescriptions (G8553) [facility]; [facility] Work Phone: Start: 03-08-2021 [place] influenza 2019 Novel Coronavirus (COVID-19), THAIS (31305) [facility]; [facility] Work Phone: Start: 03-06-2021 Procedure Education Eprescribed prescriptions (G8553) [facility]; [facility] Work Phone: Start: 03-06-2021 Provider Instructions for Treatment Diet, Exercise, and Wt loss [facility]; [facility] Work Phone: Start: 02-23-2021 Procedure Education Eprescribed prescriptions (G8553) [facility]; [facility] Work Phone: Start: 02-23-2021 Provider Instructions for Treatment [facility]; [facility] Work Phone: Start: 02-23-2021 Sars-cov-2 antibody SARS-CoV-2 Antibody, IgG [facility]; [facility] Work Phone: Start: 02-09-2021 Procedure Education Eprescribed prescriptions (G8553) [facility]; [facility] Work Phone: Start: 02-09-2021 Provider Instructions for Treatment [facility]; [facility] Work Phone: Start: 12-22-2020 Procedure Education Eprescribed prescriptions (G8553) [facility]; [facility] Work Phone: Start: 12-22-2020 Provider Instructions for Treatment Diet, Exercise, and Wt loss [facility]; [facility] Work Phone: Start: 11-30-2020 Procedure Education Eprescribed prescriptions (G8553) [facility]; [facility] Work Phone: Start: 11-30-2020 Provider Instructions for Treatment [facility]; [facility] Work Phone: Start: 11-30-2020 Hemoglobin glycosylated a1c HGB A1C (20517) [facility]; [facility] Work Phone: Start: 11-30-2020 Assay of thyroid stimulating hormone tsh TSH (75260) [facility]; [facility] Work Phone: Start: 11-30-2020 Urnls dip stick/tablet reagent auto microscopy URINALYSIS, W/ MICRO (17810) [facility]; [facility] Work Phone: Start: 11-30-2020 Urine albumin quantitative MICROALBUMIN: CREATININE RATIO (36157) AND (11332) [facility]; [facility] Work Phone: Start: 11-30-2020 Comprehensive metabolic panel METABOLIC PANEL, COMPREHENSIVE (74330) [facility]; [facility] Work Phone: Start: 11-30-2020 Blood count complete auto&auto difrntl wbc CBC W/AUTO DIFF WBC (62369) [facility]; [facility] Work Phone: Start: 11-30-2020 Lipid panel LIPID PANEL (81003) [facility]; [facility] Work Phone: Start: 11-30-2020 25 hydroxy includes fractions if performed CALCIFIDIOL (51928) VIT D 25 [facility]; [facility] Work Phone: Start: 11-30-2020 Cyanocobalamin vitamin b-12 VITAMIN B-12 (CYANOCOBALAMIN) (53243) [facility]; [facility] Work Phone: Start: 10-13-2020 Procedure Education Eprescribed prescriptions (G8553) [facility]; [facility] Work Phone: Start: 10-13-2020 Provider Instructions for Treatment [facility]; [facility] Work Phone: Start: 08-29-2020 Calcium total CALCIUM SERUM (05543) [facility]; [facility] Work Phone: Start: 08-29-2020 Procedure Education Eprescribed prescriptions (G8553) [facility]; [facility] Work Phone: Start: 08-29-2020 Provider Instructions for Treatment [facility]; [facility] Work Phone: Start: 07-27-2020 Procedure Education Eprescribed prescriptions (G8553) [facility]; [facility] Work Phone: Start: 07-27-2020 Provider Instructions for Treatment [facility]; [facility] Work Phone: Start: 07-27-2020 Sedimentation rate rbc non-automated SED RATE ERYTHROCYTE (74275) [facility]; [facility] Work Phone: Start: 07-27-2020 C-reactive protein C-REACTIVE PROTEIN (87748) [facility]; [facility] Work Phone: Start: 07-27-2020 Assay of phosphorus inorganic PHOSPHORUS (34102) [facility]; [facility] Work Phone: Start: 07-27-2020 Assay of parathormone PARATHORMONE (15832) [facility]; [facility] Work Phone: Start: 07-27-2020 Calcium total CALCIUM SERUM (02643) [facility]; [facility] Work Phone: Start: 06-29-2020 Procedure Education Eprescribed prescriptions (G8553) [facility]; [facility] Work Phone: Start: 06-29-2020 Provider Instructions for Treatment [facility]; [facility] Work Phone: Start: 06-29-2020 Cyanocobalamin vitamin b-12 VITAMIN B-12 (CYANOCOBALAMIN) (53682) [facility]; [facility] Work Phone: Start: 06-29-2020 25 hydroxy includes fractions if performed CALCIFIDIOL (77831) VIT D 25 [facility]; [facility] Work Phone: Start: 06-29-2020 Hemoglobin glycosylated a1c HGB A1C (11786) [facility]; [facility] Work Phone: Start: 06-29-2020 Assay of thyroid stimulating hormone tsh TSH (76538) [facility]; [facility] Work Phone: Start: 06-29-2020 Comprehensive metabolic panel METABOLIC PANEL, COMPREHENSIVE (48246) [facility]; [facility] Work Phone: Start: 06-29-2020 Lipid panel LIPID PANEL (92519) [facility]; [facility] Work Phone: Start: 06-29-2020 Blood count complete auto&auto difrntl wbc CBC W/AUTO DIFF WBC (65988) [facility]; [facility] Work Phone: Start: 06-08-2020 Procedure Education Eprescribed prescriptions (G8553) [facility]; [facility] Work Phone: Start: 06-08-2020 Provider Instructions for Treatment [facility]; [facility] Work Phone: Start: 05-23-2020 Procedure Education Eprescribed prescriptions (G8553) [facility]; [facility] Work Phone: Start: 05-23-2020 Provider Instructions for Treatment [facility]; [facility] Work Phone: Start: 05-09-2020 Procedure Education Eprescribed prescriptions (G8553) [facility]; [facility] Work Phone: Start: 05-09-2020 Provider Instructions for Treatment [facility]; [facility] Work Phone: Start: 04-25-2020 Procedure Education Eprescribed prescriptions (G8553) [facility]; [facility] Work Phone: Start: 04-25-2020 Provider Instructions for Treatment [facility]; [facility] Work Phone: Start: 04-07-2020 Procedure Education Eprescribed prescriptions (G8553) [facility]; [facility] Work Phone: Start: 04-07-2020 Provider Instructions for Treatment [facility]; [facility] Work Phone: Start: 02-10-2020 Procedure Education Eprescribed prescriptions (G8553) [facility] Internal Medicine Work Phone: Start: 02-10-2020 Provider Instructions for Treatment Continue Current Prescription(s) [facility] Work Phone: Start: 02-09-2020 Procedure Education Eprescribed prescriptions (G8553) [facility] Work Phone: Start: 02-09-2020 Provider Instructions for Treatment Follow up if no improvement or if symptoms worsen [facility] Work Phone: Start: 02-08-2020 Procedure Education Eprescribed prescriptions (G8553) [facility] Work Phone: Start: 02-08-2020 Provider Instructions for Treatment Follow up tomorrow, facetime it help desk technician to arrange time. [facility] Work Phone: Start: 02-08-2020 Iaadiadoo influenza 2019 Novel Coronavirus (COVID-19), THAIS (44184) [facility] Work Phone: Start: 10-15-2019 Lipid 1996 panel - Serum or Plasma Lipid Screening [facility] Start: 10-15-2019 Lipid panel Lipid Screening [facility] Start: 10-15-2019 LIPID SCREEN LIPID SCREEN [facility] Start: 10-01-2019 Procedure Education Eprescribed prescriptions (G8553) [facility] Work Phone: Start: 10-01-2019 Provider Instructions for Treatment [facility] Work Phone: Start: 10-01-2019 Comprehensive metabolic panel METABOLIC PANEL, COMPREHENSIVE (78002) [facility] Work Phone: Start: 10-01-2019 HbA1c (Bld) [Mass fraction] HGB A1C (65690) [facility] Work Phone: Start: 10-01-2019 Hemoglobin glycosylated a1c HGB A1C (24752) [facility]; [facility] Work Phone: Start: 10-01-2019 Lipoprotein blood jose ramon numbers & subclasses NMR Profile (43721) [facility] Work Phone: Start: 10-01-2019 Cobalamin (Vitamin B12) [Mass/Vol] VITAMIN B-12 (CYANOCOBALAMIN) (95122) [facility] Work Phone: Start: 10-01-2019 Cyanocobalamin vitamin b-12 VITAMIN B-12 (CYANOCOBALAMIN) (93034) [facility]; [facility] Work Phone: Start: 09-24-2019 HPV TESTING HPV TESTING [facility] Start: 09-24-2019 PAP TESTING PAP TESTING [facility] Start: 09-24-2019 Screening for malignant neoplasm of cervix [facility] Start: 09-17-2019 Lipoprotein blood jose ramon numbers & subclasses NMR Profile (65536) [facility] Work Phone: Start: 09-17-2019 Blood count complete auto&auto difrntl wbc CBC, PLATELETS & AUT DIFF (10240) [facility] Work Phone: Start: 09-17-2019 Urine albumin quantitative MICROALBUMIN: CREATININE RATIO (45350) AND (30926) [facility] Work Phone: Start: 09-17-2019 TSH Qn TSH (THYROID STIMULATING HORMONE) (11265) [facility] Work Phone: Start: 09-17-2019 HbA1c (Bld) [Mass fraction] HGB A1C (21164) [facility] Work Phone: Start: 09-17-2019 25 hydroxy includes fractions if performed CALCIFEDIOL (47809) [facility] Work Phone: Start: 09-10-2018 Procedure Education Eprescribed prescriptions (G8553) [facility] Work Phone: Start: 09-10-2018 Provider Instructions for Treatment [facility] Work Phone: Start: 08-08-2018 Provider Instructions for Treatment [facility] Work Phone: Start: 2018 Pneumococcal Vaccine: 50+ (1 of 1 - PCV) Pneumococcal Vaccine: 50+ (1 of 1 - PCV) [facility] Start: 2018 SHINGRIX VACCINE (1 of 2) SHINGRIX VACCINE (1 of 2) [facility] Start: 05-30-2018 Procedure Education Eprescribed prescriptions (G8553) [facility] Work Phone: Start: 05-30-2018 Provider Instructions for Treatment [facility] Work Phone: Start: 05-30-2018 Thyrotropin Qn TSH (THYROID STIMULATING HORMONE) (93825) [facility] Work Phone: Start: 05-30-2018 Urine albumin quantitative MICROALBUMIN: CREATININE RATIO (00406) AND (23257) [facility] Work Phone: Start: 05-30-2018 Urnls dip stick/tablet reagent auto microscopy URINALYSIS, W/ MICRO (54625) [facility] Work Phone: Start: 05-30-2018 Blood count manual cell count each CBC WITH MANUAL DIFF (69282) [facility] Work Phone: Start: 05-30-2018 Comprehensive metabolic panel METABOLIC PANEL, COMPREHENSIVE (83990) [facility] Work Phone: Start: 05-30-2018 Lipoprotein blood jose ramon numbers & subclasses NMR Profile (44226) [facility] Work Phone: Start: 05-30-2018 Protein mass conc NMR Profile (92773) [facility] Work Phone: Start: 05-30-2018 25 hydroxy includes fractions if performed CALCIFEDIOL (58273) [facility] Work Phone: Start: 05-30-2018 Cobalamin (Vitamin B12) mass conc [facility] Work Phone: Start: 05-30-2018 Hemoglobin A1c/Hemoglobin.total mass fraction (Bld) HGB A1C (79926) [facility] Work Phone: Start: 04-03-2018 Patient Education Sinusitis *: sinus infection [facility] Work Phone: Start: 04-03-2018 Procedure Education Eprescribed prescriptions (G8553) [facility] Work Phone: Start: 04-03-2018 Provider Instructions for Treatment Follow up if no improvement or if symptoms worsen [facility] Work Phone: Start: 02-21-2018 Provider Instructions for Treatment [facility] Work Phone: Start: 02-21-2018 Lipoprotein blood jose ramon numbers & subclasses LIPOPROTEIN, BLD, BY NMR (45845) [facility]; [facility] Work Phone: Comment on above: do in mid may - Start: 02-21-2018 Protein mass conc LIPOPROTEIN, BLD, BY NMR (27752) [facility] Work Phone: Comment on above: do in may - Start: 02-21-2018 Calcium mass conc CALCIUM SERUM (17719) [facility] Work Phone: Comment on above: in 2-4 weeks after hydration Start: 02-21-2018 Calcium total CALCIUM SERUM (96604) [facility]; [facility] Work Phone: Comment on above: in 2-4 weeks after hydration Start: 02-21-2018 Culture bacterial blood aerobic w/id isolates THOR CULTURE-BLOOD (15289) [facility] Work Phone: Start: 02-21-2018 Cobalamin (Vitamin B12) mass conc VITAMIN B-12 (CYANOCOBALAMIN) (92301) [facility] Work Phone: Comment on above: may Start: 02-21-2018 Cyanocobalamin vitamin b-12 VITAMIN B-12 (CYANOCOBALAMIN) (40368) [facility]; [facility] Work Phone: Comment on above: may Start: 08-29-2017 Mammography [facility] Start: 08-29-2017 Screening for malignant neoplasm of breast Mammogram Screening [facility] Start: 10-24-2016 End: 10-24-2016 [facility] Start: 2013 COLOGUARD (FIT-DNA) COLOGUARD (FIT-DNA) [facility] Start: 2013 Colonoscopy COLONOSCOPY [facility] Start: 2013 COLORECTAL CANCER SCREENING COLORECTAL CANCER SCREENING [facility] Start: [address] COLONOGRAPHY [facility] Start: 2013 FECAL OCCULT BLOOD FECAL OCCULT BLOOD [facility] Start: 2013 Screening for malignant neoplasm of colon [facility] Start: 2013 SIGMOIDOSCOPY SIGMOIDOSCOPY [facility] Start: 06-13-1987 Hepatitis B Vaccine (1 of 3 - 19+ 3-dose series) Hepatitis B Vaccine (1 of 3 - 19+ 3-dose series) [facility] Start: 1986 Annual PCP Team Chronic Disease Visit Annual PCP Team Chronic Disease Visit [facility] Start: 1986 Anxiety Screening Anxiety Screening [facility] Start: 1986 Depression Screening Depression Screening [facility] Start: 1986 HEPATITIS C SCREENING HEPATITIS C SCREENING [facility] Start: 1986 Hepatitis C screening Hepatitis C Screening [facility] Start: 1986 HIV SCREENING HIV SCREENING [facility] Start: 1986 HIV screening HIV Screening [facility] Start: 1974 Pneumococcal vaccination Pneumococcal Vaccine (1 of 2 - PCV) [facility] Start: 1973 COVID-19 VACCINE (#1) COVID-19 VACCINE (#1) [facility] Start: 1968 COVID-19 VACCINE (#1) COVID-19 VACCINE (#1) [facility] Start: 1968 HEPATITIS B (1 of 3 - 3-dose series) HEPATITIS B (1 of 3 - 3-dose series) [facility] Start: 1968 Hepatitis B Vaccine (1 of 3 - 3-dose series) Hepatitis B Vaccine (1 of 3 - 3-dose series) [facility] End: 09-14-2022 Echocardiography ECHO Cardiology Routine Cardiomyopathy, nonischemic (HCC) 1 Occurrences starting 09/14/2021 until 09/14/2022 [facility] Work Phone: Comment on above: 1 Occurrences starting 09/14/2021 until 09/14/2022 [facility] Work Phone: [facility] Work Phone: [facility] Work Phone: [facility] Work Phone: Sinusitis : Sinu sitis *: sinus infection [facility] Work Phone: [facility] Work Phone: [facility] Work Phone: [facility] Work Phone: [facility]; [facility] Work Phone: [facility]; [facility] Work Phone: [facility]; [facility] Work Phone: [facility]; [facility] Work Phone: [facility]; [facility] Work Phone: Immunizations Immunization Date Immunization Notes Care Provider Yulisa venegas 03-27-2015 tetanus toxoid, redu laila diphtheria toxoid, and acellular pertussis vaccine, adsorbed Richard Meyer MD Work Phone: [facility] Payers Date Payer Category Payer Self-pay [id number] 2012 Unknown 2012 Unknown MMO MMO [employer] [id number] 2012-Present [phone] [address] [place] [address] PPO [id number] 2012 Unknown [id number] 1968 Unknown [id number] Unknown [id number] Unknown [id number] Unknown [id number] Unknown [id number] Unknown [id number] Unknown [id number] Social History Date Type Detail Facility Alcohol Use: Occasional alcoh ol use. [facility] Work Phone: Start: 06-16-2018 End: 05-02-2023 Caffeine Use [facility] Work Phone: Comment on above: qd Exercise History: [facility]ises regularly[facility]: Living Situation: [facility]: Number of Adult (age 18 or over) Dependents: 1. [facility] Work Phone: Number of Child (age 0-17) Dependents: 2. [facility] Work Phone: Alcohol Use: Alcohol Use: [facility]; [facility] Work Phone: Exercise History: Exercise History: Compr ehensive Internal Medicine; [facility] Work Phone: Living Situation: Living Situation: [facility]; [facility] Work Phone: Number of Adult (age 18 or over) Dependents: Number of Adult (age 18 or over) Dependents: [facility]; [facility] Work Phone: Number of Child (age 0-17) Dependents: Number of Child (age 0-17) Dependents: [facility]; [facility] Work Phone: Start: 04-26-2024 Tobacco smoking stat us MEIS Never smoked tobacco [facility] Start: 06-16-2018 End: 05-02-2023 Alcohol intake Current non-drinker of alcohol (finding) [facility] Start: 1970 Sex Assigned At Female C [facility] Start: 09-26-2021 End: 10-06-2021 Exposure to SARS-CoV-2 (event) Not sure [facility] Start: 03-09-2021 Tobacco smoking stat us MEIS Unknown if ever smoked [facility] Work Phone: Start: 06-16-2018 End: 05-02-2023 Tobacco use panel [facility] Adult Depression Screening Assessment 0 [facility] Start: 03-21-2020 Gender identity Identifies as female gender (finding) [facility] Start: 03-21-2020 Sexual orientation Heterosexual (fin sam) [facility] Functional Status Date Assessment Result Facility 09-18-2019 LP-IR Score LP-IR Score 85 [facility] Work Phone: Comment on above: INSULIN RESISTANCE M ARKER <--Insulin Sensitive Insulin Resistant--> Percentile in Reference PopulationInsulin Resistance ScoreLP-IR Score Low 25th 50th 75th High <27 27 45 63 >63LP-IR Score is inaccurate if patient is non-fasting. .The LP-IR score is a laboratory developed index that has beenassociated with insulin resistance and diabetes risk and should beused as one component of a physician's clinical assessment. Test(s) 885879-FZW-K ; 197220-FRC-C; 724054-UVP-A; 323184-Ukjzwlyzbfqqx; 199974-Bbzhehlapkb, Total; 934751-LKW-D (Total);295476-Gawnt LDL-P; 326586-IVL Size; 176396-AM-PQ Scorewas developed and its performance characteristics determinedby [employer]. It has not been cleared or approved by the Foodand Drug Administration.PATIENT WAS FASTINGPERFORMED BY: [employer] [facility] [id number] BY: [email or web address] [id number] 09-10-2018 LP-IR Score LP-IR Score 65 [facility] Work Phone: Comment on above: INSULIN RESISTANCE M MEGHNAKER <--Insulin Sensitive Insulin Resistant--> Percentile in Reference PopulationInsulin Resistance ScoreLP-IR Score Low 25th 50th 75th High <27 27 45 63 >63LP-IR Score is inaccurate if patient is non-fasting. .The LP-IR score is a laboratory developed index that has beenassociated with insulin resistance and diabetes risk and should beused as one component of a physician's clinical assessment. TheLP-IR score listed above has not been cleared by the [place] Food andDrug Administration. PATIENT WAS FASTINGP ERFORMED BY: [employer] [facility] [id number] BY: [id number] [id number] 01-15-2018 LP-IR Score LP-IR Score 75 [facility] Work Phone: Comment on above: INSULIN RESISTANCE Wilder RENE <--Insulin Sensitive Insulin Resistant--> Percentile in Reference PopulationInsulin Resistance ScoreLP-IR Score Low 25th 50th 75th High <27 27 45 63 >63LP-IR Score is inaccurate if patient is non-fasting. .The LP-IR score is a laboratory developed index that has beenassociated with insulin resistance and diabetes risk and should beused as one component of a physician's clinical assessment. TheLP-IR score listed above has not been cleared by the [place] Food andDrug Administration. PATIENT WAS FASTINGP ERFORMED BY: BN [facility] [id number] [facility] [id number] BY: CB [facility] [id number] [facility] [id number] Clinical Notes 08-25-2021 to 04-14-2024 Telephone Encounter - Toshia Hunter - 04/14/2024 5:15 PM ESTTelephone Encounter - Toshia Hunter - 04/14/2024 5:15 PM ESTStaRichard thompson MD - 05/02/2023 11:40 AM ESTPatient Instructions Note Date & Type Note Facility 04-14-2024 Telephone encounter Note Call from pharmacy requesting refill. Requested Prescriptions Pending Prescriptions Disp Refills metoprolol tartrate, short acting, (LOPRESSOR) 50 mg tablet 180 tablet 3 Sig: Take 1 tablet by mouth. Patient last seen 05/02/23 Toshia Hunter [facility] 04-14-2024 Miscellaneous Notes Call from pharmacy requesting refill. Requested Prescriptions Pending Prescriptions Disp Refills metoprolol tartrate, short acting, (LOPRESSOR) 50 mg tablet 180 tablet 3 Sig: Take 1 tablet by mouth. Patient last seen 05/02/23 Toshia Hunter documented in this encounter [facility] 05-02-2023 Note HNO ID: [id number] Author: RICHARD MEYER MD Service: ? Author Type: Physician Type: Progress Notes Filed: 05/02/2023 15:51 Note Text: [facility] SECTION OF HEART FAILURE and CARDIAC TRANSPLANT MEDICINE OUTPATIENT VISIT DATE May 02, 2023 OUTPATIENT VISIT TYPE Established Patient PRIMARY CARE PHYSICIAN: Nadine Mcgraw DO, DO CHIEF COMPLAINT: follow up NURSING INTAKE (Patient?s concerns and/or recent hospitalizations/ER visits): HF Nursing Assessment: Interim Hospitalizations and/or ER visits:no Chest Pain: no Skipping or irregular heartbeats: no Shortness of breath at rest: no Shortness of breath with activity: yes Cough: no Waking up in the middle of the night gasping for air: no Lightheadedness or dizziness: no Feeling like you are going to pass out: no Actually passing out: no Poor energy level: yes Unintentional weight gain: no Unintentional weight loss: no Swelling in your legs,feet, abdomen: no Filling up quickly when you eat: yes HISTORY OF PRESENT ILLNESS: 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 Excellent nutritional program and unable to lose weight PAST MEDICAL HISTORY Diagnosis Date Other primary cardiomyopathies Cardiomyopathy Vertigo PAST SURGICAL HISTORY Procedure Laterality Date DELIVERY ONLY , low cervical, X 3 ENDOMETRIAL BX W/WO ENDOCERVIX BX W/O DILAT SPX 08/24/2009 for Metromenorrhagia HEART CATHETERIZATION 2006 cardiomyopathy after TONSILLECTOMY PRIMARY/SECONDARY Tonsillectomy SOCIAL HISTORY Social History Tobacco Use Smoking status: Never Smokeless tobacco: Never Substance Use Topics Alcohol use: No Drug use: No FAMILY HISTORY Problem Relation Age of Onset Emphysema Mother Alive age 58, also history of basal cell ca Cancer Mother melanoma Heart Father Alive age 59 cardiomyopathy, (?) viral induced / DM Diabetes Father Cancer Maternal Grandmother mid 50's of Lung cancer Heart Paternal Grandfather mid 70's of TX Heart Paternal Uncle Alive history of TX and bypass late 50's Stroke Paternal Aunt Alive history of carotid stenosis and CVA's Heart Paternal Uncle Alive age 62, history of CAD / PTCA / AFib other (Other) Brother 46 yo with stress test last week with PVCs. ALLERGIES: ALLERGIES Allergen Reactions Penicillin G Swelling CURRENT MEDICATIONS: metoprolol tartrate, short acting, (LOPRESSOR) 50 mg tablet Take 1 tablet by mouth every 12 hours. REVIEW OF SYSTEMS: CONSTITUTION: HEENT: RESPIRATORY: GASTROINTESTINAL: MUSCULOSKELETAL: NEUROLOGICAL: SKIN: EYES: CARDIOVASCULAR: GENITOURINARY: all other systems reviewed and are negative PATIENT ENTERED DATA: KCCQ-12 Scores 03/21/2020 Physical Limitation Score 66.66 (Class II Heart Failure ) Symptom Frequency Score 52.08 (Class III Heart Failure ) Quality of Life Score 50 (Class III Heart Failure) Social Limitation Score 62.5 (Class II Heart Failure) Overall Summary Score 57.81 (Class III Heart Failure ) PHQ-9 10/17/2015 12/06/2016 03/21/2020 Score 4 3 7 PROMIS Global Health - (T-Scores - the mean of general population = 50. Five points is a clinically meaningful difference.) 10/17/2015 03/21/2020 Physical T-Score 47.7 37.4 Mental T-Score 50.8 45.8 PHYSICAL EXAMINATION: BP 125/83 (BP Site: Left Arm) Pulse 67 Ht 165.1 cm (5' 5) Wt 88.3 kg (194 lb 11.2 oz) LMP 03/28/2016 SpO2 98% BMI 32.40 kg/m? Last 2 Encounter Wt Readings: Date: Wt: 10/06/2021 86.2 kg (190 lb) 03/22/2020 93.7 kg (206 lb 8 oz) General: Well appearing, in no acute distress. Skin: No clubbing, no cyanosis. Eyes: Extra ocular movements intact Neck: No jugular venous distention, no carotid bruits, carotids have a normal upstroke, no palpable thyromegaly. Lungs: Clear to auscultation bilaterally, no wheezing or rhonchi. Heart: Regular rhythm, PMI not displaced, S1, S2 normal, no S3, no S4, no heaves, no rub and no murmur. Abdomen: Soft, nontender, bowel sounds normal, no palpable organomegaly, no bruits. Extremities: No peripheral edema . Grade 2/4 distal pulses bilaterally. CARDIOVASCULAR MEDICINE TESTING: I have personally reviewed the Echocardiogram. Last ECHO Result Conclusion ECHO Collected: 05/02/2023 9:09 AM (Final result) Impression: CONCLUSIONS: - Exam indication: Abnormal ECG - The left ventricle is normal in size. Left ventricular systolic function is normal. EF = 55 ? 5% (2D 4-ch.) - The right ventricle is normal in size. Right ventricular systolic function is normal. - The left atrial cavity is mildly dilated. - [id number], early systolic mitral regurgitation. CESAR 0.18 but regurgitant volume 16 mL suggesting milder mitral regurgitation. - Exam was compared with the prior echocardiographic exam performed on 11/27/2021. Similar findings. Electronically signed by Kvng Hdz (more content not included)... [facility] 05-02-2023 History of Presen t illness Narrative Images from the original note were not included. [facility] SECTION OF HEART FAILURE and CARDIAC TRANSPLANT MEDICINE OUTPATIENT VISIT DATE May 02, 2023 OUTPATIENT VISIT TYPE Established Patient PRIMARY CARE PHYSICIAN: Nadine Mcgraw DO, DO CHIEF COMPLAINT: follow up NURSING INTAKE (Patient s concerns and/or recent hospitalizations/ER visits): HF Nursing Assessment: Interim Hospitalizations and/or ER visits:no Chest Pain: no Skipping or irregular heartbeats: no Shortness of breath at rest: no Shortness of breath with activity: yes Cough: no Waking up in the middle of the night gasping for air: no Lightheadedness or dizziness: no Feeling like you are going to pass out: no Actually passing out: no Poor energy level: yes Unintentional weight gain: no Unintentional weight loss: no Swelling in your legs,feet, abdomen: no Filling up quickly when you eat: yes HISTORY OF PRESENT ILLNESS: 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 Excellent nutritional program and unable to lose weight PAST MEDICAL HISTORY Diagnosis Date Other primary cardiomyopathies Cardiomyopathy Vertigo PAST SURGICAL HISTORY Procedure Laterality Date DELIVERY ONLY , low cervical, X 3 ENDOMETRIAL BX W/WO ENDOCERVIX BX W/O DILAT SPX 08/24/2009 for Metromenorrhagia HEART CATHETERIZATION 2006 cardiomyopathy after TONSILLECTOMY PRIMARY/SECONDARY <AGE 12 Tonsillectomy SOCIAL HISTORY Social History Tobacco Use Smoking status: Never Smokeless tobacco: Never Substance Use Topics Alcohol use: No Drug use: No FAMILY HISTORY Problem Relation Age of Onset Emphysema Mother Alive age 58, also history of basal cell ca Cancer Mother melanoma Heart Father Alive age 59 cardiomyopathy, (?) viral induced / DM Diabetes Father Cancer Maternal Grandmother mid 50's of Lung cancer Heart Paternal Grandfather mid 70's of [place] Heart Paternal Uncle Alive history of TX and bypass late 50's Stroke Paternal Aunt Alive history of carotid stenosis and CVA's Heart Paternal Uncle Alive age 62, history of CAD / PTCA / AFib other (Other) Brother 46 yo with stress test last week with PVCs. ALLERGIES: ALLERGIES Allergen Reactions Penicillin G Swelling CURRENT MEDICATIONS: metoprolol tartrate, short acting, (LOPRESSOR) 50 mg tablet Take 1 tablet by mouth every 12 hours. REVIEW OF SYSTEMS: CONSTITUTION: HEENT: RESPIRATORY: GASTROINTESTINAL: MUSCULOSKELETAL: NEUROLOGICAL: SKIN: EYES: CARDIOVASCULAR: GENITOURINARY: all other systems reviewed and are negative PATIENT ENTERED DATA: KCCQ-12 Scores 03/21/2020 Physical Limitation Score 66.66 (Class II Heart Failure ) Symptom Frequency Score 52.08 (Class III Heart Failure ) Quality of Life Score 50 (Class III Heart Failure) Social Limitation Score 62.5 (Class II Heart Failure) Overall Summary Score 57.81 (Class III Heart Failure ) PHQ-9 10/17/2015 12/06/2016 03/21/2020 Score 4 3 7 PROMIS Global Health - (T-Scores - the mean of general population = 50. Five points is a clinically meaningful difference.) 10/17/2015 03/21/2020 Physical T-Score 47.7 37.4 Mental T-Score 50.8 45.8 PHYSICAL EXAMINATION: BP 125/83 (BP Site: Left Arm) Pulse 67 Ht 165.1 cm (5' 5) Wt 88.3 kg (194 lb 11.2 oz) LMP 03/28/2016 SpO2 98% BMI 32.40 kg/m Last 2 Encounter Wt Readings: Date: Wt: 10/06/2021 86.2 kg (190 lb) 03/22/2020 93.7 kg (206 lb 8 oz) General: Well appearing, in no acute distress. Skin: No clubbing, no cyanosis. Eyes: Extra ocular movements intact Neck: No jugular venous distention, no carotid bruits, carotids have a normal upstroke, no palpable thyromegaly. Lungs: Clear to auscultation bilaterally, no wheezing or rhonchi. Heart: Regular rhythm, PMI not displaced, S1, S2 normal, no S3, no S4, no heaves, no rub and no murmur. Abdomen: Soft, nontender, bowel sounds normal, no palpable organomegaly, no bruits. Extremities: No peripheral edema . Grade 2/4 distal pulses bilaterally. CARDIOVASCULAR MEDICINE TESTING: I have personally reviewed the Echocardiogram. Last ECHO Result Conclusion ECHO Collected: 05/02/2023 9:09 AM (Final result) Impression: CONCLUSIONS: - Exam indication: Abnormal ECG - The left ventricle is normal in size. Left ventricular systolic function is normal. EF = 55 5% (2D 4-ch.) - The right ventricle is normal in size. Right ventricular systolic function is normal. - The left atrial cavity is mildly dilated. - [id number], early systolic mitral regurgitation. CESAR 0.18 but regurgitant volume 16 mL suggesting milder mitral regurgitation. - Exam was compared with the prior echocardiographic exam performed on 11/27/2021. Similar findings. * * * Final * * * IMPRESSION: NYHA Functional Class: I Stage: C heart failure HF improved EF Stable recovery of LV function noted for over 10 years on beta vashti monotherapy She has declined option for genetic testing in the past. Her 3 sons have been screened with echo. Guideline Directed Medical Therapy Most recent GDMT score: NYHA class 1. No limitations. Ordinary physical activity does not cause undue fatigue, dyspnea or palpitations asymptomatic LV dysfunction). KIRA/ARB/ARNI NO Not indicated Beta Vashti YES - metoprolol tartrate (short acting) Target dose achieved Aldosterone antagonist NO Not indicated SGLT2i NO Not indicated Hydralazine/Isosorbide Dinitrate NO Not indicated Ivabradine NO Not indicated PLAN AND RECOMMENDATIONS: follow up in 2 years or as needed with echo refer to Prev Card nutrition I personally interviewed, confirmed and edited the above information as obtained by others I personally spent 30 minutes in total time involved in the management and care of this patient.. We discussed natural history of disease, current treatment options, and future potential treatment options. We discussed diet, exercise, other non-medical management as above. Dr. Richard Meyer MD [facility] Section Of Heart Failure and Cardiac Transplant Medicine Heart and [facility] Desk [id number] [place] [address] documented in this encounter [facility] 10-06-2021 Instructions Richard Meyer MD - 10/06/2021 3:57 PM EDT Please have fasting blood work next week Next appointment in one year with echo Please maintain same medications documented in this encounter [facility] 10-06-2021 History of Presen t illness Narrative Images from the original note were not included. [facility] SECTION OF HEART FAILURE and CARDIAC TRANSPLANT MEDICINE OUTPATIENT VISIT DATE October 06, 2021 OUTPATIENT VISIT TYPE Established Patient PRIMARY CARE PHYSICIAN: Nadine Mcgraw DO DO CHIEF COMPLAINT: follow up NURSING INTAKE (Patient s concerns and/or recent hospitalizations/ER visits): HF Nursing Assessment: Interim Hospitalizations and/or ER visits:no Chest Pain: no Skipping or irregular heartbeats: no Shortness of breath at rest: no Shortness of breath with activity: no Cough: no Waking up in the middle of the night gasping for air: no Lightheadedness or dizziness: no Feeling like you are going to pass out: no Actually passing out: no Poor energy level: no Unintentional weight gain: no Unintentional weight loss: no Swelling in your legs,feet, abdomen: no Filling up quickly when you eat: no HISTORY OF PRESENT ILLNESS: follow up PAST MEDICAL HISTORY Diagnosis Date Other primary cardiomyopathies Cardiomyopathy Vertigo PAST SURGICAL HISTORY Procedure Laterality Date DELIVERY ONLY , low cervical, X 3 ENDOMETRIAL BIOPSY 08/24/2009 for Metromenorrhagia HEART CATHETERIZATION 2006 cardiomyopathy after REMOVAL OF TONSILS,<12 Y/O Tonsillectomy SOCIAL HISTORY Social History Tobacco Use Smoking status: Never Smoker Smokeless tobacco: Never Used Substance Use Topics Alcohol use: No Drug use: No FAMILY HISTORY Problem Relation Age of Onset Emphysema Mother Alive age 58, also history of basal cell ca Cancer Mother melanoma Heart Father Alive age 59 cardiomyopathy, (?) viral induced / DM Diabetes Father Cancer Maternal Grandmother mid 50's of Lung cancer Heart Paternal Grandfather mid 70's of TX Heart Paternal Uncle Alive history of TX and bypass late 50's Stroke Paternal Aunt Alive history of carotid stenosis and CVA's Heart Paternal Uncle Alive age 62, history of CAD / PTCA / AFib other (Other) Brother 46 yo with stress test last week with PVCs. ALLERGIES: ALLERGIES Allergen Reactions Penicillin G Swelling CURRENT MEDICATIONS: metoprolol tartrate, short acting, (LOPRESSOR) 50 mg tablet Take 1 tablet by mouth twice daily. REVIEW OF SYSTEMS: CONSTITUTION: Negative for: Weight loss or gain, Fever. Chills, Night sweats HEENT: Negative for: Hearing loss, Nosebleeds, Mouth sores, Trouble swallowing, Dry mouth RESPIRATORY: Negative for: Cough, Difficulty breathing GASTROINTESTINAL: Negative for: Melena, Diarrhea, Nausea, Abdominal distension, Early satiety MUSCULOSKELETAL: Negative for: Arthralgias, Myalgias NEUROLOGICAL: Negative for: Headaches, Dizziness SKIN: Negative for: Rash EYES: CARDIOVASCULAR: Negative for: Chest pain, Leg swelling, Arrhythmia, Presyncope GENITOURINARY: PATIENT ENTERED DATA: KCCQ-12 Scores 03/21/2020 Physical Limitation Score 66.66 (Class II Heart Failure ) Symptom Frequency Score 52.08 (Class III Heart Failure ) Quality of Life Score 50 (Class III Heart Failure) Social Limitation Score 62.5 (Class II Heart Failure) Overall Summary Score 57.81 (Class III Heart Failure ) PHQ-9 10/17/2015 12/06/2016 03/21/2020 Score 4 3 7 PROMIS Global Health - (T-Scores - the mean of general population = 50. Five points is a clinically meaningful difference.) 10/17/2015 03/21/2020 Physical T-Score 47.7 37.4 Mental T-Score 50.8 45.8 PHYSICAL EXAMINATION: BP 123/75 (BP Site: Left Arm, BP Position: Sitting, BP Cuff Size: Regular Adult) Pulse 66 Resp 15 Ht 165.1 cm (5' 5) Wt 86.2 kg (190 lb) LMP 03/28/2016 SpO2 99% BMI 31.62 kg/m Last 2 Encounter Wt Readings: Date: Wt: 03/22/2020 93.7 kg (206 lb 8 oz) 06/16/2018 91.2 kg (201 lb) General: Well appearing, in no acute distress, speaking in complete sentences. Skin: No clubbing, no cyanosis. Eyes: Non-icteric sclerae Neck: no jugular venous distention, Lungs: Clear to auscultation bilaterally, no wheezing or rhonchi. Heart: Regular rhythm, S1, S2 normal, no S3, no S4 Abdomen: Soft, nontender Extremities: No peripheral edema CARDIOVASCULAR MEDICINE TESTING: I have personally reviewed the Echocardiogram. Last ECHO Result Conclusion ECHO Collected: 09/26/2021 9:18 AM (Final result) Impression: CONCLUSIONS: - Exam indication: H/o post cardiomyopathy - The left ventricle is normal in size. Left ventricular systolic function is normal. EF = 57 5% (3D) Normal left ventricular diastolic function. - The right ventricle is normal in size. Right ventricular systolic function is normal. - Exam was compared with the prior echocardiographic exam performed on 06-16-2018. There is no significant change. * * * Final * * * Complete Results IMPRESSION: NYHA Functional Class: I Stage: C heart failure HF recovered EF DCM HFrEF PLAN AND RECOMMENDATIONS: no changes follow up in one year I personally interviewed, confirmed and edited the above information as obtained by others I personally spent 30 minutes in total time involved in the management and care of this patient.. We discussed natural history of disease, current treatment options, and future potential treatment options. We discussed diet, exercise, other non-medical management as above. Richard Meyer MD [facility] Heart Failure Section Of Heart Failure and Cardiac Transplant Medicine [facility] [place] [id number] Images from the original note were not included. [facility] Vascular [facility] Heart Failure SECTION OF HEART FAILURE and CARDIAC TRANSPLANT MEDICINE OUTPATIENT VISIT DATE October 06, 2021 OUTPATIENT VISIT TYPE Established Patient PRIMARY CARE PHYSICIAN: Nadine Mcgraw DO, Jojo Thompson Ma [facility] Section Of Heart Failure and Cardiac Transplant Medicine [facility] [place] [id number] documented in this encounter [facility] 08-25-2021 Miscellaneous Notes Spoke with patient: Confirmed dosage and pharmacy for metoprolol tartrate. Instructed to schedule follow up appointment with Dr. Meyer, appointment line number provided. Rachana Davey RN August 25, 2021 5:01 PM Patient left message on nurse line requesting refill on metoprolol her prescription has expershe has not seen Dr. Meyer in over a year but says she is doing well. Rachana Davey RN August 25, 2021 4:58 PM documented in this encounter [facility] Evaluation note Diagnosis Peripartum cardiomyopathy Peripartum cardiomyopathy, unspecified as to episode of care [facility] [place] Diagnosis Peripartum cardiomyopathy Peripartum cardiomyopathy, unspecified as to episode of care [facility] [place] [facility]* Diagnosis Cardiomyopathy, nonischemic (HCC)- Primary Other primary cardiomyopathies documented in this [facility] [place] [facility]* Diagnosis Cardiomyopathy, nonischemic (HCC)- Primary Other primary cardiomyopathies Chronic systolic heart failure (HCC) Chronic systolic heart failure [facility] noteNo assessment information availableWAkron [facility] Work Phone: Evaluation note* Diagnosis Peripartum cardiomyopathy Peripartum cardiomyopathy, unspecified as to episode of care documented [facility] this [facility] [place] [facility]* Diagnosis Peripartum cardiomyopathy Peripartum cardiomyopathy, unspecified as to episode of care documented [facility] this [facility] [place] [facility]* Diagnosis Cardiomyopathy, nonischemic (HCC)- Primary Other primary cardiomyopathies Chronic systolic heart failure (HCC) Chronic systolic heart failure [facility] [place] [facility]* Diagnosis Peripartum cardiomyopathy Peripartum cardiomyopathy, unspecified as to episode of care [facility] Name Dates Details How to Access [employer] Online using Patient Portal and [employer] Apps Indication:Non-smoker Start:29-Jun-2020 Instruction Type:Patient Education Patient Instructions Indication:Non-smoker Start:29-Jun-2020 Instruction Type:Provider Instructions for Treatment How to Access Health Informa tion Online using Patient Portal and [employer] Apps Indication:Non-smoker Start:08-Jun-2020 Instruction Type:Patient Education Patient Instructions Indication:Non-smoker Start:08-Jun-2020 Instruction Type:Provider Instructions for Treatment Patient Instructions Indication:Non-smoker Start:23-May-2020 Instruction Type:Provider Instructions for Treatment How to Access Health Informa tion Online using Patient Portal and [employer] Apps Indication:Non-smoker Start:23-May-2020 Instruction Type:Patient Education Patient Instructions Indication:BMI 32.0-32.9,adult Start:09-May-2020 Instruction Type:Provider Instructions for Treatment How to Access Health Informa tion Online using Patient Portal and [employer] Indication:BMI 32.0-32.9,adult Start:09-May-2020 Instruction Type:Patient Education Patient Instructions Indication:Non-smoker Start:25-Apr-2020 Instruction Type:Provider Instructions for Treatment How to Access Health Informa tion Online using Patient Portal and [employer] Indication:Non-smoker Start:25-Apr-2020 Instruction Type:Patient Education How to Access Health Informa tion Online using Patient Portal and [employer] Apps Indication:Non-smoker Start:07-Apr-2020 Instruction Type:Patient Education Patient Instructions Indication:Non-smoker Start:07-Apr-2020 Instruction Type:Provider Instructions for Treatment How to access health informa tion online Indication:Non-smoker Start:10-Feb-2020 Instruction Type:Patient Education How to access health informa tion online - Detail Indication:Non-smoker Start:10-Feb-2020 Instruction Type:Patient Education Patient Instructions Indication:Non-smoker Start:10-Feb-2020 Instruction Type:Provider Instructions for Treatment How to access health informa tion online Indication:BMI 33.0-33.9,adult Start:09-Feb-2020 Instruction Type:Patient Education How to access health informa tion online - Detail Indication:BMI 33.0-33.9,adult Start:09-Feb-2020 Instruction Type:Patient Education Patient Instructions Indication:BMI 33.0-33.9,adult Start:09-Feb-2020 Instruction Type:Provider Instructions for Treatment How to access health informa tion online Indication:Non-smoker Start:08-Feb-2020 Instruction Type:Patient Education How to access health informa tion online - Detail Indication:Non-smoker Start:08-Feb-2020 Instruction Type:Patient Education Patient Instructions Indication:Non-smoker Start:08-Feb-2020 Instruction Type:Provider Instructions for Treatment How to access health informa tion online Indication:BMI 33.0-33.9,adult Start:01-Oct-2019 Instruction Type:Patient Education How to access health informa tion online - Detail Indication:BMI 33.0-33.9,adult Start:01-Oct-2019 Instruction Type:Patient Education Patient Instructions Indication:BMI 33.0-33.9,adult Start:01-Oct-2019 Instruction Type:Provider Instructions for Treatment How to access health informa tion online Indication:Non-smoker Start:10-Sep-2018 Instruction Type:Patient Education How to access health informa tion online - Detail Indication:Non-smoker Start:10-Sep-2018 Instruction Type:Patient Education How to access health informa tion online - Detail Indication:Non-smoker Start:10-Sep-2018 Instruction Type:Patient Education Patient Instructions Indication:Non-smoker Start:10-Sep-2018 Instruction Type:Provider Instructions for Treatment How to access health informa tion online Indication:Skin lesion Start:30-Jul-2018 Instruction Type:Patient Education How to access health informa tion online - Detail Indication:Skin lesion Start:30-Jul-2018 Instruction Type:Patient Education Patient Instructions Indication:Skin lesion Start:30-Jul-2018 Instruction Type:Provider Instructions for Treatment How to access health informa tion online Indication:Non-smoker Start:30-May-2018 Instruction Type:Patient Education How to access health informa tion online - Detail Indication:Non-smoker Start:30-May-2018 Instruction Type:Patient Education Patient Instructions Indication:Non-smoker Start:30-May-2018 Instruction Type:Provider Instructions for Treatment How to access health informa tion online Indication:BMI 33.0-33.9,adult Start:03-Apr-2018 Instruction Type:Patient Education How to access health informa tion online - Detail Indication:BMI 33.0-33.9,adult Start:03-Apr-2018 Instruction Type:Patient Education Patient Instructions Indication:Sinusitis Start:03-Apr-2018 Instruction Type:Provider Instructions for Treatment How to access health informa tion online Indication:Non-smoker Start:21-Feb-2018 Instruction Type:Patient Education How to access health informa tion online - Detail Indication:Non-smoker Start:21-Feb-2018 Instruction Type:Patient Education Patient Instructions Indication:Non-smoker Start:21-Feb-2018 Instruction Type:Provider Instructions for Treatment How to access health informa tion online Indication:Weight gain Start:15-Jan-2018 Instruction Type:Patient Education How to access health informa tion online - Detail Indication:Weight gain Start:15-Jan-2018 Instruction Type:Patient Education Patient Instructions Indication:Weight gain Start:15-Jan-2018 Instruction Type:Provider Instructions for Treatment [facility] Work Phone: Instructions* Name Dates Details How to Access Health Informa tion Online using Patient Portal and [employer] Indication:Non-smoker Start:29-Jun-2020 Instruction Type:Patient Education Patient Instructions Indication:Non-smoker Start:29-Jun-2020 Instruction Type:Provider Instructions for Treatment How to Access Health Informa tion Online using Patient Portal and [employer] Apps Indication:Non-smoker Start:08-Jun-2020 Instruction Type:Patient Education Patient Instructions Indication:Non-smoker Start:08-Jun-2020 Instruction Type:Provider Instructions for Treatment Patient Instructions Indication:Non-smoker Start:23-May-2020 Instruction Type:Provider Instructions for Treatment How to Access Health Informa tion Online using Patient Portal and [employer] Apps Indication:Non-smoker Start:23-May-2020 Instruction Type:Patient Education Patient Instructions Indication:BMI 32.0-32.9,adult Start:09-May-2020 Instruction Type:Provider Instructions for Treatment How to Access Health Informa tion Online using Patient Portal and [employer] Indication:BMI 32.0-32.9,adult Start:09-May-2020 Instruction Type:Patient Education Patient Instructions Indication:Non-smoker Start:25-Apr-2020 Instruction Type:Provider Instructions for Treatment How to Access Health Informa tion Online using Patient Portal and [employer] Indication:Non-smoker Start:25-Apr-2020 Instruction Type:Patient Education How to Access Health Informa tion Online using Patient Portal and [employer] Apps Indication:Non-smoker Start:07-Apr-2020 Instruction Type:Patient Education Patient Instructions Indication:Non-smoker Start:07-Apr-2020 Instruction Type:Provider Instructions for Treatment How to access health informa tion online Indication:Non-smoker Start:10-Feb-2020 Instruction Type:Patient Education How to access health informa tion online - Detail Indication:Non-smoker Start:10-Feb-2020 Instruction Type:Patient Education Patient Instructions Indication:Non-smoker Start:10-Feb-2020 Instruction Type:Provider Instructions for Treatment How to access health informa tion online Indication:BMI 33.0-33.9,adult Start:09-Feb-2020 Instruction Type:Patient Education How to access health informa tion online - Detail Indication:BMI 33.0-33.9,adult Start:09-Feb-2020 Instruction Type:Patient Education Patient Instructions Indication:BMI 33.0-33.9,adult Start:09-Feb-2020 Instruction Type:Provider Instructions for Treatment How to access health informa tion online Indication:Non-smoker Start:08-Feb-2020 Instruction Type:Patient Education How to access health informa tion online - Detail Indication:Non-smoker Start:08-Feb-2020 Instruction Type:Patient Education Patient Instructions Indication:Non-smoker Start:08-Feb-2020 Instruction Type:Provider Instructions for Treatment How to access health informa tion online Indication:BMI 33.0-33.9,adult Start:01-Oct-2019 Instruction Type:Patient Education How to access health informa tion online - Detail Indication:BMI 33.0-33.9,adult Start:01-Oct-2019 Instruction Type:Patient Education Patient Instructions Indication:BMI 33.0-33.9,adult Start:01-Oct-2019 Instruction Type:Provider Instructions for Treatment How to access health informa tion online Indication:Non-smoker Start:10-Sep-2018 Instruction Type:Patient Education How to access health informa tion online - Detail Indication:Non-smoker Start:10-Sep-2018 Instruction Type:Patient Education How to access health informa tion online - Detail Indication:Non-smoker Start:10-Sep-2018 Instruction Type:Patient Education Patient Instructions Indication:Non-smoker Start:10-Sep-2018 Instruction Type:Provider Instructions for Treatment How to access health informa tion online Indication:Skin lesion Start:30-Jul-2018 Instruction Type:Patient Education How to access health informa tion online - Detail Indication:Skin lesion Start:30-Jul-2018 Instruction Type:Patient Education Patient Instructions Indication:Skin lesion Start:30-Jul-2018 Instruction Type:Provider Instructions for Treatment How to access health informa tion online Indication:Non-smoker Start:30-May-2018 Instruction Type:Patient Education How to access health informa tion online - Detail Indication:Non-smoker Start:30-May-2018 Instruction Type:Patient Education Patient Instructions Indication:Non-smoker Start:30-May-2018 Instruction Type:Provider Instructions for Treatment How to access health informa tion online Indication:BMI 33.0-33.9,adult Start:03-Apr-2018 Instruction Type:Patient Education How to access health informa tion online - Detail Indication:BMI 33.0-33.9,adult Start:03-Apr-2018 Instruction Type:Patient Education Patient Instructions Indication:Sinusitis Start:03-Apr-2018 Instruction Type:Provider Instructions for Treatment How to access health informa tion online Indication:Non-smoker Start:21-Feb-2018 Instruction Type:Patient Education How to access health informa tion online - Detail Indication:Non-smoker Start:21-Feb-2018 Instruction Type:Patient Education Patient Instructions Indication:Non-smoker Start:21-Feb-2018 Instruction Type:Provider Instructions for Treatment How to access health informa tion online Indication:Weight gain Start:15-Jan-2018 Instruction Type:Patient Education How to access health informa tion online - Detail Indication:Weight gain Start:15-Jan-2018 Instruction Type:Patient Education Patient Instructions Indication:Weight gain Start:15-Jan-2018 Instruction Type:Provider Instructions for Treatment [facility] Work Phone: Instructions* Name Dates Details How to Access Health Informa tion Online using Patient Portal and [employer] Indication:Non-smoker Start:27-Jul-2020 Instruction Type:Patient Education Patient Instructions Indication:Non-smoker Start:27-Jul-2020 Instruction Type:Provider Instructions for Treatment How to Access Health Informa tion Online using Patient Portal and [employer] Indication:Non-smoker Start:29-Jun-2020 Instruction Type:Patient Education Patient Instructions Indication:Non-smoker Start:29-Jun-2020 Instruction Type:Provider Instructions for Treatment How to Access Health Informa tion Online using Patient Portal and [employer] Indication:Non-smoker Start:08-Jun-2020 Instruction Type:Patient Education Patient Instructions Indication:Non-smoker Start:08-Jun-2020 Instruction Type:Provider Instructions for Treatment Patient Instructions Indication:Non-smoker Start:23-May-2020 Instruction Type:Provider Instructions for Treatment How to Access Health Informa tion Online using Patient Portal and [employer] Indication:Non-smoker Start:23-May-2020 Instruction Type:Patient Education Patient Instructions Indication:BMI 32.0-32.9,adult Start:09-May-2020 Instruction Type:Provider Instructions for Treatment How to Access Health Informa tion Online using Patient Portal and [employer] Indication:BMI 32.0-32.9,adult Start:09-May-2020 Instruction Type:Patient Education Patient Instructions Indication:Non-smoker Start:25-Apr-2020 Instruction Type:Provider Instructions for Treatment How to Access Health Informa tion Online using Patient Portal and [employer] Indication:Non-smoker Start:25-Apr-2020 Instruction Type:Patient Education How to Access Health Informa tion Online using Patient Portal and [employer] Indication:Non-smoker Start:07-Apr-2020 Instruction Type:Patient Education Patient Instructions Indication:Non-smoker Start:07-Apr-2020 Instruction Type:Provider Instructions for Treatment How to access health informa tion online Indication:Non-smoker Start:10-Feb-2020 Instruction Type:Patient Education How to access health informa tion online - Detail Indication:Non-smoker Start:10-Feb-2020 Instruction Type:Patient Education Patient Instructions Indication:Non-smoker Start:10-Feb-2020 Instruction Type:Provider Instructions for Treatment How to access health informa tion online Indication:BMI 33.0-33.9,adult Start:09-Feb-2020 Instruction Type:Patient Education How to access health informa tion online - Detail Indication:BMI 33.0-33.9,adult Start:09-Feb-2020 Instruction Type:Patient Education Patient Instructions Indication:BMI 33.0-33.9,adult Start:09-Feb-2020 Instruction Type:Provider Instructions for Treatment How to access health informa tion online Indication:Non-smoker Start:08-Feb-2020 Instruction Type:Patient Education How to access health informa tion online - Detail Indication:Non-smoker Start:08-Feb-2020 Instruction Type:Patient Education Patient Instructions Indication:Non-smoker Start:08-Feb-2020 Instruction Type:Provider Instructions for Treatment How to access health informa tion online Indication:BMI 33.0-33.9,adult Start:01-Oct-2019 Instruction Type:Patient Education How to access health informa tion online - Detail Indication:BMI 33.0-33.9,adult Start:01-Oct-2019 Instruction Type:Patient Education Patient Instructions Indication:BMI 33.0-33.9,adult Start:01-Oct-2019 Instruction Type:Provider Instructions for Treatment How to access health informa tion online Indication:Non-smoker Start:10-Sep-2018 Instruction Type:Patient Education How to access health informa tion online - Detail Indication:Non-smoker Start:10-Sep-2018 Instruction Type:Patient Education How to access health informa tion online - Detail Indication:Non-smoker Start:10-Sep-2018 Instruction Type:Patient Education Patient Instructions Indication:Non-smoker Start:10-Sep-2018 Instruction Type:Provider Instructions for Treatment How to access health informa tion online Indication:Skin lesion Start:30-Jul-2018 Instruction Type:Patient Education How to access health informa tion online - Detail Indication:Skin lesion Start:30-Jul-2018 Instruction Type:Patient Education Patient Instructions Indication:Skin lesion Start:30-Jul-2018 Instruction Type:Provider Instructions for Treatment How to access health informa tion online Indication:Non-smoker Start:30-May-2018 Instruction Type:Patient Education How to access health informa tion online - Detail Indication:Non-smoker Start:30-May-2018 Instruction Type:Patient Education Patient Instructions Indication:Non-smoker Start:30-May-2018 Instruction Type:Provider Instructions for Treatment How to access health informa tion online Indication:BMI 33.0-33.9,adult Start:03-Apr-2018 Instruction Type:Patient Education How to access health informa tion online - Detail Indication:BMI 33.0-33.9,adult Start:03-Apr-2018 Instruction Type:Patient Education Patient Instructions Indication:Sinusitis Start:03-Apr-2018 Instruction Type:Provider Instructions for Treatment How to access health informa tion online Indication:Non-smoker Start:21-Feb-2018 Instruction Type:Patient Education How to access health informa tion online - Detail Indication:Non-smoker Start:21-Feb-2018 Instruction Type:Patient Education Patient Instructions Indication:Non-smoker Start:21-Feb-2018 Instruction Type:Provider Instructions for Treatment How to access health informa tion online Indication:Weight gain Start:15-Jan-2018 Instruction Type:Patient Education How to access health informa tion online - Detail Indication:Weight gain Start:15-Jan-2018 Instruction Type:Patient Education Patient Instructions Indication:Weight gain Start:15-Jan-2018 Instruction Type:Provider Instructions for Treatment [facility]; [facility] Work Phone: Instructions* Name Dates Details How to Access Health Informa tion Online using Patient Portal and [employer] Indication:Non-smoker Start:29-Aug-2020 Instruction Type:Patient Education Patient Instructions Indication:Non-smoker Start:29-Aug-2020 Instruction Type:Provider Instructions for Treatment How to Access Health Informa tion Online using Patient Portal and [employer] Indication:Non-smoker Start:27-Jul-2020 Instruction Type:Patient Education Patient Instructions Indication:Non-smoker Start:27-Jul-2020 Instruction Type:Provider Instructions for Treatment How to Access Health Informa tion Online using Patient Portal and [employer] Indication:Non-smoker Start:29-Jun-2020 Instruction Type:Patient Education Patient Instructions Indication:Non-smoker Start:29-Jun-2020 Instruction Type:Provider Instructions for Treatment How to Access Health Informa tion Online using Patient Portal and [employer] Indication:Non-smoker Start:08-Jun-2020 Instruction Type:Patient Education Patient Instructions Indication:Non-smoker Start:08-Jun-2020 Instruction Type:Provider Instructions for Treatment Patient Instructions Indication:Non-smoker Start:23-May-2020 Instruction Type:Provider Instructions for Treatment How to Access Health Informa tion Online using Patient Portal and [employer] Indication:Non-smoker Start:23-May-2020 Instruction Type:Patient Education Patient Instructions Indication:BMI 32.0-32.9,adult Start:09-May-2020 Instruction Type:Provider Instructions for Treatment How to Access Health Informa tion Online using Patient Portal and [employer] Indication:BMI 32.0-32.9,adult Start:09-May-2020 Instruction Type:Patient Education Patient Instructions Indication:Non-smoker Start:25-Apr-2020 Instruction Type:Provider Instructions for Treatment How to Access Health Informa tion Online using Patient Portal and [employer] Indication:Non-smoker Start:25-Apr-2020 Instruction Type:Patient Education How to Access Health Informa tion Online using Patient Portal and [employer] Indication:Non-smoker Start:07-Apr-2020 Instruction Type:Patient Education Patient Instructions Indication:Non-smoker Start:07-Apr-2020 Instruction Type:Provider Instructions for Treatment How to access health informa tion online Indication:Non-smoker Start:10-Feb-2020 Instruction Type:Patient Education How to access health informa tion online - Detail Indication:Non-smoker Start:10-Feb-2020 Instruction Type:Patient Education Patient Instructions Indication:Non-smoker Start:10-Feb-2020 Instruction Type:Provider Instructions for Treatment How to access health informa tion online Indication:BMI 33.0-33.9,adult Start:09-Feb-2020 Instruction Type:Patient Education How to access health informa tion online - Detail Indication:BMI 33.0-33.9,adult Start:09-Feb-2020 Instruction Type:Patient Education Patient Instructions Indication:BMI 33.0-33.9,adult Start:09-Feb-2020 Instruction Type:Provider Instructions for Treatment How to access health informa tion online Indication:Non-smoker Start:08-Feb-2020 Instruction Type:Patient Education How to access health informa tion online - Detail Indication:Non-smoker Start:08-Feb-2020 Instruction Type:Patient Education Patient Instructions Indication:Non-smoker Start:08-Feb-2020 Instruction Type:Provider Instructions for Treatment How to access health informa tion online Indication:BMI 33.0-33.9,adult Start:01-Oct-2019 Instruction Type:Patient Education How to access health informa tion online - Detail Indication:BMI 33.0-33.9,adult Start:01-Oct-2019 Instruction Type:Patient Education Patient Instructions Indication:BMI 33.0-33.9,adult Start:01-Oct-2019 Instruction Type:Provider Instructions for Treatment How to access health informa tion online Indication:Non-smoker Start:10-Sep-2018 Instruction Type:Patient Education How to access health informa tion online - Detail Indication:Non-smoker Start:10-Sep-2018 Instruction Type:Patient Education How to access health informa tion online - Detail Indication:Non-smoker Start:10-Sep-2018 Instruction Type:Patient Education Patient Instructions Indication:Non-smoker Start:10-Sep-2018 Instruction Type:Provider Instructions for Treatment How to access health informa tion online Indication:Skin lesion Start:30-Jul-2018 Instruction Type:Patient Education How to access health informa tion online - Detail Indication:Skin lesion Start:30-Jul-2018 Instruction Type:Patient Education Patient Instructions Indication:Skin lesion Start:30-Jul-2018 Instruction Type:Provider Instructions for Treatment How to access health informa tion online Indication:Non-smoker Start:30-May-2018 Instruction Type:Patient Education How to access health informa tion online - Detail Indication:Non-smoker Start:30-May-2018 Instruction Type:Patient Education Patient Instructions Indication:Non-smoker Start:30-May-2018 Instruction Type:Provider Instructions for Treatment How to access health informa tion online Indication:BMI 33.0-33.9,adult Start:03-Apr-2018 Instruction Type:Patient Education How to access health informa tion online - Detail Indication:BMI 33.0-33.9,adult Start:03-Apr-2018 Instruction Type:Patient Education Patient Instructions Indication:Sinusitis Start:03-Apr-2018 Instruction Type:Provider Instructions for Treatment How to access health informa tion online Indication:Non-smoker Start:21-Feb-2018 Instruction Type:Patient Education How to access health informa tion online - Detail Indication:Non-smoker Start:21-Feb-2018 Instruction Type:Patient Education Patient Instructions Indication:Non-smoker Start:21-Feb-2018 Instruction Type:Provider Instructions for Treatment How to access health informa tion online Indication:Weight gain Start:15-Jan-2018 Instruction Type:Patient Education How to access health informa tion online - Detail Indication:Weight gain Start:15-Jan-2018 Instruction Type:Patient Education Patient Instructions Indication:Weight gain Start:15-Jan-2018 Instruction Type:Provider Instructions for Treatment [facility]; [facility] Work Phone: Instructions* Name Dates Details How to Access Health Informa tion Online using Patient Portal and [employer] Apps Indication:Non-smoker Start:29-Aug-2020 Instruction Type:Patient Education Patient Instructions Indication:Non-smoker Start:29-Aug-2020 Instruction Type:Provider Instructions for Treatment How to Access Health Informa tion Online using Patient Portal and [employer] Apps Indication:Non-smoker Start:27-Jul-2020 Instruction Type:Patient Education Patient Instructions Indication:Non-smoker Start:27-Jul-2020 Instruction Type:Provider Instructions for Treatment How to Access Health Informa tion Online using Patient Portal and [employer] Indication:Non-smoker Start:29-Jun-2020 Instruction Type:Patient Education Patient Instructions Indication:Non-smoker Start:29-Jun-2020 Instruction Type:Provider Instructions for Treatment How to Access Health Informa tion Online using Patient Portal and [employer] Indication:Non-smoker Start:08-Jun-2020 Instruction Type:Patient Education Patient Instructions Indication:Non-smoker Start:08-Jun-2020 Instruction Type:Provider Instructions for Treatment Patient Instructions Indication:Non-smoker Start:23-May-2020 Instruction Type:Provider Instructions for Treatment How to Access Health Informa tion Online using Patient Portal and [employer] Indication:Non-smoker Start:23-May-2020 Instruction Type:Patient Education Patient Instructions Indication:BMI 32.0-32.9,adult Start:09-May-2020 Instruction Type:Provider Instructions for Treatment How to Access Health Informa tion Online using Patient Portal and [employer] Indication:BMI 32.0-32.9,adult Start:09-May-2020 Instruction Type:Patient Education Patient Instructions Indication:Non-smoker Start:25-Apr-2020 Instruction Type:Provider Instructions for Treatment How to Access Health Informa tion Online using Patient Portal and [employer] Indication:Non-smoker Start:25-Apr-2020 Instruction Type:Patient Education How to Access Health Informa tion Online using Patient Portal and [employer] Indication:Non-smoker Start:07-Apr-2020 Instruction Type:Patient Education Patient Instructions Indication:Non-smoker Start:07-Apr-2020 Instruction Type:Provider Instructions for Treatment How to access health informa tion online Indication:Non-smoker Start:10-Feb-2020 Instruction Type:Patient Education How to access health informa tion online - Detail Indication:Non-smoker Start:10-Feb-2020 Instruction Type:Patient Education Patient Instructions Indication:Non-smoker Start:10-Feb-2020 Instruction Type:Provider Instructions for Treatment How to access health informa tion online Indication:BMI 33.0-33.9,adult Start:09-Feb-2020 Instruction Type:Patient Education How to access health informa tion online - Detail Indication:BMI 33.0-33.9,adult Start:09-Feb-2020 Instruction Type:Patient Education Patient Instructions Indication:BMI 33.0-33.9,adult Start:09-Feb-2020 Instruction Type:Provider Instructions for Treatment How to access health informa tion online Indication:Non-smoker Start:08-Feb-2020 Instruction Type:Patient Education How to access health informa tion online - Detail Indication:Non-smoker Start:08-Feb-2020 Instruction Type:Patient Education Patient Instructions Indication:Non-smoker Start:08-Feb-2020 Instruction Type:Provider Instructions for Treatment How to access health informa tion online Indication:BMI 33.0-33.9,adult Start:01-Oct-2019 Instruction Type:Patient Education How to access health informa tion online - Detail Indication:BMI 33.0-33.9,adult Start:01-Oct-2019 Instruction Type:Patient Education Patient Instructions Indication:BMI 33.0-33.9,adult Start:01-Oct-2019 Instruction Type:Provider Instructions for Treatment How to access health informa tion online Indication:Non-smoker Start:10-Sep-2018 Instruction Type:Patient Education How to access health informa tion online - Detail Indication:Non-smoker Start:10-Sep-2018 Instruction Type:Patient Education How to access health informa tion online - Detail Indication:Non-smoker Start:10-Sep-2018 Instruction Type:Patient Education Patient Instructions Indication:Non-smoker Start:10-Sep-2018 Instruction Type:Provider Instructions for Treatment How to access health informa tion online Indication:Skin lesion Start:30-Jul-2018 Instruction Type:Patient Education How to access health informa tion online - Detail Indication:Skin lesion Start:30-Jul-2018 Instruction Type:Patient Education Patient Instructions Indication:Skin lesion Start:30-Jul-2018 Instruction Type:Provider Instructions for Treatment How to access health informa tion online Indication:Non-smoker Start:30-May-2018 Instruction Type:Patient Education How to access health informa tion online - Detail Indication:Non-smoker Start:30-May-2018 Instruction Type:Patient Education Patient Instructions Indication:Non-smoker Start:30-May-2018 Instruction Type:Provider Instructions for Treatment How to access health informa tion online Indication:BMI 33.0-33.9,adult Start:03-Apr-2018 Instruction Type:Patient Education How to access health informa tion online - Detail Indication:BMI 33.0-33.9,adult Start:03-Apr-2018 Instruction Type:Patient Education Patient Instructions Indication:Sinusitis Start:03-Apr-2018 Instruction Type:Provider Instructions for Treatment How to access health informa tion online Indication:Non-smoker Start:21-Feb-2018 Instruction Type:Patient Education How to access health informa tion online - Detail Indication:Non-smoker Start:21-Feb-2018 Instruction Type:Patient Education Patient Instructions Indication:Non-smoker Start:21-Feb-2018 Instruction Type:Provider Instructions for Treatment How to access health informa tion online Indication:Weight gain Start:15-Jan-2018 Instruction Type:Patient Education How to access health informa tion online - Detail Indication:Weight gain Start:15-Jan-2018 Instruction Type:Patient Education Patient Instructions Indication:Weight gain Start:15-Jan-2018 Instruction Type:Provider Instructions for Treatment [facility]; [facility] Work Phone: Instructions* Name Dates Details Patient Instructions Indication:BMI 29.0-29.9,adult Start:08-Mar-2021 Instruction Type:Provider Instructions for Treatment How to Access Health Informa tion Online using Patient Portal and [employer] Apps Indication:BMI 29.0-29.9,adult Start:08-Mar-2021 Instruction Type:Patient Education Patient Instructions Indication:BMI 29.0-29.9,adult Start:06-Mar-2021 Instruction Type:Provider Instructions for Treatment How to Access Health Informa tion Online using Patient Portal and [employer] Indication:BMI 29.0-29.9,adult Start:06-Mar-2021 Instruction Type:Patient Education Patient Instructions Indication:BMI 29.0-29.9,adult Start:23-Feb-2021 Instruction Type:Provider Instructions for Treatment How to Access Health Informa tion Online using Patient Portal and [employer] Indication:BMI 29.0-29.9,adult Start:23-Feb-2021 Instruction Type:Patient Education Patient Instructions Indication:Non-smoker Start:09-Feb-2021 Instruction Type:Provider Instructions for Treatment How to Access Health Informa tion Online using Patient Portal and [employer] Indication:Non-smoker Start:09-Feb-2021 Instruction Type:Patient Education Patient Instructions Indication:BMI 31.0-31.9,adult Start:22-Dec-2020 Instruction Type:Provider Instructions for Treatment How to Access Health Informa tion Online using Patient Portal and [employer] Indication:BMI 31.0-31.9,adult Start:22-Dec-2020 Instruction Type:Patient Education Patient Instructions Indication:BMI 31.0-31.9,adult Start:30-Nov-2020 Instruction Type:Provider Instructions for Treatment How to Access Health Informa tion Online using Patient Portal and [employer] Indication:BMI 31.0-31.9,adult Start:30-Nov-2020 Instruction Type:Patient Education Patient Instructions Indication:BMI 31.0-31.9,adult Start:13-Oct-2020 Instruction Type:Provider Instructions for Treatment How to Access Health Informa tion Online using Patient Portal and [employer] Indication:BMI 31.0-31.9,adult Start:13-Oct-2020 Instruction Type:Patient Education How to Access Health Informa tion Online using Patient Portal and [employer] Indication:Non-smoker Start:29-Aug-2020 Instruction Type:Patient Education Patient Instructions Indication:Non-smoker Start:29-Aug-2020 Instruction Type:Provider Instructions for Treatment How to Access Health Informa tion Online using Patient Portal and [employer] Indication:Non-smoker Start:27-Jul-2020 Instruction Type:Patient Education Patient Instructions Indication:Non-smoker Start:27-Jul-2020 Instruction Type:Provider Instructions for Treatment How to Access Health Informa tion Online using Patient Portal and [employer] Indication:Non-smoker Start:29-Jun-2020 Instruction Type:Patient Education Patient Instructions Indication:Non-smoker Start:29-Jun-2020 Instruction Type:Provider Instructions for Treatment How to Access Health Informa tion Online using Patient Portal and [employer] Indication:Non-smoker Start:08-Jun-2020 Instruction Type:Patient Education Patient Instructions Indication:Non-smoker Start:08-Jun-2020 Instruction Type:Provider Instructions for Treatment Patient Instructions Indication:Non-smoker Start:23-May-2020 Instruction Type:Provider Instructions for Treatment How to Access Health Informa tion Online using Patient Portal and [employer] Indication:Non-smoker Start:23-May-2020 Instruction Type:Patient Education Patient Instructions Indication:BMI 32.0-32.9,adult Start:09-May-2020 Instruction Type:Provider Instructions for Treatment How to Access Health Informa tion Online using Patient Portal and [employer] Indication:BMI 32.0-32.9,adult Start:09-May-2020 Instruction Type:Patient Education Patient Instructions Indication:Non-smoker Start:25-Apr-2020 Instruction Type:Provider Instructions for Treatment How to Access Health Informa tion Online using Patient Portal and [employer] Indication:Non-smoker Start:25-Apr-2020 Instruction Type:Patient Education How to Access Health Informa tion Online using Patient Portal and [employer] Indication:Non-smoker Start:07-Apr-2020 Instruction Type:Patient Education Patient Instructions Indication:Non-smoker Start:07-Apr-2020 Instruction Type:Provider Instructions for Treatment How to access health informa tion online Indication:Non-smoker Start:10-Feb-2020 Instruction Type:Patient Education How to access health informa tion online - Detail Indication:Non-smoker Start:10-Feb-2020 Instruction Type:Patient Education Patient Instructions Indication:Non-smoker Start:10-Feb-2020 Instruction Type:Provider Instructions for Treatment How to access health informa tion online Indication:BMI 33.0-33.9,adult Start:09-Feb-2020 Instruction Type:Patient Education How to access health informa tion online - Detail Indication:BMI 33.0-33.9,adult Start:09-Feb-2020 Instruction Type:Patient Education Patient Instructions Indication:BMI 33.0-33.9,adult Start:09-Feb-2020 Instruction Type:Provider Instructions for Treatment How to access health informa tion online Indication:Non-smoker Start:08-Feb-2020 Instruction Type:Patient Education How to access health informa tion online - Detail Indication:Non-smoker Start:08-Feb-2020 Instruction Type:Patient Education Patient Instructions Indication:Non-smoker Start:08-Feb-2020 Instruction Type:Provider Instructions for Treatment How to access health informa tion online Indication:BMI 33.0-33.9,adult Start:01-Oct-2019 Instruction Type:Patient Education How to access health informa tion online - Detail Indication:BMI 33.0-33.9,adult Start:01-Oct-2019 Instruction Type:Patient Education Patient Instructions Indication:BMI 33.0-33.9,adult Start:01-Oct-2019 Instruction Type:Provider Instructions for Treatment How to access health informa tion online Indication:Non-smoker Start:10-Sep-2018 Instruction Type:Patient Education How to access health informa tion online - Detail Indication:Non-smoker Start:10-Sep-2018 Instruction Type:Patient Education How to access health informa tion online - Detail Indication:Non-smoker Start:10-Sep-2018 Instruction Type:Patient Education Patient Instructions Indication:Non-smoker Start:10-Sep-2018 Instruction Type:Provider Instructions for Treatment How to access health informa tion online Indication:Skin lesion Start:30-Jul-2018 Instruction Type:Patient Education How to access health informa tion online - Detail Indication:Skin lesion Start:30-Jul-2018 Instruction Type:Patient Education Patient Instructions Indication:Skin lesion Start:30-Jul-2018 Instruction Type:Provider Instructions for Treatment How to access health informa tion online Indication:Non-smoker Start:30-May-2018 Instruction Type:Patient Education How to access health informa tion online - Detail Indication:Non-smoker Start:30-May-2018 Instruction Type:Patient Education Patient Instructions Indication:Non-smoker Start:30-May-2018 Instruction Type:Provider Instructions for Treatment How to access health informa tion online Indication:BMI 33.0-33.9,adult Start:03-Apr-2018 Instruction Type:Patient Education How to access health informa tion online - Detail Indication:BMI 33.0-33.9,adult Start:03-Apr-2018 Instruction Type:Patient Education Patient Instructions Indication:Sinusitis Start:03-Apr-2018 Instruction Type:Provider Instructions for Treatment How to access health informa tion online Indication:Non-smoker Start:21-Feb-2018 Instruction Type:Patient Education How to access health informa tion online - Detail Indication:Non-smoker Start:21-Feb-2018 Instruction Type:Patient Education Patient Instructions Indication:Non-smoker Start:21-Feb-2018 Instruction Type:Provider Instructions for Treatment How to access health informa tion online Indication:Weight gain Start:15-Jan-2018 Instruction Type:Patient Education How to access health informa tion online - Detail Indication:Weight gain Start:15-Jan-2018 Instruction Type:Patient Education Patient Instructions Indication:Weight gain Start:15-Jan-2018 Instruction Type:Provider Instructions for Treatment [facility]; [facility] Work Phone: Instructions* Name Dates Details Patient Instructions Indication:Non-smoker Start:29-Jan-2022 Instruction Type:Provider Instructions for Treatment How to Access Health Informa tion Online using Patient Portal and [employer]rd [employer] Apps Indication:Non-smoker Start:29-Jan-2022 Instruction Type:Patient Education Patient Instructions Indication:BMI 29.0-29.9,adult Start:08-Mar-2021 Instruction Type:Provider Instructions for Treatment How to Access Health Informa tion Online using Patient Portal and [employer]rd [employer] Apps Indication:BMI 29.0-29.9,adult Start:08-Mar-2021 Instruction Type:Patient Education Patient Instructions Indication:BMI 29.0-29.9,adult Start:06-Mar-2021 Instruction Type:Provider Instructions for Treatment How to Access Health Informa tion Online using Patient Portal and [employer]rd [employer] Apps Indication:BMI 29.0-29.9,adult Start:06-Mar-2021 Instruction Type:Patient Education Patient Instructions Indication:BMI 29.0-29.9,adult Start:23-Feb-2021 Instruction Type:Provider Instructions for Treatment How to Access Health Informa tion Online using Patient Portal and [employer]rd [employer] Apps Indication:BMI 29.0-29.9,adult Start:23-Feb-2021 Instruction Type:Patient Education Patient Instructions Indication:Non-smoker Start:09-Feb-2021 Instruction Type:Provider Instructions for Treatment How to Access Health Informa tion Online using Patient Portal and [employer]rd [employer] Apps Indication:Non-smoker Start:09-Feb-2021 Instruction Type:Patient Education Patient Instructions Indication:BMI 31.0-31.9,adult Start:22-Dec-2020 Instruction Type:Provider Instructions for Treatment How to Access Health Informa tion Online using Patient Portal and [employer]rd [employer] Apps Indication:BMI 31.0-31.9,adult Start:22-Dec-2020 Instruction Type:Patient Education Patient Instructions Indication:BMI 31.0-31.9,adult Start:30-Nov-2020 Instruction Type:Provider Instructions for Treatment How to Access Health Informa tion Online using Patient Portal and [employer]rd [employer] Apps Indication:BMI 31.0-31.9,adult Start:30-Nov-2020 Instruction Type:Patient Education Patient Instructions Indication:BMI 31.0-31.9,adult Start:13-Oct-2020 Instruction Type:Provider Instructions for Treatment How to Access Health Informa tion Online using Patient Portal and [employer]rd [employer] Apps Indication:BMI 31.0-31.9,adult Start:13-Oct-2020 Instruction Type:Patient Education How to Access Health Informa tion Online using Patient Portal and [employer]rd [employer] Apps Indication:Non-smoker Start:29-Aug-2020 Instruction Type:Patient Education Patient Instructions Indication:Non-smoker Start:29-Aug-2020 Instruction Type:Provider Instructions for Treatment How to Access Health Informa tion Online using Patient Portal and [employer] Apps Indication:Non-smoker Start:27-Jul-2020 Instruction Type:Patient Education Patient Instructions Indication:Non-smoker Start:27-Jul-2020 Instruction Type:Provider Instructions for Treatment How to Access Health Informa tion Online using Patient Portal and [employer] Apps Indication:Non-smoker Start:29-Jun-2020 Instruction Type:Patient Education Patient Instructions Indication:Non-smoker Start:29-Jun-2020 Instruction Type:Provider Instructions for Treatment How to Access Health Informa tion Online using Patient Portal and [employer] Apps Indication:Non-smoker Start:08-Jun-2020 Instruction Type:Patient Education Patient Instructions Indication:Non-smoker Start:08-Jun-2020 Instruction Type:Provider Instructions for Treatment Patient Instructions Indication:Non-smoker Start:23-May-2020 Instruction Type:Provider Instructions for Treatment How to Access Health Informa tion Online using Patient Portal and [employer] Apps Indication:Non-smoker Start:23-May-2020 Instruction Type:Patient Education Patient Instructions Indication:BMI 32.0-32.9,adult Start:09-May-2020 Instruction Type:Provider Instructions for Treatment How to Access Health Informa tion Online using Patient Portal and [employer]rd [employer] Apps Indication:BMI 32.0-32.9,adult Start:09-May-2020 Instruction Type:Patient Education Patient Instructions Indication:Non-smoker Start:25-Apr-2020 Instruction Type:Provider Instructions for Treatment How to Access Health Informa tion Online using Patient Portal and [employer] Apps Indication:Non-smoker Start:25-Apr-2020 Instruction Type:Patient Education How to Access Health Informa tion Online using Patient Portal and [employer] Apps Indication:Non-smoker Start:07-Apr-2020 Instruction Type:Patient Education Patient Instructions Indication:Non-smoker Start:07-Apr-2020 Instruction Type:Provider Instructions for Treatment How to access health informa tion online Indication:Non-smoker Start:10-Feb-2020 Instruction Type:Patient Education How to access health informa tion online - Detail Indication:Non-smoker Start:10-Feb-2020 Instruction Type:Patient Education Patient Instructions Indication:Non-smoker Start:10-Feb-2020 Instruction Type:Provider Instructions for Treatment How to access health informa tion online Indication:BMI 33.0-33.9,adult Start:09-Feb-2020 Instruction Type:Patient Education How to access health informa tion online - Detail Indication:BMI 33.0-33.9,adult Start:09-Feb-2020 Instruction Type:Patient Education Patient Instructions Indication:BMI 33.0-33.9,adult Start:09-Feb-2020 Instruction Type:Provider Instructions for Treatment How to access health informa tion online Indication:Non-smoker Start:08-Feb-2020 Instruction Type:Patient Education How to access health informa tion online - Detail Indication:Non-smoker Start:08-Feb-2020 Instruction Type:Patient Education Patient Instructions Indication:Non-smoker Start:08-Feb-2020 Instruction Type:Provider Instructions for Treatment How to access health informa tion online Indication:BMI 33.0-33.9,adult Start:01-Oct-2019 Instruction Type:Patient Education How to access health informa tion online - Detail Indication:BMI 33.0-33.9,adult Start:01-Oct-2019 Instruction Type:Patient Education Patient Instructions Indication:BMI 33.0-33.9,adult Start:01-Oct-2019 Instruction Type:Provider Instructions for Treatment How to access health informa tion online Indication:Non-smoker Start:10-Sep-2018 Instruction Type:Patient Education How to access health informa tion online - Detail Indication:Non-smoker Start:10-Sep-2018 Instruction Type:Patient Education How to access health informa tion online - Detail Indication:Non-smoker Start:10-Sep-2018 Instruction Type:Patient Education Patient Instructions Indication:Non-smoker Start:10-Sep-2018 Instruction Type:Provider Instructions for Treatment How to access health informa tion online Indication:Skin lesion Start:30-Jul-2018 Instruction Type:Patient Education How to access health informa tion online - Detail Indication:Skin lesion Start:30-Jul-2018 Instruction Type:Patient Education Patient Instructions Indication:Skin lesion Start:30-Jul-2018 Instruction Type:Provider Instructions for Treatment How to access health informa tion online Indication:Non-smoker Start:30-May-2018 Instruction Type:Patient Education How to access health informa tion online - Detail Indication:Non-smoker Start:30-May-2018 Instruction Type:Patient Education Patient Instructions Indication:Non-smoker Start:30-May-2018 Instruction Type:Provider Instructions for Treatment How to access health informa tion online Indication:BMI 33.0-33.9,adult Start:03-Apr-2018 Instruction Type:Patient Education How to access health informa tion online - Detail Indication:BMI 33.0-33.9,adult Start:03-Apr-2018 Instruction Type:Patient Education Patient Instructions Indication:Sinusitis Start:03-Apr-2018 Instruction Type:Provider Instructions for Treatment How to access health informa tion online Indication:Non-smoker Start:21-Feb-2018 Instruction Type:Patient Education How to access health informa tion online - Detail Indication:Non-smoker Start:21-Feb-2018 Instruction Type:Patient Education Patient Instructions Indication:Non-smoker Start:21-Feb-2018 Instruction Type:Provider Instructions for Treatment How to access health informa tion online Indication:Weight gain Start:15-Jan-2018 Instruction Type:Patient Education How to access health informa tion online - Detail Indication:Weight gain Start:15-Jan-2018 Instruction Type:Patient Education Patient Instructions Indication:Weight gain Start:15-Jan-2018 Instruction Type:Provider Instructions for Treatment [facility]; [facility] Work Phone: Instructions* Name Dates Details Patient Instructions Indication:Non-smoker Start:29-Jan-2022 Instruction Type:Provider Instructions for Treatment How to Access Health Informa tion Online using Patient Portal and [employer]rd [employer] Apps Indication:Non-smoker Start:29-Jan-2022 Instruction Type:Patient Education Patient Instructions Indication:BMI 29.0-29.9,adult Start:08-Mar-2021 Instruction Type:Provider Instructions for Treatment How to Access Health Informa tion Online using Patient Portal and [employer] Apps Indication:BMI 29.0-29.9,adult Start:08-Mar-2021 Instruction Type:Patient Education Patient Instructions Indication:BMI 29.0-29.9,adult Start:06-Mar-2021 Instruction Type:Provider Instructions for Treatment How to Access Health Informa tion Online using Patient Portal and [employer]rd [employer] Apps Indication:BMI 29.0-29.9,adult Start:06-Mar-2021 Instruction Type:Patient Education Patient Instructions Indication:BMI 29.0-29.9,adult Start:23-Feb-2021 Instruction Type:Provider Instructions for Treatment How to Access Health Informa tion Online using Patient Portal and [employer] Apps Indication:BMI 29.0-29.9,adult Start:23-Feb-2021 Instruction Type:Patient Education Patient Instructions Indication:Non-smoker Start:09-Feb-2021 Instruction Type:Provider Instructions for Treatment How to Access Health Informa tion Online using Patient Portal and [employer] Apps Indication:Non-smoker Start:09-Feb-2021 Instruction Type:Patient Education Patient Instructions Indication:BMI 31.0-31.9,adult Start:22-Dec-2020 Instruction Type:Provider Instructions for Treatment How to Access Health Informa tion Online using Patient Portal and [employer]rd [employer] Apps Indication:BMI 31.0-31.9,adult Start:22-Dec-2020 Instruction Type:Patient Education Patient Instructions Indication:BMI 31.0-31.9,adult Start:30-Nov-2020 Instruction Type:Provider Instructions for Treatment How to Access Health Informa tion Online using Patient Portal and [employer]rd [employer] Apps Indication:BMI 31.0-31.9,adult Start:30-Nov-2020 Instruction Type:Patient Education Patient Instructions Indication:BMI 31.0-31.9,adult Start:13-Oct-2020 Instruction Type:Provider Instructions for Treatment How to Access Health Informa tion Online using Patient Portal and [employer]rd [employer] Apps Indication:BMI 31.0-31.9,adult Start:13-Oct-2020 Instruction Type:Patient Education How to Access Health Informa tion Online using Patient Portal and [employer] Apps Indication:Non-smoker Start:29-Aug-2020 Instruction Type:Patient Education Patient Instructions Indication:Non-smoker Start:29-Aug-2020 Instruction Type:Provider Instructions for Treatment How to Access Health Informa tion Online using Patient Portal and [employer] Apps Indication:Non-smoker Start:27-Jul-2020 Instruction Type:Patient Education Patient Instructions Indication:Non-smoker Start:27-Jul-2020 Instruction Type:Provider Instructions for Treatment How to Access Health Informa tion Online using Patient Portal and [employer] Apps Indication:Non-smoker Start:29-Jun-2020 Instruction Type:Patient Education Patient Instructions Indication:Non-smoker Start:29-Jun-2020 Instruction Type:Provider Instructions for Treatment How to Access Health Informa tion Online using Patient Portal and [employer]rd [employer] Apps Indication:Non-smoker Start:08-Jun-2020 Instruction Type:Patient Education Patient Instructions Indication:Non-smoker Start:08-Jun-2020 Instruction Type:Provider Instructions for Treatment Patient Instructions Indication:Non-smoker Start:23-May-2020 Instruction Type:Provider Instructions for Treatment How to Access Health Informa tion Online using Patient Portal and [employer] Apps Indication:Non-smoker Start:23-May-2020 Instruction Type:Patient Education Patient Instructions Indication:BMI 32.0-32.9,adult Start:09-May-2020 Instruction Type:Provider Instructions for Treatment How to Access Health Informa tion Online using Patient Portal and [employer]rd [employer] Apps Indication:BMI 32.0-32.9,adult Start:09-May-2020 Instruction Type:Patient Education Patient Instructions Indication:Non-smoker Start:25-Apr-2020 Instruction Type:Provider Instructions for Treatment How to Access Health Informa tion Online using Patient Portal and [employer] Apps Indication:Non-smoker Start:25-Apr-2020 Instruction Type:Patient Education How to Access Health Informa tion Online using Patient Portal and [employer] Apps Indication:Non-smoker Start:07-Apr-2020 Instruction Type:Patient Education Patient Instructions Indication:Non-smoker Start:07-Apr-2020 Instruction Type:Provider Instructions for Treatment How to access health informa tion online Indication:Non-smoker Start:10-Feb-2020 Instruction Type:Patient Education How to access health informa tion online - Detail Indication:Non-smoker Start:10-Feb-2020 Instruction Type:Patient Education Patient Instructions Indication:Non-smoker Start:10-Feb-2020 Instruction Type:Provider Instructions for Treatment How to access health informa tion online Indication:BMI 33.0-33.9,adult Start:09-Feb-2020 Instruction Type:Patient Education How to access health informa tion online - Detail Indication:BMI 33.0-33.9,adult Start:09-Feb-2020 Instruction Type:Patient Education Patient Instructions Indication:BMI 33.0-33.9,adult Start:09-Feb-2020 Instruction Type:Provider Instructions for Treatment How to access health informa tion online Indication:Non-smoker Start:08-Feb-2020 Instruction Type:Patient Education How to access health informa tion online - Detail Indication:Non-smoker Start:08-Feb-2020 Instruction Type:Patient Education Patient Instructions Indication:Non-smoker Start:08-Feb-2020 Instruction Type:Provider Instructions for Treatment How to access health informa tion online Indication:BMI 33.0-33.9,adult Start:01-Oct-2019 Instruction Type:Patient Education How to access health informa tion online - Detail Indication:BMI 33.0-33.9,adult Start:01-Oct-2019 Instruction Type:Patient Education Patient Instructions Indication:BMI 33.0-33.9,adult Start:01-Oct-2019 Instruction Type:Provider Instructions for Treatment How to access health informa tion online Indication:Non-smoker Start:10-Sep-2018 Instruction Type:Patient Education How to access health informa tion online - Detail Indication:Non-smoker Start:10-Sep-2018 Instruction Type:Patient Education How to access health informa tion online - Detail Indication:Non-smoker Start:10-Sep-2018 Instruction Type:Patient Education Patient Instructions Indication:Non-smoker Start:10-Sep-2018 Instruction Type:Provider Instructions for Treatment How to access health informa tion online Indication:Skin lesion Start:30-Jul-2018 Instruction Type:Patient Education How to access health informa tion online - Detail Indication:Skin lesion Start:30-Jul-2018 Instruction Type:Patient Education Patient Instructions Indication:Skin lesion Start:30-Jul-2018 Instruction Type:Provider Instructions for Treatment How to access health informa tion online Indication:Non-smoker Start:30-May-2018 Instruction Type:Patient Education How to access health informa tion online - Detail Indication:Non-smoker Start:30-May-2018 Instruction Type:Patient Education Patient Instructions Indication:Non-smoker Start:30-May-2018 Instruction Type:Provider Instructions for Treatment How to access health informa tion online Indication:BMI 33.0-33.9,adult Start:03-Apr-2018 Instruction Type:Patient Education How to access health informa tion online - Detail Indication:BMI 33.0-33.9,adult Start:03-Apr-2018 Instruction Type:Patient Education Patient Instructions Indication:Sinusitis Start:03-Apr-2018 Instruction Type:Provider Instructions for Treatment How to access health informa tion online Indication:Non-smoker Start:21-Feb-2018 Instruction Type:Patient Education How to access health informa tion online - Detail Indication:Non-smoker Start:21-Feb-2018 Instruction Type:Patient Education Patient Instructions Indication:Non-smoker Start:21-Feb-2018 Instruction Type:Provider Instructions for Treatment How to access health informa tion online Indication:Weight gain Start:15-Jan-2018 Instruction Type:Patient Education How to access health informa tion online - Detail Indication:Weight gain Start:15-Jan-2018 Instruction Type:Patient Education Patient Instructions Indication:Weight gain Start:15-Jan-2018 Instruction Type:Provider Instructions for Treatment [facility]; [facility] Work Phone: Instructions* Name Dates Details Patient Instructions Indication:Non-smoker Start:29-Jan-2022 Instruction Type:Provider Instructions for Treatment How to Access Health Informa tion Online using Patient Portal and [employer]rd [employer] Apps Indication:Non-smoker Start:29-Jan-2022 Instruction Type:Patient Education Patient Instructions Indication:BMI 29.0-29.9,adult Start:08-Mar-2021 Instruction Type:Provider Instructions for Treatment How to Access Health Informa tion Online using Patient Portal and [employer]rd [employer] Apps Indication:BMI 29.0-29.9,adult Start:08-Mar-2021 Instruction Type:Patient Education Patient Instructions Indication:BMI 29.0-29.9,adult Start:06-Mar-2021 Instruction Type:Provider Instructions for Treatment How to Access Health Informa tion Online using Patient Portal and [employer]rd [employer] Apps Indication:BMI 29.0-29.9,adult Start:06-Mar-2021 Instruction Type:Patient Education Patient Instructions Indication:BMI 29.0-29.9,adult Start:23-Feb-2021 Instruction Type:Provider Instructions for Treatment How to Access Health Informa tion Online using Patient Portal and [employer]rd [employer] Apps Indication:BMI 29.0-29.9,adult Start:23-Feb-2021 Instruction Type:Patient Education Patient Instructions Indication:Non-smoker Start:09-Feb-2021 Instruction Type:Provider Instructions for Treatment How to Access Health Informa tion Online using Patient Portal and [employer]rd [employer] Apps Indication:Non-smoker Start:09-Feb-2021 Instruction Type:Patient Education Patient Instructions Indication:BMI 31.0-31.9,adult Start:22-Dec-2020 Instruction Type:Provider Instructions for Treatment How to Access Health Informa tion Online using Patient Portal and [employer]rd [employer] Apps Indication:BMI 31.0-31.9,adult Start:22-Dec-2020 Instruction Type:Patient Education Patient Instructions Indication:BMI 31.0-31.9,adult Start:30-Nov-2020 Instruction Type:Provider Instructions for Treatment How to Access Health Informa tion Online using Patient Portal and [employer]rd [employer] Apps Indication:BMI 31.0-31.9,adult Start:30-Nov-2020 Instruction Type:Patient Education Patient Instructions Indication:BMI 31.0-31.9,adult Start:13-Oct-2020 Instruction Type:Provider Instructions for Treatment How to Access Health Informa tion Online using Patient Portal and [employer]rd [employer] Apps Indication:BMI 31.0-31.9,adult Start:13-Oct-2020 Instruction Type:Patient Education How to Access Health Informa tion Online using Patient Portal and [employer]rd [employer] Apps Indication:Non-smoker Start:29-Aug-2020 Instruction Type:Patient Education Patient Instructions Indication:Non-smoker Start:29-Aug-2020 Instruction Type:Provider Instructions for Treatment How to Access Health Informa tion Online using Patient Portal and [employer]rd [employer] Apps Indication:Non-smoker Start:27-Jul-2020 Instruction Type:Patient Education Patient Instructions Indication:Non-smoker Start:27-Jul-2020 Instruction Type:Provider Instructions for Treatment How to Access Health Informa tion Online using Patient Portal and [employer]rd [employer] Apps Indication:Non-smoker Start:29-Jun-2020 Instruction Type:Patient Education Patient Instructions Indication:Non-smoker Start:29-Jun-2020 Instruction Type:Provider Instructions for Treatment How to Access Health Informa tion Online using Patient Portal and [employer]rd [employer] Apps Indication:Non-smoker Start:08-Jun-2020 Instruction Type:Patient Education Patient Instructions Indication:Non-smoker Start:08-Jun-2020 Instruction Type:Provider Instructions for Treatment Patient Instructions Indication:Non-smoker Start:23-May-2020 Instruction Type:Provider Instructions for Treatment How to Access Health Informa tion Online using Patient Portal and [employer]rd [employer] Apps Indication:Non-smoker Start:23-May-2020 Instruction Type:Patient Education Patient Instructions Indication:BMI 32.0-32.9,adult Start:09-May-2020 Instruction Type:Provider Instructions for Treatment How to Access Health Informa tion Online using Patient Portal and [employer]rd [employer] Apps Indication:BMI 32.0-32.9,adult Start:09-May-2020 Instruction Type:Patient Education Patient Instructions Indication:Non-smoker Start:25-Apr-2020 Instruction Type:Provider Instructions for Treatment How to Access Health Informa tion Online using Patient Portal and [employer] Apps Indication:Non-smoker Start:25-Apr-2020 Instruction Type:Patient Education How to Access Health Informa tion Online using Patient Portal and [employer] Apps Indication:Non-smoker Start:07-Apr-2020 Instruction Type:Patient Education Patient Instructions Indication:Non-smoker Start:07-Apr-2020 Instruction Type:Provider Instructions for Treatment How to access health informa tion online Indication:Non-smoker Start:10-Feb-2020 Instruction Type:Patient Education How to access health informa tion online - Detail Indication:Non-smoker Start:10-Feb-2020 Instruction Type:Patient Education Patient Instructions Indication:Non-smoker Start:10-Feb-2020 Instruction Type:Provider Instructions for Treatment How to access health informa tion online Indication:BMI 33.0-33.9,adult Start:09-Feb-2020 Instruction Type:Patient Education How to access health informa tion online - Detail Indication:BMI 33.0-33.9,adult Start:09-Feb-2020 Instruction Type:Patient Education Patient Instructions Indication:BMI 33.0-33.9,adult Start:09-Feb-2020 Instruction Type:Provider Instructions for Treatment How to access health informa tion online Indication:Non-smoker Start:08-Feb-2020 Instruction Type:Patient Education How to access health informa tion online - Detail Indication:Non-smoker Start:08-Feb-2020 Instruction Type:Patient Education Patient Instructions Indication:Non-smoker Start:08-Feb-2020 Instruction Type:Provider Instructions for Treatment How to access health informa tion online Indication:BMI 33.0-33.9,adult Start:01-Oct-2019 Instruction Type:Patient Education How to access health informa tion online - Detail Indication:BMI 33.0-33.9,adult Start:01-Oct-2019 Instruction Type:Patient Education Patient Instructions Indication:BMI 33.0-33.9,adult Start:01-Oct-2019 Instruction Type:Provider Instructions for Treatment How to access health informa tion online Indication:Non-smoker Start:10-Sep-2018 Instruction Type:Patient Education How to access health informa tion online - Detail Indication:Non-smoker Start:10-Sep-2018 Instruction Type:Patient Education How to access health informa tion online - Detail Indication:Non-smoker Start:10-Sep-2018 Instruction Type:Patient Education Patient Instructions Indication:Non-smoker Start:10-Sep-2018 Instruction Type:Provider Instructions for Treatment How to access health informa tion online Indication:Skin lesion Start:30-Jul-2018 Instruction Type:Patient Education How to access health informa tion online - Detail Indication:Skin lesion Start:30-Jul-2018 Instruction Type:Patient Education Patient Instructions Indication:Skin lesion Start:30-Jul-2018 Instruction Type:Provider Instructions for Treatment How to access health informa tion online Indication:Non-smoker Start:30-May-2018 Instruction Type:Patient Education How to access health informa tion online - Detail Indication:Non-smoker Start:30-May-2018 Instruction Type:Patient Education Patient Instructions Indication:Non-smoker Start:30-May-2018 Instruction Type:Provider Instructions for Treatment How to access health informa tion online Indication:BMI 33.0-33.9,adult Start:03-Apr-2018 Instruction Type:Patient Education How to access health informa tion online - Detail Indication:BMI 33.0-33.9,adult Start:03-Apr-2018 Instruction Type:Patient Education Patient Instructions Indication:Sinusitis Start:03-Apr-2018 Instruction Type:Provider Instructions for Treatment How to access health informa tion online Indication:Non-smoker Start:21-Feb-2018 Instruction Type:Patient Education How to access health informa tion online - Detail Indication:Non-smoker Start:21-Feb-2018 Instruction Type:Patient Education Patient Instructions Indication:Non-smoker Start:21-Feb-2018 Instruction Type:Provider Instructions for Treatment How to access health informa tion online Indication:Weight gain Start:15-Jan-2018 Instruction Type:Patient Education How to access health informa tion online - Detail Indication:Weight gain Start:15-Jan-2018 Instruction Type:Patient Education Patient Instructions Indication:Weight gain Start:15-Jan-2018 Instruction Type:Provider Instructions for Treatment [facility]; [facility] Work Phone: Instructions* Name Dates Details Patient Instructions Indication:Non-smoker Start:24-Aug-2022 Instruction Type:Provider Instructions for Treatment How to Access Health Informa tion Online using Patient Portal and 3rd [employer] Apps Indication:Non-smoker Start:24-Aug-2022 Instruction Type:Patient Education Patient Instructions Indication:Non-smoker Start:29-Jan-2022 Instruction Type:Provider Instructions for Treatment How to Access Health Informa tion Online using Patient Portal and 3rd [employer] Apps Indication:Non-smoker Start:29-Jan-2022 Instruction Type:Patient Education Patient Instructions Indication:BMI 29.0-29.9,adult Start:08-Mar-2021 Instruction Type:Provider Instructions for Treatment How to Access Health Informa tion Online using Patient Portal and 3rd [employer] Apps Indication:BMI 29.0-29.9,adult Start:08-Mar-2021 Instruction Type:Patient Education Patient Instructions Indication:BMI 29.0-29.9,adult Start:06-Mar-2021 Instruction Type:Provider Instructions for Treatment How to Access Health Informa tion Online using Patient Portal and 3rd [employer] Apps Indication:BMI 29.0-29.9,adult Start:06-Mar-2021 Instruction Type:Patient Education Patient Instructions Indication:BMI 29.0-29.9,adult Start:23-Feb-2021 Instruction Type:Provider Instructions for Treatment How to Access Health Informa tion Online using Patient Portal and 3rd [employer] Apps Indication:BMI 29.0-29.9,adult Start:23-Feb-2021 Instruction Type:Patient Education Patient Instructions Indication:Non-smoker Start:09-Feb-2021 Instruction Type:Provider Instructions for Treatment How to Access Health Informa tion Online using Patient Portal and 3rd [employer] Apps Indication:Non-smoker Start:09-Feb-2021 Instruction Type:Patient Education Patient Instructions Indication:BMI 31.0-31.9,adult Start:22-Dec-2020 Instruction Type:Provider Instructions for Treatment How to Access Health Informa tion Online using Patient Portal and 3rd [employer] Apps Indication:BMI 31.0-31.9,adult Start:22-Dec-2020 Instruction Type:Patient Education Patient Instructions Indication:BMI 31.0-31.9,adult Start:30-Nov-2020 Instruction Type:Provider Instructions for Treatment How to Access Health Informa tion Online using Patient Portal and 3rd [employer] Apps Indication:BMI 31.0-31.9,adult Start:30-Nov-2020 Instruction Type:Patient Education Patient Instructions Indication:BMI 31.0-31.9,adult Start:13-Oct-2020 Instruction Type:Provider Instructions for Treatment How to Access Health Informa tion Online using Patient Portal and 3rd [employer] Apps Indication:BMI 31.0-31.9,adult Start:13-Oct-2020 Instruction Type:Patient Education How to Access Health Informa tion Online using Patient Portal and 3rd [employer] Apps Indication:Non-smoker Start:29-Aug-2020 Instruction Type:Patient Education Patient Instructions Indication:Non-smoker Start:29-Aug-2020 Instruction Type:Provider Instructions for Treatment How to Access Health Informa tion Online using Patient Portal and 3rd [employer] Apps Indication:Non-smoker Start:27-Jul-2020 Instruction Type:Patient Education Patient Instructions Indication:Non-smoker Start:27-Jul-2020 Instruction Type:Provider Instructions for Treatment How to Access Health Informa tion Online using Patient Portal and 3rd [employer] Apps Indication:Non-smoker Start:29-Jun-2020 Instruction Type:Patient Education Patient Instructions Indication:Non-smoker Start:29-Jun-2020 Instruction Type:Provider Instructions for Treatment How to Access Health Informa tion Online using Patient Portal and 3rd [employer] Apps Indication:Non-smoker Start:08-Jun-2020 Instruction Type:Patient Education Patient Instructions Indication:Non-smoker Start:08-Jun-2020 Instruction Type:Provider Instructions for Treatment Patient Instructions Indication:Non-smoker Start:23-May-2020 Instruction Type:Provider Instructions for Treatment How to Access Health Informa tion Online using Patient Portal and 3rd [employer] Apps Indication:Non-smoker Start:23-May-2020 Instruction Type:Patient Education Patient Instructions Indication:BMI 32.0-32.9,adult Start:09-May-2020 Instruction Type:Provider Instructions for Treatment How to Access Health Informa tion Online using Patient Portal and 3rd [employer] Apps Indication:BMI 32.0-32.9,adult Start:09-May-2020 Instruction Type:Patient Education Patient Instructions Indication:Non-smoker Start:25-Apr-2020 Instruction Type:Provider Instructions for Treatment How to Access Health Informa tion Online using Patient Portal and 3rd [employer] Apps Indication:Non-smoker Start:25-Apr-2020 Instruction Type:Patient Education How to Access Health Informa tion Online using Patient Portal and 3rd [employer] Apps Indication:Non-smoker Start:07-Apr-2020 Instruction Type:Patient Education Patient Instructions Indication:Non-smoker Start:07-Apr-2020 Instruction Type:Provider Instructions for Treatment How to access health informa tion online Indication:Non-smoker Start:10-Feb-2020 Instruction Type:Patient Education How to access health informa tion online - Detail Indication:Non-smoker Start:10-Feb-2020 Instruction Type:Patient Education Patient Instructions Indication:Non-smoker Start:10-Feb-2020 Instruction Type:Provider Instructions for Treatment How to access health informa tion online Indication:BMI 33.0-33.9,adult Start:09-Feb-2020 Instruction Type:Patient Education How to access health informa tion online - Detail Indication:BMI 33.0-33.9,adult Start:09-Feb-2020 Instruction Type:Patient Education Patient Instructions Indication:BMI 33.0-33.9,adult Start:09-Feb-2020 Instruction Type:Provider Instructions for Treatment How to access health informa tion online Indication:Non-smoker Start:08-Feb-2020 Instruction Type:Patient Education How to access health informa tion online - Detail Indication:Non-smoker Start:08-Feb-2020 Instruction Type:Patient Education Patient Instructions Indication:Non-smoker Start:08-Feb-2020 Instruction Type:Provider Instructions for Treatment How to access health informa tion online Indication:BMI 33.0-33.9,adult Start:01-Oct-2019 Instruction Type:Patient Education How to access health informa tion online - Detail Indication:BMI 33.0-33.9,adult Start:01-Oct-2019 Instruction Type:Patient Education Patient Instructions Indication:BMI 33.0-33.9,adult Start:01-Oct-2019 Instruction Type:Provider Instructions for Treatment How to access health informa tion online Indication:Non-smoker Start:10-Sep-2018 Instruction Type:Patient Education How to access health informa tion online - Detail Indication:Non-smoker Start:10-Sep-2018 Instruction Type:Patient Education How to access health informa tion online - Detail Indication:Non-smoker Start:10-Sep-2018 Instruction Type:Patient Education Patient Instructions Indication:Non-smoker Start:10-Sep-2018 Instruction Type:Provider Instructions for Treatment How to access health informa tion online Indication:Skin lesion Start:30-Jul-2018 Instruction Type:Patient Education How to access health informa tion online - Detail Indication:Skin lesion Start:30-Jul-2018 Instruction Type:Patient Education Patient Instructions Indication:Skin lesion Start:30-Jul-2018 Instruction Type:Provider Instructions for Treatment How to access health informa tion online Indication:Non-smoker Start:30-May-2018 Instruction Type:Patient Education How to access health informa tion online - Detail Indication:Non-smoker Start:30-May-2018 Instruction Type:Patient Education Patient Instructions Indication:Non-smoker Start:30-May-2018 Instruction Type:Provider Instructions for Treatment How to access health informa tion online Indication:BMI 33.0-33.9,adult Start:03-Apr-2018 Instruction Type:Patient Education How to access health informa tion online - Detail Indication:BMI 33.0-33.9,adult Start:03-Apr-2018 Instruction Type:Patient Education Patient Instructions Indication:Sinusitis Start:03-Apr-2018 Instruction Type:Provider Instructions for Treatment How to access health informa tion online Indication:Non-smoker Start:21-Feb-2018 Instruction Type:Patient Education How to access health informa tion online - Detail Indication:Non-smoker Start:21-Feb-2018 Instruction Type:Patient Education Patient Instructions Indication:Non-smoker Start:21-Feb-2018 Instruction Type:Provider Instructions for Treatment How to access health informa tion online Indication:Weight gain Start:15-Jan-2018 Instruction Type:Patient Education How to access health informa tion online - Detail Indication:Weight gain Start:15-Jan-2018 Instruction Type:Patient Education Patient Instructions Indication:Weight gain Start:15-Jan-2018 Instruction Type:Provider Instructions for Treatment [facility]; [facility] Work Phone: Instructions* Name Dates Details Patient Instructions Indication:Cough Start:16-Oct-2022 Instruction Type:Provider Instructions for Treatment How to Access Health Informa tion Online using Patient Portal and 3rd [employer] Apps Indication:Cough Start:16-Oct-2022 Instruction Type:Patient Education Patient Instructions Indication:Non-smoker Start:03-Oct-2022 Instruction Type:Provider Instructions for Treatment How to Access Health Informa tion Online using Patient Portal and 3rd [employer] Apps Indication:Non-smoker Start:03-Oct-2022 Instruction Type:Patient Education Patient Instructions Indication:Non-smoker Start:24-Aug-2022 Instruction Type:Provider Instructions for Treatment How to Access Health Informa tion Online using Patient Portal and 3rd [employer] Apps Indication:Non-smoker Start:24-Aug-2022 Instruction Type:Patient Education Patient Instructions Indication:Non-smoker Start:29-Jan-2022 Instruction Type:Provider Instructions for Treatment How to Access Health Informa tion Online using Patient Portal and 3rd [employer] Apps Indication:Non-smoker Start:29-Jan-2022 Instruction Type:Patient Education Patient Instructions Indication:BMI 29.0-29.9,adult Start:08-Mar-2021 Instruction Type:Provider Instructions for Treatment How to Access Health Informa tion Online using Patient Portal and 3rd [employer] Apps Indication:BMI 29.0-29.9,adult Start:08-Mar-2021 Instruction Type:Patient Education Patient Instructions Indication:BMI 29.0-29.9,adult Start:06-Mar-2021 Instruction Type:Provider Instructions for Treatment How to Access Health Informa tion Online using Patient Portal and 3rd [employer] Apps Indication:BMI 29.0-29.9,adult Start:06-Mar-2021 Instruction Type:Patient Education Patient Instructions Indication:BMI 29.0-29.9,adult Start:23-Feb-2021 Instruction Type:Provider Instructions for Treatment How to Access Health Informa tion Online using Patient Portal and 3rd [employer] Apps Indication:BMI 29.0-29.9,adult Start:23-Feb-2021 Instruction Type:Patient Education Patient Instructions Indication:Non-smoker Start:09-Feb-2021 Instruction Type:Provider Instructions for Treatment How to Access Health Informa tion Online using Patient Portal and 3rd [employer] Apps Indication:Non-smoker Start:09-Feb-2021 Instruction Type:Patient Education Patient Instructions Indication:BMI 31.0-31.9,adult Start:22-Dec-2020 Instruction Type:Provider Instructions for Treatment How to Access Health Informa tion Online using Patient Portal and 3rd [employer] Apps Indication:BMI 31.0-31.9,adult Start:22-Dec-2020 Instruction Type:Patient Education Patient Instructions Indication:BMI 31.0-31.9,adult Start:30-Nov-2020 Instruction Type:Provider Instructions for Treatment How to Access Health Informa tion Online using Patient Portal and 3rd [employer] Apps Indication:BMI 31.0-31.9,adult Start:30-Nov-2020 Instruction Type:Patient Education Patient Instructions Indication:BMI 31.0-31.9,adult Start:13-Oct-2020 Instruction Type:Provider Instructions for Treatment How to Access Health Informa tion Online using Patient Portal and 3rd [employer] Apps Indication:BMI 31.0-31.9,adult Start:13-Oct-2020 Instruction Type:Patient Education How to Access Health Informa tion Online using Patient Portal and 3rd [employer] Apps Indication:Non-smoker Start:29-Aug-2020 Instruction Type:Patient Education Patient Instructions Indication:Non-smoker Start:29-Aug-2020 Instruction Type:Provider Instructions for Treatment How to Access Health Informa tion Online using Patient Portal and 3rd [employer] Apps Indication:Non-smoker Start:27-Jul-2020 Instruction Type:Patient Education Patient Instructions Indication:Non-smoker Start:27-Jul-2020 Instruction Type:Provider Instructions for Treatment How to Access Health Informa tion Online using Patient Portal and 3rd [employer] Apps Indication:Non-smoker Start:29-Jun-2020 Instruction Type:Patient Education Patient Instructions Indication:Non-smoker Start:29-Jun-2020 Instruction Type:Provider Instructions for Treatment How to Access Health Informa tion Online using Patient Portal and 3rd [employer] Apps Indication:Non-smoker Start:08-Jun-2020 Instruction Type:Patient Education Patient Instructions Indication:Non-smoker Start:08-Jun-2020 Instruction Type:Provider Instructions for Treatment Patient Instructions Indication:Non-smoker Start:23-May-2020 Instruction Type:Provider Instructions for Treatment How to Access Health Informa tion Online using Patient Portal and 3rd [employer] Apps Indication:Non-smoker Start:23-May-2020 Instruction Type:Patient Education Patient Instructions Indication:BMI 32.0-32.9,adult Start:09-May-2020 Instruction Type:Provider Instructions for Treatment How to Access Health Informa tion Online using Patient Portal and 3rd [employer] Apps Indication:BMI 32.0-32.9,adult Start:09-May-2020 Instruction Type:Patient Education Patient Instructions Indication:Non-smoker Start:25-Apr-2020 Instruction Type:Provider Instructions for Treatment How to Access Health Informa tion Online using Patient Portal and 3rd [employer] Apps Indication:Non-smoker Start:25-Apr-2020 Instruction Type:Patient Education How to Access Health Informa tion Online using Patient Portal and 3rd [employer] Apps Indication:Non-smoker Start:07-Apr-2020 Instruction Type:Patient Education Patient Instructions Indication:Non-smoker Start:07-Apr-2020 Instruction Type:Provider Instructions for Treatment How to access health informa tion online Indication:Non-smoker Start:10-Feb-2020 Instruction Type:Patient Education How to access health informa tion online - Detail Indication:Non-smoker Start:10-Feb-2020 Instruction Type:Patient Education Patient Instructions Indication:Non-smoker Start:10-Feb-2020 Instruction Type:Provider Instructions for Treatment How to access health informa tion online Indication:BMI 33.0-33.9,adult Start:09-Feb-2020 Instruction Type:Patient Education How to access health informa tion online - Detail Indication:BMI 33.0-33.9,adult Start:09-Feb-2020 Instruction Type:Patient Education Patient Instructions Indication:BMI 33.0-33.9,adult Start:09-Feb-2020 Instruction Type:Provider Instructions for Treatment How to access health informa tion online Indication:Non-smoker Start:08-Feb-2020 Instruction Type:Patient Education How to access health informa tion online - Detail Indication:Non-smoker Start:08-Feb-2020 Instruction Type:Patient Education Patient Instructions Indication:Non-smoker Start:08-Feb-2020 Instruction Type:Provider Instructions for Treatment How to access health informa tion online Indication:BMI 33.0-33.9,adult Start:01-Oct-2019 Instruction Type:Patient Education How to access health informa tion online - Detail Indication:BMI 33.0-33.9,adult Start:01-Oct-2019 Instruction Type:Patient Education Patient Instructions Indication:BMI 33.0-33.9,adult Start:01-Oct-2019 Instruction Type:Provider Instructions for Treatment How to access health informa tion online Indication:Non-smoker Start:10-Sep-2018 Instruction Type:Patient Education How to access health informa tion online - Detail Indication:Non-smoker Start:10-Sep-2018 Instruction Type:Patient Education How to access health informa tion online - Detail Indication:Non-smoker Start:10-Sep-2018 Instruction Type:Patient Education Patient Instructions Indication:Non-smoker Start:10-Sep-2018 Instruction Type:Provider Instructions for Treatment How to access health informa tion online Indication:Skin lesion Start:30-Jul-2018 Instruction Type:Patient Education How to access health informa tion online - Detail Indication:Skin lesion Start:30-Jul-2018 Instruction Type:Patient Education Patient Instructions Indication:Skin lesion Start:30-Jul-2018 Instruction Type:Provider Instructions for Treatment How to access health informa tion online Indication:Non-smoker Start:30-May-2018 Instruction Type:Patient Education How to access health informa tion online - Detail Indication:Non-smoker Start:30-May-2018 Instruction Type:Patient Education Patient Instructions Indication:Non-smoker Start:30-May-2018 Instruction Type:Provider Instructions for Treatment How to access health informa tion online Indication:BMI 33.0-33.9,adult Start:03-Apr-2018 Instruction Type:Patient Education How to access health informa tion online - Detail Indication:BMI 33.0-33.9,adult Start:03-Apr-2018 Instruction Type:Patient Education Patient Instructions Indication:Sinusitis Start:03-Apr-2018 Instruction Type:Provider Instructions for Treatment How to access health informa tion online Indication:Non-smoker Start:21-Feb-2018 Instruction Type:Patient Education How to access health informa tion online - Detail Indication:Non-smoker Start:21-Feb-2018 Instruction Type:Patient Education Patient Instructions Indication:Non-smoker Start:21-Feb-2018 Instruction Type:Provider Instructions for Treatment How to access health informa tion online Indication:Weight gain Start:15-Jan-2018 Instruction Type:Patient Education How to access health informa tion online - Detail Indication:Weight gain Start:15-Jan-2018 Instruction Type:Patient Education Patient Instructions Indication:Weight gain Start:15-Jan-2018 Instruction Type:Provider Instructions for Treatment [facility]; [facility] Work Phone: reason for referral (narrative)* Outpatient Procedure (Routine) - Authorized Specialty Diagnoses / Procedures Referred By Contac t Referred To Contact [facility] Diagnoses Cardiomyopathy, nonischemic (HCC) Procedures ECHO ECHO TTHRC R-T 2D W/WOM-MODE COMPL SPEC&COLRichard Guallpa MD [address] [address] Referral ID Status Reason Start Date Expiration Date Visits Requested Visits Authorized [id number] Authorized Auto-Generat ed Referral 09/14/2021 09/14/2022 1 1 [facility] for referral (narrative)* Outpatient Procedure (Routine) - Pending Review Specialty Diagnoses / Procedures Referred By Contac t Referred To Contact [facility] Diagnoses Cardiomyopathy, nonischemic (HCC) Chronic systolic heart failure (HCC) Procedures ECHO ECHO TTHRC R-T 2D W/WOM-MODE COMPL SPEC&COLRichard Guallpa MD [address] [place] [address] [address] Referral ID Status Reason Start Date Expiration Date Visits Requested Visits Authorized [id number] Pending Review Auto-Generat ed Referral 07/08/2022 10/06/2022 1 1 [facility] for referral (narrative)No reason for referral information availableWAk[facility] Work Phone: Family History No Family History Records FoundUnknown Family Member Name Dates Details Alcohol Abuse Comments:Mother. Maternal Gr andmother. Status:Active Basal Cell Carcinoma Comments:Mother. Status:Active COPD Comments:Mother. Maternal Gr andfather. Status:Active Diabetes Mellitus Comments:Paternal Grandmothe r. Brother. Status:Active Diabetes Mellitus Type I Comments:Father. Status:Active Heart Disease Comments:Father. Paternal Gr andfather. Status:Active Hypercholesterolemia Comments:Father. Status:Active Hypertension Comments:Brother. Status:Active Unknown Family Member Name Dates Details Alcohol Abuse Comments:Mother. Maternal Gr andmother. Status:Active Basal Cell Carcinoma Comments:Mother. Status:Active COPD Comments:Mother. Maternal Gr andfather. Status:Active Diabetes Mellitus Comments:Paternal Grandmothe r. Brother. Status:Active Diabetes Mellitus Type I Comments:Father. Status:Active Heart Disease Comments:Father. Paternal Gr andfather. Status:Active Hypercholesterolemia Comments:Father. Status:Active Hypertension Comments:Brother. Status:Active Unknown Family Member Name Dates Details Alcohol Abuse Comments:Mother. Maternal Gr andmother. Status:Active Basal Cell Carcinoma Comments:Mother. Status:Active COPD Comments:Mother. Maternal Gr andfather. Status:Active Diabetes Mellitus Comments:Paternal Grandmothe r. Brother. Status:Active Diabetes Mellitus Type I Comments:Father. Status:Active Heart Disease Comments:Father. Paternal Gr andfather. Status:Active Hypercholesterolemia Comments:Father. Status:Active Hypertension Comments:Brother. Status:Active Unknown Family Member Name Dates Details Alcohol Abuse Comments:Mother. Maternal Gr andmother. Status:Active Basal Cell Carcinoma Comments:Mother. Status:Active COPD Comments:Mother. Maternal Gr andfather. Status:Active Diabetes Mellitus Comments:Paternal Grandmothe r. Brother. Status:Active Diabetes Mellitus Type I Comments:Father. Status:Active Heart Disease Comments:Father. Paternal Gr andfather. Status:Active Hypercholesterolemia Comments:Father. Status:Active Hypertension Comments:Brother. Status:Active Unknown Family Member Name Dates Details Alcohol Abuse Comments:Mother. Maternal Gr andmother. Status:Active Basal Cell Carcinoma Comments:Mother. Status:Active COPD Comments:Mother. Maternal Gr andfather. Status:Active Diabetes Mellitus Comments:Paternal Grandmothe r. Brother. Status:Active Diabetes Mellitus Type I Comments:Father. Status:Active Heart Disease Comments:Father. Paternal Gr andfather. Status:Active Hypercholesterolemia Comments:Father. Status:Active Hypertension Comments:Brother. Status:Active Unknown Family Member Name Dates Details Alcohol Abuse Comments:Mother. Maternal Gr andmother. Status:Active Basal Cell Carcinoma Comments:Mother. Status:Active COPD Comments:Mother. Maternal Gr andfather. Status:Active Diabetes Mellitus Comments:Paternal Grandmothe r. Brother. Status:Active Diabetes Mellitus Type I Comments:Father. Status:Active Heart Disease Comments:Father. Paternal Gr andfather. Status:Active Hypercholesterolemia Comments:Father. Status:Active Hypertension Comments:Brother. Status:Active Unknown Family Member Name Dates Details Alcohol Abuse Comments:Mother. Maternal Gr andmother. Status:Active Basal Cell Carcinoma Comments:Mother. Status:Active COPD Comments:Mother. Maternal Gr andfather. Status:Active Diabetes Mellitus Comments:Paternal Grandmothe r. Brother. Status:Active Diabetes Mellitus Type I Comments:Father. Status:Active Heart Disease Comments:Father. Paternal Gr andfather. Status:Active Hypercholesterolemia Comments:Father. Status:Active Hypertension Comments:Brother. Status:Active Unknown Family Member Name Dates Details Alcohol Abuse Comments:Mother. Maternal Gr andmother. Status:Active Basal Cell Carcinoma Comments:Mother. Status:Active COPD Comments:Mother. Maternal Gr andfather. Status:Active Diabetes Mellitus Comments:Paternal Grandmothe r. Brother. Status:Active Diabetes Mellitus Type I Comments:Father. Status:Active Heart Disease Comments:Father. Paternal Gr andfather. Status:Active Hypercholesterolemia Comments:Father. Status:Active Hypertension Comments:Brother. Status:Active Unknown Family Member Name Dates Details Alcohol Abuse Comments:Mother. Maternal Gr andmother. Status:Active Basal Cell Carcinoma Comments:Mother. Status:Active COPD Comments:Mother. Maternal Gr andfather. Status:Active Diabetes Mellitus Comments:Paternal Grandmothe r. Brother. Status:Active Diabetes Mellitus Type I Comments:Father. Status:Active Heart Disease Comments:Father. Paternal Gr andfather. Status:Active Hypercholesterolemia Comments:Father. Status:Active Hypertension Comments:Brother. Status:Active Unknown Family Member Name Dates Details Alcohol Abuse Comments:Mother. Maternal Gr andmother. Status:Active Basal Cell Carcinoma Comments:Mother. Status:Active COPD Comments:Mother. Maternal Gr andfather. Status:Active Diabetes Mellitus Comments:Paternal Grandmothe r. Brother. Status:Active Diabetes Mellitus Type I Comments:Father. Status:Active Heart Disease Comments:Father. Paternal Gr andfather. Status:Active Hypercholesterolemia Comments:Father. Status:Active Hypertension Comments:Brother. Status:Active Unknown Family Member Name Dates Details Alcohol Abuse Comments:Mother. Maternal Gr andmother. Status:Active Basal Cell Carcinoma Comments:Mother. Status:Active COPD Comments:Mother. Maternal Gr andfather. Status:Active Diabetes Mellitus Comments:Paternal Grandmothe r. Brother. Status:Active Diabetes Mellitus Type I Comments:Father. Status:Active Heart Disease Comments:Father. Paternal Gr andfather. Status:Active Hypercholesterolemia Comments:Father. Status:Active Hypertension Comments:Brother. Status:Active Unknown Family Member Name Dates Details Alcohol Abuse Comments:Mother. Maternal Gr andmother. Status:Active Basal Cell Carcinoma Comments:Mother. Status:Active COPD Comments:Mother. Maternal Gr andfather. Status:Active Diabetes Mellitus Comments:Paternal Grandmothe r. Brother. Status:Active Diabetes Mellitus Type I Comments:Father. Status:Active Heart Disease Comments:Father. Paternal Gr andfather. Status:Active Hypercholesterolemia Comments:Father. Status:Active Hypertension Comments:Brother. Status:Active Unknown Family Member Name Dates Details Alcohol Abuse Comments:Mother. Maternal Gr andmother. Status:Active Basal Cell Carcinoma Comments:Mother. Status:Active COPD Comments:Mother. Maternal Gr andfather. Status:Active Diabetes Mellitus Comments:Paternal Grandmothe r. Brother. Status:Active Diabetes Mellitus Type I Comments:Father. Status:Active Heart Disease Comments:Father. Paternal Gr andfather. Status:Active Hypercholesterolemia Comments:Father. Status:Active Hypertension Comments:Brother. Status:Active Unknown Family Member Name Dates Details Alcohol Abuse Comments:Mother. Maternal Gr andmother. Status:Active Basal Cell Carcinoma Comments:Mother. Status:Active COPD Comments:Mother. Maternal Gr andfather. Status:Active Diabetes Mellitus Comments:Paternal Grandmothe r. Brother. Status:Active Diabetes Mellitus Type I Comments:Father. Status:Active Heart Disease Comments:Father. Paternal Gr andfather. Status:Active Hypercholesterolemia Comments:Father. Status:Active Hypertension Comments:Brother. Status:Active Unknown Family Member Name Dates Details Alcohol Abuse Comments:Mother. Maternal Gr andmother. Status:Active Basal Cell Carcinoma Comments:Mother. Status:Active COPD Comments:Mother. Maternal Gr andfather. Status:Active Diabetes Mellitus Comments:Paternal Grandmothe r. Brother. Status:Active Diabetes Mellitus Type I Comments:Father. Status:Active Heart Disease Comments:Father. Paternal Gr andfather. Status:Active Hypercholesterolemia Comments:Father. Status:Active Hypertension Comments:Brother. Status:Active Unknown Family Member Name Dates Details Alcohol Abuse Comments:Mother. Maternal Gr andmother. Status:Active Basal Cell Carcinoma Comments:Mother. Status:Active COPD Comments:Mother. Maternal Gr andfather. Status:Active Diabetes Mellitus Comments:Paternal Grandmothe r. Brother. Status:Active Diabetes Mellitus Type I Comments:Father. Status:Active Heart Disease Comments:Father. Paternal Gr andfather. Status:Active Hypercholesterolemia Comments:Father. Status:Active Hypertension Comments:Brother. Status:Active Unknown Family Member Name Dates Details Alcohol Abuse Comments:Mother. Maternal Gr andmother. Status:Active Basal Cell Carcinoma Comments:Mother. Status:Active COPD Comments:Mother. Maternal Gr andfather. Status:Active Diabetes Mellitus Comments:Paternal Grandmothe r. Brother. Status:Active Diabetes Mellitus Type I Comments:Father. Status:Active Heart Disease Comments:Father. Paternal Gr andfather. Status:Active Hypercholesterolemia Comments:Father. Status:Active Hypertension Comments:Brother. Status:Active Unknown Family Member Name Dates Details Alcohol Abuse Comments:Mother. Maternal Gr andmother. Status:Active Basal Cell Carcinoma Comments:Mother. Status:Active COPD Comments:Mother. Maternal Gr andfather. Status:Active Diabetes Mellitus Comments:Paternal Grandmothe r. Brother. Status:Active Diabetes Mellitus Type I Comments:Father. Status:Active Heart Disease Comments:Father. Paternal Gr andfather. Status:Active Hypercholesterolemia Comments:Father. Status:Active Hypertension Comments:Brother. Status:Active Unknown Family Member Name Dates Details Alcohol Abuse Comments:Mother. Maternal Gr andmother. Status:Active Basal Cell Carcinoma Comments:Mother. Status:Active COPD Comments:Mother. Maternal Gr andfather. Status:Active Diabetes Mellitus Comments:Paternal Grandmothe r. Brother. Status:Active Diabetes Mellitus Type I Comments:Father. Status:Active Heart Disease Comments:Father. Paternal Gr andfather. Status:Active Hypercholesterolemia Comments:Father. Status:Active Hypertension Comments:Brother. Status:Active Unknown Family Member Name Dates Details Alcohol Abuse Comments:Mother. Maternal Gr andmother. Status:Active Basal Cell Carcinoma Comments:Mother. Status:Active COPD Comments:Mother. Maternal Gr andfather. Status:Active Diabetes Mellitus Comments:Paternal Grandmothe r. Brother. Status:Active Diabetes Mellitus Type I Comments:Father. Status:Active Heart Disease Comments:Father. Paternal Gr andfather. Status:Active Hypercholesterolemia Comments:Father. Status:Active Hypertension Comments:Brother. Status:Active Unknown Family Member Name Dates Details Alcohol Abuse Comments:Mother. Maternal Gr andmother. Status:Active Basal Cell Carcinoma Comments:Mother. Status:Active COPD Comments:Mother. Maternal Gr andfather. Status:Active Diabetes Mellitus Comments:Paternal Grandmothe r. Brother. Status:Active Diabetes Mellitus Type I Comments:Father. Status:Active Heart Disease Comments:Father. Paternal Gr andfather. Status:Active Hypercholesterolemia Comments:Father. Status:Active Hypertension Comments:Brother. Status:Active Unknown Family Member Name Dates Details Alcohol Abuse Comments:Mother. Maternal Gr andmother. Status:Active Basal Cell Carcinoma Comments:Mother. Status:Active COPD Comments:Mother. Maternal Gr andfather. Status:Active Diabetes Mellitus Comments:Paternal Grandmothe r. Brother. Status:Active Diabetes Mellitus Type I Comments:Father. Status:Active Heart Disease Comments:Father. Paternal Gr andfather. Status:Active Hypercholesterolemia Comments:Father. Status:Active Hypertension Comments:Brother. Status:Active Unknown Family Member Name Dates Details Alcohol Abuse Comments:Mother. Maternal Gr andmother. Status:Active Basal Cell Carcinoma Comments:Mother. Status:Active COPD Comments:Mother. Maternal Gr andfather. Status:Active Diabetes Mellitus Comments:Paternal Grandmothe r. Brother. Status:Active Diabetes Mellitus Type I Comments:Father. Status:Active Heart Disease Comments:Father. Paternal Gr andfather. Status:Active Hypercholesterolemia Comments:Father. Status:Active Hypertension Comments:Brother. Status:Active Unknown Family Member Name Dates Details Alcohol Abuse Comments:Mother. Maternal Gr andmother. Status:Active Basal Cell Carcinoma Comments:Mother. Status:Active COPD Comments:Mother. Maternal Gr andfather. Status:Active Diabetes Mellitus Comments:Paternal Grandmothe r. Brother. Status:Active Diabetes Mellitus Type I Comments:Father. Status:Active Heart Disease Comments:Father. Paternal Gr andfather. Status:Active Hypercholesterolemia Comments:Father. Status:Active Hypertension Comments:Brother. Status:Active Unknown Family Member Name Dates Details Alcohol Abuse Comments:Mother. Maternal Gr andmother. Status:Active Basal Cell Carcinoma Comments:Mother. Status:Active COPD Comments:Mother. Maternal Gr andfather. Status:Active Diabetes Mellitus Comments:Paternal Grandmothe r. Brother. Status:Active Diabetes Mellitus Type I Comments:Father. Status:Active Heart Disease Comments:Father. Paternal Gr andfather. Status:Active Hypercholesterolemia Comments:Father. Status:Active Hypertension Comments:Brother. Status:Active Unknown Family Member Name Dates Details Alcohol Abuse Comments:Mother. Maternal Gr andmother. Status:Active Basal Cell Carcinoma Comments:Mother. Status:Active COPD Comments:Mother. Maternal Gr andfather. Status:Active Diabetes Mellitus Comments:Paternal Grandmothe r. Brother. Status:Active Diabetes Mellitus Type I Comments:Father. Status:Active Heart Disease Comments:Father. Paternal Gr andfather. Status:Active Hypercholesterolemia Comments:Father. Status:Active Hypertension Comments:Brother. Status:Active Unknown Family Member Name Dates Details Alcohol Abuse Comments:Mother. Maternal Gr andmother. Status:Active Basal Cell Carcinoma Comments:Mother. Status:Active COPD Comments:Mother. Maternal Gr andfather. Status:Active Diabetes Mellitus Comments:Paternal Grandmothe r. Brother. Status:Active Diabetes Mellitus Type I Comments:Father. Status:Active Heart Disease Comments:Father. Paternal Gr andfather. Status:Active Hypercholesterolemia Comments:Father. Status:Active Hypertension Comments:Brother. Status:Active Unknown Family Member Name Dates Details Alcohol Abuse Comments:Mother. Maternal Gr andmother. Status:Active Basal Cell Carcinoma Comments:Mother. Status:Active COPD Comments:Mother. Maternal Gr andfather. Status:Active Diabetes Mellitus Comments:Paternal Grandmothe r. Brother. Status:Active Diabetes Mellitus Type I Comments:Father. Status:Active Heart Disease Comments:Father. Paternal Gr andfather. Status:Active Hypercholesterolemia Comments:Father. Status:Active Hypertension Comments:Brother. Status:Active Unknown Family Member Name Dates Details Alcohol Abuse Comments:Mother. Maternal Gr andmother. Status:Active Basal Cell Carcinoma Comments:Mother. Status:Active COPD Comments:Mother. Maternal Gr andfather. Status:Active Diabetes Mellitus Comments:Paternal Grandmothe r. Brother. Status:Active Diabetes Mellitus Type I Comments:Father. Status:Active Heart Disease Comments:Father. Paternal Gr andfather. Status:Active Hypercholesterolemia Comments:Father. Status:Active Hypertension Comments:Brother. Status:Active Unknown Family Member Name Dates Details Alcohol Abuse Comments:Mother. Maternal Gr andmother. Status:Active Basal Cell Carcinoma Comments:Mother. Status:Active COPD Comments:Mother. Maternal Gr andfather. Status:Active Diabetes Mellitus Comments:Paternal Grandmothe r. Brother. Status:Active Diabetes Mellitus Type I Comments:Father. Status:Active Heart Disease Comments:Father. Paternal Gr andfather. Status:Active Hypercholesterolemia Comments:Father. Status:Active Hypertension Comments:Brother. Status:Active Unknown Family Member Name Dates Details Alcohol Abuse Comments:Mother. Maternal Gr andmother. Status:Active Basal Cell Carcinoma Comments:Mother. Status:Active COPD Comments:Mother. Maternal Gr andfather. Status:Active Diabetes Mellitus Comments:Paternal Grandmothe r. Brother. Status:Active Diabetes Mellitus Type I Comments:Father. Status:Active Heart Disease Comments:Father. Paternal Gr andfather. Status:Active Hypercholesterolemia Comments:Father. Status:Active Hypertension Comments:Brother. Status:Active Unknown Family Member Name Dates Details Alcohol Abuse Comments:Mother. Maternal Gr andmother. Status:Active Basal Cell Carcinoma Comments:Mother. Status:Active COPD Comments:Mother. Maternal Gr andfather. Status:Active Diabetes Mellitus Comments:Paternal Grandmothe r. Brother. Status:Active Diabetes Mellitus Type I Comments:Father. Status:Active Heart Disease Comments:Father. Paternal Gr andfather. Status:Active Hypercholesterolemia Comments:Father. Status:Active Hypertension Comments:Brother. Status:Active Unknown Family Member Name Dates Details Alcohol Abuse Comments:Mother. Maternal Gr andmother. Status:Active Basal Cell Carcinoma Comments:Mother. Status:Active COPD Comments:Mother. Maternal Gr andfather. Status:Active Diabetes Mellitus Comments:Paternal Grandmothe r. Brother. Status:Active Diabetes Mellitus Type I Comments:Father. Status:Active Heart Disease Comments:Father. Paternal Gr andfather. Status:Active Hypercholesterolemia Comments:Father. Status:Active Hypertension Comments:Brother. Status:Active Unknown Family Member Name Dates Details Alcohol Abuse Comments:Mother. Maternal Gr andmother. Status:Active Basal Cell Carcinoma Comments:Mother. Status:Active COPD Comments:Mother. Maternal Gr andfather. Status:Active Diabetes Mellitus Comments:Paternal Grandmothe r. Brother. Status:Active Diabetes Mellitus Type I Comments:Father. Status:Active Heart Disease Comments:Father. Paternal Gr andfather. Status:Active Hypercholesterolemia Comments:Father. Status:Active Hypertension Comments:Brother. Status:Active Unknown Family Member Name Dates Details Alcohol Abuse Comments:Mother. Maternal Gr andmother. Status:Active Basal Cell Carcinoma Comments:Mother. Status:Active COPD Comments:Mother. Maternal Gr andfather. Status:Active Diabetes Mellitus Comments:Paternal Grandmothe r. Brother. Status:Active Diabetes Mellitus Type I Comments:Father. Status:Active Heart Disease Comments:Father. Paternal Gr andfather. Status:Active Hypercholesterolemia Comments:Father. Status:Active Hypertension Comments:Brother. Status:Active Unknown Family Member Name Dates Details Alcohol Abuse Comments:Mother. Maternal Gr andmother. Status:Active Basal Cell Carcinoma Comments:Mother. Status:Active COPD Comments:Mother. Maternal Gr andfather. Status:Active Diabetes Mellitus Comments:Paternal Grandmothe r. Brother. Status:Active Diabetes Mellitus Type I Comments:Father. Status:Active Heart Disease Comments:Father. Paternal Gr andfather. Status:Active Hypercholesterolemia Comments:Father. Status:Active Hypertension Comments:Brother. Status:Active Relationship Condition Age at Onset Recorded Date/T casandra Not Specified Diabetes mellitus Unknown Cardiac disease Unknown Malignant neoplasm Unknown Cardiomyopathy Unknown Unknown Family Member Name Dates Details Alcohol Abuse Comments:Mother. Maternal Gr andmother. Status:Active Basal Cell Carcinoma Comments:Mother. Status:Active COPD Comments:Mother. Maternal Gr andfather. Status:Active Diabetes Mellitus Comments:Paternal Grandmothe r. Brother. Status:Active Diabetes Mellitus Type I Comments:Father. Status:Active Heart Disease Comments:Father. Paternal Gr andfather. Status:Active Hypercholesterolemia Comments:Father. Status:Active Hypertension Comments:Brother. Status:Active Unknown Family Member Name Dates Details Alcohol Abuse Comments:Mother. Maternal Gr andmother. Status:Active Basal Cell Carcinoma Comments:Mother. Status:Active COPD Comments:Mother. Maternal Gr andfather. Status:Active Diabetes Mellitus Comments:Paternal Grandmothe r. Brother. Status:Active Diabetes Mellitus Type I Comments:Father. Status:Active Heart Disease Comments:Father. Paternal Gr andfather. Status:Active Hypercholesterolemia Comments:Father. Status:Active Hypertension Comments:Brother. Status:Active Unknown Family Member Name Dates Details Alcohol Abuse Comments:Mother. Maternal Gr andmother. Status:Active Basal Cell Carcinoma Comments:Mother. Status:Active COPD Comments:Mother. Maternal Gr andfather. Status:Active Diabetes Mellitus Comments:Paternal Grandmothe r. Brother. Status:Active Diabetes Mellitus Type I Comments:Father. Status:Active Heart Disease Comments:Father. Paternal Gr andfather. Status:Active Hypercholesterolemia Comments:Father. Status:Active Hypertension Comments:Brother. Status:Active Instructions Name Dates Details Non-smoker : How to access [facility] information online Indication:Non-smoker Non-smoker : How to access h ealth information online - Detail Indication:Non-smoker Non-smoker : Patient Instruc tions Indication:Non-smoker Weight gain : How to access health information online Indication:Weight gain Weight gain : How to access health information online - Detail Indication:Weight gain Weight gain : Patient Instru ctions Indication:Weight gain Name Dates Details Non-smoker : How to access h ealth information online Indication:Non-smoker Non-smoker : How to access h ealth information online - Detail Indication:Non-smoker Non-smoker : Patient Instruc tions Indication:Non-smoker Weight gain : How to access health information online Indication:Weight gain Weight gain : How to access health information online - Detail Indication:Weight gain Weight gain : Patient Instru ctions Indication:Weight gain Name Dates Details BMI 33.0-33.9,adult : How to access health information online Indication:BMI 33.0-33.9,adult BMI 33.0-33.9,adult : How to access health information online - Detail Indication:BMI 33.0-33.9,adult Sinusitis : Patient Instruct ions Indication:Sinusitis Non-smoker : How to access h ealth information online Indication:Non-smoker Non-smoker : How to access h ealth information online - Detail Indication:Non-smoker Non-smoker : Patient Instruc tions Indication:Non-smoker Weight gain : How to access health information online Indication:Weight gain Weight gain : How to access health information online - Detail Indication:Weight gain Weight gain : Patient Instru ctions Indication:Weight gain Name Dates Details BMI 33.0-33.9,adult : How to access health information online Indication:BMI 33.0-33.9,adult BMI 33.0-33.9,adult : How to access health information online - Detail Indication:BMI 33.0-33.9,adult Sinusitis : Patient Instruct ions Indication:Sinusitis Non-smoker : How to access h ealth information online Indication:Non-smoker Non-smoker : How to access h ealth information online - Detail Indication:Non-smoker Non-smoker : Patient Instruc tions Indication:Non-smoker Weight gain : How to access health information online Indication:Weight gain Weight gain : How to access health information online - Detail Indication:Weight gain Weight gain : Patient Instru ctions Indication:Weight gain Name Dates Details Non-smoker : How to access h ealth information online Indication:Non-smoker Non-smoker : How to access h ealth information online - Detail Indication:Non-smoker Non-smoker : Patient Instruc tions Indication:Non-smoker BMI 33.0-33.9,adult : How to access health information online Indication:BMI 33.0-33.9,adult BMI 33.0-33.9,adult : How to access health information online - Detail Indication:BMI 33.0-33.9,adult Sinusitis : Patient Instruct ions Indication:Sinusitis Weight gain : How to access health information online Indication:Weight gain Weight gain : How to access health information online - Detail Indication:Weight gain Weight gain : Patient Instru ctions Indication:Weight gain Name Dates Details Non-smoker : How to access h ealth information online Indication:Non-smoker Non-smoker : How to access h ealth information online - Detail Indication:Non-smoker Non-smoker : Patient Instruc tions Indication:Non-smoker BMI 33.0-33.9,adult : How to access health information online Indication:BMI 33.0-33.9,adult BMI 33.0-33.9,adult : How to access health information online - Detail Indication:BMI 33.0-33.9,adult Sinusitis : Patient Instruct ions Indication:Sinusitis Weight gain : How to access health information online Indication:Weight gain Weight gain : How to access health information online - Detail Indication:Weight gain Weight gain : Patient Instru ctions Indication:Weight gain Name Dates Details How to access health informa tion online Indication:Skin lesion Start:30-Jul-2018 Instruction Type:Patient Education How to access health informa tion online - Detail Indication:Skin lesion Start:30-Jul-2018 Instruction Type:Patient Education Patient Instructions Indication:Skin lesion Start:30-Jul-2018 Instruction Type:Provider Instructions for Treatment How to access health informa tion online Indication:Non-smoker Start:30-May-2018 Instruction Type:Patient Education How to access health informa tion online - Detail Indication:Non-smoker Start:30-May-2018 Instruction Type:Patient Education Patient Instructions Indication:Non-smoker Start:30-May-2018 Instruction Type:Provider Instructions for Treatment How to access health informa tion online Indication:BMI 33.0-33.9,adult Start:03-Apr-2018 Instruction Type:Patient Education How to access health informa tion online - Detail Indication:BMI 33.0-33.9,adult Start:03-Apr-2018 Instruction Type:Patient Education Patient Instructions Indication:Sinusitis Start:03-Apr-2018 Instruction Type:Provider Instructions for Treatment How to access health informa tion online Indication:Non-smoker Start:21-Feb-2018 Instruction Type:Patient Education How to access health informa tion online - Detail Indication:Non-smoker Start:21-Feb-2018 Instruction Type:Patient Education Patient Instructions Indication:Non-smoker Start:21-Feb-2018 Instruction Type:Provider Instructions for Treatment How to access health informa tion online Indication:Weight gain Start:15-Jan-2018 Instruction Type:Patient Education How to access health informa tion online - Detail Indication:Weight gain Start:15-Jan-2018 Instruction Type:Patient Education Patient Instructions Indication:Weight gain Start:15-Jan-2018 Instruction Type:Provider Instructions for Treatment Name Dates Details How to access health informa tion online Indication:Skin lesion Start:30-Jul-2018 Instruction Type:Patient Education How to access health informa tion online - Detail Indication:Skin lesion Start:30-Jul-2018 Instruction Type:Patient Education Patient Instructions Indication:Skin lesion Start:30-Jul-2018 Instruction Type:Provider Instructions for Treatment How to access health informa tion online Indication:Non-smoker Start:30-May-2018 Instruction Type:Patient Education How to access health informa tion online - Detail Indication:Non-smoker Start:30-May-2018 Instruction Type:Patient Education Patient Instructions Indication:Non-smoker Start:30-May-2018 Instruction Type:Provider Instructions for Treatment How to access health informa tion online Indication:BMI 33.0-33.9,adult Start:03-Apr-2018 Instruction Type:Patient Education How to access health informa tion online - Detail Indication:BMI 33.0-33.9,adult Start:03-Apr-2018 Instruction Type:Patient Education Patient Instructions Indication:Sinusitis Start:03-Apr-2018 Instruction Type:Provider Instructions for Treatment How to access health informa tion online Indication:Non-smoker Start:21-Feb-2018 Instruction Type:Patient Education How to access health informa tion online - Detail Indication:Non-smoker Start:21-Feb-2018 Instruction Type:Patient Education Patient Instructions Indication:Non-smoker Start:21-Feb-2018 Instruction Type:Provider Instructions for Treatment How to access health informa tion online Indication:Weight gain Start:15-Jan-2018 Instruction Type:Patient Education How to access health informa tion online - Detail Indication:Weight gain Start:15-Jan-2018 Instruction Type:Patient Education Patient Instructions Indication:Weight gain Start:15-Jan-2018 Instruction Type:Provider Instructions for Treatment Name Dates Details How to access health informa tion online Indication:Skin lesion Start:30-Jul-2018 Instruction Type:Patient Education How to access health informa tion online - Detail Indication:Skin lesion Start:30-Jul-2018 Instruction Type:Patient Education Patient Instructions Indication:Skin lesion Start:30-Jul-2018 Instruction Type:Provider Instructions for Treatment How to access health informa tion online Indication:Non-smoker Start:30-May-2018 Instruction Type:Patient Education How to access health informa tion online - Detail Indication:Non-smoker Start:30-May-2018 Instruction Type:Patient Education Patient Instructions Indication:Non-smoker Start:30-May-2018 Instruction Type:Provider Instructions for Treatment How to access health informa tion online Indication:BMI 33.0-33.9,adult Start:03-Apr-2018 Instruction Type:Patient Education How to access health informa tion online - Detail Indication:BMI 33.0-33.9,adult Start:03-Apr-2018 Instruction Type:Patient Education Patient Instructions Indication:Sinusitis Start:03-Apr-2018 Instruction Type:Provider Instructions for Treatment How to access health informa tion online Indication:Non-smoker Start:21-Feb-2018 Instruction Type:Patient Education How to access health informa tion online - Detail Indication:Non-smoker Start:21-Feb-2018 Instruction Type:Patient Education Patient Instructions Indication:Non-smoker Start:21-Feb-2018 Instruction Type:Provider Instructions for Treatment How to access health informa tion online Indication:Weight gain Start:15-Jan-2018 Instruction Type:Patient Education How to access health informa tion online - Detail Indication:Weight gain Start:15-Jan-2018 Instruction Type:Patient Education Patient Instructions Indication:Weight gain Start:15-Jan-2018 Instruction Type:Provider Instructions for Treatment Name Dates Details How to access health informa tion online Indication:Skin lesion Start:30-Jul-2018 Instruction Type:Patient Education How to access health informa tion online - Detail Indication:Skin lesion Start:30-Jul-2018 Instruction Type:Patient Education Patient Instructions Indication:Skin lesion Start:30-Jul-2018 Instruction Type:Provider Instructions for Treatment How to access health informa tion online Indication:Non-smoker Start:30-May-2018 Instruction Type:Patient Education How to access health informa tion online - Detail Indication:Non-smoker Start:30-May-2018 Instruction Type:Patient Education Patient Instructions Indication:Non-smoker Start:30-May-2018 Instruction Type:Provider Instructions for Treatment How to access health informa tion online Indication:BMI 33.0-33.9,adult Start:03-Apr-2018 Instruction Type:Patient Education How to access health informa tion online - Detail Indication:BMI 33.0-33.9,adult Start:03-Apr-2018 Instruction Type:Patient Education Patient Instructions Indication:Sinusitis Start:03-Apr-2018 Instruction Type:Provider Instructions for Treatment How to access health informa tion online Indication:Non-smoker Start:21-Feb-2018 Instruction Type:Patient Education How to access health informa tion online - Detail Indication:Non-smoker Start:21-Feb-2018 Instruction Type:Patient Education Patient Instructions Indication:Non-smoker Start:21-Feb-2018 Instruction Type:Provider Instructions for Treatment How to access health informa tion online Indication:Weight gain Start:15-Jan-2018 Instruction Type:Patient Education How to access health informa tion online - Detail Indication:Weight gain Start:15-Jan-2018 Instruction Type:Patient Education Patient Instructions Indication:Weight gain Start:15-Jan-2018 Instruction Type:Provider Instructions for Treatment Name Dates Details How to access health informa tion online Indication:Non-smoker Start:10-Sep-2018 Instruction Type:Patient Education How to access health informa tion online - Detail Indication:Non-smoker Start:10-Sep-2018 Instruction Type:Patient Education Patient Instructions Indication:Non-smoker Start:10-Sep-2018 Instruction Type:Provider Instructions for Treatment How to access health informa tion online Indication:Skin lesion Start:30-Jul-2018 Instruction Type:Patient Education How to access health informa tion online - Detail Indication:Skin lesion Start:30-Jul-2018 Instruction Type:Patient Education Patient Instructions Indication:Skin lesion Start:30-Jul-2018 Instruction Type:Provider Instructions for Treatment How to access health informa tion online Indication:Non-smoker Start:30-May-2018 Instruction Type:Patient Education How to access health informa tion online - Detail Indication:Non-smoker Start:30-May-2018 Instruction Type:Patient Education Patient Instructions Indication:Non-smoker Start:30-May-2018 Instruction Type:Provider Instructions for Treatment How to access health informa tion online Indication:BMI 33.0-33.9,adult Start:03-Apr-2018 Instruction Type:Patient Education How to access health informa tion online - Detail Indication:BMI 33.0-33.9,adult Start:03-Apr-2018 Instruction Type:Patient Education Patient Instructions Indication:Sinusitis Start:03-Apr-2018 Instruction Type:Provider Instructions for Treatment How to access health informa tion online Indication:Non-smoker Start:21-Feb-2018 Instruction Type:Patient Education How to access health informa tion online - Detail Indication:Non-smoker Start:21-Feb-2018 Instruction Type:Patient Education Patient Instructions Indication:Non-smoker Start:21-Feb-2018 Instruction Type:Provider Instructions for Treatment How to access health informa tion online Indication:Weight gain Start:15-Jan-2018 Instruction Type:Patient Education How to access health informa tion online - Detail Indication:Weight gain Start:15-Jan-2018 Instruction Type:Patient Education Patient Instructions Indication:Weight gain Start:15-Jan-2018 Instruction Type:Provider Instructions for Treatment Name Dates Details How to access health informa tion online Indication:Non-smoker Start:10-Sep-2018 Instruction Type:Patient Education How to access health informa tion online - Detail Indication:Non-smoker Start:10-Sep-2018 Instruction Type:Patient Education Patient Instructions Indication:Non-smoker Start:10-Sep-2018 Instruction Type:Provider Instructions for Treatment How to access health informa tion online Indication:Skin lesion Start:30-Jul-2018 Instruction Type:Patient Education How to access health informa tion online - Detail Indication:Skin lesion Start:30-Jul-2018 Instruction Type:Patient Education Patient Instructions Indication:Skin lesion Start:30-Jul-2018 Instruction Type:Provider Instructions for Treatment How to access health informa tion online Indication:Non-smoker Start:30-May-2018 Instruction Type:Patient Education How to access health informa tion online - Detail Indication:Non-smoker Start:30-May-2018 Instruction Type:Patient Education Patient Instructions Indication:Non-smoker Start:30-May-2018 Instruction Type:Provider Instructions for Treatment How to access health informa tion online Indication:BMI 33.0-33.9,adult Start:03-Apr-2018 Instruction Type:Patient Education How to access health informa tion online - Detail Indication:BMI 33.0-33.9,adult Start:03-Apr-2018 Instruction Type:Patient Education Patient Instructions Indication:Sinusitis Start:03-Apr-2018 Instruction Type:Provider Instructions for Treatment How to access health informa tion online Indication:Non-smoker Start:21-Feb-2018 Instruction Type:Patient Education How to access health informa tion online - Detail Indication:Non-smoker Start:21-Feb-2018 Instruction Type:Patient Education Patient Instructions Indication:Non-smoker Start:21-Feb-2018 Instruction Type:Provider Instructions for Treatment How to access health informa tion online Indication:Weight gain Start:15-Jan-2018 Instruction Type:Patient Education How to access health informa tion online - Detail Indication:Weight gain Start:15-Jan-2018 Instruction Type:Patient Education Patient Instructions Indication:Weight gain Start:15-Jan-2018 Instruction Type:Provider Instructions for Treatment Name Dates Details How to access health informa tion online Indication:Non-smoker Start:10-Sep-2018 Instruction Type:Patient Education How to access health informa tion online - Detail Indication:Non-smoker Start:10-Sep-2018 Instruction Type:Patient Education Patient Instructions Indication:Non-smoker Start:10-Sep-2018 Instruction Type:Provider Instructions for Treatment How to access health informa tion online Indication:Skin lesion Start:30-Jul-2018 Instruction Type:Patient Education How to access health informa tion online - Detail Indication:Skin lesion Start:30-Jul-2018 Instruction Type:Patient Education Patient Instructions Indication:Skin lesion Start:30-Jul-2018 Instruction Type:Provider Instructions for Treatment How to access health informa tion online Indication:Non-smoker Start:30-May-2018 Instruction Type:Patient Education How to access health informa tion online - Detail Indication:Non-smoker Start:30-May-2018 Instruction Type:Patient Education Patient Instructions Indication:Non-smoker Start:30-May-2018 Instruction Type:Provider Instructions for Treatment How to access health informa tion online Indication:BMI 33.0-33.9,adult Start:03-Apr-2018 Instruction Type:Patient Education How to access health informa tion online - Detail Indication:BMI 33.0-33.9,adult Start:03-Apr-2018 Instruction Type:Patient Education Patient Instructions Indication:Sinusitis Start:03-Apr-2018 Instruction Type:Provider Instructions for Treatment How to access health informa tion online Indication:Non-smoker Start:21-Feb-2018 Instruction Type:Patient Education How to access health informa tion online - Detail Indication:Non-smoker Start:21-Feb-2018 Instruction Type:Patient Education Patient Instructions Indication:Non-smoker Start:21-Feb-2018 Instruction Type:Provider Instructions for Treatment How to access health informa tion online Indication:Weight gain Start:15-Jan-2018 Instruction Type:Patient Education How to access health informa tion online - Detail Indication:Weight gain Start:15-Jan-2018 Instruction Type:Patient Education Patient Instructions Indication:Weight gain Start:15-Jan-2018 Instruction Type:Provider Instructions for Treatment Name Dates Details How to access health informa tion online Indication:BMI 33.0-33.9,adult Start:01-Oct-2019 Instruction Type:Patient Education How to access health informa tion online - Detail Indication:BMI 33.0-33.9,adult Start:01-Oct-2019 Instruction Type:Patient Education Patient Instructions Indication:BMI 33.0-33.9,adult Start:01-Oct-2019 Instruction Type:Provider Instructions for Treatment How to access health informa tion online Indication:Non-smoker Start:10-Sep-2018 Instruction Type:Patient Education How to access health informa tion online - Detail Indication:Non-smoker Start:10-Sep-2018 Instruction Type:Patient Education Patient Instructions Indication:Non-smoker Start:10-Sep-2018 Instruction Type:Provider Instructions for Treatment How to access health informa tion online Indication:Skin lesion Start:30-Jul-2018 Instruction Type:Patient Education How to access health informa tion online - Detail Indication:Skin lesion Start:30-Jul-2018 Instruction Type:Patient Education Patient Instructions Indication:Skin lesion Start:30-Jul-2018 Instruction Type:Provider Instructions for Treatment How to access health informa tion online Indication:Non-smoker Start:30-May-2018 Instruction Type:Patient Education How to access health informa tion online - Detail Indication:Non-smoker Start:30-May-2018 Instruction Type:Patient Education Patient Instructions Indication:Non-smoker Start:30-May-2018 Instruction Type:Provider Instructions for Treatment How to access health informa tion online Indication:BMI 33.0-33.9,adult Start:03-Apr-2018 Instruction Type:Patient Education How to access health informa tion online - Detail Indication:BMI 33.0-33.9,adult Start:03-Apr-2018 Instruction Type:Patient Education Patient Instructions Indication:Sinusitis Start:03-Apr-2018 Instruction Type:Provider Instructions for Treatment How to access health informa tion online Indication:Non-smoker Start:21-Feb-2018 Instruction Type:Patient Education How to access health informa tion online - Detail Indication:Non-smoker Start:21-Feb-2018 Instruction Type:Patient Education Patient Instructions Indication:Non-smoker Start:21-Feb-2018 Instruction Type:Provider Instructions for Treatment How to access health informa tion online Indication:Weight gain Start:15-Jan-2018 Instruction Type:Patient Education How to access health informa tion online - Detail Indication:Weight gain Start:15-Jan-2018 Instruction Type:Patient Education Patient Instructions Indication:Weight gain Start:15-Jan-2018 Instruction Type:Provider Instructions for Treatment Name Dates Details How to access health informa tion online Indication:Non-smoker Start:08-Feb-2020 Instruction Type:Patient Education How to access health informa tion online - Detail Indication:Non-smoker Start:08-Feb-2020 Instruction Type:Patient Education Patient Instructions Indication:Non-smoker Start:08-Feb-2020 Instruction Type:Provider Instructions for Treatment How to access health informa tion online Indication:BMI 33.0-33.9,adult Start:01-Oct-2019 Instruction Type:Patient Education How to access health informa tion online - Detail Indication:BMI 33.0-33.9,adult Start:01-Oct-2019 Instruction Type:Patient Education Patient Instructions Indication:BMI 33.0-33.9,adult Start:01-Oct-2019 Instruction Type:Provider Instructions for Treatment How to access health informa tion online Indication:Non-smoker Start:10-Sep-2018 Instruction Type:Patient Education How to access health informa tion online - Detail Indication:Non-smoker Start:10-Sep-2018 Instruction Type:Patient Education Patient Instructions Indication:Non-smoker Start:10-Sep-2018 Instruction Type:Provider Instructions for Treatment How to access health informa tion online Indication:Skin lesion Start:30-Jul-2018 Instruction Type:Patient Education How to access health informa tion online - Detail Indication:Skin lesion Start:30-Jul-2018 Instruction Type:Patient Education Patient Instructions Indication:Skin lesion Start:30-Jul-2018 Instruction Type:Provider Instructions for Treatment How to access health informa tion online Indication:Non-smoker Start:30-May-2018 Instruction Type:Patient Education How to access health informa tion online - Detail Indication:Non-smoker Start:30-May-2018 Instruction Type:Patient Education Patient Instructions Indication:Non-smoker Start:30-May-2018 Instruction Type:Provider Instructions for Treatment How to access health informa tion online Indication:BMI 33.0-33.9,adult Start:03-Apr-2018 Instruction Type:Patient Education How to access health informa tion online - Detail Indication:BMI 33.0-33.9,adult Start:03-Apr-2018 Instruction Type:Patient Education Patient Instructions Indication:Sinusitis Start:03-Apr-2018 Instruction Type:Provider Instructions for Treatment How to access health informa tion online Indication:Non-smoker Start:21-Feb-2018 Instruction Type:Patient Education How to access health informa tion online - Detail Indication:Non-smoker Start:21-Feb-2018 Instruction Type:Patient Education Patient Instructions Indication:Non-smoker Start:21-Feb-2018 Instruction Type:Provider Instructions for Treatment How to access health informa tion online Indication:Weight gain Start:15-Jan-2018 Instruction Type:Patient Education How to access health informa tion online - Detail Indication:Weight gain Start:15-Jan-2018 Instruction Type:Patient Education Patient Instructions Indication:Weight gain Start:15-Jan-2018 Instruction Type:Provider Instructions for Treatment Name Dates Details How to access health informa tion online Indication:Non-smoker Start:10-Feb-2020 Instruction Type:Patient Education How to access health informa tion online - Detail Indication:Non-smoker Start:10-Feb-2020 Instruction Type:Patient Education Patient Instructions Indication:Non-smoker Start:10-Feb-2020 Instruction Type:Provider Instructions for Treatment How to access health informa tion online Indication:BMI 33.0-33.9,adult Start:09-Feb-2020 Instruction Type:Patient Education How to access health informa tion online - Detail Indication:BMI 33.0-33.9,adult Start:09-Feb-2020 Instruction Type:Patient Education Patient Instructions Indication:BMI 33.0-33.9,adult Start:09-Feb-2020 Instruction Type:Provider Instructions for Treatment How to access health informa tion online Indication:Non-smoker Start:08-Feb-2020 Instruction Type:Patient Education How to access health informa tion online - Detail Indication:Non-smoker Start:08-Feb-2020 Instruction Type:Patient Education Patient Instructions Indication:Non-smoker Start:08-Feb-2020 Instruction Type:Provider Instructions for Treatment How to access health informa tion online Indication:BMI 33.0-33.9,adult Start:01-Oct-2019 Instruction Type:Patient Education How to access health informa tion online - Detail Indication:BMI 33.0-33.9,adult Start:01-Oct-2019 Instruction Type:Patient Education Patient Instructions Indication:BMI 33.0-33.9,adult Start:01-Oct-2019 Instruction Type:Provider Instructions for Treatment How to access health informa tion online Indication:Non-smoker Start:10-Sep-2018 Instruction Type:Patient Education How to access health informa tion online - Detail Indication:Non-smoker Start:10-Sep-2018 Instruction Type:Patient Education Patient Instructions Indication:Non-smoker Start:10-Sep-2018 Instruction Type:Provider Instructions for Treatment How to access health informa tion online Indication:Skin lesion Start:30-Jul-2018 Instruction Type:Patient Education How to access health informa tion online - Detail Indication:Skin lesion Start:30-Jul-2018 Instruction Type:Patient Education Patient Instructions Indication:Skin lesion Start:30-Jul-2018 Instruction Type:Provider Instructions for Treatment How to access health informa tion online Indication:Non-smoker Start:30-May-2018 Instruction Type:Patient Education How to access health informa tion online - Detail Indication:Non-smoker Start:30-May-2018 Instruction Type:Patient Education Patient Instructions Indication:Non-smoker Start:30-May-2018 Instruction Type:Provider Instructions for Treatment How to access health informa tion online Indication:BMI 33.0-33.9,adult Start:03-Apr-2018 Instruction Type:Patient Education How to access health informa tion online - Detail Indication:BMI 33.0-33.9,adult Start:03-Apr-2018 Instruction Type:Patient Education Patient Instructions Indication:Sinusitis Start:03-Apr-2018 Instruction Type:Provider Instructions for Treatment How to access health informa tion online Indication:Non-smoker Start:21-Feb-2018 Instruction Type:Patient Education How to access health informa tion online - Detail Indication:Non-smoker Start:21-Feb-2018 Instruction Type:Patient Education Patient Instructions Indication:Non-smoker Start:21-Feb-2018 Instruction Type:Provider Instructions for Treatment How to access health informa tion online Indication:Weight gain Start:15-Jan-2018 Instruction Type:Patient Education How to access health informa tion online - Detail Indication:Weight gain Start:15-Jan-2018 Instruction Type:Patient Education Patient Instructions Indication:Weight gain Start:15-Jan-2018 Instruction Type:Provider Instructions for Treatment Name Dates Details How to access health informa tion online Indication:Non-smoker Start:10-Feb-2020 Instruction Type:Patient Education How to access health informa tion online - Detail Indication:Non-smoker Start:10-Feb-2020 Instruction Type:Patient Education Patient Instructions Indication:Non-smoker Start:10-Feb-2020 Instruction Type:Provider Instructions for Treatment How to access health informa tion online Indication:BMI 33.0-33.9,adult Start:09-Feb-2020 Instruction Type:Patient Education How to access health informa tion online - Detail Indication:BMI 33.0-33.9,adult Start:09-Feb-2020 Instruction Type:Patient Education Patient Instructions Indication:BMI 33.0-33.9,adult Start:09-Feb-2020 Instruction Type:Provider Instructions for Treatment How to access health informa tion online Indication:Non-smoker Start:08-Feb-2020 Instruction Type:Patient Education How to access health informa tion online - Detail Indication:Non-smoker Start:08-Feb-2020 Instruction Type:Patient Education Patient Instructions Indication:Non-smoker Start:08-Feb-2020 Instruction Type:Provider Instructions for Treatment How to access health informa tion online Indication:BMI 33.0-33.9,adult Start:01-Oct-2019 Instruction Type:Patient Education How to access health informa tion online - Detail Indication:BMI 33.0-33.9,adult Start:01-Oct-2019 Instruction Type:Patient Education Patient Instructions Indication:BMI 33.0-33.9,adult Start:01-Oct-2019 Instruction Type:Provider Instructions for Treatment How to access health informa tion online Indication:Non-smoker Start:10-Sep-2018 Instruction Type:Patient Education How to access health informa tion online - Detail Indication:Non-smoker Start:10-Sep-2018 Instruction Type:Patient Education Patient Instructions Indication:Non-smoker Start:10-Sep-2018 Instruction Type:Provider Instructions for Treatment How to access health informa tion online Indication:Skin lesion Start:30-Jul-2018 Instruction Type:Patient Education How to access health informa tion online - Detail Indication:Skin lesion Start:30-Jul-2018 Instruction Type:Patient Education Patient Instructions Indication:Skin lesion Start:30-Jul-2018 Instruction Type:Provider Instructions for Treatment How to access health informa tion online Indication:Non-smoker Start:30-May-2018 Instruction Type:Patient Education How to access health informa tion online - Detail Indication:Non-smoker Start:30-May-2018 Instruction Type:Patient Education Patient Instructions Indication:Non-smoker Start:30-May-2018 Instruction Type:Provider Instructions for Treatment How to access health informa tion online Indication:BMI 33.0-33.9,adult Start:03-Apr-2018 Instruction Type:Patient Education How to access health informa tion online - Detail Indication:BMI 33.0-33.9,adult Start:03-Apr-2018 Instruction Type:Patient Education Patient Instructions Indication:Sinusitis Start:03-Apr-2018 Instruction Type:Provider Instructions for Treatment How to access health informa tion online Indication:Non-smoker Start:21-Feb-2018 Instruction Type:Patient Education How to access health informa tion online - Detail Indication:Non-smoker Start:21-Feb-2018 Instruction Type:Patient Education Patient Instructions Indication:Non-smoker Start:21-Feb-2018 Instruction Type:Provider Instructions for Treatment How to access health informa tion online Indication:Weight gain Start:15-Jan-2018 Instruction Type:Patient Education How to access health informa tion online - Detail Indication:Weight gain Start:15-Jan-2018 Instruction Type:Patient Education Patient Instructions Indication:Weight gain Start:15-Jan-2018 Instruction Type:Provider Instructions for Treatment Name Dates Details How to access health informa tion online Indication:Non-smoker Start:10-Feb-2020 Instruction Type:Patient Education How to access health informa tion online - Detail Indication:Non-smoker Start:10-Feb-2020 Instruction Type:Patient Education Patient Instructions Indication:Non-smoker Start:10-Feb-2020 Instruction Type:Provider Instructions for Treatment How to access health informa tion online Indication:BMI 33.0-33.9,adult Start:09-Feb-2020 Instruction Type:Patient Education How to access health informa tion online - Detail Indication:BMI 33.0-33.9,adult Start:09-Feb-2020 Instruction Type:Patient Education Patient Instructions Indication:BMI 33.0-33.9,adult Start:09-Feb-2020 Instruction Type:Provider Instructions for Treatment How to access health informa tion online Indication:Non-smoker Start:08-Feb-2020 Instruction Type:Patient Education How to access health informa tion online - Detail Indication:Non-smoker Start:08-Feb-2020 Instruction Type:Patient Education Patient Instructions Indication:Non-smoker Start:08-Feb-2020 Instruction Type:Provider Instructions for Treatment How to access health informa tion online Indication:BMI 33.0-33.9,adult Start:01-Oct-2019 Instruction Type:Patient Education How to access health informa tion online - Detail Indication:BMI 33.0-33.9,adult Start:01-Oct-2019 Instruction Type:Patient Education Patient Instructions Indication:BMI 33.0-33.9,adult Start:01-Oct-2019 Instruction Type:Provider Instructions for Treatment How to access health informa tion online Indication:Non-smoker Start:10-Sep-2018 Instruction Type:Patient Education How to access health informa tion online - Detail Indication:Non-smoker Start:10-Sep-2018 Instruction Type:Patient Education Patient Instructions Indication:Non-smoker Start:10-Sep-2018 Instruction Type:Provider Instructions for Treatment How to access health informa tion online Indication:Skin lesion Start:30-Jul-2018 Instruction Type:Patient Education How to access health informa tion online - Detail Indication:Skin lesion Start:30-Jul-2018 Instruction Type:Patient Education Patient Instructions Indication:Skin lesion Start:30-Jul-2018 Instruction Type:Provider Instructions for Treatment How to access health informa tion online Indication:Non-smoker Start:30-May-2018 Instruction Type:Patient Education How to access health informa tion online - Detail Indication:Non-smoker Start:30-May-2018 Instruction Type:Patient Education Patient Instructions Indication:Non-smoker Start:30-May-2018 Instruction Type:Provider Instructions for Treatment How to access health informa tion online Indication:BMI 33.0-33.9,adult Start:03-Apr-2018 Instruction Type:Patient Education How to access health informa tion online - Detail Indication:BMI 33.0-33.9,adult Start:03-Apr-2018 Instruction Type:Patient Education Patient Instructions Indication:Sinusitis Start:03-Apr-2018 Instruction Type:Provider Instructions for Treatment How to access health informa tion online Indication:Non-smoker Start:21-Feb-2018 Instruction Type:Patient Education How to access health informa tion online - Detail Indication:Non-smoker Start:21-Feb-2018 Instruction Type:Patient Education Patient Instructions Indication:Non-smoker Start:21-Feb-2018 Instruction Type:Provider Instructions for Treatment How to access health informa tion online Indication:Weight gain Start:15-Jan-2018 Instruction Type:Patient Education How to access health informa tion online - Detail Indication:Weight gain Start:15-Jan-2018 Instruction Type:Patient Education Patient Instructions Indication:Weight gain Start:15-Jan-2018 Instruction Type:Provider Instructions for Treatment Name Dates Details How to access health informa tion online Indication:Non-smoker Start:10-Sep-2018 Instruction Type:Patient Education How to access health informa tion online - Detail Indication:Non-smoker Start:10-Sep-2018 Instruction Type:Patient Education Patient Instructions Indication:Non-smoker Start:10-Sep-2018 Instruction Type:Provider Instructions for Treatment How to access health informa tion online Indication:Skin lesion Start:30-Jul-2018 Instruction Type:Patient Education How to access health informa tion online - Detail Indication:Skin lesion Start:30-Jul-2018 Instruction Type:Patient Education Patient Instructions Indication:Skin lesion Start:30-Jul-2018 Instruction Type:Provider Instructions for Treatment How to access health informa tion online Indication:Non-smoker Start:30-May-2018 Instruction Type:Patient Education How to access health informa tion online - Detail Indication:Non-smoker Start:30-May-2018 Instruction Type:Patient Education Patient Instructions Indication:Non-smoker Start:30-May-2018 Instruction Type:Provider Instructions for Treatment How to access health informa tion online Indication:BMI 33.0-33.9,adult Start:03-Apr-2018 Instruction Type:Patient Education How to access health informa tion online - Detail Indication:BMI 33.0-33.9,adult Start:03-Apr-2018 Instruction Type:Patient Education Patient Instructions Indication:Sinusitis Start:03-Apr-2018 Instruction Type:Provider Instructions for Treatment How to access health informa tion online Indication:Non-smoker Start:21-Feb-2018 Instruction Type:Patient Education How to access health informa tion online - Detail Indication:Non-smoker Start:21-Feb-2018 Instruction Type:Patient Education Patient Instructions Indication:Non-smoker Start:21-Feb-2018 Instruction Type:Provider Instructions for Treatment How to access health informa tion online Indication:Weight gain Start:15-Jan-2018 Instruction Type:Patient Education How to access health informa tion online - Detail Indication:Weight gain Start:15-Jan-2018 Instruction Type:Patient Education Patient Instructions Indication:Weight gain Start:15-Jan-2018 Instruction Type:Provider Instructions for Treatment Name Dates Details Patient Instructions Indication:Non-smoker Start:25-Apr-2020 Instruction Type:Provider Instructions for Treatment How to Access Health Informa tion Online using Patient Portal and [employer]rd [employer] Apps Indication:Non-smoker Start:25-Apr-2020 Instruction Type:Patient Education How to Access Health Informa tion Online using Patient Portal and [employer]rd [employer] Apps Indication:Non-smoker Start:07-Apr-2020 Instruction Type:Patient Education Patient Instructions Indication:Non-smoker Start:07-Apr-2020 Instruction Type:Provider Instructions for Treatment How to access health informa tion online Indication:Non-smoker Start:10-Feb-2020 Instruction Type:Patient Education How to access health informa tion online - Detail Indication:Non-smoker Start:10-Feb-2020 Instruction Type:Patient Education Patient Instructions Indication:Non-smoker Start:10-Feb-2020 Instruction Type:Provider Instructions for Treatment How to access health informa tion online Indication:BMI 33.0-33.9,adult Start:09-Feb-2020 Instruction Type:Patient Education How to access health informa tion online - Detail Indication:BMI 33.0-33.9,adult Start:09-Feb-2020 Instruction Type:Patient Education Patient Instructions Indication:BMI 33.0-33.9,adult Start:09-Feb-2020 Instruction Type:Provider Instructions for Treatment How to access health informa tion online Indication:Non-smoker Start:08-Feb-2020 Instruction Type:Patient Education How to access health informa tion online - Detail Indication:Non-smoker Start:08-Feb-2020 Instruction Type:Patient Education Patient Instructions Indication:Non-smoker Start:08-Feb-2020 Instruction Type:Provider Instructions for Treatment How to access health informa tion online Indication:BMI 33.0-33.9,adult Start:01-Oct-2019 Instruction Type:Patient Education How to access health informa tion online - Detail Indication:BMI 33.0-33.9,adult Start:01-Oct-2019 Instruction Type:Patient Education Patient Instructions Indication:BMI 33.0-33.9,adult Start:01-Oct-2019 Instruction Type:Provider Instructions for Treatment How to access health informa tion online Indication:Non-smoker Start:10-Sep-2018 Instruction Type:Patient Education How to access health informa tion online - Detail Indication:Non-smoker Start:10-Sep-2018 Instruction Type:Patient Education Patient Instructions Indication:Non-smoker Start:10-Sep-2018 Instruction Type:Provider Instructions for Treatment How to access health informa tion online Indication:Skin lesion Start:30-Jul-2018 Instruction Type:Patient Education How to access health informa tion online - Detail Indication:Skin lesion Start:30-Jul-2018 Instruction Type:Patient Education Patient Instructions Indication:Skin lesion Start:30-Jul-2018 Instruction Type:Provider Instructions for Treatment How to access health informa tion online Indication:Non-smoker Start:30-May-2018 Instruction Type:Patient Education How to access health informa tion online - Detail Indication:Non-smoker Start:30-May-2018 Instruction Type:Patient Education Patient Instructions Indication:Non-smoker Start:30-May-2018 Instruction Type:Provider Instructions for Treatment How to access health informa tion online Indication:BMI 33.0-33.9,adult Start:03-Apr-2018 Instruction Type:Patient Education How to access health informa tion online - Detail Indication:BMI 33.0-33.9,adult Start:03-Apr-2018 Instruction Type:Patient Education Patient Instructions Indication:Sinusitis Start:03-Apr-2018 Instruction Type:Provider Instructions for Treatment How to access health informa tion online Indication:Non-smoker Start:21-Feb-2018 Instruction Type:Patient Education How to access health informa tion online - Detail Indication:Non-smoker Start:21-Feb-2018 Instruction Type:Patient Education Patient Instructions Indication:Non-smoker Start:21-Feb-2018 Instruction Type:Provider Instructions for Treatment How to access health informa tion online Indication:Weight gain Start:15-Jan-2018 Instruction Type:Patient Education How to access health informa tion online - Detail Indication:Weight gain Start:15-Jan-2018 Instruction Type:Patient Education Patient Instructions Indication:Weight gain Start:15-Jan-2018 Instruction Type:Provider Instructions for Treatment Name Dates Details Patient Instructions Indication:BMI 32.0-32.9,adult Start:09-May-2020 Instruction Type:Provider Instructions for Treatment How to Access Health Informa tion Online using Patient Portal and 3rd [employer] Apps Indication:BMI 32.0-32.9,adult Start:09-May-2020 Instruction Type:Patient Education Patient Instructions Indication:Non-smoker Start:25-Apr-2020 Instruction Type:Provider Instructions for Treatment How to Access Health Informa tion Online using Patient Portal and [employer]rd [employer] Apps Indication:Non-smoker Start:25-Apr-2020 Instruction Type:Patient Education How to Access Health Informa tion Online using Patient Portal and [employer]rd [employer] Apps Indication:Non-smoker Start:07-Apr-2020 Instruction Type:Patient Education Patient Instructions Indication:Non-smoker Start:07-Apr-2020 Instruction Type:Provider Instructions for Treatment How to access health informa tion online Indication:Non-smoker Start:10-Feb-2020 Instruction Type:Patient Education How to access health informa tion online - Detail Indication:Non-smoker Start:10-Feb-2020 Instruction Type:Patient Education Patient Instructions Indication:Non-smoker Start:10-Feb-2020 Instruction Type:Provider Instructions for Treatment How to access health informa tion online Indication:BMI 33.0-33.9,adult Start:09-Feb-2020 Instruction Type:Patient Education How to access health informa tion online - Detail Indication:BMI 33.0-33.9,adult Start:09-Feb-2020 Instruction Type:Patient Education Patient Instructions Indication:BMI 33.0-33.9,adult Start:09-Feb-2020 Instruction Type:Provider Instructions for Treatment How to access health informa tion online Indication:Non-smoker Start:08-Feb-2020 Instruction Type:Patient Education How to access health informa tion online - Detail Indication:Non-smoker Start:08-Feb-2020 Instruction Type:Patient Education Patient Instructions Indication:Non-smoker Start:08-Feb-2020 Instruction Type:Provider Instructions for Treatment How to access health informa tion online Indication:BMI 33.0-33.9,adult Start:01-Oct-2019 Instruction Type:Patient Education How to access health informa tion online - Detail Indication:BMI 33.0-33.9,adult Start:01-Oct-2019 Instruction Type:Patient Education Patient Instructions Indication:BMI 33.0-33.9,adult Start:01-Oct-2019 Instruction Type:Provider Instructions for Treatment How to access health informa tion online Indication:Non-smoker Start:10-Sep-2018 Instruction Type:Patient Education How to access health informa tion online - Detail Indication:Non-smoker Start:10-Sep-2018 Instruction Type:Patient Education Patient Instructions Indication:Non-smoker Start:10-Sep-2018 Instruction Type:Provider Instructions for Treatment How to access health informa tion online Indication:Skin lesion Start:30-Jul-2018 Instruction Type:Patient Education How to access health informa tion online - Detail Indication:Skin lesion Start:30-Jul-2018 Instruction Type:Patient Education Patient Instructions Indication:Skin lesion Start:30-Jul-2018 Instruction Type:Provider Instructions for Treatment How to access health informa tion online Indication:Non-smoker Start:30-May-2018 Instruction Type:Patient Education How to access health informa tion online - Detail Indication:Non-smoker Start:30-May-2018 Instruction Type:Patient Education Patient Instructions Indication:Non-smoker Start:30-May-2018 Instruction Type:Provider Instructions for Treatment How to access health informa tion online Indication:BMI 33.0-33.9,adult Start:03-Apr-2018 Instruction Type:Patient Education How to access health informa tion online - Detail Indication:BMI 33.0-33.9,adult Start:03-Apr-2018 Instruction Type:Patient Education Patient Instructions Indication:Sinusitis Start:03-Apr-2018 Instruction Type:Provider Instructions for Treatment How to access health informa tion online Indication:Non-smoker Start:21-Feb-2018 Instruction Type:Patient Education How to access health informa tion online - Detail Indication:Non-smoker Start:21-Feb-2018 Instruction Type:Patient Education Patient Instructions Indication:Non-smoker Start:21-Feb-2018 Instruction Type:Provider Instructions for Treatment How to access health informa tion online Indication:Weight gain Start:15-Jan-2018 Instruction Type:Patient Education How to access health informa tion online - Detail Indication:Weight gain Start:15-Jan-2018 Instruction Type:Patient Education Patient Instructions Indication:Weight gain Start:15-Jan-2018 Instruction Type:Provider Instructions for Treatment Name Dates Details Patient Instructions Indication:BMI 32.0-32.9,adult Start:09-May-2020 Instruction Type:Provider Instructions for Treatment How to Access Health Informa tion Online using Patient Portal and 3rd [employer] Apps Indication:BMI 32.0-32.9,adult Start:09-May-2020 Instruction Type:Patient Education Patient Instructions Indication:Non-smoker Start:25-Apr-2020 Instruction Type:Provider Instructions for Treatment How to Access Health Informa tion Online using Patient Portal and [employer]rd [employer] Apps Indication:Non-smoker Start:25-Apr-2020 Instruction Type:Patient Education How to Access Health Informa tion Online using Patient Portal and [employer]rd [employer] Apps Indication:Non-smoker Start:07-Apr-2020 Instruction Type:Patient Education Patient Instructions Indication:Non-smoker Start:07-Apr-2020 Instruction Type:Provider Instructions for Treatment How to access health informa tion online Indication:Non-smoker Start:10-Feb-2020 Instruction Type:Patient Education How to access health informa tion online - Detail Indication:Non-smoker Start:10-Feb-2020 Instruction Type:Patient Education Patient Instructions Indication:Non-smoker Start:10-Feb-2020 Instruction Type:Provider Instructions for Treatment How to access health informa tion online Indication:BMI 33.0-33.9,adult Start:09-Feb-2020 Instruction Type:Patient Education How to access health informa tion online - Detail Indication:BMI 33.0-33.9,adult Start:09-Feb-2020 Instruction Type:Patient Education Patient Instructions Indication:BMI 33.0-33.9,adult Start:09-Feb-2020 Instruction Type:Provider Instructions for Treatment How to access health informa tion online Indication:Non-smoker Start:08-Feb-2020 Instruction Type:Patient Education How to access health informa tion online - Detail Indication:Non-smoker Start:08-Feb-2020 Instruction Type:Patient Education Patient Instructions Indication:Non-smoker Start:08-Feb-2020 Instruction Type:Provider Instructions for Treatment How to access health informa tion online Indication:BMI 33.0-33.9,adult Start:01-Oct-2019 Instruction Type:Patient Education How to access health informa tion online - Detail Indication:BMI 33.0-33.9,adult Start:01-Oct-2019 Instruction Type:Patient Education Patient Instructions Indication:BMI 33.0-33.9,adult Start:01-Oct-2019 Instruction Type:Provider Instructions for Treatment How to access health informa tion online Indication:Non-smoker Start:10-Sep-2018 Instruction Type:Patient Education How to access health informa tion online - Detail Indication:Non-smoker Start:10-Sep-2018 Instruction Type:Patient Education Patient Instructions Indication:Non-smoker Start:10-Sep-2018 Instruction Type:Provider Instructions for Treatment How to access health informa tion online Indication:Skin lesion Start:30-Jul-2018 Instruction Type:Patient Education How to access health informa tion online - Detail Indication:Skin lesion Start:30-Jul-2018 Instruction Type:Patient Education Patient Instructions Indication:Skin lesion Start:30-Jul-2018 Instruction Type:Provider Instructions for Treatment How to access health informa tion online Indication:Non-smoker Start:30-May-2018 Instruction Type:Patient Education How to access health informa tion online - Detail Indication:Non-smoker Start:30-May-2018 Instruction Type:Patient Education Patient Instructions Indication:Non-smoker Start:30-May-2018 Instruction Type:Provider Instructions for Treatment How to access health informa tion online Indication:BMI 33.0-33.9,adult Start:03-Apr-2018 Instruction Type:Patient Education How to access health informa tion online - Detail Indication:BMI 33.0-33.9,adult Start:03-Apr-2018 Instruction Type:Patient Education Patient Instructions Indication:Sinusitis Start:03-Apr-2018 Instruction Type:Provider Instructions for Treatment How to access health informa tion online Indication:Non-smoker Start:21-Feb-2018 Instruction Type:Patient Education How to access health informa tion online - Detail Indication:Non-smoker Start:21-Feb-2018 Instruction Type:Patient Education Patient Instructions Indication:Non-smoker Start:21-Feb-2018 Instruction Type:Provider Instructions for Treatment How to access health informa tion online Indication:Weight gain Start:15-Jan-2018 Instruction Type:Patient Education How to access health informa tion online - Detail Indication:Weight gain Start:15-Jan-2018 Instruction Type:Patient Education Patient Instructions Indication:Weight gain Start:15-Jan-2018 Instruction Type:Provider Instructions for Treatment Name Dates Details Patient Instructions Indication:BMI 32.0-32.9,adult Start:09-May-2020 Instruction Type:Provider Instructions for Treatment How to Access Health Informa tion Online using Patient Portal and 3rd [employer] Apps Indication:BMI 32.0-32.9,adult Start:09-May-2020 Instruction Type:Patient Education Patient Instructions Indication:Non-smoker Start:25-Apr-2020 Instruction Type:Provider Instructions for Treatment How to Access Health Informa tion Online using Patient Portal and [employer]rd [employer] Apps Indication:Non-smoker Start:25-Apr-2020 Instruction Type:Patient Education How to Access Health Informa tion Online using Patient Portal and [employer]rd [employer] Apps Indication:Non-smoker Start:07-Apr-2020 Instruction Type:Patient Education Patient Instructions Indication:Non-smoker Start:07-Apr-2020 Instruction Type:Provider Instructions for Treatment How to access health informa tion online Indication:Non-smoker Start:10-Feb-2020 Instruction Type:Patient Education How to access health informa tion online - Detail Indication:Non-smoker Start:10-Feb-2020 Instruction Type:Patient Education Patient Instructions Indication:Non-smoker Start:10-Feb-2020 Instruction Type:Provider Instructions for Treatment How to access health informa tion online Indication:BMI 33.0-33.9,adult Start:09-Feb-2020 Instruction Type:Patient Education How to access health informa tion online - Detail Indication:BMI 33.0-33.9,adult Start:09-Feb-2020 Instruction Type:Patient Education Patient Instructions Indication:BMI 33.0-33.9,adult Start:09-Feb-2020 Instruction Type:Provider Instructions for Treatment How to access health informa tion online Indication:Non-smoker Start:08-Feb-2020 Instruction Type:Patient Education How to access health informa tion online - Detail Indication:Non-smoker Start:08-Feb-2020 Instruction Type:Patient Education Patient Instructions Indication:Non-smoker Start:08-Feb-2020 Instruction Type:Provider Instructions for Treatment How to access health informa tion online Indication:BMI 33.0-33.9,adult Start:01-Oct-2019 Instruction Type:Patient Education How to access health informa tion online - Detail Indication:BMI 33.0-33.9,adult Start:01-Oct-2019 Instruction Type:Patient Education Patient Instructions Indication:BMI 33.0-33.9,adult Start:01-Oct-2019 Instruction Type:Provider Instructions for Treatment How to access health informa tion online Indication:Non-smoker Start:10-Sep-2018 Instruction Type:Patient Education How to access health informa tion online - Detail Indication:Non-smoker Start:10-Sep-2018 Instruction Type:Patient Education Patient Instructions Indication:Non-smoker Start:10-Sep-2018 Instruction Type:Provider Instructions for Treatment How to access health informa tion online Indication:Skin lesion Start:30-Jul-2018 Instruction Type:Patient Education How to access health informa tion online - Detail Indication:Skin lesion Start:30-Jul-2018 Instruction Type:Patient Education Patient Instructions Indication:Skin lesion Start:30-Jul-2018 Instruction Type:Provider Instructions for Treatment How to access health informa tion online Indication:Non-smoker Start:30-May-2018 Instruction Type:Patient Education How to access health informa tion online - Detail Indication:Non-smoker Start:30-May-2018 Instruction Type:Patient Education Patient Instructions Indication:Non-smoker Start:30-May-2018 Instruction Type:Provider Instructions for Treatment How to access health informa tion online Indication:BMI 33.0-33.9,adult Start:03-Apr-2018 Instruction Type:Patient Education How to access health informa tion online - Detail Indication:BMI 33.0-33.9,adult Start:03-Apr-2018 Instruction Type:Patient Education Patient Instructions Indication:Sinusitis Start:03-Apr-2018 Instruction Type:Provider Instructions for Treatment How to access health informa tion online Indication:Non-smoker Start:21-Feb-2018 Instruction Type:Patient Education How to access health informa tion online - Detail Indication:Non-smoker Start:21-Feb-2018 Instruction Type:Patient Education Patient Instructions Indication:Non-smoker Start:21-Feb-2018 Instruction Type:Provider Instructions for Treatment How to access health informa tion online Indication:Weight gain Start:15-Jan-2018 Instruction Type:Patient Education How to access health informa tion online - Detail Indication:Weight gain Start:15-Jan-2018 Instruction Type:Patient Education Patient Instructions Indication:Weight gain Start:15-Jan-2018 Instruction Type:Provider Instructions for Treatment Name Dates Details Patient Instructions Indication:Non-smoker Start:23-May-2020 Instruction Type:Provider Instructions for Treatment How to Access Health Informa tion Online using Patient Portal and [employer] Indication:Non-smoker Start:23-May-2020 Instruction Type:Patient Education Patient Instructions Indication:BMI 32.0-32.9,adult Start:09-May-2020 Instruction Type:Provider Instructions for Treatment How to Access Health Informa tion Online using Patient Portal and [employer] Apps Indication:BMI 32.0-32.9,adult Start:09-May-2020 Instruction Type:Patient Education Patient Instructions Indication:Non-smoker Start:25-Apr-2020 Instruction Type:Provider Instructions for Treatment How to Access Health Informa tion Online using Patient Portal and [employer] Apps Indication:Non-smoker Start:25-Apr-2020 Instruction Type:Patient Education How to Access Health Informa tion Online using Patient Portal and [employer] Apps Indication:Non-smoker Start:07-Apr-2020 Instruction Type:Patient Education Patient Instructions Indication:Non-smoker Start:07-Apr-2020 Instruction Type:Provider Instructions for Treatment How to access health informa tion online Indication:Non-smoker Start:10-Feb-2020 Instruction Type:Patient Education How to access health informa tion online - Detail Indication:Non-smoker Start:10-Feb-2020 Instruction Type:Patient Education Patient Instructions Indication:Non-smoker Start:10-Feb-2020 Instruction Type:Provider Instructions for Treatment How to access health informa tion online Indication:BMI 33.0-33.9,adult Start:09-Feb-2020 Instruction Type:Patient Education How to access health informa tion online - Detail Indication:BMI 33.0-33.9,adult Start:09-Feb-2020 Instruction Type:Patient Education Patient Instructions Indication:BMI 33.0-33.9,adult Start:09-Feb-2020 Instruction Type:Provider Instructions for Treatment How to access health informa tion online Indication:Non-smoker Start:08-Feb-2020 Instruction Type:Patient Education How to access health informa tion online - Detail Indication:Non-smoker Start:08-Feb-2020 Instruction Type:Patient Education Patient Instructions Indication:Non-smoker Start:08-Feb-2020 Instruction Type:Provider Instructions for Treatment How to access health informa tion online Indication:BMI 33.0-33.9,adult Start:01-Oct-2019 Instruction Type:Patient Education How to access health informa tion online - Detail Indication:BMI 33.0-33.9,adult Start:01-Oct-2019 Instruction Type:Patient Education Patient Instructions Indication:BMI 33.0-33.9,adult Start:01-Oct-2019 Instruction Type:Provider Instructions for Treatment How to access health informa tion online Indication:Non-smoker Start:10-Sep-2018 Instruction Type:Patient Education How to access health informa tion online - Detail Indication:Non-smoker Start:10-Sep-2018 Instruction Type:Patient Education Patient Instructions Indication:Non-smoker Start:10-Sep-2018 Instruction Type:Provider Instructions for Treatment How to access health informa tion online Indication:Skin lesion Start:30-Jul-2018 Instruction Type:Patient Education How to access health informa tion online - Detail Indication:Skin lesion Start:30-Jul-2018 Instruction Type:Patient Education Patient Instructions Indication:Skin lesion Start:30-Jul-2018 Instruction Type:Provider Instructions for Treatment How to access health informa tion online Indication:Non-smoker Start:30-May-2018 Instruction Type:Patient Education How to access health informa tion online - Detail Indication:Non-smoker Start:30-May-2018 Instruction Type:Patient Education Patient Instructions Indication:Non-smoker Start:30-May-2018 Instruction Type:Provider Instructions for Treatment How to access health informa tion online Indication:BMI 33.0-33.9,adult Start:03-Apr-2018 Instruction Type:Patient Education How to access health informa tion online - Detail Indication:BMI 33.0-33.9,adult Start:03-Apr-2018 Instruction Type:Patient Education Patient Instructions Indication:Sinusitis Start:03-Apr-2018 Instruction Type:Provider Instructions for Treatment How to access health informa tion online Indication:Non-smoker Start:21-Feb-2018 Instruction Type:Patient Education How to access health informa tion online - Detail Indication:Non-smoker Start:21-Feb-2018 Instruction Type:Patient Education Patient Instructions Indication:Non-smoker Start:21-Feb-2018 Instruction Type:Provider Instructions for Treatment How to access health informa tion online Indication:Weight gain Start:15-Jan-2018 Instruction Type:Patient Education How to access health informa tion online - Detail Indication:Weight gain Start:15-Jan-2018 Instruction Type:Patient Education Patient Instructions Indication:Weight gain Start:15-Jan-2018 Instruction Type:Provider Instructions for Treatment Name Dates Details How to access health informa tion online Indication:Non-smoker Start:10-Sep-2018 Instruction Type:Patient Education How to access health informa tion online - Detail Indication:Non-smoker Start:10-Sep-2018 Instruction Type:Patient Education Patient Instructions Indication:Non-smoker Start:10-Sep-2018 Instruction Type:Provider Instructions for Treatment How to access health informa tion online Indication:Skin lesion Start:30-Jul-2018 Instruction Type:Patient Education How to access health informa tion online - Detail Indication:Skin lesion Start:30-Jul-2018 Instruction Type:Patient Education Patient Instructions Indication:Skin lesion Start:30-Jul-2018 Instruction Type:Provider Instructions for Treatment How to access health informa tion online Indication:Non-smoker Start:30-May-2018 Instruction Type:Patient Education How to access health informa tion online - Detail Indication:Non-smoker Start:30-May-2018 Instruction Type:Patient Education Patient Instructions Indication:Non-smoker Start:30-May-2018 Instruction Type:Provider Instructions for Treatment How to access health informa tion online Indication:BMI 33.0-33.9,adult Start:03-Apr-2018 Instruction Type:Patient Education How to access health informa tion online - Detail Indication:BMI 33.0-33.9,adult Start:03-Apr-2018 Instruction Type:Patient Education Patient Instructions Indication:Sinusitis Start:03-Apr-2018 Instruction Type:Provider Instructions for Treatment How to access health informa tion online Indication:Non-smoker Start:21-Feb-2018 Instruction Type:Patient Education How to access health informa tion online - Detail Indication:Non-smoker Start:21-Feb-2018 Instruction Type:Patient Education Patient Instructions Indication:Non-smoker Start:21-Feb-2018 Instruction Type:Provider Instructions for Treatment How to access health informa tion online Indication:Weight gain Start:15-Jan-2018 Instruction Type:Patient Education How to access health informa tion online - Detail Indication:Weight gain Start:15-Jan-2018 Instruction Type:Patient Education Patient Instructions Indication:Weight gain Start:15-Jan-2018 Instruction Type:Provider Instructions for Treatment Name Dates Details How to access health informa tion online Indication:BMI 33.0-33.9,adult Start:09-Feb-2020 Instruction Type:Patient Education How to access health informa tion online - Detail Indication:BMI 33.0-33.9,adult Start:09-Feb-2020 Instruction Type:Patient Education Patient Instructions Indication:BMI 33.0-33.9,adult Start:09-Feb-2020 Instruction Type:Provider Instructions for Treatment How to access health informa tion online Indication:Non-smoker Start:08-Feb-2020 Instruction Type:Patient Education How to access health informa tion online - Detail Indication:Non-smoker Start:08-Feb-2020 Instruction Type:Patient Education Patient Instructions Indication:Non-smoker Start:08-Feb-2020 Instruction Type:Provider Instructions for Treatment How to access health informa tion online Indication:BMI 33.0-33.9,adult Start:01-Oct-2019 Instruction Type:Patient Education How to access health informa tion online - Detail Indication:BMI 33.0-33.9,adult Start:01-Oct-2019 Instruction Type:Patient Education Patient Instructions Indication:BMI 33.0-33.9,adult Start:01-Oct-2019 Instruction Type:Provider Instructions for Treatment How to access health informa tion online Indication:Non-smoker Start:10-Sep-2018 Instruction Type:Patient Education How to access health informa tion online - Detail Indication:Non-smoker Start:10-Sep-2018 Instruction Type:Patient Education Patient Instructions Indication:Non-smoker Start:10-Sep-2018 Instruction Type:Provider Instructions for Treatment How to access health informa tion online Indication:Skin lesion Start:30-Jul-2018 Instruction Type:Patient Education How to access health informa tion online - Detail Indication:Skin lesion Start:30-Jul-2018 Instruction Type:Patient Education Patient Instructions Indication:Skin lesion Start:30-Jul-2018 Instruction Type:Provider Instructions for Treatment How to access health informa tion online Indication:Non-smoker Start:30-May-2018 Instruction Type:Patient Education How to access health informa tion online - Detail Indication:Non-smoker Start:30-May-2018 Instruction Type:Patient Education Patient Instructions Indication:Non-smoker Start:30-May-2018 Instruction Type:Provider Instructions for Treatment How to access health informa tion online Indication:BMI 33.0-33.9,adult Start:03-Apr-2018 Instruction Type:Patient Education How to access health informa tion online - Detail Indication:BMI 33.0-33.9,adult Start:03-Apr-2018 Instruction Type:Patient Education Patient Instructions Indication:Sinusitis Start:03-Apr-2018 Instruction Type:Provider Instructions for Treatment How to access health informa tion online Indication:Non-smoker Start:21-Feb-2018 Instruction Type:Patient Education How to access health informa tion online - Detail Indication:Non-smoker Start:21-Feb-2018 Instruction Type:Patient Education Patient Instructions Indication:Non-smoker Start:21-Feb-2018 Instruction Type:Provider Instructions for Treatment How to access health informa tion online Indication:Weight gain Start:15-Jan-2018 Instruction Type:Patient Education How to access health informa tion online - Detail Indication:Weight gain Start:15-Jan-2018 Instruction Type:Patient Education Patient Instructions Indication:Weight gain Start:15-Jan-2018 Instruction Type:Provider Instructions for Treatment Name Dates Details How to Access Health Informa tion Online using Patient Portal and [employer] Apps Indication:Non-smoker Start:08-Jun-2020 Instruction Type:Patient Education Patient Instructions Indication:Non-smoker Start:08-Jun-2020 Instruction Type:Provider Instructions for Treatment Patient Instructions Indication:Non-smoker Start:23-May-2020 Instruction Type:Provider Instructions for Treatment How to Access Health Informa tion Online using Patient Portal and [employer] Apps Indication:Non-smoker Start:23-May-2020 Instruction Type:Patient Education Patient Instructions Indication:BMI 32.0-32.9,adult Start:09-May-2020 Instruction Type:Provider Instructions for Treatment How to Access Health Informa tion Online using Patient Portal and [employer]rd [employer] Apps Indication:BMI 32.0-32.9,adult Start:09-May-2020 Instruction Type:Patient Education Patient Instructions Indication:Non-smoker Start:25-Apr-2020 Instruction Type:Provider Instructions for Treatment How to Access Health Informa tion Online using Patient Portal and [employer] Apps Indication:Non-smoker Start:25-Apr-2020 Instruction Type:Patient Education How to Access Health Informa tion Online using Patient Portal and [employer] Apps Indication:Non-smoker Start:07-Apr-2020 Instruction Type:Patient Education Patient Instructions Indication:Non-smoker Start:07-Apr-2020 Instruction Type:Provider Instructions for Treatment How to access health informa tion online Indication:Non-smoker Start:10-Feb-2020 Instruction Type:Patient Education How to access health informa tion online - Detail Indication:Non-smoker Start:10-Feb-2020 Instruction Type:Patient Education Patient Instructions Indication:Non-smoker Start:10-Feb-2020 Instruction Type:Provider Instructions for Treatment How to access health informa tion online Indication:BMI 33.0-33.9,adult Start:09-Feb-2020 Instruction Type:Patient Education How to access health informa tion online - Detail Indication:BMI 33.0-33.9,adult Start:09-Feb-2020 Instruction Type:Patient Education Patient Instructions Indication:BMI 33.0-33.9,adult Start:09-Feb-2020 Instruction Type:Provider Instructions for Treatment How to access health informa tion online Indication:Non-smoker Start:08-Feb-2020 Instruction Type:Patient Education How to access health informa tion online - Detail Indication:Non-smoker Start:08-Feb-2020 Instruction Type:Patient Education Patient Instructions Indication:Non-smoker Start:08-Feb-2020 Instruction Type:Provider Instructions for Treatment How to access health informa tion online Indication:BMI 33.0-33.9,adult Start:01-Oct-2019 Instruction Type:Patient Education How to access health informa tion online - Detail Indication:BMI 33.0-33.9,adult Start:01-Oct-2019 Instruction Type:Patient Education Patient Instructions Indication:BMI 33.0-33.9,adult Start:01-Oct-2019 Instruction Type:Provider Instructions for Treatment How to access health informa tion online Indication:Non-smoker Start:10-Sep-2018 Instruction Type:Patient Education How to access health informa tion online - Detail Indication:Non-smoker Start:10-Sep-2018 Instruction Type:Patient Education Patient Instructions Indication:Non-smoker Start:10-Sep-2018 Instruction Type:Provider Instructions for Treatment How to access health informa tion online Indication:Skin lesion Start:30-Jul-2018 Instruction Type:Patient Education How to access health informa tion online - Detail Indication:Skin lesion Start:30-Jul-2018 Instruction Type:Patient Education Patient Instructions Indication:Skin lesion Start:30-Jul-2018 Instruction Type:Provider Instructions for Treatment How to access health informa tion online Indication:Non-smoker Start:30-May-2018 Instruction Type:Patient Education How to access health informa tion online - Detail Indication:Non-smoker Start:30-May-2018 Instruction Type:Patient Education Patient Instructions Indication:Non-smoker Start:30-May-2018 Instruction Type:Provider Instructions for Treatment How to access health informa tion online Indication:BMI 33.0-33.9,adult Start:03-Apr-2018 Instruction Type:Patient Education How to access health informa tion online - Detail Indication:BMI 33.0-33.9,adult Start:03-Apr-2018 Instruction Type:Patient Education Patient Instructions Indication:Sinusitis Start:03-Apr-2018 Instruction Type:Provider Instructions for Treatment How to access health informa tion online Indication:Non-smoker Start:21-Feb-2018 Instruction Type:Patient Education How to access health informa tion online - Detail Indication:Non-smoker Start:21-Feb-2018 Instruction Type:Patient Education Patient Instructions Indication:Non-smoker Start:21-Feb-2018 Instruction Type:Provider Instructions for Treatment How to access health informa tion online Indication:Weight gain Start:15-Jan-2018 Instruction Type:Patient Education How to access health informa tion online - Detail Indication:Weight gain Start:15-Jan-2018 Instruction Type:Patient Education Patient Instructions Indication:Weight gain Start:15-Jan-2018 Instruction Type:Provider Instructions for Treatment Name Dates Details How to Access Health Informa tion Online using Patient Portal and [employer] Apps Indication:Non-smoker Start:08-Jun-2020 Instruction Type:Patient Education Patient Instructions Indication:Non-smoker Start:08-Jun-2020 Instruction Type:Provider Instructions for Treatment Patient Instructions Indication:Non-smoker Start:23-May-2020 Instruction Type:Provider Instructions for Treatment How to Access Health Informa tion Online using Patient Portal and [employer] Apps Indication:Non-smoker Start:23-May-2020 Instruction Type:Patient Education Patient Instructions Indication:BMI 32.0-32.9,adult Start:09-May-2020 Instruction Type:Provider Instructions for Treatment How to Access Health Informa tion Online using Patient Portal and [employer] Apps Indication:BMI 32.0-32.9,adult Start:09-May-2020 Instruction Type:Patient Education Patient Instructions Indication:Non-smoker Start:25-Apr-2020 Instruction Type:Provider Instructions for Treatment How to Access Health Informa tion Online using Patient Portal and [employer] Apps Indication:Non-smoker Start:25-Apr-2020 Instruction Type:Patient Education How to Access Health Informa tion Online using Patient Portal and [employer] Apps Indication:Non-smoker Start:07-Apr-2020 Instruction Type:Patient Education Patient Instructions Indication:Non-smoker Start:07-Apr-2020 Instruction Type:Provider Instructions for Treatment How to access health informa tion online Indication:Non-smoker Start:10-Feb-2020 Instruction Type:Patient Education How to access health informa tion online - Detail Indication:Non-smoker Start:10-Feb-2020 Instruction Type:Patient Education Patient Instructions Indication:Non-smoker Start:10-Feb-2020 Instruction Type:Provider Instructions for Treatment How to access health informa tion online Indication:BMI 33.0-33.9,adult Start:09-Feb-2020 Instruction Type:Patient Education How to access health informa tion online - Detail Indication:BMI 33.0-33.9,adult Start:09-Feb-2020 Instruction Type:Patient Education Patient Instructions Indication:BMI 33.0-33.9,adult Start:09-Feb-2020 Instruction Type:Provider Instructions for Treatment How to access health informa tion online Indication:Non-smoker Start:08-Feb-2020 Instruction Type:Patient Education How to access health informa tion online - Detail Indication:Non-smoker Start:08-Feb-2020 Instruction Type:Patient Education Patient Instructions Indication:Non-smoker Start:08-Feb-2020 Instruction Type:Provider Instructions for Treatment How to access health informa tion online Indication:BMI 33.0-33.9,adult Start:01-Oct-2019 Instruction Type:Patient Education How to access health informa tion online - Detail Indication:BMI 33.0-33.9,adult Start:01-Oct-2019 Instruction Type:Patient Education Patient Instructions Indication:BMI 33.0-33.9,adult Start:01-Oct-2019 Instruction Type:Provider Instructions for Treatment How to access health informa tion online Indication:Non-smoker Start:10-Sep-2018 Instruction Type:Patient Education How to access health informa tion online - Detail Indication:Non-smoker Start:10-Sep-2018 Instruction Type:Patient Education Patient Instructions Indication:Non-smoker Start:10-Sep-2018 Instruction Type:Provider Instructions for Treatment How to access health informa tion online Indication:Skin lesion Start:30-Jul-2018 Instruction Type:Patient Education How to access health informa tion online - Detail Indication:Skin lesion Start:30-Jul-2018 Instruction Type:Patient Education Patient Instructions Indication:Skin lesion Start:30-Jul-2018 Instruction Type:Provider Instructions for Treatment How to access health informa tion online Indication:Non-smoker Start:30-May-2018 Instruction Type:Patient Education How to access health informa tion online - Detail Indication:Non-smoker Start:30-May-2018 Instruction Type:Patient Education Patient Instructions Indication:Non-smoker Start:30-May-2018 Instruction Type:Provider Instructions for Treatment How to access health informa tion online Indication:BMI 33.0-33.9,adult Start:03-Apr-2018 Instruction Type:Patient Education How to access health informa tion online - Detail Indication:BMI 33.0-33.9,adult Start:03-Apr-2018 Instruction Type:Patient Education Patient Instructions Indication:Sinusitis Start:03-Apr-2018 Instruction Type:Provider Instructions for Treatment How to access health informa tion online Indication:Non-smoker Start:21-Feb-2018 Instruction Type:Patient Education How to access health informa tion online - Detail Indication:Non-smoker Start:21-Feb-2018 Instruction Type:Patient Education Patient Instructions Indication:Non-smoker Start:21-Feb-2018 Instruction Type:Provider Instructions for Treatment How to access health informa tion online Indication:Weight gain Start:15-Jan-2018 Instruction Type:Patient Education How to access health informa tion online - Detail Indication:Weight gain Start:15-Jan-2018 Instruction Type:Patient Education Patient Instructions Indication:Weight gain Start:15-Jan-2018 Instruction Type:Provider Instructions for Treatment Advance Directives No Advanced Directives Records Found Advance Directive Response Recorded Date/ Time Living Will No March 27 4:20pm Power of Coal Washer No March 27, 2015 4:20pm Summary Purpose Reason for Referral Specialty Diagnoses / Procedures Referred By Marci t Referred To Contact Procedures CARDIOVASCULAR MEDICINE OP FOLLOW UP APPT ORDER Richard Meyer MD [address] [place] [address] Referral ID Status Reason Start Date Expiration Date Visits Requested Visits Authorized [id number] Ref Not Required PCP Requested Referral 05/02/2023 05/01/2024 1 1 Chief Complaint and Reason for Visit Chief Complaint Admit Date SCREENING October 01, 2024 11:5 6am Additional Source Comments Source Comments (unrecognize d section and content) In the event this informatio n is protected by the Federal Confidentiality of Alcohol and Drug Abuse Patient Records regulations: The Federal rules restrict any use of the information to criminally investigate or prosecute any alcohol or drug abuse patient.[facility] the event this information is protected by the Federal Confidentiality of Alcohol and Drug Abuse Patient Records regulations: The Federal rules restrict any use of the information to criminally investigate or prosecute any alcohol or drug abuse patient.[facility] the event this information is protected by the Federal Confidentiality of Alcohol and Drug Abuse Patient Records regulations: The Federal rules restrict any use of the information to criminally investigate or prosecute any alcohol or drug abuse patient.[facility] the event this information is protected by the Federal Confidentiality of Alcohol and Drug Abuse Patient Records regulations: The Federal rules restrict any use of the information to criminally investigate or prosecute any alcohol or drug abuse patient.[facility] the event this information is protected by the Federal Confidentiality of Alcohol and Drug Abuse Patient Records regulations: The Federal rules restrict any use of the information to criminally investigate or prosecute any alcohol or drug abuse patient.[facility] the event this information is protected by the Federal Confidentiality of Alcohol and Drug Abuse Patient Records regulations: The Federal rules restrict any use of the information to criminally investigate or prosecute any alcohol or drug abuse patient.[facility] the event this information is protected by the Federal Confidentiality of Alcohol and Drug Abuse Patient Records regulations: The Federal rules restrict any use of the information to criminally investigate or prosecute any alcohol or drug abuse patient.[facility] the event this information is protected by the Federal Confidentiality of Alcohol and Drug Abuse Patient Records regulations: The Federal rules restrict any use of the information to criminally investigate or prosecute any alcohol or drug abuse patient.[facility] Reason for Visit (unrecogniz ed section and content) Reason Comments Refill Request Reason Comments Follow Up Reason Onset Date Comments Refill Request 04/13/2024 Care Teams (unrecognized sec tion and content) Pipe Caulker Relationship Specialty Start Date End Date Nadine Mcgraw DO [address] [place] [address] PCP - General Internal Medicine 06/16/18 Richard Meyer MD [address] [place] [address] Primary Staff Physician Cardiology 05/27/18 Pipe Caulker Relationship Specialty Start Date End Date Nadine Mcgraw DO [address] [place] [address] PCP - General Internal Medicine 06/16/18 Richard Meyer MD [address] [place] [address] Primary Staff Physician Cardiology 05/27/18 Pipe Caulker Relationship Specialty Start Date End Date Nadine Mcgraw, [address] [place] [address] PCP - General Internal Medicine 06/16/18 Richard Meyer MD [address] [place] [address] Primary Staff Physician Cardiology 05/27/18 Pipe Caulker Relationship Specialty Start Date End Date Nadine Mcgraw DO [address] [facility] [address] [place] [address] PCP - General Internal Medicine 06/16/18 Richard Meyer MD [address] [place] [address] Primary Staff Physician Cardiology 05/27/18 Pipe Caulker Relationship Specialty Start Date End Date Nadine Mcgraw DO [address] [place] [address] PCP - General Internal Medicine 06/16/18 Richard Meyer MD [address] [place] [address] Primary Staff Physician Cardiology 05/27/18 Pipe Caulker Relationship Specialty Start Date End Date Nadine Mcgraw DO [address] [place] [address] PCP - General Internal Medicine 06/16/18 Richard Meyer MD [address] [place] [address] Primary Staff Physician Cardiology 05/27/18 Pipe Caulker Relationship Specialty Start Date End Date Nadine Mcgraw DO [address] [place] [address] PCP - General Internal Medicine 06/16/18 Richard Meyer MD [address] [place] [address] Primary Staff Physician Cardiology 05/27/18 Pipe Caulker Relationship Specialty Start Date End Date Nadine Mcgraw DO [address] [place] [address] PCP - General Internal Medicine 06/16/18 Richard Meyer MD [address] [place] [address] Primary Staff Physician Cardiology 05/27/18 Team Status: Active Member Role/Relationship Status Dates Dr. Nadine Mcgraw DO Primary Care Provider Active Team Status: Inactive Member Role/Relationship Status Dates Dr. Nadine Mcgraw DO Primary Care Provider Active Start: September 08, 2024 Dr. Kristi Burk MD Attending Provider Active Start: September 08, 2024 Team Status: Inactive Member Role/Relationship Status Dates Dr. Nadine Mcgraw DO Primary Care Provider Active Start: October 01, 2024 End: October 01, 2024 Dr. Nadine Mcgraw DO Attending Provider Active Start: October 01, 2024 End: October 01, 2024 Dr. Nadine Mcgraw DO Referring Provider Active Start: October 01, 2024 End: October 01, 2024 Goals (unrecognized section and content) Goals may be documented in a n alternate sectionGoals may be documented in an alternate section INFORMATION SOURCE (unrecogn ized section and content) DATE CREATED AUTHOR 02/06/2022 [facility] DATE CREATED AUTHOR AUTHOR'S ORGANSLADE ATION 05/10/2023 [facility] DATE CREATED AUTHOR AUTHOR'S ORGANIZ ATION 10/08/2024 [facility] FOR RECORDS PERTAINING TO PATIENTS WHO ARE OR HAVE BEEN ENROLLED IN A CHEMICAL DEPENDENCY/SUBSTANCEABUSE PROGRAM, SOME INFORMATION MAY BE OMITTED. This clinical summary was aggregated from multiple sources. Caution should be exercised in using it in the provision of clinical care. This summary normalizes information from multiple sources, and as a consequence, information in this document may materially change the coding, format and clinical context of patient data. In addition, data may be omitted in some cases. CLINICAL DECISIONS SHOULD BE BASED ON THE PRIMARY CLINICAL RECORDS. [facility]. provides no warranty or guarantee of the accuracy or completeness of information in this document.
[2024-10-24 16:10] VITALS: BP 136/79; PULSE 62; RESP 16; TEMP 35.7; O2SAT 100
== END 2024-10-24 16:29 | disposition home or self-care (01) ==
PROVIDERS: Emergency Provider Emergency Medicine; PCP Internal Medicine; Visit Provider Emergency Medicine
DX: S39.012A Strain of muscle, fascia and tendon of lower back, initial encounter (principal); X50.1XXA Overexertion from prolonged static or awkward postures, initial encounter
CPT/HCPCS: 96374; 96375; 99283; A4216; J2405

== ENCOUNTER 2025-01-11 17:00 | Outpatient (RCR) | payer OTHER, SELFPAY ==
--- NOTE | 2024-12-07 18:03 | HP.PTEVAL ---
Patient's Visit Information Visit Information Visit Information: TRU HOLBROOK is a 54 year old F referred to Physical Therapy by Dr. Nadine Villa DO with a diagnosis of LOW/UPPER BACK M. SPASM W/ TILTED PELVIS. Date of Evaluation: 12/07/24 Physical Therapist: Marsha Brandon PT, Cert MDT Visit Plan Frequency: 2x /Week Duration: 6-8 WKS Plan: POSTURE CORRECTION/STRENGTHENING, INSTRUCTION IN APPROPRIATE BODY MECHANICS AND ACTIVITY MODIFICATIONS. DLS STARTING WITH A NEUTRAL SPINE PROGRESSING ROM TOLERATED. SHERON UE AND LE ROM, STRETCHING AND STRENGTHENING. 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. Disability: NO Present symptoms: SHERON LOW BACK/HIP PAIN R>L. MID AND UPPER BACK AND NECK/SHERON SHLD PAIN ALONG WITH HEADACHES. INTERMITTENT R UE NUMBNESS AND TINGLING TO FINGERS. DENIES SHERON LE PAIN, NUMBNESS AND TINGLING. R HAND DOMINANT. DENIES DROPPING THINGS WITH R UE. PATIENT REPORTS SHE HAS A HISTORY OF PELVIC FLOOR DYSFUNCTION AND HAS HAD PELVIC FLOOR THERAPY IN 2021 BUT SHE IS HERE FOR WHAT HAPPENED TO HER BACK LAST MONTH. Present since: OCT 24 2024 Pain Scale: WORST 5/10, LEAST 3/10 Currently: 5/10 Is it getting better, worse or staying the same: STAYING THE SAME Commenced as a result of: BENT OVER ON THE PATIO - STRETCHED DOWN TO ADJUST VOLUME ON A RADIO AND FELT SOMETHING SNAP IN R LOW BACK AND FELT INSTANT SEVERE PAIN. STAYED ON KNEES ON PATIO. WAS CARRIED TO VEHICLE BY SON'S AND TAKEN TO ED. Worse: THE PROGRESS'S, PROLONGED STANDING, DOING DISHES, COOKING, MOVING, BENDING, TEACHING, PROLONGED SITTING, TRYING SLEEP IN BED Better: HEATING PAD, IBUPROFEN, CHIROPRACTIC Disturbed sleep: YES PATIENT DENIES DIZZINESS, NAUSEA, TINNITUS, AND DIFFICULTY SWOLLOWING. Previous history/Previous treatment: NO BACK SURGERY, NO BACK INJECTIONS, NO PRIOR BACK PT AND NO PRIOR BACK ISSUES BUT DID SEE A CHIROPRACTOR 4 YEARS AGO FOR L HIP AND R KNEE PROBLEMS. Treatment this episode: CHIROPRACTOR X 3 VISITS, PREDNISONE X 5 DAYS (COMPLETED SATURDAY) WITH NE, MORPHINE AND HYDROCODONE IN ED AT TIME OF ONSET. Coughing/sneezing/straining: NEGATIVE FOR INCREASED PAIN. Gait: WALKING SLOWLY AND GINGERLY. TIME AND DISTANCE LIMITED COMPARED TO NORMAL. BY EVENING SOMETIMES LIMPING ON R LE. Bowel or Bladder Dysfunction: NO CHANGE SINCE ONSET OF THIS INCIDENT. STRESS INCONTINENCE - HAS HEP FROM PELVIC FLOOR PT IN 2021. Accidents: NO Unexplained weight loss: NO Imaging: NO LUMBAR X-RAY OR MRI SINCE ONSET OF THIS INJURY PMH/Recent major surgery: CARDIOMYOPATHY. Objective Objective: Sitting/Standing Posture: L ILIAC CREST HIGHER THAN R. NO RELEVANT LATERAL LUMBAR SHIFT. FH. RSH'S. NO TORTICOLLIS. PATIENT IS SLOUCHED IN SITTING AND STANDS IN ANTERIOR PELVIC TILT. Other Observations: THIS PATIENT AMBULATES INDEP'LY INTO PT WITHOUT ANY AD'S OR LOB WITH FAIR CADANCE. SHE IS ABLE TO INDEP'LY TRANSFER FROM SIT TO STAND WITHOUT UE ASSIST. Sensory deficit: SHERON UE AND LE LIGHT TOUCH SENSATION IS GROSSLY INTACT AND SYMMETRICAL ROM deficit: DECREASED SHERON SHLD ELEVATION: R 138 DEG FLEX, L 143 DEG FLEX WITH C/O ERP R. SHERON HIP FLEXOR, HS AND CALF TIGHTNESS Motor deficit: R SHLD FLEX 4/5, ABD 4/5, ER 4/5, IR 5/5, ELBOW 5/5, JUDICIAL CLERK 48 LBS. L SHLD FLEX 4/5, ABD 4/5, ER 4/5, IR 5/5, ELBOW 5/5, JUDICIAL CLERK 45 LBS. R HIP 4-/5, KNEE EXT 4/5, KNEE FLEX 5/5, ANKLE 5/5. L HIP 4/5, KNEE EXT 4/5, KNEE FLEX 5/5, ANKLE 5/5. Reflexes: SHERON UE AND LE DTR'S 2+ Dural Signs: NEGATIVE SHERON LE'S. CERVICAL MVMT LOSS: FLEX - NIL PRO - NIL EXT - MIN RET - MOD SHERON SB - MOD R ROT - MIN L ROT - MOD PATIENT DENIES PAIN WITH CERVICAL ROM TESTING ALL PLEANES. Lumbar mvmt loss: flex - MIN ext - MOD R SG - MOD L SG - MIN PATIENT DENIES INCREASED PAIN WITH LUMBAR ROM TESTING ALL PLANES. Core strength: FAIR Balance/Special Test Scores Oswestry Low Back Score: 21 Goals Goal 1:: DECREASE C/O NECK, BACK AND EXTREMITY SX'S BY AT LEAST 75% TO EASE ADL'S Goal Time Frame: 6-8 Weeks Goal 2:: IMPROVE BENDING, LIFTING, WALKING, STANDING, SITTING, SLEEP, SOCIAL LIFE, TRAVEL AND WORK FUNCTION WITH AT LEAST 10 POINT IMPROVEMENT IN BACK OSWESTY SCORE Goal Time Frame: 6-8 Weeks Goal 3:: INSTRUCT IN PROPHYLAXIS Goal Time Frame: 6-8 Weeks Rehabilitation Potential Physical Therapy Diagnosis: POSTURAL AND CORE WEAKNESS WITH SHLD AND LE STIFFNESS AND WEAKNESS ALONG WITH PAIN SINCE 10/24/24 LIMITING NORMAL ADL'S. Rehabilitation Potential: Good Anticipated Interventions Patient/Client Instruction: Educate patient on: Condition, Plan of Care and Risk Factors For the Purpose of:: To improve self management Therapeutic Exercise to Include: Strength training, Body mechanics, Postural training, Flexibilty training, Neuromotor development, "In an aquatic setting", Dynamic Lumbar Stabilization and Scapular Strength/Stabilization For the Purpose of:: To decrease pain, To improve muscle performance and motor function, To improve ability to perform ADL's, To increase tolerance to activity/condition/position, To improve ability of physical actions for home/community/work/leisure, To increase flexibility/ROM and To improve self management Cryotherapy (ice pack, ice massage): Yes Thermo therapy (hot pack): Yes Ultrasound (thermal/non thermal): Yes For the Purpose of:: To decrease pain, To decrease swelling/inflammation and To improve nutrient delivery to tissue Text: Thank you for the opportunity to evaluate your patient. For Medicare and Medicare HMO plans, please review the plan of care and approve it. It will need to be FAXED BACK to us at [phone] for Medicare purposes. For Medicare only, by signing this I certify the plan of care. Please let me know if there are questions or concerns regarding this plan of care. Physician Signature: Date:
--- NOTE | 2025-01-11 17:56 | HP.PTDCSUM ---
Discharge Summary D/C summary: It has been my pleasure to treat TRU HOLBROOK referred by Dr. Nadine Villa DO, with the diagnosis of LOW/UPPER BACK M. SPASM W/ TILTED PELVIS for a total of 9 visit(s). Discharge Date: 01/11/25 Please see the following information for a summary of their discharge status. Subjective Subjective: PATIENT STATES "IT'S ALL WORKING". SHE REPORTS THE NEW EX'S ARE MAKING A BIG DIFFERENCE. SHE REPORTS IT HAS BEEN OVER A WEEK WITHOUT A LEWIS - EVEN AT THE END OF THE DAY. PATIENT REPORTS 95% BETTER AND THE 5% IS ONLY A "LITTLE WORRY". SHE REPORTS SHE NEVER WANTS THAT PAIN TO HAPPEN AGAIN. SHE REPORTS SHE IS STILL CAREFUL WHEN SHE BENDS AND TWISTS. SHE REPORTS SHE ACTUALLY GOT HER PICKLE BALL RACQUET OUT AND HIT THE BALL AGAINST THE GARAGE DOOR. Pain HEADACHE: Pain Intensity (Out of 10): 0 NECK: Pain Intensity (Out of 10): 0 UPPER BACK: Pain Intensity (Out of 10): 0 LOW BACK: Pain Intensity (Out of 10): 0 R UE: Pain Intensity (Out of 10): 0 Overall Improvement % Improvement: 95 Objective Objective/Function: PATIENT WAS SEEN TODAY FOR RE-ASSESSMENT OF PROGRESS TOWARD THE SET PT GOALS AND THE NEED FOR FURTHER PHYSICAL THERAPY VS READINESS FOR DISCHARGE. THIS PATIENT HAS DONE REALLY WELL WITH PT AND ALL GOALS HAVE BEEN MET. SHE IS INDEP WITH A HEP AND IS APPROPRIATE FOR AND AGREEABLE TO DISCHARGE. Goals Goal 1:: DECREASE C/O NECK, BACK AND EXTREMITY SX'S BY AT LEAST 75% TO EASE ADL'S Goal Progress: Goal Met Goal 2:: IMPROVE BENDING, LIFTING, WALKING, STANDING, SITTING, SLEEP, SOCIAL LIFE, TRAVEL AND WORK FUNCTION WITH AT LEAST 10 POINT IMPROVEMENT IN BACK OSWESTY SCORE Goal Progress: Goal Met Goal 3:: INSTRUCT IN PROPHYLAXIS Goal Progress: Goal Met Plan Plan: D/C TO INDEP EX. PATIENT AGREEABLE. D/C Information d/c sentence: If there are questions or concerns regarding this patient's physical therapy, please feel free to call me at [phone]. Thank you for the referral of this patient. Sincerely, Marsha Brandon, PT, Cert MDT Balance/Gait/Functional tests Balance/Special Test Scores Oswestry Low Back Score: 0 Improvement % Improvement: 95
== END 2025-01-11 19:00 | disposition home or self-care (01) ==
LOC: PT 17:00
PROVIDERS: PCP Internal Medicine; Referring Provider Internal Medicine; Visit Provider Internal Medicine
DX: M62.830 Muscle spasm of back (principal)
CPT/HCPCS: 97035; 97110; 97140; 97162; 97530